=== PATIENT | female | born 1940 | race Caucasian/White ===

== ENCOUNTER 2016-10-14 16:55 | Inpatient (IN) | payer OTHER, BC ==
[2016-10-14] MEDS ORDERED: SODIUM CHLORIDE 250 ML IV STA (17:02)
[2016-10-14] MEDS ORDERED: ONDANSETRON 4 MG/2 ML VIAL IVPB ONE (17:02)
--- NOTE | 2016-10-14 17:02 | PDOC ---
History of Present Illness - History of Present Illness Initial Comments: 10/14/16 18:06 The patient is a 76 year old female with a PMHx of COPD, HTN, HLD, ventral hernia who presents to the ED with periodic vomiting for a week. The patient reports that she recently was prescribed pain medications for cysts on her left hip a little over a week ago. She reports that since then, she has had occasional episodes of vomiting. She states her vomit is only liquid, and denies blood in vomit. She reports associated constipation, chills, and diaphoresis. She reports decreased appetite and increased thirst. Her last bowel movement was yesterday. She denies sick contacts, recent travel. She denies adominal pain. She denies chest pain. She denies fever. <Aparna Gaston - Last Filed: 10/14/16 18:06> <Jordon Martins - Last Filed: 10/15/16 07:31> - General Chief Complaint: Nausea/Vomiting Stated Complaint: NAUSEA, VOMITING Time Seen by Provider: 10/14/16 17:01 Past History <Aparna Gaston - Last Filed: 10/14/16 18:06> - Past Medical History COPD: Yes (COPD) GI Disorders: Yes (VENTRAL HERNIA) HTN: Yes Hypercholesterolemia: Yes - Surgical History Abdominal Surgery: Yes (STOMACH STAPLING 1984) Appendectomy: Yes Orthopedic Surgery: Yes (bilateral knee replacement) - Psycho/Social/Smoking Cessation Hx Anxiety: Yes Suicidal Ideation: No Smoking Status: Yes Smoking History: Former smoker Have you smoked in the past 12 months: No Number of Cigarettes Smoked Daily: 0 If you are a former smoker, when did you quit?: 25-30 years Hx Alcohol Use: No Drug/Substance Use Hx: No Substance Use Type: None Hx Substance Use Treatment: No <Jordon Martins - Last Filed: 10/15/16 07:31> - Past Medical History Allergies/Adverse Reactions: Allergies Allergy/AdvReac Type Severity Reaction Status Date / Time No Known Allergies Allergy Verified 10/14/16 17:30 Home Medications: Ambulatory Orders Diltiazem HCl [Cardizem] 120 mg PO DAILY 07/25/12 Lisinopril [Prinivil] 20 mg PO DAILY 04/09/14 Spironolactone 25 mg PO DAILY 04/09/14 Albuterol 0.083% Nebulizer Isabella [Ventolin 0.083% Nebulizer Soln -] 1 neb NEB Q4H PRN 09/16/15 Budesonide/Formeterol Fumarate [SYMBICORT 160/4.5mcg -] 2 puff IH BID #0 inhaler 09/25/15 Roflumilast [Daliresp -] 500 mcg PO DAILY #0 tablet 09/25/15 Aclidinium [place] [Tudorza Pressair] 400 mcg IH ASDIR 10/14/16 Alprazolam 0.25 mg PO PRN PRN 10/14/16 Azelastine HCl 10/14/16 Hydromorphone [Dilaudid -] 1 - 2 mg PO ASDIR PRN 10/14/16 Meloxicam [Mobic] 15 mg PO DAILY 10/14/16 Montelukast Na [Singulair -] 20 mg PO DAILY 10/14/16 Tramadol HCl 50 mg PO PRN PRN 10/14/16 Review of Systems - Review of Systems Comments:: 10/14/16 18:06 CONSTITUTIONAL: Present: chills, diaphoresis, loss of appetite Absent: fever, generalized weakness, malaise HEENT: Absent: rhinorrhea, nasal congestion, throat pain, throat swelling, difficulty swallowing, mouth swelling, ear pain, eye pain, visual changes CARDIOVASCULAR: Absent: chest pain, syncope, palpitations, irregular heart rate, lightheadedness , peripheral edema RESPIRATORY: Absent: cough, shortness of breath, dyspnea with exertion, orthopnea, wheezing, stridor, hemoptysis GASTROINTESTINAL: Present: vomiting, constipation Absent: abdominal pain, diarrhea, melena, hematochezia GENITOURINARY: Absent: dysuria, frequency, urgency, hesitancy, hematuria, flank pain, genital pain MUSCULOSKELETAL: Present: hip pain Absent: myalgia, arthralgia, joint swelling SKIN: Absent: rash, itching, pallor HEMATOLOGIC/IMMUNOLOGIC: Absent: easy bleeding, easy bruising, lymphadenopathy, frequent infections ENDOCRINE: Absent: unexplained weight gain, unexplained weight loss, heat intolerance, cold intolerance NEUROLOGIC: Absent: headache, focal weakness or paresthesias, dizziness, unsteady gait, seizure, mental status changes, bladder or bowel incontinence PSYCHIATRIC: Absent: anxiety, depression, suicidal or homicidal ideation, hallucinations. <Aparna Gaston - Last Filed: 10/14/16 18:06> *Physical Exam - Vital Signs Last Vital Signs Temp Pulse Resp BP Pulse Ox 98.7 F 114 H 20 103/49 96 10/14/16 16:55 10/14/16 16:55 10/14/16 16:55 10/14/16 16:55 10/14/16 16:55 - Physical Exam Comments: 10/14/16 18:07 GENERAL: Well developed, well nourished. Awake and alert. No acute distress. HEENT: Normocephalic, atraumatic. PERRLA, EOMI. No conjunctival pallor. Sclera are non- icteric. Moist mucous membranes. Oropharynx is clear. NECK: Supple. Full ROM. No JVD. Carotid pulses 2+ and symmetric, without bruits. No thyromegaly. No lymphadenopathy. CARDIOVASCULAR: Tachycardic rate and regular rhythm. No murmurs, rubs, or gallops. Distal pulses are 2+ and symmetric. PULMONARY: Expiratory wheezing in the right. Left lung lee are clear. ABDOMINAL: Obese belly. Well healed midline surgical scar from gastric stapling. Large ventral hernia, non-tender, active bs within the hernia sac. Soft. Non-tender. No rebound or guarding. No organomegaly. Positive bowel sounds. MUSCULOSKELETAL Normal range of motion at all joints. No bony deformities or tenderness. No CVA tenderness. EXTREMITIES: Decreased ROM in right hip. No cyanosis. No clubbing. No edema. No calf tenderness. SKIN: Warm and dry. Normal capillary refill. No rashes. No jaundice. NEUROLOGICAL: Alert, awake, appropriate. Cranial nerves 2-12 intact. No deficits to light touch and temperature in face, upper extremities and lower extremities. No motor deficits in the in face, upper extremities and lower extremities. Normoreflexic in the upper and lower extremities. Normal speech. PSYCHIATRIC: Cooperative. Good eye contact. Appropriate mood and affect. <Aparna Gaston - Last Filed: 10/14/16 18:06> ED Treatment Course - LABORATORY CBC & Chemistry Diagram: 10/14/16 17:16 10/14/16 17:00 - ADDITIONAL ORDERS Additional order review: Laboratory Results 10/14/16 10/14/16 17:00 17:00 Sodium Cancelled Potassium Cancelled Chloride Cancelled Carbon Dioxide Cancelled Anion Gap Cancelled BUN Cancelled Creatinine Cancelled Creat Clearance w eGFR Cancelled Random Glucose Cancelled Calcium Cancelled Total Bilirubin Cancelled AST Cancelled ALT Cancelled Alkaline Phosphatase Cancelled Creatine Kinase 77 Troponin I < 0.03 L Total Protein Cancelled Albumin Cancelled Lipase Cancelled 10/14/16 17:16 RBC 3.60 MCV 83.4 MCHC 32.5 RDW 14.6 MPV 8.7 Neutrophils % Y Lymphocytes % Y - Medications Given in the ED: ED Medications Discontinued Medications Generic Name Dose Route Start Last Admin Trade Name Kevinq PRN Reason Stop Dose Admin Sodium Chloride 250 mls @ 500 mls/hr 10/14/16 17:02 10/14/16 17:23 Normal Saline - IV 10/14/16 17:31 500 mls/hr ASDIR STA Administration Ondansetron HCl 4 mg 10/14/16 17:02 10/14/16 17:23 Zofran Injection IVPB 10/14/16 17:03 4 mg ONCE ONE Administration <Aparna Gaston - Last Filed: 10/14/16 18:06> - LABORATORY CBC & Chemistry Diagram: 10/14/16 17:16 10/14/16 17:05 <Jordon Martins - Last Filed: 10/15/16 07:31> Medical Decision Making - Medical Decision Making 10/15/16 07:28 Although the patient appears well and there is no obvious source of infection, white blood count of 20.9 is worrisome. Also, BUNs 78 and creatinine of 2.4 is significantly worse than her last available blood screen from November 2015, at which time the urine was 39 and creatinine 1.4. The etiology of the daily nausea and retching could be her recent use of hydromorphone and meloxicam for her arthritis pain, or alternately her azotemia if this is new. Blood cultures, urine culture, chest x-ray, and serum lactate were ordered. IV fluid was judiciously started. She was signed out to Dr. Tavarez at 7 PM pending further results, reevaluation, and treatment. She has been completely stable hemodynamically and clinically. <Jordon Martins - Last Filed: 10/15/16 07:31> *DC/Admit/Observation/Transfer - Attestations Scribe Attestion: 10/14/16 18:07 Documentation prepared by Aparna Gaston, acting as medical record clerk for Jordon Cabrera MD. <Aparna Gaston - Last Filed: 10/14/16 18:06> <Jordon Martins - Last Filed: 10/15/16 07:31> Diagnosis at time of Disposition: Pneumonia, Azotemia - Discharge Dispostion Condition at time of disposition: Stable
[2016-10-14] MEDS ORDERED: ONDANSETRON 4 MG/2 ML VIAL ONE (17:20)
[2016-10-14 17:41] LABS: MCH 27.1 pg (25.7-33.7); MCHC 32.5 g/dl (32.0-36.0); MEAN CELL VOLUME 83.4 fl (80-96); MEAN PLT VOLUME 8.7 fl (7.5-11.1); PLATELET COUNT 320 K/MM3 (134-434); RDW 14.6 % (11.6-15.6); WHITE BLOOD COUNT 20.9 K/mm3 (4.0-10.8)
[2016-10-14 17:45] LABS: CPK(DFH) 77 IU/L (26-140)
[2016-10-14 17:58] LABS: TROPONIN I (DFP) < 0.03 ng/ml (0.03-0.50)
[2016-10-14 18:18] LABS: ALBUMIN 3.4 g/dl (3.5-5.0); ALK PHOS 74 U/L (32-92); ANION GAP 13 (8-16); BILIRUBIN,TOTAL 0.5 mg/dl (0.2-1.0); CALCIUM 8.9 mg/dl (8.4-10.2); CO2 20 mmol/L (22-28); CREATININE 2.8 mg/dl (0.6-1.3); GLUCOSE,RANDOM 124 mg/dl (74-106); SGOT/AST 17 U/L (10-42); SGPT/ALT 13 U/L (10-40); TOT PROT 6.6 g/dl (6.4-8.3)
[2016-10-14] MEDS ORDERED: SODIUM CHLORIDE 500 ML IV ONE (19:16)
--- NOTE | 2016-10-14 19:22 | PDOC ---
*Physical Exam - Vital Signs Last Vital Signs Temp Pulse Resp BP Pulse Ox 98.7 F 114 H 20 103/49 96 10/14/16 16:55 10/14/16 16:55 10/14/16 16:55 10/14/16 18:45 10/14/16 16:55 ED Treatment Course - LABORATORY CBC & Chemistry Diagram: 10/14/16 17:16 10/14/16 17:05 - ADDITIONAL ORDERS Additional order review: Laboratory Results 10/14/16 10/14/16 10/14/16 17:05 17:00 17:00 Sodium 133 L Cancelled Potassium 5.6 H Cancelled Chloride 100 Cancelled Carbon Dioxide 20 L D Cancelled Anion Gap 13 Cancelled BUN 78 H D Cancelled Creatinine 2.8 H D Cancelled Creat Clearance w eGFR 16.47 Cancelled Random Glucose 124 H Cancelled Calcium 8.9 Cancelled Total Bilirubin 0.5 Cancelled AST 17 D Cancelled ALT 13 D Cancelled Alkaline Phosphatase 74 D Cancelled Creatine Kinase 77 Troponin I < 0.03 L Total Protein 6.6 Cancelled Albumin 3.4 L Cancelled Lipase 34 Cancelled 10/14/16 17:16 RBC 3.60 MCV 83.4 MCHC 32.5 RDW 14.6 MPV 8.7 Neutrophils % 90.0 H Lymphocytes % 5.0 L D Monocytes % 3.0 L Eosinophils % 1.0 D Basophils % 1.0 D - Medications Given in the ED: ED Medications Discontinued Medications Generic Name Dose Route Start Last Admin Trade Name Freq PRN Reason Stop Dose Admin Sodium Chloride 250 mls @ 500 mls/hr 10/14/16 17:02 10/14/16 17:23 Normal Saline - IV 10/14/16 17:31 500 mls/hr ASDIR STA Administration Ondansetron HCl 4 mg 10/14/16 17:02 10/14/16 17:23 Zofran Injection IVPB 10/14/16 17:03 4 mg ONCE ONE Administration Progress Note - Progress Note Progress Note: Care of this patient received from Dr. Hernandez.. Portable chest x-ray interpreted by : Atelectasis versus infiltrate at the right base. Because of patient's history of COPD and previous history of pneumonia, we will treat with azithromycin 500 mg IV and Rocephin 1 g IV. Blood cultures have been obtained. Heart rate continues to be in 120s. Patient is current.y experiencing lower back pain and has been given Tylenol 650 mg by mouth. She may also be hypovolemic in light of her elevated BUN/creatinine. Patient has received approximately 750 mL of IV fluid during her stay in the ER thus far.. An additional 350 milliliters of fluid will be given IV in her antibiotic doses. Case discussed with the patient's PMD, . He will admit the patient for treatment of her pneumonia/azotemia. *DC/Admit/Observation/Transfer Diagnosis at time of Disposition: Azotemia Pneumonia Qualifiers: Pneumonia type: due to unspecified organism Laterality: right Lung location: lower lobe of lung Qualified Code(s): J18.1 - Lobar pneumonia, unspecified organism - Discharge Dispostion Condition at time of disposition: Stable Admit: Yes - Referrals Referrals: Roberto Roberts MD [Primary Care Provider] - - Patient Instructions - Post Discharge Activity
[2016-10-14] MEDS ORDERED: AZITHROMYCIN IVPB 500 MG in DEXTROSE 5%-WATER - 250 ML IVPB ONE (20:02)
[2016-10-14] MEDS ORDERED: CEFTRIAXONE 1 GM in DEXTROSE 5%-WATER - 50 ML IVPB ONE (20:03)
[2016-10-14] MEDS ORDERED: AZITHROMYCIN 500 MG VIAL IVPB ONE (20:04)
[2016-10-14] MEDS ORDERED: cefTRIAXone SODIUM 1 GM VIAL ONE (20:04)
[2016-10-14] MEDS ORDERED: ACETAMINOPHEN 325 MG TABLET (FP) PO ONE (20:15)
[2016-10-14] MEDS ORDERED: ACETAMINOPHEN 325 MG TABLET (FP) ONE (20:16)
--- NOTE | 2016-10-14 23:30 | HP ---
Admitting History and Physical - Primary Care Physician PCP: Roberto Roberts - Admission Chief Complaint: Nausea and vomiting History of Present Illness: 76 y/o female with hx of COPD, HTN, CHF and ARABELLA, presented to the [facility] ER with several day hx of nausea and vomiting, with mild worsening of cough. Denies fever/chills or worsening dyspnea. However, having worsening LBP over the last week without any new trauma. Recently placed on Dilaudid and Mobic Rx by her Orthopedist which coincides with the onset of the nausea and vomiting. Noted to have a marked leukocytosis on CBC, and RLL infiltrate on CXR. Also, a worsening azotemia noted as well on routine laboratory testing. No chest pain, worsening wheezing or increased sputum production. Patient her COPD status is almost baseline. History Source: Patient Limitations to Obtaining History: No Limitations - Past Medical History Cardiovascular: Yes: CHF, HTN Pulmonary: Yes: COPD, Pneumonia Gastrointestinal: Yes: GERD - Past Surgical History Past Surgical History: Yes: Appendectomy, Cataract Removal Additional Past Surgical History: Gastric stapling - Smoking History Smoking history: Former smoker Have you smoked in the past 12 months: No Aproximately how many cigarettes per day: 0 If you are a former smoker, when did you quit?: 25-30 years - Alcohol/Substance Use Hx Alcohol Use: No - Social History Usual Living Arrangement: Yes: Alone (Two family home-son lives in other part of the house.) ADL: Independent History of Recent Travel: No Home Medications - Allergies Allergies/Adverse Reactions: Allergies Allergy/AdvReac Type Severity Reaction Status Date / Time No Known Allergies Allergy Verified 10/14/16 17:30 - Home Medications Home Medications: Ambulatory Orders Diltiazem HCl [Cardizem] 120 mg PO DAILY 07/25/12 Lisinopril [Prinivil] 20 mg PO DAILY 04/09/14 Spironolactone 25 mg PO DAILY 04/09/14 Albuterol 0.083% Nebulizer Isabella [Ventolin 0.083% Nebulizer Soln -] 1 neb NEB Q4H PRN 09/16/15 Budesonide/Formeterol Fumarate [SYMBICORT 160/4.5mcg -] 2 puff IH BID #0 inhaler 09/25/15 Roflumilast [Daliresp -] 500 mcg PO DAILY #0 tablet 09/25/15 Aclidinium [place] [Tudorza Pressair] 400 mcg IH ASDIR 10/14/16 Alprazolam 0.25 mg PO PRN PRN 10/14/16 Azelastine HCl 10/14/16 Hydromorphone [Dilaudid -] 1 - 2 mg PO ASDIR PRN 10/14/16 Meloxicam [Mobic] 15 mg PO DAILY 10/14/16 Montelukast Na [Singulair -] 20 mg PO DAILY 10/14/16 Tramadol HCl 50 mg PO PRN PRN 10/14/16 Physical Examination Vital Signs: Vital Signs Temperature 98.8 F 10/14/16 21:13 Pulse Rate 114 H 10/14/16 21:13 Respiratory Rate 28 H 10/14/16 21:13 Blood Pressure 99/52 10/14/16 21:13 O2 Sat by Pulse Oximetry (%) 95 10/14/16 21:13 Constitutional: Yes: Well Nourished, No Distress Eyes: Yes: WNL HENT: Yes: WNL Neck: Yes: WNL, Supple, Trachea Midline Respiratory: Yes: Diminished, Rhonchi, Wheezes Gastrointestinal: Yes: Normal Bowel Sounds, Soft, Other (ventral hernia) ...Rectal Exam: Yes: Deferred Renal/: Yes: WNL Breast(s): Yes: WNL Musculoskeletal: Yes: Joint Stiffness, Other (Decreased ROM R hip) Edema: No Peripheral Pulses: Left Radial: 2+, Right Radial: 2+, Left Doralis Pedis: 1+, Right Dorsalis Pedis: 1+, Left Femoral: 1+, Right Femoral: 1+ Integumentary: Yes: WNL Neurological: Yes: Alert, Oriented, Cran Nerves II-XII Intact Labs: CBC, BMP 10/14/16 17:16 Lactic acid-2 .38 Lipase-34 10/14/16 17:05 Troponin-<0.03 Imaging - Results X-ray: Image Reviewed (RLL infitrate vs atelectasis) Problem List - Problems (1) Azotemia Code(s): R79.89 - OTHER SPECIFIED ABNORMAL FINDINGS OF BLOOD CHEMISTRY (2) Pneumonia Code(s): J18.9 - PNEUMONIA, UNSPECIFIED ORGANISM Qualifiers: Pneumonia type: due to unspecified organism Laterality: right Lung location: lower lobe of lung Qualified Code(s): J18.1 - Lobar pneumonia, unspecified organism (3) COPD exacerbation Code(s): J44.1 - CHRONIC OBSTRUCTIVE PULMONARY DISEASE W (ACUTE) EXACERBATION (4) HTN (hypertension) Code(s): I10 - ESSENTIAL (PRIMARY) HYPERTENSION Qualifiers: Hypertension type: essential hypertension Qualified Code(s): I10 - Essential (primary) hypertension Assessment/Plan 1)-IV antibiotics-Rocephin and Zithromax 2)-IV fluid at slow rate for "gentle rehydration" secondary to CHF history 3)-Serial laboratory testing for leukocytosis and azotemia 4)-ID evaluation 5)-VTE prophylaxis 6)-COPD exacerbation treatment as needed
[2016-10-14 23:49] VITALS: BMI 32.9
[2016-10-15] MEDS ORDERED: LISINOPRIL 20 MG TABLET (FP) PO ONE (00:04)
[2016-10-15] MEDS ORDERED: ONDANSETRON 8 MG TABLET (FP) PO PRN (00:12)
[2016-10-15] MEDS: SODIUM CHLORIDE 1,000 ML IV SCH (00:50)
[2016-10-15] MEDS: ALPRAZolam 0.25 MG TABLET PO PRN ×2 (00:50→22:14)
[2016-10-15 04:28] LABS: URINE APPEARANCE SLCLOUDY; URINE BILIRUBIN NEGATIVE (NEGATIVE); URINE BLOOD NEGATIVE (NEGATIVE); URINE COLOR YELLOW; URINE GLUCOSE (UA) NEGATIVE (NEGATIVE); URINE KETONE NEGATIVE (NEGATIVE); URINE NITRITE NEGATIVE (NEGATIVE); URINE PROTEIN NEGATIVE (NEGATIVE); URINE UROBILINOGEN NEGATIVE E.U./dl (0.2-1.0)
[2016-10-15 04:30] LABS: URINE LEUK ESTERASE 1+ (NEGATIVE)
[2016-10-15 04:32] LABS: GRANULAR CASTS 16 /lpf; URINE BACTERIA RARE /hpf (NONE SEEN); URINE HYALINE CAST 38 /lpf; URINE MUCUS RARE; URINE RBC 1 /hpf (0-3); URINE WBC 4 /hpf (3-5)
[2016-10-15 08:42] LABS: BASOPHIL 0.4 % (0-2.0); EOSINOPHIL 0.3 % (0-4.5); MCHC 32.5 g/dl (32.0-36.0); MEAN CELL VOLUME 86.2 fl (80-96); MEAN PLT VOLUME 8.6 fl (7.5-11.1); NEUTROPHILS 87.5 % (42.8-82.8); PLATELET COUNT 271 K/MM3 (134-434); RDW 14.5 % (11.6-15.6); WHITE BLOOD COUNT 20.7 K/mm3 (4.0-10.8)
[2016-10-15 08:49] LABS: ALBUMIN 2.9 g/dl (3.5-5.0); ALK PHOS 65 U/L (32-92); ANION GAP 11 (8-16); CALCIUM 8.8 mg/dl (8.4-10.2); CO2 22 mmol/L (22-28); CREATININE 2.3 mg/dl (0.6-1.3); GLUCOSE,RANDOM 97 mg/dl (74-106); SGOT/AST 15 U/L (10-42); SGPT/ALT 10 U/L (10-40); TOT PROT 5.7 g/dl (6.4-8.3)
[2016-10-15] MEDS: cefTRIAXone 1 GM/50 ML BAG (PRE-DOCKED) IVPB SCH (09:00)
[2016-10-15 09:09] LABS: BILIRUBIN,TOTAL < 0.3 mg/dl (0.2-1.0)
[2016-10-15] MEDS ORDERED: PT OWN MED DRAWER 7, Y5N ONE (09:59)
[2016-10-15] MEDS: BUDESONIDE/FORMETEROL FUMARATE 160/4.5 mcg INHALER IH SCH ×2 (10:00→21:51)
[2016-10-15] MEDS: AZITHROMYCIN IVPB 250 ML IVPB SCH (10:00)
[2016-10-15] MEDS: ROFLUMILAST 500 MCG TABLET PO SCH (10:00)
[2016-10-15] MEDS: ACLIDINIUM BROMIDE 400 MCG/INH AERO.POWD IH SCH ×2 (10:00→21:51)
[2016-10-15] MEDS: SPIRONOLACTONE 25 MG TABLET (FP) PO SCH (10:00)
--- NOTE | 2016-10-15 11:09 | PN ---
Progress Note (short form) - Note Progress Note: ID Consult dictated Acute exacerbation COPD Possible community acquired v. atypical pneumonia Leukocytosis Azotemia Await c/s Continue zithromax/ ceftriaxone empirically Bronchodilators
--- NOTE | 2016-10-15 11:51 | CONS ---
DATE OF CONSULTATION: DATE OF DICTATION: 10/15/2016 HISTORY OF PRESENT ILLNESS: This is a 76-year-old female with history of chronic obstructive pulmonary disease evaluated for acute exacerbation and possible pneumonia. She was admitted to the hospital on October 14, 2016, with increasing shortness of breath, nausea, and vomiting. Her primary symptoms were nausea and vomiting of gastric contents. She presented to the emergency room where she was evaluated. Chest x-ray showed possible infiltrate at the right base. She was admitted with a diagnosis of acute exacerbation, COPD, and empirically treated with Zithromax and ceftriaxone for possible community-acquired versus atypical pneumonia. Patient reports cough productive of yellowish sputum. She denies any hemoptysis. No complaints of chest pain or dyspnea. She does appear to be short of breath at rest on nasal cannula O2. She denies any ill contacts. She has not been recently hospitalized. No recent travel. She is a former smoker. She reports being up to date with respect to her influenza and pneumococcal vaccines. PAST MEDICAL HISTORY: Positive for COPD, morbid obesity, hypertension, congestive heart failure. PAST SURGICAL HISTORY: Status post incisional hernia, which she is able to manually reduce. Status post gastric bypass, gastric bypass, appendectomy, and incisional hernia. ALLERGIES: No known allergies. MEDICATIONS: Include tramadol, Xanax, Mobic, Dilaudid, spironolactone, lisinopril, Cardizem. SOCIAL HISTORY: She is a former smoker. She lives at home. SYSTEMS REVIEW: Neurologic: No loss of consciousness, seizure activity, or focal weakness. Cardiac: Negative for chest pain or palpitations. Respiratory: As per HPI. Gastrointestinal: Positive for incisional hernia which is reducible. Genitourinary: Negative for urinary tract infection. LABORATORY DATA: White count 20.7 with 87 neutrophils, 6 lymphocytes, 5 monocytes, hematocrit 26.7, platelet count 271. BUN 71, creatinine 2.3. Chest x-ray shows some increased markings at the right lung base. PHYSICAL EXAMINATION: General: She is out of bed in chair. She is slightly dyspneic at rest on nasal cannula, in no acute respiratory distress. Vital signs: Temperature 98.9, blood pressure 92/38, pulse 102 and regular, respirations 20 per minute. HEENT: Sclerae anicteric. Heart: Heart sounds S1, S2. Lungs: Crepitations at the bases bilaterally. Abdomen: Obese, nontender. There is an incisional hernia present, healed surgical scar. Extremities: 1+ edema. IMPRESSION: 1. Acute exacerbation chronic obstructive pulmonary disease. 2. Possible community-acquired versus atypical right lower lobe pneumonia. 3. Leukocytosis. 4. Azotemia. Await culture results, obtain sputum culture and urine legionella antigen, empiric antibiotic coverage with Zithromax and ceftriaxone, bronchodilators. Will follow. Pulmonary evaluation. Thank you for the kind referral. VINOD DAWN M.D. [id number] MTDD
--- NOTE | 2016-10-15 16:54 | EKG ---
Test Reason : Blood Pressure : / mmHG Vent. Rate : 119 BPM Atrial Rate : 119 BPM P-R Int : 136 ms QRS Dur : 076 ms QT Int : 282 ms P-R-T Axes : 099 047 027 degrees QTc Int : 396 ms POOR DATA QUALITY, INTERPRETATION MAY BE ADVERSELY AFFECTED SINUS TACHYCARDIA NO PREVIOUS ECGS AVAILABLE Confirmed by MD MURRAY MARJORY ([id number]) on 10/15/2016 4:54:08 PM Referred By: MD FRIEND Confirmed By:VALENTINO MURRAY MD
--- NOTE | 2016-10-15 18:16 | CON.PULM ---
Consult Consult Specialty:: PULMONARY Referred by:: ROBE Reason for Consultation:: SOB/COUGH - History of Present Illness Chief Complaint: SOB/COUGH History of Present Illness: The patient is a 76 year old female with a PMHx of COPD, HTN, HLD, ventral hernia who presents to the ED with periodic vomiting for a week. The patient reports that she recently was prescribed pain medications for cysts on her left hip a little over a week ago. She reports that since then, she has had occasional episodes of vomiting. She states her vomit is only liquid, and denies blood in vomit. She reports associated constipation, chills, and diaphoresis. She reports decreased appetite and increased thirst. Her last bowel movement was yesterday. She denies sick contacts, recent travel. She denies adominal pain. She denies chest pain. She denies fever. She also complains of cough with sputum amd chest congestion. - History Source History Provided By: Patient, Medical Record Limitations to Obtaining History: No Limitations - Past Medical History [employer]IST: No: Alzheimer's Cardio/Vascular: Yes: CHF, HTN Pulmonary: Yes: COPD, Pneumonia Gastrointestinal: Yes: GERD ...LMP Comment: PATIENT IS 76 Y/O ...: No - Past Surgical History Past Surgical History: Yes: Appendectomy, Cataract Removal, Joint Replacement ( bilateral knee replacements) - Alcohol/Substance Use Hx Alcohol Use: No - Smoking History Smoking history: Former smoker Have you smoked in the past 12 months: No Aproximately how many cigarettes per day: 0 If you are a former smoker, when did you quit?: 25-30 years - Social History ADL: Independent Place of : [facility] History of Recent Travel: No Home Medications - Allergies Allergies/Adverse Reactions: Allergies Allergy/AdvReac Type Severity Reaction Status Date / Time No Known Allergies Allergy Verified 10/14/16 17:30 - Home Medications Home Medications: Ambulatory Orders Diltiazem HCl [Cardizem] 120 mg PO DAILY 07/25/12 Lisinopril [Prinivil] 20 mg PO DAILY 04/09/14 Spironolactone 25 mg PO DAILY 04/09/14 Albuterol 0.083% Nebulizer Isabella [Ventolin 0.083% Nebulizer Soln -] 1 neb NEB Q4H PRN 09/16/15 Budesonide/Formeterol Fumarate [SYMBICORT 160/4.5mcg -] 2 puff IH BID #0 inhaler 09/25/15 Roflumilast [Daliresp -] 500 mcg PO DAILY #0 tablet 09/25/15 Aclidinium [place] [Tudorza Pressair] 400 mcg IH ASDIR 10/14/16 Alprazolam 0.25 mg PO PRN PRN 10/14/16 Azelastine HCl 10/14/16 Hydromorphone [Dilaudid -] 1 - 2 mg PO ASDIR PRN 10/14/16 Meloxicam [Mobic] 15 mg PO DAILY 10/14/16 Montelukast Na [Singulair -] 20 mg PO DAILY 10/14/16 Tramadol HCl 50 mg PO PRN PRN 10/14/16 Family Disease History - Family Disease History Family History: Unremarkable Review of Systems - Review of Systems Cardiovascular: denies: Chest Pain Respiratory: reports: Cough, Exercise Intolerance, SOB, SOB on Exertion. denies : Hemoptysis, Wheezing Gastrointestinal: reports: Vomiting Physical Exam Vital Sings: Vital Signs Temperature 98.2 F 10/15/16 14:23 Pulse Rate 120 H 10/15/16 14:23 Respiratory Rate 20 10/15/16 14:23 Blood Pressure 81/41 10/15/16 14:23 O2 Sat by Pulse Oximetry (%) 94 L 10/15/16 14:23 Constitutional: Yes: Calm Eyes: Yes: EOM Intact HENT: Yes: Normocephalic Neck: Yes: Trachea Midline Cardiovascular: Yes: Regular Rate and Rhythm Respiratory: Yes: Diminished Gastrointestinal: Yes: Normal Bowel Sounds Extremities: No: Calf Tenderness Edema: No Neurological: Yes: Alert Psychiatric: Yes: WNL, Alert Labs: CBC, BMP 10/15/16 07:30 10/15/16 07:30 rest reviewed Imaging - Results Chest X-ray: Image Reviewed EKG: Image Reviewed Problem List - Problems (1) Pneumonia Code(s): J18.9 - PNEUMONIA, UNSPECIFIED ORGANISM Qualifiers: Pneumonia type: due to unspecified organism Laterality: right Lung location: lower lobe of lung Qualified Code(s): J18.1 - Lobar pneumonia, unspecified organism (2) Acute and chronic respiratory failure Code(s): J96.20 - ACUTE AND CHR RESP FAILURE, UNSP W HYPOXIA OR HYPERCAPNIA (3) COPD exacerbation Code(s): J44.1 - CHRONIC OBSTRUCTIVE PULMONARY DISEASE W (ACUTE) EXACERBATION (4) HTN (hypertension) Code(s): I10 - ESSENTIAL (PRIMARY) HYPERTENSION Qualifiers: Hypertension type: essential hypertension Qualified Code(s): I10 - Essential (primary) hypertension Assessment/Plan LEUKOCYTOSIS AND ELEVATED LACTIC ACID LIKELY DUE TO RLL INFILTRATE SEEN ON RADIOGRAPH RESOLVED N/V AGREE WITH ABS/PANCULTURE/URINARY ANTIGENS ARE NEGATIVE CONTINUE O2 SUPPLEMENTATION/BRONCHODILATORS/CHEST PT DVT/GI PROPHYLAXSIS NO ROLE FOR STEROIDS PRESENTLY SUGGEST CT CHEST NO CONTRAST MONITOR BUN/CR CONSIDER RENAL US Erika VARGAS MD
[2016-10-15] MEDS ORDERED: SODIUM POLYSTYRENE SULFONATE 15 GM/60 ML BOTTLE PO ONE (21:42)
[2016-10-15] MEDS: MONTELUKAST NA 5 MG TAB.CHEW PO SCH (21:50)
[2016-10-15] MEDS ORDERED: AZITHROMYCIN IVPB 250 ML IVPB ONE (22:00)
--- NOTE | 2016-10-15 22:06 | PN ---
Progress Note, Physician Chief Complaint: Nausea, vomiting, wet cough History of Present Illness: Patient feels about the same, but now cough is more productive. No CP or increased dyspnea. R hip pain is better. No further nausea or vomiting. No diarrhea/constipation. Denies melena. - Current Medication List Current Medications: Active Medications Aclidinium [place] (Tudorza -) 1 puff IH BID [facility] Last Admin: 10/15/16 21:51 Dose: 1 puff Alprazolam (Xanax -) 0.25 mg PO Q6H PRN PRN Reason: ANXIETY Last Admin: 10/15/16 00:50 Dose: 0.25 mg Budesonide/Formoterol Fumarate (Symbicort 160/4.5mcg -) 2 puff IH BID [facility] Last Admin: 10/15/16 21:51 Dose: 2 inhaler Ceftriaxone Sodium (Rocephin 1gm Ivpb (Pre-Docked)) 1 gm IVPB DAILY [facility] PRN Reason: Protocol Last Admin: 10/15/16 09:00 Dose: 1 gm Diltiazem HCl (Cardizem Cd -) 120 mg PO DAILY [facility] Last Admin: 10/15/16 10:00 Dose: 120 mg Azithromycin (Zithromax 500mg Ivpb (Pre-Docked)) 250 mls @ 250 mls/hr IVPB DAILY [facility] Last Admin: 10/15/16 10:00 Dose: 250 mls/hr Sodium Chloride (Normal Saline -) 1,000 mls @ 75 mls/hr IV ASDIR [facility] Last Admin: 10/15/16 00:50 Dose: 75 mls/hr Pantoprazole Sodium (Protonix 40mg Ivpb (Pre-Docked)) 100 mls @ 200 mls/hr IVPB DAILY [facility] Montelukast Sodium (Singulair -) 10 mg PO HS [facility] Last Admin: 10/15/16 21:50 Dose: 10 mg Ondansetron HCl (Zofran -) 8 mg PO Q8H PRN PRN Reason: NAUSEA Roflumilast (Daliresp -) 500 mcg PO DAILY [facility] Last Admin: 10/15/16 10:00 Dose: 500 mcg Spironolactone (Aldactone -) 25 mg PO DAILY [facility] Last Admin: 10/15/16 10:00 Dose: 25 mg - Objective Vital Signs: Vital Signs Temperature 98.2 F 10/15/16 14:23 Pulse Rate 120 H 10/15/16 14:23 Respiratory Rate 20 10/15/16 14:23 Blood Pressure 81/41 10/15/16 14:23 O2 Sat by Pulse Oximetry (%) 94 L 10/15/16 14:23 Constitutional: Yes: Well Nourished, No Distress Eyes: Yes: Conjunctiva Clear, EOM Intact HENT: Yes: Normocephalic Neck: Yes: Supple, Trachea Midline Cardiovascular: Yes: Regular Rate and Rhythm Respiratory: Yes: Cough, Diminished (breath sounds bilaterally), Rales (not present), Rhonchi (bilaterally) Gastrointestinal: Yes: Normal Bowel Sounds, Soft Edema: No Integumentary: Yes: WNL Labs: CBC, BMP 10/15/16 07:30 10/15/16 07:30 Problem List - Problems (1) Azotemia Code(s): R79.89 - OTHER SPECIFIED ABNORMAL FINDINGS OF BLOOD CHEMISTRY (2) Pneumonia Code(s): J18.9 - PNEUMONIA, UNSPECIFIED ORGANISM Qualifiers: Pneumonia type: due to unspecified organism Laterality: right Lung location: lower lobe of lung Qualified Code(s): J18.1 - Lobar pneumonia, unspecified organism (3) COPD exacerbation Code(s): J44.1 - CHRONIC OBSTRUCTIVE PULMONARY DISEASE W (ACUTE) EXACERBATION (4) HTN (hypertension) Code(s): I10 - ESSENTIAL (PRIMARY) HYPERTENSION Qualifiers: Hypertension type: essential hypertension Qualified Code(s): I10 - Essential (primary) hypertension (5) Hyperkalemia Code(s): E87.5 - HYPERKALEMIA Assessment/Plan 1)-Continue IV Ab and fluids. 2)-Serial labs 3)-Stool guiac tests x3 4)-CT scan of chest 5)-Renal US 6)-VTE/GI prophylaxis 7)-Kayexalate Rx
[2016-10-15] MEDS: guaiFENesin/D-METHORPHAN HB 1 EACH TAB.ER.12H PO SCH (22:40)
[2016-10-15 23:20] LABS: BASOPHIL 0.2 % (0-2.0); EOSINOPHIL 0.5 % (0-4.5); MCH 27.8 pg (25.7-33.7); MCHC 33.3 g/dl (32.0-36.0); MEAN CELL VOLUME 83.4 fl (80-96); MEAN PLT VOLUME 7.9 fl (7.5-11.1); NEUTROPHILS 84.3 % (42.8-82.8); PLATELET COUNT 260 K/MM3 (134-434); RDW 14.3 % (11.6-15.6); WHITE BLOOD COUNT 17.1 K/mm3 (4.0-10.8)
[2016-10-15 23:33] LABS: ALBUMIN 2.7 g/dl (3.5-5.0); ALK PHOS 69 U/L (32-92); ANION GAP 11 (8-16); CALCIUM 8.9 mg/dl (8.4-10.2); CO2 22 mmol/L (22-28); CREATININE 1.6 mg/dl (0.6-1.3); GLUCOSE,RANDOM 128 mg/dl (74-106); SGOT/AST 18 U/L (10-42); SGPT/ALT 13 U/L (10-40)
[2016-10-15 23:37] LABS: BILIRUBIN,TOTAL < 0.3 mg/dl (0.2-1.0)
[2016-10-16] MEDS ORDERED: ONDANSETRON 4 MG TABLET PO ONE (01:50)
[2016-10-16 07:22] LABS: BASOPHIL 0.4 % (0-2.0); EOSINOPHIL 0.9 % (0-4.5); MCH 28.2 pg (25.7-33.7); MCHC 33.4 g/dl (32.0-36.0); MEAN CELL VOLUME 84.2 fl (80-96); NEUTROPHILS 85.4 % (42.8-82.8); PLATELET COUNT 232 K/MM3 (134-434); RDW 14.7 % (11.6-15.6); WHITE BLOOD COUNT 13.1 K/mm3 (4.0-10.8)
[2016-10-16 08:06] LABS: ALBUMIN 2.5 g/dl (3.5-5.0); BILIRUBIN,TOTAL 0.3 mg/dl (0.2-1.0); CALCIUM 8.6 mg/dl (8.4-10.2); COCKROFT - GAULT 51.34; CREATININE 1.3 mg/dl (0.6-1.3); TOT PROT 5.6 g/dl (6.4-8.3)
[2016-10-16] MEDS ORDERED: PT OWN MED DRAWER 7, Y5N ONE ×3 (09:09→21:37)
[2016-10-16] MEDS: AZITHROMYCIN IVPB 250 ML IVPB SCH (09:18)
[2016-10-16] MEDS: PANTOPRAZOLE SODIUM 100 ML IVPB SCH (09:19)
[2016-10-16] MEDS: cefTRIAXone 1 GM/50 ML BAG (PRE-DOCKED) IVPB SCH (09:19)
[2016-10-16] MEDS: ROFLUMILAST 500 MCG TABLET PO SCH (09:20)
[2016-10-16] MEDS: ACLIDINIUM BROMIDE 400 MCG/INH AERO.POWD IH SCH ×2 (09:20→21:43)
[2016-10-16] MEDS: BUDESONIDE/FORMETEROL FUMARATE 160/4.5 mcg INHALER IH SCH ×2 (09:20→21:42)
[2016-10-16] MEDS: SPIRONOLACTONE 25 MG TABLET (FP) PO SCH (09:21)
[2016-10-16] MEDS: SODIUM CHLORIDE 1,000 ML IV SCH ×2 (09:21→22:41)
[2016-10-16] MEDS: guaiFENesin/D-METHORPHAN HB 1 EACH TAB.ER.12H PO SCH ×2 (09:25→21:42)
[2016-10-16] MEDS: ALPRAZolam 0.25 MG TABLET PO PRN (20:13)
[2016-10-16] MEDS: MONTELUKAST NA 5 MG TAB.CHEW PO SCH (22:04)
[2016-10-16] MEDS ORDERED: guaiFENesin/CODEINE 5 ML UNIT-DOSE CUPS PO PRN (22:13)
[2016-10-16] MEDS ORDERED: SODIUM POLYSTYRENE SULFONATE 15 GM/60 ML BOTTLE PO ONE (22:14)
--- NOTE | 2016-10-16 22:39 | PN ---
Progress Note, Physician Chief Complaint: Nausea, vomiting, wet cough History of Present Illness: Worsening dry cough and feels that the Mucinex is the reason. No nausea or vomiting. No melena or dyspepsia. No worsening dyspnea or wheezing. No chest pain. - Current Medication List Current Medications: Active Medications Aclidinium [place] (Tudorza -) 1 puff IH BID [facility] Last Admin: 10/16/16 21:43 Dose: 1 puff Alprazolam (Xanax -) 0.25 mg PO Q6H PRN PRN Reason: ANXIETY Last Admin: 10/16/16 20:13 Dose: 0.25 mg Budesonide/Formoterol Fumarate (Symbicort 160/4.5mcg -) 2 puff IH BID [facility] Last Admin: 10/16/16 21:42 Dose: 2 puff Ceftriaxone Sodium (Rocephin 1gm Ivpb (Pre-Docked)) 1 gm IVPB DAILY [facility] PRN Reason: Protocol Last Admin: 10/16/16 09:19 Dose: 1 gm Diltiazem HCl (Cardizem Cd -) 120 mg PO DAILY [facility] Last Admin: 10/16/16 09:21 Dose: 120 mg Guaifenesin/Codeine Phosphate (Robitussin Ac -) 5 ml PO TID PRN PRN Reason: COUGH Azithromycin (Zithromax 500mg Ivpb (Pre-Docked)) 250 mls @ 250 mls/hr IVPB DAILY [facility] Last Admin: 10/16/16 09:18 Dose: 250 mls/hr Pantoprazole Sodium (Protonix 40mg Ivpb (Pre-Docked)) 100 mls @ 200 mls/hr IVPB DAILY [facility] Last Admin: 10/16/16 09:19 Dose: 200 mls/hr Sodium Chloride (Normal Saline -) 1,000 mls @ 40 mls/hr IV ASDIR [facility] Montelukast Sodium (Singulair -) 10 mg PO HS [facility] Last Admin: 10/16/16 22:04 Dose: 10 mg Ondansetron HCl (Zofran -) 8 mg PO Q8H PRN PRN Reason: NAUSEA Last Admin: 10/16/16 01:51 Dose: 8 mg Roflumilast (Daliresp -) 500 mcg PO DAILY [facility] Last Admin: 10/16/16 09:20 Dose: 500 mcg Sodium Polystyrene Sulfonate (Kayexalate -) 15 gm PO ONCE ONE Stop: 10/16/16 22:15 Spironolactone (Aldactone -) 25 mg PO DAILY [facility] Last Admin: 10/16/16 09:21 Dose: 25 mg - Objective Vital Signs: Vital Signs Temperature 99.1 F 10/16/16 20:00 Pulse Rate 96 H 10/16/16 20:00 Respiratory Rate 20 10/16/16 20:00 Blood Pressure 117/59 10/16/16 20:00 O2 Sat by Pulse Oximetry (%) 97 10/16/16 20:23 Constitutional: Yes: No Distress, Calm Eyes: Yes: WNL, Conjunctiva Clear, EOM Intact HENT: Yes: WNL, Normocephalic Neck: Yes: Supple, Trachea Midline Cardiovascular: Yes: Regular Rate and Rhythm Respiratory: Yes: Cough, Rhonchi, SOB on Exertion, Wheezes Gastrointestinal: Yes: Normal Bowel Sounds, Soft Edema: No Integumentary: Yes: WNL Neurological: Yes: Alert, Oriented Labs: CBC, BMP 10/16/16 07:10 Guiac-negative x1 10/16/16 07:10 - ....Imaging Cat Scan: Report Reviewed (Interval LLL, YURY, RML infiltrates, as well as patchy RLL infiltrate.) Problem List - Problems (1) Azotemia Code(s): R79.89 - OTHER SPECIFIED ABNORMAL FINDINGS OF BLOOD CHEMISTRY (2) Pneumonia Code(s): J18.9 - PNEUMONIA, UNSPECIFIED ORGANISM Qualifiers: Pneumonia type: due to unspecified organism Laterality: right Lung location: lower lobe of lung Qualified Code(s): J18.1 - Lobar pneumonia, unspecified organism (3) COPD exacerbation Code(s): J44.1 - CHRONIC OBSTRUCTIVE PULMONARY DISEASE W (ACUTE) EXACERBATION (4) HTN (hypertension) Code(s): I10 - ESSENTIAL (PRIMARY) HYPERTENSION Qualifiers: Hypertension type: essential hypertension Qualified Code(s): I10 - Essential (primary) hypertension (5) Hyperkalemia Code(s): E87.5 - HYPERKALEMIA (6) Anemia Code(s): D64.9 - ANEMIA, UNSPECIFIED Qualifiers: Anemia type: unspecified type Qualified Code(s): D64.9 - Anemia, unspecified Assessment/Plan 1)-Continue IV Ab. 2)-Decrease IV fluid rate to 40 ml/hr. 3)-Repeat Kayexalate 15 Gm PO x1. 4)-Repeat labs in AM. 5)-Anemia work-up ordered. 6)-Repeat CXR on 10/18/16. 7)-Tramodol 50 mg q6hr prn pain.
[2016-10-17] MEDS: guaiFENesin/CODEINE 10 ML UNIT-DOSE CUPS PO PRN ×2 (05:42→14:19)
[2016-10-17 08:39] LABS: BASOPHIL 0.5 % (0-2.0); MCH 27.3 pg (25.7-33.7); MCHC 32.5 g/dl (32.0-36.0); MEAN CELL VOLUME 83.9 fl (80-96); NEUTROPHILS 78.4 % (42.8-82.8); PLATELET COUNT 271 K/MM3 (134-434); RDW 14.3 % (11.6-15.6); WHITE BLOOD COUNT 11.9 K/mm3 (4.0-10.8)
[2016-10-17] MEDS ORDERED: PT OWN MED DRAWER 7, Y5N ONE ×2 (09:03→21:37)
[2016-10-17 09:07] LABS: ALBUMIN 2.5 g/dl (3.5-5.0); ALK PHOS 72 U/L (32-92); ANION GAP 8 (8-16); CALCIUM 8.5 mg/dl (8.4-10.2); CO2 25 mmol/L (22-28); GLUCOSE,RANDOM 95 mg/dl (74-106); SGOT/AST 21 U/L (10-42); SGPT/ALT 18 U/L (10-40); TOT PROT 5.7 g/dl (6.4-8.3)
[2016-10-17] MEDS: PANTOPRAZOLE SODIUM 100 ML IVPB SCH (09:11)
[2016-10-17] MEDS: BUDESONIDE/FORMETEROL FUMARATE 160/4.5 mcg INHALER IH SCH ×2 (09:11→21:46)
[2016-10-17] MEDS: ACLIDINIUM BROMIDE 400 MCG/INH AERO.POWD IH SCH ×2 (09:11→21:46)
[2016-10-17] MEDS: SPIRONOLACTONE 25 MG TABLET (FP) PO SCH (09:12)
[2016-10-17] MEDS: ROFLUMILAST 500 MCG TABLET PO SCH (09:12)
[2016-10-17 09:16] LABS: COCKROFT - GAULT NT
[2016-10-17] MEDS: cefTRIAXone 1 GM/50 ML BAG (PRE-DOCKED) IVPB SCH (09:38)
[2016-10-17] MEDS: AZITHROMYCIN IVPB 250 ML IVPB SCH (10:04)
[2016-10-17 10:45] LABS: THYROID STIMULATING HORMONE 0.63 uIU/ml (0.358-3.74)
[2016-10-17 15:18] LABS: BILIRUBIN,TOTAL < 0.2 mg/dl (0.2-1.0)
--- NOTE | 2016-10-17 19:09 | PN ---
Progress Note, Physician History of Present Illness: C/O cough productive of whitish sputum Mildly dyspneic at rest Afebrile WBC improved CT patchy LLL pneumonia - Current Medication List Current Medications: Active Medications Aclidinium [place] (Tudorza -) 1 puff IH BID [facility] Last Admin: 10/17/16 09:11 Dose: 1 puff Alprazolam (Xanax -) 0.25 mg PO Q6H PRN PRN Reason: ANXIETY Last Admin: 10/16/16 20:13 Dose: 0.25 mg Budesonide/Formoterol Fumarate (Symbicort 160/4.5mcg -) 2 puff IH BID [facility] Last Admin: 10/17/16 09:11 Dose: 2 puff Ceftriaxone Sodium (Rocephin 1gm Ivpb (Pre-Docked)) 1 gm IVPB DAILY [facility] PRN Reason: Protocol Last Admin: 10/17/16 09:38 Dose: 1 gm Diltiazem HCl (Cardizem Cd -) 120 mg PO DAILY [facility] Last Admin: 10/17/16 09:12 Dose: 120 mg Guaifenesin/Codeine Phosphate (Robitussin Ac -) 5 ml PO TID PRN PRN Reason: COUGH Last Admin: 10/17/16 14:19 Dose: 5 ml Azithromycin (Zithromax 500mg Ivpb (Pre-Docked)) 250 mls @ 250 mls/hr IVPB DAILY [facility] Last Admin: 10/17/16 10:04 Dose: 250 mls/hr Pantoprazole Sodium (Protonix 40mg Ivpb (Pre-Docked)) 100 mls @ 200 mls/hr IVPB DAILY [facility] Last Admin: 10/17/16 09:11 Dose: 200 mls/hr Sodium Chloride (Normal Saline -) 1,000 mls @ 40 mls/hr IV ASDIR [facility] Last Admin: 10/16/16 22:41 Dose: 40 mls/hr Montelukast Sodium (Singulair -) 10 mg PO HS [facility] Last Admin: 10/16/16 22:04 Dose: 10 mg Ondansetron HCl (Zofran -) 8 mg PO Q8H PRN PRN Reason: NAUSEA Last Admin: 10/16/16 01:51 Dose: 8 mg Roflumilast (Daliresp -) 500 mcg PO DAILY [facility] Last Admin: 10/17/16 09:12 Dose: 500 mcg Spironolactone (Aldactone -) 25 mg PO DAILY [facility] Last Admin: 10/17/16 09:12 Dose: 25 mg Tramadol HCl (Ultram -) 50 mg PO Q6H PRN PRN Reason: PAIN - Objective Vital Signs: Vital Signs Temperature 99.1 F 10/17/16 14:16 Pulse Rate 94 H 10/17/16 14:16 Respiratory Rate 20 10/17/16 14:16 Blood Pressure 126/51 10/17/16 14:16 O2 Sat by Pulse Oximetry (%) 95 10/17/16 14:16 Eyes: Yes: Conjunctiva Clear Cardiovascular: Yes: Regular Rate and Rhythm, S1, S2 Respiratory: Yes: Diminished Gastrointestinal: Yes: Normal Bowel Sounds, Soft Edema: No Labs: CBC, BMP 10/17/16 06:00 10/17/16 06:00 Assessment/Plan LLL pneumonia Exacerbation COPD Leukocytosis-improved Azotemia-improved Continue empiric zithromax/ ceftriaxone Bronchodilators
[2016-10-17] MEDS: MONTELUKAST NA 10 MG TABLET PO SCH (21:46)
[2016-10-17] MEDS: SODIUM CHLORIDE 1,000 ML IV SCH (21:46)
--- NOTE | 2016-10-17 22:24 | PN ---
Progress Note, Physician Chief Complaint: Nausea, vomiting, wet cough History of Present Illness: Patient continues to improve. Less dyspnea and cough. Cough now more productive. New "cough" medication more effective. No nausea/emesis. - Current Medication List Current Medications: Active Medications Aclidinium [place] (Tudorza -) 1 puff IH BID [facility] Last Admin: 10/17/16 21:46 Dose: 1 puff Alprazolam (Xanax -) 0.25 mg PO Q6H PRN PRN Reason: ANXIETY Last Admin: 10/16/16 20:13 Dose: 0.25 mg Budesonide/Formoterol Fumarate (Symbicort 160/4.5mcg -) 2 puff IH BID [facility] Last Admin: 10/17/16 21:46 Dose: 2 puff Ceftriaxone Sodium (Rocephin 1gm Ivpb (Pre-Docked)) 1 gm IVPB DAILY [facility] PRN Reason: Protocol Last Admin: 10/17/16 09:38 Dose: 1 gm Diltiazem HCl (Cardizem Cd -) 120 mg PO DAILY [facility] Last Admin: 10/17/16 09:12 Dose: 120 mg Guaifenesin/Codeine Phosphate (Robitussin Ac -) 5 ml PO TID PRN PRN Reason: COUGH Last Admin: 10/17/16 14:19 Dose: 5 ml Azithromycin (Zithromax 500mg Ivpb (Pre-Docked)) 250 mls @ 250 mls/hr IVPB DAILY [facility] Last Admin: 10/17/16 10:04 Dose: 250 mls/hr Pantoprazole Sodium (Protonix 40mg Ivpb (Pre-Docked)) 100 mls @ 200 mls/hr IVPB DAILY [facility] Last Admin: 10/17/16 09:11 Dose: 200 mls/hr Montelukast Sodium (Singulair -) 10 mg PO HS [facility] Last Admin: 10/17/16 21:46 Dose: 10 mg Ondansetron HCl (Zofran -) 8 mg PO Q8H PRN PRN Reason: NAUSEA Last Admin: 10/16/16 01:51 Dose: 8 mg Roflumilast (Daliresp -) 500 mcg PO DAILY [facility] Last Admin: 10/17/16 09:12 Dose: 500 mcg Spironolactone (Aldactone -) 25 mg PO DAILY [facility] Last Admin: 10/17/16 09:12 Dose: 25 mg Tramadol HCl (Ultram -) 50 mg PO Q6H PRN PRN Reason: PAIN - Objective Vital Signs: Vital Signs Temperature 99.1 F 10/17/16 14:16 Pulse Rate 94 H 10/17/16 14:16 Respiratory Rate 20 10/17/16 14:16 Blood Pressure 126/51 10/17/16 14:16 O2 Sat by Pulse Oximetry (%) 95 10/17/16 14:16 Constitutional: Yes: Well Nourished, No Distress, Calm Eyes: Yes: Conjunctiva Clear, EOM Intact HENT: Yes: Atraumatic, Normocephalic Neck: Yes: Supple, Trachea Midline Cardiovascular: Yes: Regular Rate and Rhythm Respiratory: Yes: Cough, Rhonchi, Wheezes Gastrointestinal: Yes: Normal Bowel Sounds, Soft Genitourinary: Yes: WNL Edema: No Integumentary: Yes: WNL Psychiatric: Yes: Alert, Oriented Labs: CBC, BMP 10/17/16 06:00 10/17/16 06:00 Guiac-(-)x3 Blood cultures-(-) Sputum culture-pending Iron studies-pending Problem List - Problems (1) Azotemia Code(s): R79.89 - OTHER SPECIFIED ABNORMAL FINDINGS OF BLOOD CHEMISTRY (2) Pneumonia Code(s): J18.9 - PNEUMONIA, UNSPECIFIED ORGANISM Qualifiers: Pneumonia type: due to unspecified organism Laterality: right Lung location: lower lobe of lung Qualified Code(s): J18.1 - Lobar pneumonia, unspecified organism (3) COPD exacerbation Code(s): J44.1 - CHRONIC OBSTRUCTIVE PULMONARY DISEASE W (ACUTE) EXACERBATION (4) HTN (hypertension) Code(s): I10 - ESSENTIAL (PRIMARY) HYPERTENSION Qualifiers: Hypertension type: essential hypertension Qualified Code(s): I10 - Essential (primary) hypertension (5) Hyperkalemia Code(s): E87.5 - HYPERKALEMIA (6) Anemia Code(s): D64.9 - ANEMIA, UNSPECIFIED Qualifiers: Anemia type: unspecified type Qualified Code(s): D64.9 - Anemia, unspecified Assessment/Plan 1)-Continue IV Ab 2)-D/C IV fluids 3)-Repeat CXR in AM 4)-Labs in AM 5)-Restart PT in AM
[2016-10-18] MEDS: traMADol HCL 50 MG TABLET PO PRN (05:51)
[2016-10-18] MEDS: guaiFENesin/CODEINE 10 ML UNIT-DOSE CUPS PO PRN (05:51)
[2016-10-18] MEDS ORDERED: ONDANSETRON 4 MG TABLET PO PRN (07:57)
[2016-10-18] MEDS ORDERED: PT OWN MED DRAWER 7, Y5N ONE (08:55)
--- NOTE | 2016-10-18 08:57 | PN ---
Progress Note, Physician History of Present Illness: OOB in chair Reports occasional cough, whitish sputum No c/o dyspnea/ chest pain No fever/ chills WBC improving - Current Medication List Current Medications: Active Medications Aclidinium [place] (Tudorza -) 1 puff IH BID [facility] Last Admin: 10/17/16 21:46 Dose: 1 puff Budesonide/Formoterol Fumarate (Symbicort 160/4.5mcg -) 2 puff IH BID [facility] Last Admin: 10/17/16 21:46 Dose: 2 puff Ceftriaxone Sodium (Rocephin 1gm Ivpb (Pre-Docked)) 1 gm IVPB DAILY [facility] PRN Reason: Protocol Last Admin: 10/17/16 09:38 Dose: 1 gm Diltiazem HCl (Cardizem Cd -) 120 mg PO DAILY [facility] Last Admin: 10/17/16 09:12 Dose: 120 mg Guaifenesin/Codeine Phosphate (Robitussin Ac -) 5 ml PO TID PRN PRN Reason: COUGH Last Admin: 10/18/16 05:51 Dose: 5 ml Azithromycin (Zithromax 500mg Ivpb (Pre-Docked)) 250 mls @ 250 mls/hr IVPB DAILY [facility] Last Admin: 10/17/16 10:04 Dose: 250 mls/hr Pantoprazole Sodium (Protonix 40mg Ivpb (Pre-Docked)) 100 mls @ 200 mls/hr IVPB DAILY [facility] Last Admin: 10/17/16 09:11 Dose: 200 mls/hr Montelukast Sodium (Singulair -) 10 mg PO HS [facility] Last Admin: 10/17/16 21:46 Dose: 10 mg Ondansetron HCl (Zofran -) 8 mg PO Q8H PRN PRN Reason: NAUSEA Roflumilast (Daliresp -) 500 mcg PO DAILY [facility] Last Admin: 10/17/16 09:12 Dose: 500 mcg Spironolactone (Aldactone -) 25 mg PO DAILY [facility] Last Admin: 10/17/16 09:12 Dose: 25 mg Tramadol HCl (Ultram -) 50 mg PO Q6H PRN PRN Reason: PAIN Last Admin: 10/18/16 05:51 Dose: 50 mg - Objective Vital Signs: Vital Signs Temperature 98.2 F 05/01/17 06:00 Pulse Rate 88 10/18/16 06:00 Respiratory Rate 19 10/18/16 06:00 Blood Pressure 122/54 10/18/16 06:00 O2 Sat by Pulse Oximetry (%) 96 10/18/16 06:00 Constitutional: Yes: No Distress Eyes: Yes: Conjunctiva Clear Cardiovascular: Yes: Regular Rate and Rhythm, S1, S2 Respiratory: Yes: Diminished Gastrointestinal: Yes: Normal Bowel Sounds, Soft. No: Tenderness Edema: Yes Assessment/Plan LLL pneumonia Exacerbation COPD Leukocytosis-improved Azotemia-improved Continue empiric zithromax/ ceftriaxone Bronchodilators
[2016-10-18 08:59] LABS: BASOPHIL 0.5 % (0-2.0); EOSINOPHIL 2.2 % (0-4.5); MCH 27.7 pg (25.7-33.7); MCHC 32.2 g/dl (32.0-36.0); MEAN CELL VOLUME 85.8 fl (80-96); NEUTROPHILS 74.7 % (42.8-82.8); PLATELET COUNT 287 K/MM3 (134-434); RDW 14.2 % (11.6-15.6); WHITE BLOOD COUNT 11.2 K/mm3 (4.0-10.8)
[2016-10-18 09:00] LABS: ANION GAP 6 (8-16); CALCIUM 8.7 mg/dl (8.4-10.2); CO2 28 mmol/L (22-28); GLUCOSE,RANDOM 103 mg/dl (74-106)
[2016-10-18] MEDS: PANTOPRAZOLE SODIUM 100 ML IVPB SCH (09:00)
[2016-10-18] MEDS: ROFLUMILAST 500 MCG TABLET PO SCH (09:29)
[2016-10-18] MEDS: cefTRIAXone 1 GM/50 ML BAG (PRE-DOCKED) IVPB SCH (09:50)
[2016-10-18] MEDS: BUDESONIDE/FORMETEROL FUMARATE 160/4.5 mcg INHALER IH SCH ×2 (10:00→21:38)
[2016-10-18] MEDS: SPIRONOLACTONE 25 MG TABLET (FP) PO SCH (10:00)
[2016-10-18] MEDS: ACLIDINIUM BROMIDE 400 MCG/INH AERO.POWD IH SCH ×2 (10:00→21:38)
--- NOTE | 2016-10-18 10:01 | PN ---
Progress Note, Physician History of Present Illness: PULMONARY ALERT,FEELING BETTER,NO DISTRESS,-SOB,LESS COUGH - Current Medication List Current Medications: Active Medications Aclidinium [place] (Tudorza -) 1 puff IH BID [facility] Last Admin: 10/17/16 21:46 Dose: 1 puff Budesonide/Formoterol Fumarate (Symbicort 160/4.5mcg -) 2 puff IH BID [facility] Last Admin: 10/17/16 21:46 Dose: 2 puff Ceftriaxone Sodium (Rocephin 1gm Ivpb (Pre-Docked)) 1 gm IVPB DAILY [facility] PRN Reason: Protocol Last Admin: 10/17/16 09:38 Dose: 1 gm Diltiazem HCl (Cardizem Cd -) 120 mg PO DAILY [facility] Last Admin: 10/17/16 09:12 Dose: 120 mg Guaifenesin/Codeine Phosphate (Robitussin Ac -) 5 ml PO TID PRN PRN Reason: COUGH Last Admin: 10/18/16 05:51 Dose: 5 ml Azithromycin (Zithromax 500mg Ivpb (Pre-Docked)) 250 mls @ 250 mls/hr IVPB DAILY [facility] Last Admin: 10/17/16 10:04 Dose: 250 mls/hr Pantoprazole Sodium (Protonix 40mg Ivpb (Pre-Docked)) 100 mls @ 200 mls/hr IVPB DAILY [facility] Last Admin: 10/17/16 09:11 Dose: 200 mls/hr Montelukast Sodium (Singulair -) 10 mg PO HS [facility] Last Admin: 10/17/16 21:46 Dose: 10 mg Ondansetron HCl (Zofran -) 8 mg PO Q8H PRN PRN Reason: NAUSEA Roflumilast (Daliresp -) 500 mcg PO DAILY [facility] Last Admin: 10/17/16 09:12 Dose: 500 mcg Spironolactone (Aldactone -) 25 mg PO DAILY [facility] Last Admin: 10/17/16 09:12 Dose: 25 mg Tramadol HCl (Ultram -) 50 mg PO Q6H PRN PRN Reason: PAIN Last Admin: 10/18/16 05:51 Dose: 50 mg - Objective Vital Signs: Vital Signs Temperature 98.2 F 10/18/16 06:00 Pulse Rate 88 10/18/16 06:00 Respiratory Rate 19 10/18/16 06:00 Blood Pressure 122/54 10/18/16 06:00 O2 Sat by Pulse Oximetry (%) 96 10/18/16 06:00 Constitutional: Yes: Well Nourished, Calm Eyes: Yes: WNL HENT: Yes: WNL Neck: Yes: WNL Cardiovascular: Yes: Regular Rate and Rhythm, S1, S2 Respiratory: Yes: Diminished Gastrointestinal: Yes: Normal Bowel Sounds, Soft Extremities: Yes: WNL Edema: No Labs: CBC, BMP 10/18/16 07:13 10/18/16 07:13 - ....Imaging Chest X-ray: Report Reviewed, Image Reviewed Assessment/Plan Problem List - Problems (1) Pneumonia Code(s): J18.9 - PNEUMONIA, UNSPECIFIED ORGANISM Qualifiers: Pneumonia type: due to unspecified organism Laterality: right Lung location: lower lobe of lung Qualified Code(s): J18.1 - Lobar pneumonia, unspecified organism (2) Acute and chronic respiratory failure Code(s): J96.20 - ACUTE AND CHR RESP FAILURE, UNSP W HYPOXIA OR HYPERCAPNIA (3) COPD exacerbation Code(s): J44.1 - CHRONIC OBSTRUCTIVE PULMONARY DISEASE W (ACUTE) EXACERBATION (4) HTN (hypertension) Code(s): I10 - ESSENTIAL (PRIMARY) HYPERTENSION Qualifiers: Hypertension type: essential hypertension Qualified Code(s): I10 - Essential (primary) hypertension Assessment/Plan LLL PNEUMONIA COPD HTN PLAN CONTINUE ANTIBIOTICS PER ID INHALED BRONCHODILATORS NASAL O2 F/U CHEST CT 6 WKS TO DOCUMENT RESOLUTION OF INFILTRATES DR MALLOY
[2016-10-18] MEDS: AZITHROMYCIN IVPB 250 ML IVPB SCH (10:50)
[2016-10-18] MEDS: MONTELUKAST NA 10 MG TABLET PO SCH (21:38)
--- NOTE | 2016-10-18 23:31 | PN ---
Progress Note, Physician History of Present Illness: Patient continues to improve daily. Less cough, dyspnea, and wheezing. No GI sx. Tolerating all treatments. - Current Medication List Current Medications: Active Medications Aclidinium [place] (Tudorza -) 1 puff IH BID [facility] Last Admin: 10/18/16 21:38 Dose: 1 puff Budesonide/Formoterol Fumarate (Symbicort 160/4.5mcg -) 2 puff IH BID [facility] [place] Last Admin: 10/18/16 21:38 Dose: 2 puff Ceftriaxone Sodium (Rocephin 1gm Ivpb (Pre-Docked)) 1 gm IVPB DAILY [facility] PRN Reason: Protocol Last Admin: 10/18/16 09:50 Dose: 1 gm Diltiazem HCl (Cardizem Cd -) 120 mg PO DAILY [facility] [place] Last Admin: 10/18/16 09:29 Dose: 120 mg Guaifenesin/Codeine Phosphate (Robitussin Ac -) 5 ml PO TID PRN PRN Reason: COUGH Last Admin: 10/18/16 05:51 Dose: 5 ml Azithromycin (Zithromax 500mg Ivpb (Pre-Docked)) 250 mls @ 250 mls/hr IVPB DAILY [facility] Last Admin: 10/18/16 10:50 Dose: 250 mls/hr Pantoprazole Sodium (Protonix 40mg Ivpb (Pre-Docked)) 100 mls @ 200 mls/hr IVPB DAILY [facility] Last Admin: 10/18/16 09:00 Dose: 200 mls/hr Montelukast Sodium (Singulair -) 10 mg PO HS [facility] Last Admin: 10/18/16 21:38 Dose: 10 mg Ondansetron HCl (Zofran -) 8 mg PO Q8H PRN PRN Reason: NAUSEA Roflumilast (Daliresp -) 500 mcg PO DAILY [facility] [place] Last Admin: 10/18/16 09:29 Dose: 500 mcg Spironolactone (Aldactone -) 25 mg PO DAILY [facility] Last Admin: 10/18/16 10:00 Dose: 25 mg Tramadol HCl (Ultram -) 50 mg PO Q6H PRN PRN Reason: PAIN Last Admin: 10/18/16 05:51 Dose: 50 mg - Objective Vital Signs: Vital Signs Temperature 99.1 F 10/18/16 22:21 Pulse Rate 89 10/18/16 22:21 Respiratory Rate 20 10/18/16 22:21 Blood Pressure 110/86 10/18/16 22:21 O2 Sat by Pulse Oximetry (%) 96 10/18/16 22:21 Constitutional: Yes: Well Nourished, No Distress, Calm Eyes: Yes: WNL, Conjunctiva Clear, EOM Intact HENT: Yes: Normocephalic Neck: Yes: Supple, Trachea Midline Cardiovascular: Yes: Regular Rate and Rhythm Respiratory: Yes: Cough, Diminished, SOB on Exertion, Wheezes Gastrointestinal: Yes: Normal Bowel Sounds, Soft Edema: No Integumentary: Yes: WNL Neurological: Yes: Alert, Oriented Labs: CBC, BMP 10/18/16 07:13 10/18/16 07:13 - ....Imaging Chest X-ray: Report Reviewed, Image Reviewed (Increased LLL infiltrate) Problem List - Problems (1) Azotemia Code(s): R79.89 - OTHER SPECIFIED ABNORMAL FINDINGS OF BLOOD CHEMISTRY (2) Pneumonia Code(s): J18.9 - PNEUMONIA, UNSPECIFIED ORGANISM Qualifiers: Pneumonia type: due to unspecified organism Laterality: right Lung location: lower lobe of lung Qualified Code(s): J18.1 - Lobar pneumonia, unspecified organism (3) COPD exacerbation Code(s): J44.1 - CHRONIC OBSTRUCTIVE PULMONARY DISEASE W (ACUTE) EXACERBATION (4) HTN (hypertension) Code(s): I10 - ESSENTIAL (PRIMARY) HYPERTENSION Qualifiers: Hypertension type: essential hypertension Qualified Code(s): I10 - Essential (primary) hypertension (5) Hyperkalemia Code(s): E87.5 - HYPERKALEMIA (6) Anemia Code(s): D64.9 - ANEMIA, UNSPECIFIED Qualifiers: Anemia type: unspecified type Qualified Code(s): D64.9 - Anemia, unspecified Assessment/Plan 1)-Continue IV Ab 2)-Inhaled bronchodilators/steroids/O2 3)-Restart PT 4)-Serial labs
[2016-10-19] MEDS: guaiFENesin/CODEINE 10 ML UNIT-DOSE CUPS PO PRN ×2 (00:18→10:44)
[2016-10-19] MEDS: traMADol HCL 50 MG TABLET PO PRN (00:19)
--- NOTE | 2016-10-19 07:15 | PN ---
Progress Note, Physician History of Present Illness: pulmonary alert,feeling better,less cough,-sob - Current Medication List Current Medications: Active Medications Aclidinium [place] (Tudorza -) 1 puff IH BID [facility] Last Admin: 10/18/16 21:38 Dose: 1 puff Budesonide/Formoterol Fumarate (Symbicort 160/4.5mcg -) 2 puff IH BID [facility] Last Admin: 10/18/16 21:38 Dose: 2 puff Ceftriaxone Sodium (Rocephin 1gm Ivpb (Pre-Docked)) 1 gm IVPB DAILY [facility] PRN Reason: Protocol Last Admin: 10/18/16 09:50 Dose: 1 gm Diltiazem HCl (Cardizem Cd -) 120 mg PO DAILY [facility] Last Admin: 10/18/16 09:29 Dose: 120 mg Guaifenesin/Codeine Phosphate (Robitussin Ac -) 5 ml PO TID PRN PRN Reason: COUGH Last Admin: 10/19/16 00:18 Dose: 5 ml Azithromycin (Zithromax 500mg Ivpb (Pre-Docked)) 250 mls @ 250 mls/hr IVPB DAILY [facility] Last Admin: 10/18/16 10:50 Dose: 250 mls/hr Pantoprazole Sodium (Protonix 40mg Ivpb (Pre-Docked)) 100 mls @ 200 mls/hr IVPB DAILY [facility] Last Admin: 10/18/16 09:00 Dose: 200 mls/hr Montelukast Sodium (Singulair -) 10 mg PO HS [facility] Last Admin: 10/18/16 21:38 Dose: 10 mg Ondansetron HCl (Zofran -) 8 mg PO Q8H PRN PRN Reason: NAUSEA Roflumilast (Daliresp -) 500 mcg PO DAILY [facility] Last Admin: 10/18/16 09:29 Dose: 500 mcg Spironolactone (Aldactone -) 25 mg PO DAILY [facility] Last Admin: 10/18/16 10:00 Dose: 25 mg Tramadol HCl (Ultram -) 50 mg PO Q6H PRN PRN Reason: PAIN Last Admin: 10/19/16 00:19 Dose: 50 mg - Objective Vital Signs: Vital Signs Temperature 98.7 F 10/19/16 05:51 Pulse Rate 89 10/19/16 05:51 Respiratory Rate 19 10/19/16 05:51 Blood Pressure 130/52 10/19/16 05:51 O2 Sat by Pulse Oximetry (%) 95 10/19/16 05:51 Constitutional: Yes: Well Nourished, Calm Eyes: Yes: WNL HENT: Yes: WNL Neck: Yes: WNL Cardiovascular: Yes: Regular Rate and Rhythm, S1, S2 Respiratory: Yes: Diminished Gastrointestinal: Yes: Normal Bowel Sounds, Soft Extremities: Yes: WNL Edema: No Assessment/Plan Problem List - Problems (1) Pneumonia Code(s): J18.9 - PNEUMONIA, UNSPECIFIED ORGANISM Qualifiers: Pneumonia type: due to unspecified organism Laterality: right Lung location: lower lobe of lung Qualified Code(s): J18.1 - Lobar pneumonia, unspecified organism (2) Acute and chronic respiratory failure Code(s): J96.20 - ACUTE AND CHR RESP FAILURE, UNSP W HYPOXIA OR HYPERCAPNIA (3) COPD exacerbation Code(s): J44.1 - CHRONIC OBSTRUCTIVE PULMONARY DISEASE W (ACUTE) EXACERBATION (4) HTN (hypertension) Code(s): I10 - ESSENTIAL (PRIMARY) HYPERTENSION Qualifiers: Hypertension type: essential hypertension Qualified Code(s): I10 - Essential (primary) hypertension Assessment/Plan LLL PNEUMONIA COPD HTN PLAN CONTINUE ANTIBIOTICS PER ID INHALED BRONCHODILATORS NASAL O2 F/U CHEST CT 6 WKS TO DOCUMENT RESOLUTION OF INFILTRATES POSSIBLE D/C HOME IN AM DR MALLOY
[2016-10-19 08:49] LABS: BASOPHIL 0.2 % (0-2.0); EOSINOPHIL 2.8 % (0-4.5); MCH 27.7 pg (25.7-33.7); MCHC 32.7 g/dl (32.0-36.0); MEAN CELL VOLUME 84.7 fl (80-96); MEAN PLT VOLUME 7.9 fl (7.5-11.1); NEUTROPHILS 75.1 % (42.8-82.8); PLATELET COUNT 295 K/MM3 (134-434); WHITE BLOOD COUNT 11.9 K/mm3 (4.0-10.8)
[2016-10-19] MEDS: cefTRIAXone 1 GM/50 ML BAG (PRE-DOCKED) IVPB SCH (09:00)
[2016-10-19 09:04] LABS: ANION GAP 10 (8-16); CALCIUM 8.7 mg/dl (8.4-10.2); CO2 28 mmol/L (22-28); CREATININE 0.9 mg/dl (0.6-1.3); GLUCOSE,RANDOM 92 mg/dl (74-106)
[2016-10-19] MEDS ORDERED: PT OWN MED DRAWER 7, Y5N ONE ×3 (09:14→21:49)
[2016-10-19] MEDS: PANTOPRAZOLE SODIUM 100 ML IVPB SCH (09:30)
[2016-10-19] MEDS: ROFLUMILAST 500 MCG TABLET PO SCH (09:44)
[2016-10-19] MEDS: SPIRONOLACTONE 25 MG TABLET (FP) PO SCH (09:44)
--- NOTE | 2016-10-19 09:51 | PN ---
Progress Note, Physician History of Present Illness: OOB in chair Appears more comfortable. less dyspneic at rest Afebrile WBC improved - Current Medication List Current Medications: Active Medications Aclidinium [place] (Tudorza -) 1 puff IH BID [facility] Last Admin: 10/18/16 21:38 Dose: 1 puff Budesonide/Formoterol Fumarate (Symbicort 160/4.5mcg -) 2 puff IH BID [facility] Last Admin: 10/18/16 21:38 Dose: 2 puff Ceftriaxone Sodium (Rocephin 1gm Ivpb (Pre-Docked)) 1 gm IVPB DAILY [facility] PRN Reason: Protocol Last Admin: 10/18/16 09:50 Dose: 1 gm Diltiazem HCl (Cardizem Cd -) 120 mg PO DAILY [facility] Last Admin: 10/18/16 09:29 Dose: 120 mg Guaifenesin/Codeine Phosphate (Robitussin Ac -) 5 ml PO TID PRN PRN Reason: COUGH Last Admin: 10/19/16 00:18 Dose: 5 ml Azithromycin (Zithromax 500mg Ivpb (Pre-Docked)) 250 mls @ 250 mls/hr IVPB DAILY [facility] Last Admin: 10/18/16 10:50 Dose: 250 mls/hr Pantoprazole Sodium (Protonix 40mg Ivpb (Pre-Docked)) 100 mls @ 200 mls/hr IVPB DAILY [facility] Last Admin: 10/18/16 09:00 Dose: 200 mls/hr Montelukast Sodium (Singulair -) 10 mg PO HS [facility] Last Admin: 10/18/16 21:38 Dose: 10 mg Ondansetron HCl (Zofran -) 8 mg PO Q8H PRN PRN Reason: NAUSEA Roflumilast (Daliresp -) 500 mcg PO DAILY [facility] Last Admin: 10/18/16 09:29 Dose: 500 mcg Spironolactone (Aldactone -) 25 mg PO DAILY [facility] Last Admin: 10/18/16 10:00 Dose: 25 mg Tramadol HCl (Ultram -) 50 mg PO Q6H PRN PRN Reason: PAIN Last Admin: 10/19/16 00:19 Dose: 50 mg - Objective Vital Signs: Vital Signs Temperature 98.7 F 10/19/16 05:51 Pulse Rate 90 10/19/16 08:49 Respiratory Rate 19 10/19/16 07:15 Blood Pressure 130/52 10/19/16 05:51 O2 Sat by Pulse Oximetry (%) 96 10/19/16 08:49 Constitutional: Yes: No Distress, Obese Eyes: Yes: Conjunctiva Clear Cardiovascular: Yes: Regular Rate and Rhythm, S1, S2 Respiratory: Yes: Diminished Gastrointestinal: Yes: Normal Bowel Sounds, Soft. No: Tenderness Edema: LLE: 1+, RLE: 1+ Labs: CBC, BMP 10/19/16 08:20 10/19/16 07:28 Assessment/Plan LLL pneumonia clinically improved Exacerbation COPD Leukocytosis-improved Azotemia-improved Continue empiric zithromax/ ceftriaxone Bronchodilators
[2016-10-19] MEDS: AZITHROMYCIN IVPB 250 ML IVPB SCH (10:00)
[2016-10-19] MEDS: BUDESONIDE/FORMETEROL FUMARATE 160/4.5 mcg INHALER IH SCH ×2 (10:45→21:50)
[2016-10-19] MEDS: ACLIDINIUM BROMIDE 400 MCG/INH AERO.POWD IH SCH ×2 (10:45→21:49)
[2016-10-19] MEDS ORDERED: ALPRAZolam 0.25 MG TABLET PO PRN (18:35)
[2016-10-19] MEDS ORDERED: NAPHAZOLINE/PHENIRAMINE OPHTHALMIC 15 ML BOTTLE OU PRN (18:36)
[2016-10-19 20:01] VITALS: PULSE 88
[2016-10-19] MEDS: MONTELUKAST NA 10 MG TABLET PO SCH (21:49)
--- NOTE | 2016-10-19 21:55 | PN ---
Progress Note, Physician History of Present Illness: Patient continues to improve. Less cough, wheezing and dyspnea. No fever/ chills. Appetite good. Able to ambulate to the BR. Tolerating all Rx's. - Current Medication List Current Medications: Active Medications Aclidinium [place] (Tudorza -) 1 puff IH BID [facility] Last Admin: 10/19/16 21:49 Dose: 1 puff Alprazolam (Xanax -) 0.25 mg PO Q6H PRN PRN Reason: AGITATION Last Admin: 10/19/16 18:49 Dose: 0.25 mg Budesonide/Formoterol Fumarate (Symbicort 160/4.5mcg -) 2 puff IH BID [facility] Last Admin: 10/19/16 21:50 Dose: 2 puff Ceftriaxone Sodium (Rocephin 1gm Ivpb (Pre-Docked)) 1 gm IVPB DAILY [facility] PRN Reason: Protocol Last Admin: 10/19/16 09:00 Dose: 1 gm Diltiazem HCl (Cardizem Cd -) 120 mg PO DAILY [facility] Last Admin: 10/19/16 09:44 Dose: 120 mg Guaifenesin/Codeine Phosphate (Robitussin Ac -) 5 ml PO TID PRN PRN Reason: COUGH Last Admin: 10/19/16 10:44 Dose: 5 ml Azithromycin (Zithromax 500mg Ivpb (Pre-Docked)) 250 mls @ 250 mls/hr IVPB DAILY [facility] Last Admin: 10/19/16 10:00 Dose: 250 mls/hr Pantoprazole Sodium (Protonix 40mg Ivpb (Pre-Docked)) 100 mls @ 200 mls/hr IVPB DAILY [facility] Last Admin: 10/19/16 09:30 Dose: 200 mls/hr Montelukast Sodium (Singulair -) 10 mg PO HS [facility] Last Admin: 10/19/16 21:49 Dose: 10 mg Naphazoline HCl/Pheniramine Maleate (Visine-A -) 2 drop OU Q4H PRN PRN Reason: ITCHY/DRY EYES Last Admin: 10/19/16 18:50 Dose: 2 drop Ondansetron HCl (Zofran -) 8 mg PO Q8H PRN PRN Reason: NAUSEA Roflumilast (Daliresp -) 500 mcg PO DAILY [facility] Last Admin: 10/19/16 09:44 Dose: 500 mcg Spironolactone (Aldactone -) 25 mg PO DAILY [facility] Last Admin: 10/19/16 09:44 Dose: 25 mg Tramadol HCl (Ultram -) 50 mg PO Q6H PRN PRN Reason: PAIN Last Admin: 10/19/16 00:19 Dose: 50 mg - Objective Vital Signs: Vital Signs Temperature 98.2 F 10/19/16 20:00 Pulse Rate 88 10/19/16 20:00 Respiratory Rate 18 10/19/16 20:01 Blood Pressure 122/70 10/19/16 20:00 O2 Sat by Pulse Oximetry (%) 97 10/19/16 20:01 Constitutional: Yes: Well Nourished, No Distress, Calm Eyes: Yes: Conjunctiva Clear, EOM Intact HENT: Yes: Atraumatic, Normocephalic Neck: Yes: Supple, Trachea Midline Cardiovascular: Yes: Regular Rate and Rhythm Respiratory: Yes: Cough, Diminished, Rhonchi, Wheezes Gastrointestinal: Yes: Normal Bowel Sounds, Soft Genitourinary: Yes: WNL Musculoskeletal: Yes: Joint Stiffness Edema: Yes Edema: LLE: 1+, RLE: 1+ Integumentary: Yes: WNL Neurological: Yes: Alert, Oriented Psychiatric: Yes: Alert, Oriented Labs: CBC, BMP 10/19/16 08:20 10/19/16 07:28 Problem List - Problems (1) Azotemia Code(s): R79.89 - OTHER SPECIFIED ABNORMAL FINDINGS OF BLOOD CHEMISTRY (2) Pneumonia Code(s): J18.9 - PNEUMONIA, UNSPECIFIED ORGANISM Qualifiers: Pneumonia type: due to unspecified organism Laterality: right Lung location: lower lobe of lung Qualified Code(s): J18.1 - Lobar pneumonia, unspecified organism (3) COPD exacerbation Code(s): J44.1 - CHRONIC OBSTRUCTIVE PULMONARY DISEASE W (ACUTE) EXACERBATION (4) HTN (hypertension) Code(s): I10 - ESSENTIAL (PRIMARY) HYPERTENSION Qualifiers: Hypertension type: essential hypertension Qualified Code(s): I10 - Essential (primary) hypertension (5) Hyperkalemia Code(s): E87.5 - HYPERKALEMIA (6) Anemia Code(s): D64.9 - ANEMIA, UNSPECIFIED Qualifiers: Anemia type: unspecified type Qualified Code(s): D64.9 - Anemia, unspecified Assessment/Plan 1)-Continue IV Ab 2)-Azotemia resolved with IV fluids, and now stable off IV fluids. 3)-Anemia stable, and probably related to infection. Guiac (-) x3. 4)-Planning on D/C to home tomorrow if cleared by ID. 5)-Will do follow-up CT scan of chest in 6 weeks to document resolution of infiltrates.
[2016-10-20] MEDS: guaiFENesin/CODEINE 10 ML UNIT-DOSE CUPS PO PRN (06:01)
[2016-10-20 06:11] VITALS: BP 113/52; TEMP 98.9
--- NOTE | 2016-10-20 07:11 | PN ---
Progress Note, Physician History of Present Illness: pulmonary alert,comfortable,-sob,-cough,-congestion - Current Medication List Current Medications: Active Medications Aclidinium [place] (Tudorza -) 1 puff IH BID [facility] Last Admin: 10/19/16 21:49 Dose: 1 puff Alprazolam (Xanax -) 0.25 mg PO Q6H PRN PRN Reason: AGITATION Last Admin: 10/19/16 18:49 Dose: 0.25 mg Budesonide/Formoterol Fumarate (Symbicort 160/4.5mcg -) 2 puff IH BID [facility] Last Admin: 10/19/16 21:50 Dose: 2 puff Ceftriaxone Sodium (Rocephin 1gm Ivpb (Pre-Docked)) 1 gm IVPB DAILY [facility] PRN Reason: Protocol Last Admin: 10/19/16 09:00 Dose: 1 gm Diltiazem HCl (Cardizem Cd -) 120 mg PO DAILY [facility] Last Admin: 10/19/16 09:44 Dose: 120 mg Guaifenesin/Codeine Phosphate (Robitussin Ac -) 5 ml PO TID PRN PRN Reason: COUGH Last Admin: 10/20/16 06:01 Dose: 5 ml Azithromycin (Zithromax 500mg Ivpb (Pre-Docked)) 250 mls @ 250 mls/hr IVPB DAILY [facility] Last Admin: 10/19/16 10:00 Dose: 250 mls/hr Pantoprazole Sodium (Protonix 40mg Ivpb (Pre-Docked)) 100 mls @ 200 mls/hr IVPB DAILY [facility] Last Admin: 10/19/16 09:30 Dose: 200 mls/hr Montelukast Sodium (Singulair -) 10 mg PO [facility] Last Admin: 10/19/16 21:49 Dose: 10 mg Naphazoline HCl/Pheniramine Maleate (Visine-A -) 2 drop OU Q4H PRN PRN Reason: ITCHY/DRY EYES Last Admin: 10/19/16 18:50 Dose: 2 drop Ondansetron HCl (Zofran -) 8 mg PO Q8H PRN PRN Reason: NAUSEA Roflumilast (Daliresp -) 500 mcg PO DAILY [facility] Last Admin: 10/19/16 09:44 Dose: 500 mcg Spironolactone (Aldactone -) 25 mg PO DAILY [facility] Last Admin: 10/19/16 09:44 Dose: 25 mg Tramadol HCl (Ultram -) 50 mg PO Q6H PRN PRN Reason: PAIN Last Admin: 10/19/16 00:19 Dose: 50 mg - Objective Vital Signs: Vital Signs Temperature 98.9 F 10/20/16 06:08 Pulse Rate 88 10/20/16 06:08 Respiratory Rate 19 10/20/16 06:08 Blood Pressure 113/52 10/20/16 06:08 O2 Sat by Pulse Oximetry (%) 95 10/20/16 06:08 Constitutional: Yes: Well Nourished, Calm Eyes: Yes: WNL HENT: Yes: WNL Neck: Yes: WNL Cardiovascular: Yes: Regular Rate and Rhythm, S1, S2 Respiratory: Yes: Diminished Gastrointestinal: Yes: Normal Bowel Sounds, Soft Extremities: Yes: WNL Edema: No Labs: CBC, BMP \\ Assessment/Plan Problem List - Problems (1) Pneumonia Code(s): J18.9 - PNEUMONIA, UNSPECIFIED ORGANISM Qualifiers: Pneumonia type: due to unspecified organism Laterality: right Lung location: lower lobe of lung Qualified Code(s): J18.1 - Lobar pneumonia, unspecified organism (2) Acute and chronic respiratory failure Code(s): J96.20 - ACUTE AND CHR RESP FAILURE, UNSP W HYPOXIA OR HYPERCAPNIA (3) COPD exacerbation Code(s): J44.1 - CHRONIC OBSTRUCTIVE PULMONARY DISEASE W (ACUTE) EXACERBATION (4) HTN (hypertension) Code(s): I10 - ESSENTIAL (PRIMARY) HYPERTENSION Qualifiers: Hypertension type: essential hypertension Qualified Code(s): I10 - Essential (primary) hypertension Assessment/Plan LLL PNEUMONIA COPD HTN PLAN ANTIBIOTICS PER ID INHALED BRONCHODILATORS HOME O2 F/U CHEST CT 6 WKS TO DOCUMENT RESOLUTION OF INFILTRATES D/C HOME DR MALLOY
[2016-10-20 08:23] LABS: BASOPHIL 0.1 % (0-2.0); EOSINOPHIL 3.2 % (0-4.5); MCH 28.1 pg (25.7-33.7); MCHC 33.1 g/dl (32.0-36.0); MEAN PLT VOLUME 7.2 fl (7.5-11.1); NEUTROPHILS 75.8 % (42.8-82.8); PLATELET COUNT 300 K/MM3 (134-434); RDW 13.8 % (11.6-15.6); WHITE BLOOD COUNT 11.8 K/mm3 (4.0-10.8)
[2016-10-20 08:41] LABS: COCKROFT - GAULT 74.205; CREATININE 0.9 mg/dl (0.6-1.3)
[2016-10-20] MEDS: ROFLUMILAST 500 MCG TABLET PO SCH (09:04)
[2016-10-20] MEDS: SPIRONOLACTONE 25 MG TABLET (FP) PO SCH (09:04)
[2016-10-20] MEDS: PANTOPRAZOLE SODIUM 100 ML IVPB SCH (09:05)
[2016-10-20] MEDS: BUDESONIDE/FORMETEROL FUMARATE 160/4.5 mcg INHALER IH SCH (09:05)
[2016-10-20] MEDS: ACLIDINIUM BROMIDE 400 MCG/INH AERO.POWD IH SCH (09:05)
--- NOTE | 2016-10-20 09:36 | PN ---
Progress Note, Physician History of Present Illness: OOB in chair Reports breathing improved Less cough- whitish sputum Afebrile Legionella/ pneumococcal ag (-) - Current Medication List Current Medications: Active Medications Aclidinium [place] (Tudorza -) 1 puff IH BID [facility] Last Admin: 10/20/16 09:05 Dose: 1 puff Alprazolam (Xanax -) 0.25 mg PO Q6H PRN PRN Reason: AGITATION Last Admin: 10/19/16 18:49 Dose: 0.25 mg Budesonide/Formoterol Fumarate (Symbicort 160/4.5mcg -) 2 puff IH BID [facility] Last Admin: 10/20/16 09:05 Dose: 2 puff Ceftriaxone Sodium (Rocephin 1gm Ivpb (Pre-Docked)) 1 gm IVPB DAILY [facility] PRN Reason: Protocol Last Admin: 10/19/16 09:00 Dose: 1 gm Diltiazem HCl (Cardizem Cd -) 120 mg PO DAILY [facility] Last Admin: 10/20/16 09:04 Dose: 120 mg Guaifenesin/Codeine Phosphate (Robitussin Ac -) 5 ml PO TID PRN PRN Reason: COUGH Last Admin: 10/20/16 06:01 Dose: 5 ml Azithromycin (Zithromax 500mg Ivpb (Pre-Docked)) 250 mls @ 250 mls/hr IVPB DAILY [facility] Last Admin: 10/19/16 10:00 Dose: 250 mls/hr Pantoprazole Sodium (Protonix 40mg Ivpb (Pre-Docked)) 100 mls @ 200 mls/hr IVPB DAILY [facility] Last Admin: 10/20/16 09:05 Dose: 200 mls/hr Montelukast Sodium (Singulair -) 10 mg PO HS [facility] Last Admin: 10/19/16 21:49 Dose: 10 mg Naphazoline HCl/Pheniramine Maleate (Visine-A -) 2 drop OU Q4H PRN PRN Reason: ITCHY/DRY EYES Last Admin: 10/19/16 18:50 Dose: 2 drop Ondansetron HCl (Zofran -) 8 mg PO Q8H PRN PRN Reason: NAUSEA Roflumilast (Daliresp -) 500 mcg PO DAILY [facility] Last Admin: 10/20/16 09:04 Dose: 500 mcg Spironolactone (Aldactone -) 25 mg PO DAILY [facility] Last Admin: 10/20/16 09:04 Dose: 25 mg Tramadol HCl (Ultram -) 50 mg PO Q6H PRN PRN Reason: PAIN Last Admin: 10/19/16 00:19 Dose: 50 mg - Objective Vital Signs: Vital Signs Temperature 98.9 F 10/20/16 06:08 Pulse Rate 88 10/20/16 06:08 Respiratory Rate 19 10/20/16 07:21 Blood Pressure 113/52 10/20/16 06:08 O2 Sat by Pulse Oximetry (%) 95 10/20/16 07:21 Constitutional: Yes: No Distress, Obese Cardiovascular: Yes: Regular Rate and Rhythm, S1, S2 Respiratory: Yes: Diminished Gastrointestinal: Yes: Normal Bowel Sounds, Soft, Abdomen, Obese. No: Tenderness Edema: Yes Labs: CBC, BMP 10/20/16 07:29 10/20/16 07:29 Assessment/Plan LLL pneumonia clinically improved Exacerbation COPD Leukocytosis-improved Azotemia-improved Substitute ceftin 500mg po bid 7d Bronchodilators Outpatient pulmonary follow up ; follow up CT per pulmonary
[2016-10-20] MEDS ORDERED: CEFUROXIME AXETIL 500 MG TABLET PO SCH (10:00)
[2016-10-20] MEDS ORDERED: PT OWN MED DRAWER 7, Y5N ONE (10:15)
[2016-10-22 13:24] LABS: SERUM IRON 16; TOTAL IRON BINDING CAPACITY 192; UIBC 176
== END 2016-10-20 11:15 | disposition home or self-care (01) | DRG 190 ==
LOC: FER 16:55 → FM/S 23:09
PROVIDERS: ADMIT Family Medicine; ATTEND Family Medicine
PROC: 3E0F7GC Introduction of Other Therapeutic Substance into Respiratory Tract, Via Natural or Artificial Opening (ICD-10-PCS; principal; 2016-10-15)
DX: J44.0 Chronic obstructive pulmonary disease with (acute) lower respiratory infection (principal); J18.9 Pneumonia, unspecified organism; N17.9 Acute kidney failure, unspecified; J44.1 Chronic obstructive pulmonary disease with (acute) exacerbation; Z87.891 Personal history of nicotine dependence; D72.829 Elevated white blood cell count, unspecified; Z87.01 Personal history of pneumonia (recurrent); K21.9 Gastro-esophageal reflux disease without esophagitis; I11.0 Hypertensive heart disease with heart failure; I50.9 Heart failure, unspecified; E78.5 Hyperlipidemia, unspecified; Z96.653 Presence of artificial knee joint, bilateral; E87.5 Hyperkalemia; R79.89 Other specified abnormal findings of blood chemistry; E86.0 Dehydration; D64.9 Anemia, unspecified; E66.9 Obesity, unspecified; Z68.33 Body mass index [BMI] 33.0-33.9, adult
CPT/HCPCS: 36415; 71010-TC; 71020-TC; 71250-TC; 76775-TC; 80048; 80053; 81003; 81015; 82272; 82550; 82607; 82728; 82746; 83540; 83550; 83605; 83690; 84443; 84484; 85025; 87040; 87899; 93005; 97116-GP; 97162-GP; 99285-25

== ENCOUNTER 2016-11-13 18:38 | Inpatient (IN) | payer OTHER, BC ==
[2016-11-13 19:22] LABS: BASOPHIL 2.1 % (0-2.0); EOSINOPHIL 2.3 % (0-4.5); MCH 28.7 pg (25.7-33.7); MCHC 33.5 g/dl (32.0-36.0); MEAN CELL VOLUME 85.8 fl (80-96); MEAN PLT VOLUME 8.4 fl (7.5-11.1); NEUTROPHILS 71.2 % (42.8-82.8); PLATELET COUNT 279 K/MM3 (134-434); RDW 14.9 % (11.6-15.6); WHITE BLOOD COUNT 12.2 K/mm3 (4.0-10.8)
[2016-11-13 19:25] LABS: ACTIVATED PTT 34.9 SECONDS (24.0-38.9)
[2016-11-13 19:27] LABS: CPK(DFH) 23 IU/L (26-140)
[2016-11-13 19:28] LABS: ALBUMIN 3.4 g/dl (3.5-5.0); BILIRUBIN,TOTAL 0.5 mg/dl (0.2-1.0); CALCIUM 9.2 mg/dl (8.4-10.2); COCKROFT - GAULT 58.531; CREATININE 1.1 mg/dl (0.6-1.3); TOT PROT 6.9 g/dl (6.4-8.3)
[2016-11-13 19:30] LABS: INR 1.12 (0.82-1.09); PROTHROMBIN TIME (PATIENT) 12.5 SEC (10.2-13.0)
--- NOTE | 2016-11-13 19:35 | PDOC ---
History of Present Illness - General History Source: Patient Exam Limitations: No Limitations - History of Present Illness Initial Comments: 11/13/16 19:47 The patient is a 76 year old female with a significant past medical history of HTN, CHF, COPD, who presents to the ED with right arm weakness that began earlier today. Patient states she is unable to hold objects in her right hand. Patient denies chest pain, SOB. Patient denies cough, fever, chills, nausea, vomiting, diarrhea. Patient denies dysuria, frequency, hematuria. Patient was admitted for pneumonia with COPD exacerbation on 10/14/16 and discharged on 10/20/16. She is currently attending pain management for her right hip. She is experiencing right leg pain due to the hip. PAST MEDICAL HISTORY: HTN, CHF, COPD PAST SURGICAL HISTORY: no significant history FAMILY HISTORY: no pertinent history SOCIAL HISTORY: Pt lives with family and is unemployed. MEDICATIONS: reviewed ALLERGIES: As per nursing notes ROS General: No fevers or chills, no weakness, no weight loss HEENT: No change in vision. No sore throat,. No ear pain CardioVascular: No chest pain or shortness of breath Respiratory:No cough, or wheezing. Gastrointestinal: no nausea, vomiting, diarrhea or constipation, No rectal bleeding Genitourinary: No dysuria, hematuria, or frequency Musculoskeletal: No joint or muscle pain or swelling Neurologic: + right arm weakness. No headache, vertigo, dizziness or loss of consciousness Psychiatric: nor depression Skin: No rashes or easy bruising Endocrine: no increased thirst or abnormal weight change Allergic: no skin or latex allergy All other systems reviewed and normal Exam: General: Well-nourished well-developed individual, no acute distress HEENT: Throat: Normal, tonsils normal, no erythema or exudate Neck: Supple, no meningeal signs, no lymphadenopathy Eyes::Pupils equal reactive and round, extraocular motion intact Chest: Nontender to palpation. Cardiac: Tachycardia, no murmurs rubs or gallops Respiratory: Decreased breath sounds bilaterally. Abdomen: Large abdominal wall hernia, not reducible due to its size, non- tender. Bowel sounds present. Soft, nontender to palpation diffusely Extremities: Warm, dry, no cyanosis, clubbing, or edema Skin: Multiple abdominal scars from prior surgical procedures. Large scar over right knee. Neuro: Alert and oriented x3, nonfocal exam, grossly intact, normal gait Psych: Normal mood and affect <Mendez Rodriguez - Last Filed: 11/13/16 19:47> - General History Source: Patient, Family Exam Limitations: No Limitations - History of Present Illness Initial Comments: 11/13/16 21:17 Warp Placer: ([email or web address]) Begin of Report Content Referring Physician: Hannah Fishman Patient Name: Kathy Robertson THIS IS A PRELIMINARY REPORT FROM [facility] AGENT EXAM: CT head without contrast IMAGES: 77 DATE OF SERVICE: 2016-11-13 19:37:36.0 HISTORY:Right arm weakness. COMPARISON: None. FINDINGS: 1. Areas of low-attenuation in the subcortical and deep white matter of the cerebral hemispheres bilaterally are most suggestive of areas of demyelination. Possible chronic post ischemic demyelination/small vessel disease. There is low attenuation in the left basal ganglia which may represent post ischemic change of indeterminate age, possibly acute, in this patient with right arm weakness. If there is a clinical suspicion of acute cerebral ischemia and if there is no clinical contraindication, MRI brain would be helpful. 2. The ventricles are normal size. 3. The visualized portions of the orbits, paranasal and mastoid sinuses are unremarkable. THIS DOCUMENT HAS BEEN ELECTRONICALLY SIGNED Mackenzie Srinivasan MD 11/13/2016 21:00 MARY MDimitri. Please call [facility] [phone] ([phone]) with questions. Chest xray: RLL infiltrate, ? left pleural effusion ECG NSR at rate of 96, nl intervals, no acute ST-T changes. Assessment and plan: This is a 76-year-old female who comes in complaining of right arm weakness and periods of confusion. Patient was recently discharged for pneumonia from [facility]. Patient was noted to have a low-grade temperature, some hypoxia and a chest x- ray that suggested she still has pneumonia. Patient also has an elevated white count and was given ceftriaxone IV. Patient's head CT showed an area of low-attenuation in the left basal ganglia which may resemble postischemic change of indeterminate age but possibly could be acute or Patient will be admitted to an inpatient bed for further evaluation and workup. Discussed with Dr. Rosenberg however he is not a time on a family emergency and is requesting that the hospitalist admit his patient . 11/13/16 21:46 A portion of this note was documented by scribe services under my direction. I have reviewed the details of the note, within reason, and agree with the documentation. The case summary and management plan written by me. <Hannah Fishman I - Last Filed: 11/13/16 21:47> - General Chief Complaint: Altered Mental Status Stated Complaint: PERIODS OF DISORIENTATION Time Seen by Provider: 11/13/16 18:43 Past History <Mendez Rodriguez - Last Filed: 11/13/16 19:47> - Past Medical History COPD: Yes (COPD, O2 DEPENDENT) GI Disorders: Yes (VENTRAL HERNIA) HTN: Yes Hypercholesterolemia: Yes - Surgical History Abdominal Surgery: Yes (STOMACH STAPLING 1984) Appendectomy: Yes Orthopedic Surgery: Yes (bilateral knee replacement) - Psycho/Social/Smoking Cessation Hx Anxiety: No Suicidal Ideation: No Smoking Status: Yes Smoking History: Former smoker Have you smoked in the past 12 months: No Number of Cigarettes Smoked Daily: 0 If you are a former smoker, when did you quit?: 25-30 years Information on smoking cessation initiated: No Hx Alcohol Use: No Drug/Substance Use Hx: No Substance Use Type: None Hx Substance Use Treatment: No <Hannah Fishman I - Last Filed: 11/13/16 21:47> - Past Medical History Allergies/Adverse Reactions: Allergies Allergy/AdvReac Type Severity Reaction Status Date / Time No Known Allergies Allergy Verified 11/13/16 18:41 Home Medications: Ambulatory Orders Diltiazem HCl [Cardizem] 120 mg PO DAILY 07/25/12 Lisinopril [Prinivil] 20 mg PO DAILY 04/09/14 Spironolactone 25 mg PO DAILY 04/09/14 Albuterol 0.083% Nebulizer Isabella [Ventolin 0.083% Nebulizer Soln -] 1 neb NEB Q4H PRN 09/16/15 Budesonide/Formeterol Fumarate [SYMBICORT 160/4.5mcg -] 2 puff IH BID #0 inhaler 09/25/15 Roflumilast [Daliresp -] 500 mcg PO DAILY #0 tablet 09/25/15 Aclidinium [place] [Tudorza Pressair] 400 mcg IH ASDIR 10/14/16 Alprazolam 0.25 mg PO PRN PRN 10/14/16 Azelastine HCl 10/14/16 Hydromorphone [Dilaudid -] 1 - 2 mg PO ASDIR PRN 10/14/16 Meloxicam [Mobic] 15 mg PO DAILY 10/14/16 Montelukast Na [Singulair -] 20 mg PO DAILY 10/14/16 Tramadol HCl 50 mg PO PRN PRN 10/14/16 Cefuroxime Axetil [Ceftin -] 500 mg PO Q12H #14 tablet 10/20/16 *Physical Exam - Vital Signs Last Vital Signs Temp Pulse Resp BP Pulse Ox 99.9 F H 104 H 24 139/87 94 L 11/13/16 18:52 11/13/16 18:41 11/13/16 18:41 11/13/16 18:41 11/13/16 18:41 <Mendez Rodriguez - Last Filed: 11/13/16 19:47> - Vital Signs Last Vital Signs Temp Pulse Resp BP Pulse Ox 99.9 F H 104 H 24 139/87 94 L 11/13/16 18:52 11/13/16 18:41 11/13/16 18:41 11/13/16 18:41 11/13/16 18:41 <Hannah Fishman I - Last Filed: 11/13/16 21:47> ED Treatment Course - LABORATORY CBC & Chemistry Diagram: 11/13/16 18:52 11/13/16 18:52 - ADDITIONAL ORDERS Additional order review: Laboratory Results 11/13/16 11/13/16 11/13/16 18:52 18:52 18:52 INR 1.12 PTT (Actin FS) 34.9 Sodium 136 Potassium 5.2 H Chloride 101 Carbon Dioxide 28 Anion Gap 7 L BUN 40 H D Creatinine 1.1 D Creat Clearance w eGFR 48.42 Random Glucose 141 H D Calcium 9.2 Total Bilirubin 0.5 D AST 13 D ALT 9 L D Alkaline Phosphatase 78 Creatine Kinase 23 L Troponin I < 0.03 L Total Protein 6.9 D Albumin 3.4 L D 11/13/16 18:52 RBC 3.21 L MCV 85.8 MCHC 33.5 RDW 14.9 MPV 8.4 D Neutrophils % 71.2 Lymphocytes % 19.7 D Monocytes % 4.7 Eosinophils % 2.3 Basophils % 2.1 H D <Mendez Rodriguez - Last Filed: 11/13/16 19:47> - LABORATORY CBC & Chemistry Diagram: 11/13/16 18:52 11/13/16 18:52 <Hannah Fishman I - Last Filed: 11/13/16 21:47> *DC/Admit/Observation/Transfer - Attestations Scribe Attestion: 11/13/16 19:56 Documentation prepared by Mendez Rodriguez, acting as medical biller coder for Hannah Fishman MD. <Mendez Rodriguez - Last Filed: 11/13/16 19:47> - Discharge Dispostion Admit: Yes <Hannah Fishman I - Last Filed: 11/13/16 21:47> Diagnosis at time of Disposition: Pneumonia Qualifiers: Pneumonia type: due to unspecified organism Laterality: right Lung location: lower lobe of lung Qualified Code(s): J18.1 - Lobar pneumonia, unspecified organism Cerebrovascular accident (CVA) Qualifiers: CVA mechanism: unspecified Qualified Code(s): I63.9 - Cerebral infarction, unspecified - Discharge Dispostion Condition at time of disposition: Stable - Referrals Referrals: Roberto Roberts MD [Primary Care Provider] -
[2016-11-13 19:37] LABS: TROPONIN I (DFP) < 0.03 ng/ml (0.03-0.50)
--- NOTE | 2016-11-13 19:45 | PDOC ---
NIH Stroke Scale - Last Known Well Date/Time & Onset Date Last Known Well: 11/12/16 (Pt says she woke up with the arm weakness) - Initial Evaluation Level of consciousness: Alert Ask patient the month and their age: Answers both correctly Ask patient to open & close eyes; make fist and let go: Obeys both correctly Best gaze (horizontal eye movement): Normal Visual field testing: No visual field loss Facial paresis (Show teeth/raise eyebrows/close eyes tight): Normal symmetrical movement Motor Function: Left Arm: Normal Motor Function: Right Arm: Drift Motor Function: Left Leg: Normal (extends leg 30 degrees for 5 seconds without drift) Motor Function: Right Leg: Untestable )Joint fused orlimb amputated), explain: Limb Ataxia: No ataxia Sensory(Use pinprick test arms,legs,trunk,face/side to side): Normal Best language (Describe picture, name items, read sentences): No Aphasia Dysarthria (read several words): Normal articulation Extinction and Inattention: No abnormality - Total Score NIH Stroke Scale Score: 1
[2016-11-13] MEDS ORDERED: CEFTRIAXONE 1 GM in DEXTROSE 5%-WATER - 50 ML IVPB ONE (20:11)
[2016-11-13] MEDS ORDERED: cefTRIAXone SODIUM 1 GM VIAL ONE (20:14)
[2016-11-13 20:23] LABS: VENOUS PH 7.25 (7.32-7.42)
[2016-11-13 20:25] LABS: VENOUS BLOOD GAS HCO3 27.7 meq/L (19-25)
[2016-11-13 21:36] LABS: URINE APPEARANCE Clear; URINE BILIRUBIN Negative (NEGATIVE); URINE BLOOD Negative (NEGATIVE); URINE GLUCOSE (UA) Negative (NEGATIVE); URINE KETONE Negative (NEGATIVE); URINE LEUK ESTERASE Trace (NEGATIVE); URINE NITRITE Negative (NEGATIVE); URINE PROTEIN Negative (NEGATIVE); URINE UROBILINOGEN 0.2 E.U/dl (0.2-1.0)
[2016-11-13 21:39] LABS: URINE COLOR YELLOW
[2016-11-13] MEDS ORDERED: ASPIRIN 81 MG CHEWABLE TABLETS PO ONE (21:59)
[2016-11-13] MEDS ORDERED: ASPIRIN 325 MG TABLET ONE (22:00)
--- NOTE | 2016-11-13 22:44 | HP ---
CHIEF COMPLAINT: "I couldn't hold onto things with my right hand when I woke up. " PCP: Armando HISTORY OF PRESENT ILLNESS: The patient is a 76 year old female with a significant past medical history of HTN, CHF, COPD, who presents to the ED with right arm weakness that began upon awaking this morning around 10AM. Patient states she was unable to hold objects in her right hand. Resolved now. ER course was notable for: (1) right hand weakness (2) respiratory acidosis (3) Left lung base infiltrates on CXR Recent Travel: Denies PAST MEDICAL HISTORY: COPD on home o2, HTN PAST SURGICAL HISTORY: bilateral TKR, weight loss surgery Social History: Smokin pack years quit in 2005 Alcohol: occasional Drugs: denies Family History: Father in 50's from lung disease Mother in her 80's from [facility] Allergies No Known Allergies Allergy (Verified 11/13/16 18:41) HOME MEDICATIONS: Home Medications 3 Medication Instructions Recorded Diltiazem HCl [Cardizem] 120 mg PO DAILY 07/25/12 Lisinopril [Prinivil] 20 mg PO DAILY 04/09/14 Spironolactone 25 mg PO DAILY 04/09/14 Albuterol 0.083% Nebulizer Isabella 1 neb NEB Q4H PRN 09/16/15 [Ventolin 0.083% Nebulizer Soln -] Budesonide/Formeterol Fumarate 2 puff IH BID #0 inhaler 09/25/15 [SYMBICORT 160/4.5mcg -] Roflumilast [Daliresp -] 500 mcg PO DAILY #0 tablet 09/25/15 Aclidinium [place] [Tudorza 400 mcg IH ASDIR 10/14/16 Pressair] Alprazolam 0.25 mg PO PRN PRN 10/14/16 Azelastine HCl 10/14/16 Hydromorphone [Dilaudid -] 1 - 2 mg PO ASDIR PRN 10/14/16 Meloxicam [Mobic] 15 mg PO DAILY 10/14/16 Montelukast Na [Singulair -] 20 mg PO DAILY 10/14/16 Tramadol HCl 50 mg PO PRN PRN 10/14/16 Cefuroxime Axetil [Ceftin -] 500 mg PO Q12H #14 tablet 10/20/16 REVIEW OF SYSTEMS CONSTITUTIONAL: Absent: fever, chills, diaphoresis, generalized weakness, malaise, loss of appetite, weight change HEENT: Absent: rhinorrhea, nasal congestion, throat pain, throat swelling, difficulty swallowing, mouth swelling, ear pain, eye pain, visual changes CARDIOVASCULAR: Absent: chest pain, syncope, palpitations, irregular heart rate, lightheadedness , peripheral edema RESPIRATORY: Absent: cough, shortness of breath, dyspnea with exertion, orthopnea, wheezing, stridor, hemoptysis GASTROINTESTINAL: large non-reproducible hernia Absent: abdominal pain, abdominal distension, nausea, vomiting, diarrhea, constipation, melena, hematochezia GENITOURINARY: Absent: dysuria, frequency, urgency, hesitancy, hematuria, flank pain, genital pain MUSCULOSKELETAL: right hip pain Absent: myalgia, joint swelling, back pain, neck pain SKIN: Absent: rash, itching, pallor HEMATOLOGIC/IMMUNOLOGIC: Absent: easy bleeding, easy bruising, lymphadenopathy, frequent infections ENDOCRINE: Absent: unexplained weight gain, unexplained weight loss, heat intolerance, cold intolerance NEUROLOGIC: Absent: headache, focal weakness or paresthesias, dizziness, unsteady gait, seizure, mental status changes, bladder or bowel incontinence PSYCHIATRIC: Absent: anxiety, depression, suicidal or homicidal ideation, hallucinations. PHYSICAL EXAMINATION Vital Signs - 24 hr 3 11/13/16 22:17 Pulse Rate [ 97 H Apical] Respiratory 22 Rate Blood Pressure 136/64 [Right Arm] O2 Sat by Pulse 98 Oximetry (%) GENERAL: Awake, alert, and fully oriented, in no acute distress. HEAD: Normal with no signs of trauma. EYES: Pupils equal, round and reactive to light, extraocular movements intact, sclera anicteric, conjunctiva clear. No lid lag. EARS, NOSE, THROAT: Ears normal, nares patent, oropharynx clear without exudates. Moist mucous membranes. NECK: Normal range of motion, supple without lymphadenopathy, JVD, or masses. LUNGS: Breath sounds equal, diminished bilaterally. wheezes present bibasally. No crackles. Accessory muscle use. HEART: Regular rate and rhythm, normal S1 and S2 without murmur, rub or gallop. ABDOMEN: Soft, nontender, not distended, normoactive bowel sounds, no guarding, no rebound, no masses. No hepatomegaly or splenomegaly. Large non- reproducible abdominal hernia present. MUSCULOSKELETAL: Normal range of motion at joints except right hip with limited ROM 2/2 pain. No bony deformities or tenderness. No CVA tenderness. UPPER EXTREMITIES: 2+ pulses, warm, well-perfused. No cyanosis. No clubbing. No peripheral edema. LOWER EXTREMITIES: 2+ pulses, warm, well-perfused. No calf tenderness. No peripheral edema. NEUROLOGICAL: Cranial nerves II-XII intact. Normal speech. Steady gait with walker. Aadnxp-cy-edpt test WNL. Rapid alternating movement appropriately. Strength 5/5 and equal bilaterally. PSYCHIATRIC: Cooperative. Good eye contact. Appropriate mood and affect. SKIN: Warm, dry, normal turgor, no rashes or lesions noted, normal capillary refill. surgical scars noted to b/l anterior knees and RLQ. Laboratory Results - last 24 hr 3 11/13/16 11/13/16 11/13/16 18:52 18:52 18:52 WBC 12.2 H RBC 3.21 L Hgb 9.2 L Hct 27.6 L MCV 85.8 MCHC 33.5 RDW 14.9 Plt Count 279 MPV 8.4 D Neutrophils % 71.2 Lymphocytes % 19.7 D Monocytes % 4.7 Eosinophils % 2.3 Basophils % 2.1 H D INR 1.12 PTT (Actin FS) 34.9 VBG pH 7.25 L POC VBG pCO2 65.6 H* POC VBG pO2 51.3 H Mixed VBG HCO3 27.7 H Sodium Potassium Chloride Carbon Dioxide Anion Gap BUN Creatinine Creat Clearance w eGFR Random Glucose Lactic Acid Calcium Total Bilirubin AST ALT Alkaline Phosphatase Creatine Kinase Troponin I Total Protein Albumin Urine Color Urine Appearance Urine pH Ur Specific [place] Urine Protein Urine Glucose (UA) Urine Ketones Urine Blood Urine Nitrite Urine Bilirubin Urine Urobilinogen Ur Leukocyte Esterase 3 11/13/16 11/13/16 11/13/16 18:52 18:52 18:52 WBC RBC Hgb Hct MCV MCHC RDW Plt Count MPV Neutrophils % Lymphocytes % Monocytes % Eosinophils % Basophils % INR PTT (Actin FS) VBG pH POC VBG pCO2 POC VBG pO2 Mixed VBG HCO3 Sodium 136 Potassium 5.2 H Chloride 101 Carbon Dioxide 28 Anion Gap 7 L BUN 40 H D Creatinine 1.1 D Creat Clearance w eGFR 48.42 Random Glucose 141 H D Lactic Acid 0.8 Calcium 9.2 Total Bilirubin 0.5 D AST 13 D ALT 9 L D Alkaline Phosphatase 78 Creatine Kinase 23 L Troponin I < 0.03 L Total Protein 6.9 D Albumin 3.4 L D Urine Color Urine Appearance Urine pH Ur Specific [place] Urine Protein Urine Glucose (UA) Urine Ketones Urine Blood Urine Nitrite Urine Bilirubin Urine Urobilinogen Ur Leukocyte Esterase 3 11/13/16 21:25 WBC RBC Hgb Hct MCV MCHC RDW Plt Count MPV Neutrophils % Lymphocytes % Monocytes % Eosinophils % Basophils % INR PTT (Actin FS) VBG pH POC VBG pCO2 POC VBG pO2 Mixed VBG HCO3 Sodium Potassium Chloride Carbon Dioxide Anion Gap BUN Creatinine Creat Clearance w eGFR Random Glucose Lactic Acid Calcium Total Bilirubin AST ALT Alkaline Phosphatase Creatine Kinase Troponin I Total Protein Albumin Urine Color Yellow Urine Appearance Clear Urine pH 5.0 Ur Specific [place] 1.015 Urine Protein Negative Urine Glucose (UA) Negative Urine Ketones Negative Urine Blood Negative Urine Nitrite Negative Urine Bilirubin Negative Urine Urobilinogen 0.2 e.u/dl Ur Leukocyte Esterase Trace Imaging CXR wet read by me- Hyperinflation with LLL consolidation unchanged from study done 10/18. ASSESSMENT/PLAN: A: The patient is a 76 year old female with a significant past medical history of HTN, CHF, COPD, who presents to the ED with right arm weakness that began upon awaking this morning around 10AM. Patient states she was unable to hold objects in her right hand. Resolved now. P: Neuro -TIA -likely given resolution of right hand weakness within 24 hours -neuro consult -statin -ASA -S&S eval -NPO until S&S Respiratory -COPD -o2 to maintain sats above 93% -steroids -albuterol nebs -bipap for resp acidosis- refusing -Left lung infiltrates less likely CAP and likely radiographic lag given WBC is baseline and absence or fever or cough Cardiac -HTN -well controlled -home meds -Heart failure -well controlled -home meds M/S -atraumatic right hip pain -PT consult -home meds F/E/N -NPO until S&S -hold IVF given CHF -trend lytes PPX -PT consult Dispo: Patient currently needs inpatient care for her acute medical needs. Code Status: DNR wants intubation if needed. Visit type - Emergency Visit Emergency Visit: Yes ED Registration Date: 11/13/16 Care time: The patient presented to the Emergency Department on the above date and was hospitalized for further evaluation of their emergent condition. - New Patient This patient is new to me today: Yes Date on this admission: 11/15/16 - Critical Care Critical Care patient: No
[2016-11-14] MEDS ORDERED: methylPREDNISolone NA SUCC 125 MG/2 ML VIAL IVPB ONE (00:06)
[2016-11-14] MEDS ORDERED: ALBUTEROL SO4 0.083% IH SOL 2.5 MG/3 ML VIAL.NEB. NEB PRN (00:07)
[2016-11-14] MEDS ORDERED: GABAPENTIN 300 MG CAPSULE (FP) PO PRN (00:12)
[2016-11-14] MEDS ORDERED: ACLIDINIUM BROMIDE 400 MCG/INH AERO.POWD IH SCH ×2 (00:15→01:17)
[2016-11-14] MEDS ORDERED: AZELASTINE HCL IN SCH (00:15)
[2016-11-14 00:16] VITALS: BMI 31.1
[2016-11-14] MEDS ORDERED: ONDANSETRON 4 MG/2 ML VIAL IVPUSH PRN (01:54)
[2016-11-14 07:45] LABS: MCHC 32.8 g/dl (32.0-36.0); MEAN CELL VOLUME 85.4 fl (80-96); MEAN PLT VOLUME 8.1 fl (7.5-11.1); PLATELET COUNT 252 K/MM3 (134-434); RDW 14.6 % (11.6-15.6); WHITE BLOOD COUNT 9.5 K/mm3 (4.0-10.8)
--- NOTE | 2016-11-14 07:56 | PN ---
Physical Exam: SUBJECTIVE: Patient seen and examined this morning. She is awake, alert and oriented. Initially was brought in to ER for possible stroke/TIA with right arm weakness, which is now resolved. The noted time of normal status was undetermined as she had awoken with these neuro changes. She is able to follow all commands. However she is noted this morning to have some difficulty in word finding and aphasia. She understands completely and is frustrated in trying to seek the right words. She has no difficulty in breathing or swallowing Pt is noted to be on home oxygen at home at 2 l and continues to be on it here with stable pulse ox. VSS and labs reviewed. Will contact neurology Dr. Diaz for evaluation of symptoms and findings of CVA OBJECTIVE: Vital Signs Period Temp Pulse Resp BP Sys/Vaughn Pulse Ox Last 24 Hr 98.3 F-98.5 F 91-97 18-22 113-142/50-64 92-98 GENERAL: The patient is awake, alert, and fully oriented, in no acute distress. HEAD: Normal with no signs of trauma. EYES: PERRL, extraocular movements intact, sclera anicteric, conjunctiva clear. No ptosis. ENT: Ears normal, nares patent, oropharynx clear without exudates, moist mucous membranes. NECK: Trachea midline, full range of motion, supple. LUNGS: Breath sounds equal, clear to auscultation bilaterally, no wheezes, no crackles, no accessory muscle use. HEART: Regular rate and rhythm, S1, S2 without murmur, rub or gallop. ABDOMEN: Soft, nontender, nondistended, normoactive bowel sounds, no guarding, no rebound, no hepatosplenomegaly, no masses. EXTREMITIES: 2+ pulses, warm, well-perfused, no edema. NEUROLOGICAL: Cranial nerves II through XII grossly intact. Normal speech, gait not observed. PSYCH: Normal mood, normal affect. SKIN: Warm, dry, normal turgor, no rashes or lesions noted Laboratory Results - last 24 hr 11/14/16 06:00 WBC 9.5 RBC 3.13 L Hgb 8.8 L Hct 26.8 L MCV 85.4 MCHC 32.8 RDW 14.6 Plt Count 252 MPV 8.1 Neutrophils % Y Lymphocytes % Y Active Medications Generic Name Dose Route Start Last Admin Trade Name Freq PRN Reason Stop Dose Admin Acetaminophen 650 mg 11/14/16 00:12 Tylenol - PO Q6H PRN PAIN Aclidinium [place] 1 puff 11/14/16 10:00 Tudorza - IH BID [facility] Albuterol Sulfate 1 amp 11/14/16 00:07 Ventolin 0.083% Nebulizer Soln - NEB Q4H PRN SHORT OF BREATH/WHEEZING Aspirin 81 mg 11/14/16 10:00 Ecotrin - PO DAILY [facility] Atorvastatin Calcium 80 mg 11/14/16 22:00 Lipitor - PO HS [facility] Budesonide/Formoterol Fumarate 2 puff 11/14/16 10:00 Symbicort 160/4.5mcg - IH BID [facility] Celecoxib 200 mg 11/14/16 10:00 Celebrex - PO DAILY [facility] Diltiazem HCl 120 mg 11/14/16 10:00 Cardizem Cd - PO DAILY [facility] Gabapentin 300 mg 11/14/16 00:12 Neurontin - PO Q8H PRN PAIN Lisinopril 20 mg 11/14/16 10:00 Prinivil PO DAILY [facility] Montelukast Sodium 10 mg 11/14/16 10:00 Singulair - PO DAILY [facility] Non-Formulary Medication 2 sprays 11/14/16 00:15 Azelastine Hcl IN ONCE [facility] Non-Formulary Medication 15 mg 11/14/16 10:00 Meloxicam [Mobic] PO DAILY [facility] Ondansetron HCl 4 mg 11/14/16 01:54 Zofran Injection IVPUSH Q6H PRN NAUSEA AND/OR VOMITING Roflumilast 500 mcg 11/14/16 10:00 Daliresp - PO DAILY [facility] Spironolactone 25 mg 11/14/16 10:00 Aldactone - PO DAILY [facility] ASSESSMENT/PLAN: A: The patient is a 76 year old female with a significant past medical history of HTN, CHF, COPD, who presents to the ED yesterday 11/13 with right arm weakness that began upon awaking around 10AM. Patient states she was unable to hold objects in her right hand but is now resolved. She is also noted to have aphasia and difficult in word finding this morning. Contacted Radiology at [facility] to officially read head CT: as follows. Left thalamic and left basal ganglia infarcts with microvascular ischemic gliosis may represent acute or chronic infarcts. P: Neuro -left basal and thalamic ischemia chronic vs acute -right arm weakness resolved -aphasia noted this morning -neuro consult called to Dr. Diaz -statin continues -ASA 81 mg. -swallow eval ordered but did well with sips of water with no apparent risk of aspiration. Due to holiday weekend, will have pt on a soft diet and sitting in chair when eating to prevent aspiration Respiratory -COPD -o2 to maintain sats above 93%, with humidifications now ordered -steroids given yesterday -albuterol nebs -pt refused bipap over night for acidosis Cardiac -HTN -well controlled -home meds continue -Heart failure -well controlled -home meds continue M/S -atraumatic right hip/knee pain -PT consult -holding celebrex and moloxicam due to possible infarct and can use tylenol for pain -home meds on hold F/E/N -hold IVF given CHF -trend lytes; labs ordered for tomorrow PPX -PT consult Visit type - Emergency Visit Emergency Visit: No - New Patient This patient is new to me today: Yes Date on this admission: 11/14/16 - Critical Care Critical Care patient: No - Discharge Referral Referred to [facility] No
[2016-11-14 08:05] LABS: ALBUMIN 3.2 g/dl (3.5-5.0); ALK PHOS 75 U/L (32-92); ANION GAP 6 (8-16); BILIRUBIN,TOTAL 0.6 mg/dl (0.2-1.0); CALCIUM 9.2 mg/dl (8.4-10.2); CO2 28 mmol/L (22-28); GLUCOSE,RANDOM 151 mg/dl (74-106); SGOT/AST 13 U/L (10-42); TOT PROT 6.6 g/dl (6.4-8.3)
[2016-11-14 08:18] LABS: COCKROFT - GAULT NT
[2016-11-14 08:27] LABS: SGPT/ALT 10 U/L (10-40)
[2016-11-14] MEDS ORDERED: SPIRONOLACTONE 25 MG TABLET (FP) PO SCH (10:00)
[2016-11-14] MEDS ORDERED: CELECOXIB 200 MG CAPSULE PO SCH (10:00)
[2016-11-14] MEDS ORDERED: PATIENT'S OWN MEDICATION (NON-FORMULARY) (Meloxicam [Mobic] 15 MG) PO SCH (10:00)
[2016-11-14] MEDS ORDERED: LISINOPRIL 20 MG TABLET (FP) PO SCH (10:00)
[2016-11-14] MEDS: ASPIRIN COATED 81 MG TABLET.EC PO SCH (10:18)
[2016-11-14] MEDS: ROFLUMILAST 500 MCG TABLET PO SCH (10:18)
[2016-11-14] MEDS: MONTELUKAST NA 10 MG TABLET PO SCH (10:18)
[2016-11-14] MEDS: ACLIDINIUM BROMIDE 400 MCG/INH AERO.POWD IH SCH ×3 (10:19→22:43)
[2016-11-14] MEDS: BUDESONIDE/FORMETEROL FUMARATE 160/4.5 mcg INHALER IH SCH ×3 (10:19→22:43)
--- NOTE | 2016-11-14 10:31 | PN ---
Progress Note (short form) - Note Progress Note: 1026 am Pt continues with aphasia without any continue weakness. Spoke with Dr. Diaz, neurology re: finding for last night right arm weakness now resolved and now new finding of aphasia Concern for possible microemboli showering occurring. Dr. Diaz requesting transfer to [facility] for telemetry, MRI/MRA and CTA of neck for evaluation, cards consult, continue ASA 81 and Statin. Notified Nursing supervisor calibration, Dr. Kramer for transfer. Pt is now becoming slightly agitated about transfer. Daughter notified of transfer. ALS EMS transfer being arranged. 1125 am Pt continues with aphasia, she is now becoming somewhat agtitated/angry and then laughing out loud. She is refusing a MRI and transfer. Daughter, La, was called in for communicating with pt. she is very upset and returned home around the corner as this "is not my mother" Her phone number is [phone] Continue to await transfer to [facility]. 1200 pm Pt received telemetry bed assignment in [facility]. Report given. Daughter made aware of transfer. EMS notified for transfer. Visit type - Emergency Visit Emergency Visit: No - New Patient This patient is new to me today: Yes Date on this admission: 11/14/16 - Critical Care Critical Care patient: Yes Total Critical Care Time (in minutes): 60 Critical Care Statement: The care of this patient involved high complexity decision making to prevent further life threatening deterioration of the patient 's condition and/or to evalute & treat vital organ system(s) failure or risk of failure. - Discharge Referral Referred to [facility] No
--- NOTE | 2016-11-14 16:02 | CON.NEURO ---
Consult Consult Specialty:: Neurology Referred by:: Kasandra Reason for Consultation:: stroke - History of Present Illness Chief Complaint: Right arm weakness, which resolved, followed by aphasia, followed by bizarre behavior History of Present Illness: 76 year old woman transferred from [place] for acute stroke. As per transfer record and communication with MERCHANDISE COLLECTOR at [facility] ER this morning the patient awoke around 10 AM with right arm weakness that totally resolved, but then later she became aphasic. Because of the lack of availability of MRI at [facility] and description of the CT I felt and she agreed that we should have the patient transferred to [facility]. She is now acting bizarrely and apparently this is out of character for her. The Patient has no prior stroke history and at this moment is not providing a reliable history, instead refusing to communicate appropriately which is apparently unusual for her. She had a recent admission for pneumonia/COPD exacerbation and is on home O2. She also has a history of CHF. - Past Medical History Cardio/Vascular: Yes: CHF, HTN Pulmonary: Yes: COPD, Pneumonia Gastrointestinal: Yes: GERD ...: No - Past Surgical History Past Surgical History: Yes: Appendectomy, Cataract Removal - Alcohol/Substance Use Hx Alcohol Use: No - Smoking History Smoking history: Former smoker Have you smoked in the past 12 months: No Aproximately how many cigarettes per day: 0 If you are a former smoker, when did you quit?: 25-30 years - Social History ADL: Independent History of Recent Travel: No Home Medications - Allergies Allergies/Adverse Reactions: Allergies Allergy/AdvReac Type Severity Reaction Status Date / Time No Known Allergies Allergy Verified 11/13/16 18:41 - Home Medications Home Medications: Ambulatory Orders Diltiazem HCl [Cardizem] 120 mg PO DAILY 07/25/12 Lisinopril [Prinivil] 20 mg PO DAILY 04/09/14 Spironolactone 25 mg PO DAILY 04/09/14 Albuterol 0.083% Nebulizer Isabella [Ventolin 0.083% Nebulizer Soln -] 1 neb NEB Q4H PRN 09/16/15 Budesonide/Formeterol Fumarate [SYMBICORT 160/4.5mcg -] 2 puff IH BID #0 inhaler 09/25/15 Roflumilast [Daliresp -] 500 mcg PO DAILY #0 tablet 09/25/15 Aclidinium [place] [Tudorza Pressair] 400 mcg IH ASDIR 10/14/16 Alprazolam 0.25 mg PO PRN PRN MDD 1 mg 10/14/16 Azelastine HCl 2 sprays IN ONCE 10/14/16 Hydromorphone [Dilaudid -] 4 - 8 mg PO ASDIR PRN MDD 24mg 10/14/16 Meloxicam [Mobic] 15 mg PO DAILY 10/14/16 Montelukast Na [Singulair -] 10 mg PO DAILY 10/14/16 Tramadol HCl 50 mg PO PRN PRN MDD 200 mg 10/14/16 Acetaminophen [Tylenol] 650 mg PO QID PRN 11/13/16 Celecoxib 200 mg PO DAILY 11/13/16 Gabapentin 300 mg PO Q8H PRN 11/13/16 Zolpidem Tartrate [Ambien] 5 mg PO HS 11/13/16 Physical Exam-Neuro Vital Signs: Vital Signs Temperature 97.8 F 11/14/16 15:00 Pulse Rate 89 11/14/16 15:00 Respiratory Rate 22 11/14/16 15:00 Blood Pressure 133/54 11/14/16 15:00 O2 Sat by Pulse Oximetry (%) 98 11/14/16 08:48 Labs: CBC, BMP 11/14/16 06:00 11/14/16 06:00 INR, PTT INR 1.12 (0.82-1.09) 11/13/16 18:52 NIH Stroke Scale - Last Known Well Date/Time & Onset Symptom Onset Date: 11/14/16 Symptom Onset Time: 10:00 Date Last Known Well: 11/13/16 - Initial Evaluation Level of consciousness: Alert Ask patient the month & their age: Both Incorrect Ask Patient to open & close eyes; make fist and let go.: Obeys One Correctly Best gaze (horizontal eye movement): Partial Gaze Palsy (non cooperative) Facial Palsy(Show teeth or raise eyebrows & close eyes: Normal Symmetrical Movements. Motor Function - Left Arm: Drift; holds 90(or 45) degress, but drifts down before full 10 seconds (non cooperative so may not be due to motor deficits) Motor Function - Right Arm: No Drift;extends limb 90 (or siting 45) degress & hold full 10 seconds Motor Function - Left Leg: Untestable - amputation/joint fusion at the hip Motor Function - Right Leg: Untestable - amputation/joint fusion at the hip ( uncooperative) Limb Ataxia: Untestable - Amputation or Joint Fusion (uncooperative) Sensory (arms, legs, trunk, face): Normal; no sensory loss (uncooperative) Best Language: Mild/moderate aphasia;some obvious loss fluency/facility comprehension Dysarthria/Articulation: Normal Extinction and Inattention: No abnormality (THe patient is behaving bizarrely and I don't know how much of the score would change if she cooperated) - Total Score NIH Stroke Scale Score: 4 Imaging - Results Cat Scan: Report Reviewed, Image Reviewed (reportedly age indeterminate white matter disease and basal ganglia infarcts on the left.) Assessment/Plan The patient presented with a right monoparesis that resolved followed by aphasia that then resolved, and now has altered mentation with bizarre uncooperative behavior. She is irritable, inappropriately jovial, and almost manic appearing. Whether this is secondary to infarction or resperatory status must be determined, and I have asked her MERCHANDISE COLLECTOR to get an ABG immediately which is being done right now. She needs MRI and MRA, which hopefully she'll cooperate for. If not, we may need to carefully calm her for, with close monitoring of her respiratory status. I'll give her haloperidol, 0.5 mg once to allow for us to get a MRI with minimal sedation or impact on blood pressure.
--- NOTE | 2016-11-14 16:11 | CON.CARD ---
Cardiology Consult (text) - Consultation Consultation Note: CC: CVA 76 yo with h/o chf (by report), htn, copd on home oxygen, recent pna, gerd who p /w rt sided weakess, aphasia concerning for acute stroke. She had a recent admission for pneumonia/COPD exacerbation Symptoms now improved but now displaying abnormal behavior. States her right sided weakness is improving. Denies cp, sob, palps, dizziness, le edema, orthopnea, pnd. Denies f/c/s, n/v/d, cough, congestion, rashes, h/a. Patient agitated and intermittently refusing to talk to me. History may be unreliable. pmhx/pshx: per hpi, Appendectomy, Cataract Removal social hx: Former smoker fam hx: denies cardiac history. ros: per hpi Ambulatory Orders Diltiazem HCl [Cardizem] 120 mg PO DAILY 07/25/12 Lisinopril [Prinivil] 20 mg PO DAILY 04/09/14 Spironolactone 25 mg PO DAILY 04/09/14 Albuterol 0.083% Nebulizer Isabella [Ventolin 0.083% Nebulizer Soln -] 1 neb NEB Q4H PRN 09/16/15 Budesonide/Formeterol Fumarate [SYMBICORT 160/4.5mcg -] 2 puff IH BID #0 inhaler 09/25/15 Roflumilast [Daliresp -] 500 mcg PO DAILY #0 tablet 09/25/15 Aclidinium [place] [Tudorza Pressair] 400 mcg IH ASDIR 10/14/16 Alprazolam 0.25 mg PO PRN PRN MDD 1 mg 10/14/16 Azelastine HCl 2 sprays IN ONCE 10/14/16 Hydromorphone [Dilaudid -] 4 - 8 mg PO ASDIR PRN MDD 24mg 10/14/16 Meloxicam [Mobic] 15 mg PO DAILY 10/14/16 Montelukast Na [Singulair -] 10 mg PO DAILY 10/14/16 Tramadol HCl 50 mg PO PRN PRN MDD 200 mg 10/14/16 Acetaminophen [Tylenol] 650 mg PO QID PRN 11/13/16 Celecoxib 200 mg PO DAILY 11/13/16 Gabapentin 300 mg PO Q8H PRN 11/13/16 Zolpidem Tartrate [Ambien] 5 mg PO HS 11/13/16 Current Medications Acetaminophen (Tylenol -) 650 mg PO Q6H PRN PRN Reason: PAIN Aclidinium [place] (Tudorza -) 1 puff IH BID [facility] Last Admin: 11/14/16 10:19 Dose: 1 puff Albuterol Sulfate (Ventolin 0.083% Nebulizer Soln -) 1 amp NEB Q4H PRN PRN Reason: SHORT OF BREATH/WHEEZING Aspirin (Ecotrin -) 81 mg PO DAILY [facility] Last Admin: 11/14/16 10:18 Dose: 81 mg Atorvastatin Calcium (Lipitor -) 80 mg PO [facility] Budesonide/Formoterol Fumarate (Symbicort 160/4.5mcg -) 2 puff IH BID [facility] Last Admin: 11/14/16 10:19 Dose: 2 puff Diltiazem HCl (Cardizem Cd -) 120 mg PO DAILY [facility] Last Admin: 11/14/16 10:18 Dose: 120 mg Gabapentin (Neurontin -) 300 mg PO Q8H PRN PRN Reason: PAIN Lisinopril (Prinivil) 20 mg PO DAILY [facility] Last Admin: 11/14/16 10:18 Dose: 20 mg Montelukast Sodium (Singulair -) 10 mg PO DAILY [facility] Last Admin: 11/14/16 10:18 Dose: 10 mg Non-Formulary Medication (Azelastine Hcl) 2 sprays IN ONCE [place] Ondansetron HCl (Zofran Injection) 4 mg IVPUSH Q6H PRN PRN Reason: NAUSEA AND/OR VOMITING Roflumilast (Daliresp -) 500 mcg PO DAILY [facility] Last Admin: 11/14/16 10:18 Dose: 500 mcg Spironolactone (Aldactone -) 25 mg PO DAILY [facility] Last Admin: 11/14/16 10:17 Dose: 25 mg Vital Signs - 24 hr 11/13/16 11/13/16 11/13/16 18:41 18:52 20:04 Temperature 99.9 F H 99.9 F H 99.5 F Pulse Rate 104 H Pulse Rate [ 99 H Apical] Respiratory 24 24 Rate Blood Pressure 139/87 Blood Pressure 140/63 [Right Arm] O2 Sat by Pulse 94 L 98 Oximetry (%) 11/13/16 11/13/1617 22:17 23:15 06:00 Temperature 98.3 F 98.5 F Pulse Rate 96 H 91 H Pulse Rate [ 97 H Apical] Respiratory 22 18 19 Rate Blood Pressure 113/50 142/58 Blood Pressure 136/64 [Right Arm] O2 Sat by Pulse 98 92 L 98 Oximetry (%) 11/14/16 11/14/16 08:48 15:00 Temperature 97.8 F Pulse Rate 89 Pulse Rate [ Apical] Respiratory 22 Rate Blood Pressure 133/54 Blood Pressure [Right Arm] O2 Sat by Pulse 98 Oximetry (%) Intake & Output 11/12/16 11/13/16 11/14/16 11/15/16 07:59 07:59 07:59 07:59 Intake Total 100 Balance 100 Weight 181 lb 6.4 oz nad, calm jvd flat, neck supple ctab, poor effort (limited exam due to poor cooperation) rrr nl s1, s2 no mrg + bs soft nt nd ext without e/c/c + dp/pt no jaundice, diaphoresis. CBC, BMP 11/14/16 06:00 11/14/16 06:00 Laboratory Tests 11/13/16 11/13/16 11/14/16 18:52 18:52 06:00 VBG pH 7.25 L POC VBG pCO2 65.6 H* POC VBG pO2 51.3 H Calcium 9.2 Total Bilirubin 0.6 AST 13 ALT 10 Creatine Kinase 23 L Troponin I < 0.03 L Albumin 3.2 L EKG: wnl tele: sr cxr: residual atelectasis at left base. 76 yo with h/o chf (by report), htn, copd on home oxygen, recent pna, gerd who p /w rt sided weakness, aphasia concerning for acute stroke. Possible CVA/transient rt sided weakness/behavioral change. - ongoing work up per neurology. mri/mra pending. - telemetry monitoring, no arrhythmia thus far. recent tsh wnl. - echo on tuesday - bp controlled. - con't asa, will start statin. HTN - bp controlled on current regimen, but K elevated. Will stop spironolactone, lisinopril. Con't diltiazem recent copd/pna - per pmd.
[2016-11-14 16:21] LABS: ARTERIAL BLD GAS O2 SATURATION 98.1 % (90-98.9); ARTERIAL BLOOD GAS BASE EXCESS 2.6 meq/l (-2-2); ARTERIAL BLOOD GAS HCO3 27.7 meq/L (22-26); ARTERIAL BLOOD GAS PO2 95.5 mmHg (70-100); ARTERIAL BLOOD GAS pH 7.37 (7.35-7.45)
[2016-11-14 16:24] LABS: ALLENS TEST POSITIVE; ART PUNCT SITE RIGHT RADIAL; LPM/O2% 3L; PT. ON O2? YES; TYPE OF O2 NASAL
--- NOTE | 2016-11-14 17:28 | CON.PULM ---
Consult Consult Specialty:: PULM/CCM Referred by:: ROBE Reason for Consultation:: COPD - History of Present Illness Chief Complaint: AMS History of Present Illness: 76 F, known to our service from a recent admission this past September for AE of COPD and multilobar PNA. CT chest revealed multilobar PNA (LLL having the highest density). She presented to [facility] for a suspected acute stroke. She was transferred here for further workup. Apparently she became aphasic and then started acting "bizarrely" and seemed "manic" She is awake and alert. She is eating dinner without assistance. She is mildly confused and intermittently laughing. CXR: residual basilar atelectasis / improved compared to images from September. - History Source History Provided By: Medical Record Limitations to Obtaining History: Clinical Condition - Past Medical History Cardio/Vascular: Yes: CHF, HTN Pulmonary: Yes: COPD, Pneumonia Gastrointestinal: Yes: GERD ...: No - Past Surgical History Past Surgical History: Yes: Appendectomy, Cataract Removal - Alcohol/Substance Use Hx Alcohol Use: No - Smoking History Smoking history: Former smoker Have you smoked in the past 12 months: No Aproximately how many cigarettes per day: 0 If you are a former smoker, when did you quit?: 25-30 years - Social History ADL: Independent History of Recent Travel: No Home Medications - Allergies Allergies/Adverse Reactions: Allergies Allergy/AdvReac Type Severity Reaction Status Date / Time No Known Allergies Allergy Verified 11/13/16 18:41 - Home Medications Home Medications: Ambulatory Orders Diltiazem HCl [Cardizem] 120 mg PO DAILY 07/25/12 Lisinopril [Prinivil] 20 mg PO DAILY 04/09/14 Spironolactone 25 mg PO DAILY 04/09/14 Albuterol 0.083% Nebulizer Isabella [Ventolin 0.083% Nebulizer Soln -] 1 neb NEB Q4H PRN 09/16/15 Budesonide/Formeterol Fumarate [SYMBICORT 160/4.5mcg -] 2 puff IH BID #0 inhaler 09/25/15 Roflumilast [Daliresp -] 500 mcg PO DAILY #0 tablet 09/25/15 Aclidinium [place] [Tudorza Pressair] 400 mcg IH ASDIR 10/14/16 Alprazolam 0.25 mg PO PRN PRN MDD 1 mg 10/14/16 Azelastine HCl 2 sprays IN ONCE 10/14/16 Hydromorphone [Dilaudid -] 4 - 8 mg PO ASDIR PRN MDD 24mg 10/14/16 Meloxicam [Mobic] 15 mg PO DAILY 10/14/16 Montelukast Na [Singulair -] 10 mg PO DAILY 10/14/16 Tramadol HCl 50 mg PO PRN PRN MDD 200 mg 10/14/16 Acetaminophen [Tylenol] 650 mg PO QID PRN 11/13/16 Celecoxib 200 mg PO DAILY 11/13/16 Gabapentin 300 mg PO Q8H PRN 11/13/16 Zolpidem Tartrate [Ambien] 5 mg PO HS 11/13/16 Review of Systems Unable to obtain ROS, reason: confusion / denies - Review of Systems Constitutional: reports: No Symptoms Eyes: reports: No Symptoms HENT: reports: No Symptoms Neck: reports: No Symptoms Cardiovascular: reports: No Symptoms Respiratory: reports: No Symptoms Gastrointestinal: reports: No Symptoms Genitourinary: reports: No Symptoms Breasts: reports: No Symptoms Reported Musculoskeletal: reports: No Symptoms Integumentary: reports: No Symptoms Neurological: reports: No Symptoms Endocrine: reports: No Symptoms Hematology/Lymphatic: reports: No Symptoms Physical Exam Vital Sings: Vital Signs Temperature 97.8 F 11/14/16 15:00 Pulse Rate 89 11/14/16 15:00 Respiratory Rate 22 11/14/16 15:00 Blood Pressure 133/54 11/14/16 15:00 O2 Sat by Pulse Oximetry (%) 98 11/14/16 08:48 Constitutional: Yes: No Distress Eyes: Yes: Conjunctiva Clear, EOM Intact HENT: Yes: Atraumatic, Normocephalic Neck: Yes: Supple, Trachea Midline Cardiovascular: Yes: Regular Rate and Rhythm Respiratory: Yes: On Nasal O2. No: Accessory Muscle Use, Rales, Rhonchi, SOB, Stridor, Tachypnea, Wheezes ...Inspection: Yes: WNL ...Clubbing: No Gastrointestinal: Yes: Normal Bowel Sounds, Soft Renal/: Yes: WNL Musculoskeletal: Yes: WNL Extremities: Yes: WNL Edema: No Peripheral Pulses WNL: Yes Integumentary: Yes: WNL Neurological: Yes: Alert, Confusion ...Motor Strength: WNL Psychiatric: Yes: Alert Labs: CBC, BMP 11/14/16 06:00 11/14/16 06:00 ABG Results ABG pH 7.37 (7.35-7.45) 11/14/16 15:57 ABG pCO2 at Pt Temp 49.4 mmHg (35-45) H 11/14/16 15:57 ABG pO2 at Pt Temp 95.5 mmHg (70-100) D 11/14/16 15:57 ABG HCO3 27.7 meq/L (22-26) H 11/14/16 15:57 ABG O2 Sat (Measured) 98.1 % (90-98.9) 11/14/16 15:57 ABG O2 Content 11.5 % vol (15-22) L 11/14/16 15:57 ABG Base Excess 2.6 meq/l (-2-2) H 11/14/16 15:57 Imaging - Results Chest X-ray: Report Reviewed, Image Reviewed Assessment/Plan IMP: COPD not in AE Resolved Multilobar CAP ABG does not explain mental status change CVA Confusional state likely related to 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 Dr Romero
[2016-11-14] MEDS: ATORVASTATIN CA 80 MG TABLET (FP) PO SCH (22:05)
--- NOTE | 2016-11-14 23:59 | PN ---
Progress Note, Physician Chief Complaint: R sided weakness History of Present Illness: 76 y/o C female with hx of COPD, recent CAP, HTN and CHF, presented to [facility] with sudden onset of R hemiparesis followed by aphasia, all of which has now resolved. Now patient is completely confused, inappropriate, laughing/crying, psychotic ideation, and nonsensical sentences. Noted to have L BG and thalamic infarctions on CT scan. Transferred to [facility]/ for MRI/MRA, but so far have not been able to get done. Presently on 4W in private room. No swallowing issues. Has been evaluated by Neurology, Cardiology, and Pulmonary. - Current Medication List Current Medications: Active Medications Acetaminophen (Tylenol -) 650 mg PO Q6H PRN PRN Reason: PAIN Aclidinium [place] (Tudorza -) 1 puff IH BID [facility] Last Admin: 11/14/16 22:43 Dose: 1 puff Albuterol Sulfate (Ventolin 0.083% Nebulizer Soln -) 1 amp NEB Q4H PRN PRN Reason: SHORT OF BREATH/WHEEZING Aspirin (Ecotrin -) 81 mg PO DAILY [facility] Last Admin: 11/14/16 10:18 Dose: 81 mg Atorvastatin Calcium (Lipitor -) 80 mg PO HS [facility] Last Admin: 11/14/16 22:05 Dose: 80 mg Budesonide/Formoterol Fumarate (Symbicort 160/4.5mcg -) 2 puff IH BID [facility] Last Admin: 11/14/16 22:43 Dose: 2 puff Diltiazem HCl (Cardizem Cd -) 120 mg PO DAILY [facility] Last Admin: 11/14/16 10:18 Dose: 120 mg Gabapentin (Neurontin -) 300 mg PO Q8H PRN PRN Reason: PAIN Haloperidol (Haldol Injection (Fast Acting) -) 0.5 mg IM ONCE ONE Stop: 11/14/16 16:36 Montelukast Sodium (Singulair -) 10 mg PO DAILY [facility] Last Admin: 11/14/16 10:18 Dose: 10 mg Non-Formulary Medication (Azelastine Hcl) 2 sprays IN ONCE [facility] Roflumilast (Daliresp -) 500 mcg PO DAILY [facility] Last Admin: 11/14/16 10:18 Dose: 500 mcg - Objective Vital Signs: Vital Signs Temperature 98 F 11/14/16 20:00 Pulse Rate 92 H 11/14/16 20:00 Respiratory Rate 20 11/14/16 20:00 Blood Pressure 133/67 11/14/16 20:00 O2 Sat by Pulse Oximetry (%) 98 11/14/16 21:00 Constitutional: Yes: Well Nourished, No Distress Eyes: Yes: WNL, Conjunctiva Clear, EOM Intact HENT: Yes: Atraumatic, Normocephalic Neck: Yes: WNL, Supple, Trachea Midline Cardiovascular: Yes: Regular Rate and Rhythm Respiratory: Yes: Regular, CTA Bilaterally Gastrointestinal: Yes: Normal Bowel Sounds, Soft ...Rectal Exam: Yes: Deferred Musculoskeletal: Yes: Joint Stiffness Extremities: Yes: WNL Edema: No Integumentary: Yes: WNL Neurological: Yes: Alert, Other (confused and inappropriate, refusing to follow all commands) Labs: CBC, BMP 11/14/16 06:00 11/14/16 06:00 INR, PTT INR 1.12 (0.82-1.09) 11/13/16 18:52 - ....Imaging Chest X-ray: Report Reviewed (Improved over most recent study, Decreased atelectesis) X-ray: Report Reviewed (Improved from 10/18/16 study. Less L atelectesis.) Cat Scan: Report Reviewed (CT scan-age indeterminate L BG/thalamic infarctions) Assessment/Plan 1)-L CVA Neurology evaluation noted and appreciated. MRI/MRA ordered. Further recommendations will come from neurology post-study. 2)-COPD Continue present Rx. No evidence of recurrent pneumonia. 3)-HTN Continue present Rx. 4)-Hx of CHF No evidence of acute CHF at this time.
[2016-11-15 08:37] LABS: MAGNESIUM 2.9 mg/dL (1.8-2.4)
[2016-11-15 08:43] LABS: PHOSPHOROUS 3.3 mg/dL (2.5-4.9)
[2016-11-15] MEDS ORDERED: HALOPERIDOL LACTATE 5 MG/ML IM ONE ×2 (08:45→10:00)
[2016-11-15 09:10] LABS: INR 1.15 (0.82-1.09); PROTHROMBIN TIME (PATIENT) 12.7 SEC (9.98-11.88)
--- NOTE | 2016-11-15 09:15 | PN ---
Progress Note, Physician History of Present Illness: pulmonary awake,nad,+cough,-cp - Current Medication List Current Medications: Active Medications Acetaminophen (Tylenol -) 650 mg PO Q6H PRN PRN Reason: PAIN Aclidinium [place] (Tudorza -) 1 puff IH BID [facility] Last Admin: 11/14/16 22:43 Dose: 1 puff Albuterol Sulfate (Ventolin 0.083% Nebulizer Soln -) 1 amp NEB Q4H PRN PRN Reason: SHORT OF BREATH/WHEEZING Aspirin (Ecotrin -) 81 mg PO DAILY [facility] Last Admin: 11/14/16 10:18 Dose: 81 mg Atorvastatin Calcium (Lipitor -) 80 mg PO HS [facility] Last Admin: 11/14/16 22:05 Dose: 80 mg Budesonide/Formoterol Fumarate (Symbicort 160/4.5mcg -) 2 puff IH BID [facility] Last Admin: 11/14/16 22:43 Dose: 2 puff Diltiazem HCl (Cardizem Cd -) 120 mg PO DAILY [facility] Last Admin: 11/14/16 10:18 Dose: 120 mg Gabapentin (Neurontin -) 300 mg PO Q8H PRN PRN Reason: PAIN Montelukast Sodium (Singulair -) 10 mg PO DAILY [facility] Last Admin: 11/14/16 10:18 Dose: 10 mg Non-Formulary Medication (Azelastine Hcl) 2 sprays IN ONCE [facility] Roflumilast (Daliresp -) 500 mcg PO DAILY [facility] Last Admin: 11/14/16 10:18 Dose: 500 mcg - Objective Vital Signs: Vital Signs Temperature 98.6 F 11/15/16 06:00 Pulse Rate 85 11/15/16 06:00 Respiratory Rate 20 11/15/16 06:00 Blood Pressure 101/71 11/15/16 06:00 O2 Sat by Pulse Oximetry (%) 98 11/14/16 21:00 Constitutional: Yes: Well Nourished, Calm Eyes: Yes: WNL HENT: Yes: WNL Neck: Yes: WNL Cardiovascular: Yes: Regular Rate and Rhythm, S1, S2 Respiratory: Yes: Diminished Gastrointestinal: Yes: Normal Bowel Sounds, Soft Extremities: Yes: WNL Edema: No Labs: INR, PTT INR 1.12 (0.82-1.09) 11/13/16 18:52 Laboratory Tests 11/14/16 15:57 ABG pH 7.37 ABG pCO2 at Pt Temp 49.4 H ABG pO2 at Pt Temp 95.5 D ABG HCO3 27.7 H ABG O2 Sat (Measured) 98.1 Oxygen Flow Rate 3l Assessment/Plan Assessment/Plan IMP: COPD not in AE Resolved Multilobar CAP ABG does not explain mental status change CVA Confusional state likely related to 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
[2016-11-15 09:24] LABS: WHITE BLOOD COUNT 13.2 K/mm3 (4.0-10.0)
[2016-11-15 09:25] LABS: EOSINOPHIL 0.1 % (0-4.5); MCH 27.6 pg (25.7-33.7); MCHC 32.5 g/dl (32.0-36.0); MEAN CELL VOLUME 84.9 fl (80-96); MEAN PLT VOLUME 8.1 fl (7.5-11.1); NEUTROPHILS 79.1 % (42.8-82.8); PLATELET COUNT 257 K/MM3 (134-434); RDW 15.2 % (11.6-15.6)
[2016-11-15 09:26] LABS: BASOPHIL 0.3 % (0-2.0)
[2016-11-15 09:47] LABS: LDL CHOLESTEROL (ONLY SJRH) 134 mg/dL (5-100)
[2016-11-15 09:48] LABS: CHOLESTEROL 194 mg/dl
[2016-11-15] MEDS: ASPIRIN COATED 81 MG TABLET.EC PO SCH (09:49)
[2016-11-15] MEDS: MONTELUKAST NA 10 MG TABLET PO SCH (09:49)
[2016-11-15 09:51] LABS: COCKROFT - GAULT 70.1505; CREATININE 0.9 mg/dl (0.6-1.3); GLUCOSE,RANDOM 98 mg/dl (74-106)
[2016-11-15] MEDS: ROFLUMILAST 500 MCG TABLET PO SCH (09:51)
[2016-11-15 09:52] LABS: ALBUMIN 2.9 g/dl (3.5-5.0); ANION GAP 8 (8-16); BILIRUBIN,TOTAL 0.2 mg/dl (0.2-1.0); CALCIUM 9.4 mg/dl (8.4-10.2); CO2 28 mmol/L (22-28); SGOT/AST 10 U/L (10-42); SGPT/ALT 13 U/L (10-40); TOT PROT 6.5 g/dl (6.4-8.3)
[2016-11-15] MEDS: ACLIDINIUM BROMIDE 400 MCG/INH AERO.POWD IH SCH ×2 (09:52→21:27)
[2016-11-15] MEDS: BUDESONIDE/FORMETEROL FUMARATE 160/4.5 mcg INHALER IH SCH ×2 (09:52→21:27)
[2016-11-15 09:53] LABS: ALK PHOS 81 U/L (32-92)
--- NOTE | 2016-11-15 10:41 | EKG ---
Test Reason : Blood Pressure : / mmHG Vent. Rate : 096 BPM Atrial Rate : 096 BPM P-R Int : 152 ms QRS Dur : 072 ms QT Int : 312 ms P-R-T Axes : 034 057 053 degrees QTc Int : 394 ms NORMAL SINUS RHYTHM NORMAL ECG WHEN COMPARED WITH ECG OF 14-OCT-2016 17:43, NO SIGNIFICANT CHANGE WAS FOUND Confirmed by INES MÉNDEZ MD ([id number]) on 11/15/2016 10:40:50 AM Referred By: PASHA BURGER Confirmed By:INES MÉNDEZ MD
[2016-11-15] MEDS: GABAPENTIN 300 MG CAPSULE (FP) PO SCH ×3 (11:17→21:27)
[2016-11-15] MEDS: ACETAMINOPHEN 325 MG TABLET (FP) PO PRN (11:18)
[2016-11-15] MEDS ORDERED: HALOPERIDOL 2 MG TABLET PO ONE (12:15)
[2016-11-15] MEDS ORDERED: HALOPERIDOL 1 MG TABLET (FP) PO ONE (12:15)
--- NOTE | 2016-11-15 18:50 | PN ---
Progress Note (short form) - Note Progress Note: CC: possible cva S: Still reluctant to talk. denies complaints cp, palps, sob, dizziness. states that rt sided weakness improved. Current Medications Acetaminophen (Tylenol -) 650 mg PO Q6H PRN PRN Reason: PAIN Last Admin: 11/15/16 11:18 Dose: 650 mg Aclidinium [place] (Tudorza -) 1 puff IH BID [facility] Last Admin: 11/15/16 09:52 Dose: 1 puff Albuterol Sulfate (Ventolin 0.083% Nebulizer Soln -) 1 amp NEB Q4H PRN PRN Reason: SHORT OF BREATH/WHEEZING Aspirin (Ecotrin -) 81 mg PO DAILY [facility] Last Admin: 11/15/16 09:49 Dose: 81 mg Atorvastatin Calcium (Lipitor -) 80 mg PO HS [facility] Last Admin: 11/14/16 22:05 Dose: 80 mg Budesonide/Formoterol Fumarate (Symbicort 160/4.5mcg -) 2 puff IH BID [facility] Last Admin: 11/15/16 09:52 Dose: 2 puff Diltiazem HCl (Cardizem Cd -) 120 mg PO DAILY [facility] Last Admin: 11/15/16 09:49 Dose: 120 mg Gabapentin (Neurontin -) 300 mg PO TID [facility] Last Admin: 11/15/16 15:19 Dose: 300 mg Montelukast Sodium (Singulair -) 10 mg PO DAILY [facility] Last Admin: 11/15/16 09:49 Dose: 10 mg Roflumilast (Daliresp -) 500 mcg PO DAILY [facility] Last Admin: 11/15/16 09:51 Dose: 500 mcg Vital Signs - 24 hr 11/14/16 11/14/16 11/15/16 20:00 21:00 02:43 Temperature 98 F 97.5 F L Pulse Rate 92 H 89 Respiratory 20 20 Rate Blood Pressure 133/67 139/68 O2 Sat by Pulse 98 Oximetry (%) 11/15/16 11/15/16 11/15/16 06:00 09:00 12:00 Temperature 98.6 F 98 F Pulse Rate 85 84 Respiratory 20 18 Rate Blood Pressure 101/71 132/58 O2 Sat by Pulse 97 Oximetry (%) 11/15/16 16:22 Temperature 99.8 F H Pulse Rate 81 Respiratory 18 Rate Blood Pressure 120/80 O2 Sat by Pulse Oximetry (%) Intake & Output 11/13/16 11/14/16 11/15/16 11/16/16 07:59 07:59 07:59 07:59 Intake Total 100 210 300 Balance 100 210 300 Weight 181 lb 6.4 oz nad, calm jvd flat, neck supple ctab, poor effort (limited exam due to poor cooperation) rrr nl s1, s2 no mrg + bs soft nt nd ext without e/c/c + dp/pt no jaundice, diaphoresis. CBC, BMP 11/15/16 05:40 11/15/16 05:40 Laboratory Tests 11/15/16 11/15/16 05:40 05:40 ESR 123 H C-Reactive Protein 1.2 H EKG: wnl tele: sr cxr: residual atelectasis at left base. 76 yo with h/o chf (by report), htn, copd on home oxygen, recent pna, gerd who p /w rt sided weakness, aphasia concerning for acute stroke. Possible CVA/transient rt sided weakness/behavioral change. - ongoing work up per neurology. mri/mra pending. - telemetry monitoring, no arrhythmia thus far. recent tsh wnl. - echo on tuesday - bp controlled. - con't asa, statin. HTN - bp controlled on current regimen. Stopped spironolactone, lisinopril b/c of hyperkalemia. Con't diltiazem recent copd/pna - per pmd.
[2016-11-15] MEDS: ATORVASTATIN CA 80 MG TABLET (FP) PO SCH (21:26)
--- NOTE | 2016-11-15 22:28 | PN ---
Progress Note, Physician Chief Complaint: R sided weakness History of Present Illness: Patient without R hemiparesis since yesterday and speaking clearly, with much less inappropriateness and confusion. However, more sedated and angry with sarcastic comments. Nursing staff report no problems with eating/swallowing or taking of medications. With speaking to the daughter, she stated that the patient had only recently been prescribed gabapentin by the Orthopedist, but had not been taking it correctly, and taping up slowly on the dose. So patient was on gabapentin 300 mg tid for only several days before the neurologic sx began. - Current Medication List Current Medications: Active Medications Acetaminophen (Tylenol -) 650 mg PO Q6H PRN PRN Reason: PAIN Last Admin: 11/15/16 11:18 Dose: 650 mg Aclidinium [place] (Tudorza -) 1 puff IH BID [facility] Last Admin: 11/15/16 21:27 Dose: 1 puff Albuterol Sulfate (Ventolin 0.083% Nebulizer Soln -) 1 amp NEB Q4H PRN PRN Reason: SHORT OF BREATH/WHEEZING Aspirin (Ecotrin -) 81 mg PO DAILY [facility] Last Admin: 11/15/16 09:49 Dose: 81 mg Atorvastatin Calcium (Lipitor -) 80 mg PO HS [facility] Last Admin: 11/15/16 21:26 Dose: 80 mg Budesonide/Formoterol Fumarate (Symbicort 160/4.5mcg -) 2 puff IH BID [facility] Last Admin: 11/15/16 21:27 Dose: 2 puff Diltiazem HCl (Cardizem Cd -) 120 mg PO DAILY [facility] Last Admin: 11/15/16 09:49 Dose: 120 mg Gabapentin (Neurontin -) 300 mg PO TID [facility] Last Admin: 11/15/16 21:27 Dose: 300 mg Montelukast Sodium (Singulair -) 10 mg PO DAILY [facility] Last Admin: 11/15/16 09:49 Dose: 10 mg Roflumilast (Daliresp -) 500 mcg PO DAILY [facility] Last Admin: 11/15/16 09:51 Dose: 500 mcg - Objective Vital Signs: Vital Signs Temperature 97.4 F L 11/15/16 18:00 Pulse Rate 89 11/15/16 18:00 Respiratory Rate 18 11/15/16 18:00 Blood Pressure 128/78 11/15/16 18:00 O2 Sat by Pulse Oximetry (%) 97 11/15/16 09:00 Constitutional: Yes: Well Nourished, No Distress, Calm Eyes: Yes: Conjunctiva Clear, EOM Intact HENT: Yes: Atraumatic, Normocephalic (symmetrical) Neck: Yes: Supple, Trachea Midline Cardiovascular: Yes: Regular Rate and Rhythm Respiratory: Yes: Regular, CTA Bilaterally (decreased breath sounds bilaterally) Gastrointestinal: Yes: Normal Bowel Sounds, Soft Musculoskeletal: Yes: Joint Stiffness Extremities: Yes: WNL Edema: No Integumentary: Yes: WNL Neurological: Yes: Confusion (Angry), Lethargy ...Motor Strength: WNL Labs: CBC, BMP 11/15/16 05:40 11/15/16 05:40 INR, PTT INR 1.15 (0.82-1.09) H 11/15/16 05:40 ABG-7.37/49/96/27/2.6-3 liters/min ESR-123 CRP-1.2 Mg-2.9 Ca-9.4 Phos-3.3 Chol-194 HDL-46 A1C-5.2 - ....Imaging MRI: Report Reviewed (No acute CVA, severe microvascular ischemic changes brainstem, and subcortical/periventricular white matter) Assessment/Plan 1)-R TIA Enteric coated ASA Rx. 2)-Change in mental status secondary to new onset high dose gabapentin Rx. Will D/C gabapentin Rx and observe for changes in neurologic/mental status. 3)-COPD-stable Continue present Rx. 4)-Hx of CHF-stable Continue present Rx. 5)-Elevated magnesium and ESR-unclear as to etiology-will repeat.
[2016-11-15] MEDS ORDERED: ALPRAZolam 0.25 MG TABLET PO PRN (22:38)
[2016-11-16] MEDS: ACETAMINOPHEN 325 MG TABLET (FP) PO PRN ×2 (05:35→17:27)
[2016-11-16 07:34] LABS: BASOPHIL 0.5 % (0-2.0); EOSINOPHIL 1.7 % (0-4.5); MCH 28.1 pg (25.7-33.7); MCHC 32.8 g/dl (32.0-36.0); MEAN CELL VOLUME 85.7 fl (80-96); MEAN PLT VOLUME 8.1 fl (7.5-11.1); NEUTROPHILS 61.6 % (42.8-82.8); PLATELET COUNT 255 K/MM3 (134-434); RDW 15.5 % (11.6-15.6); WHITE BLOOD COUNT 8.8 K/mm3 (4.0-10.0)
[2016-11-16 08:00] LABS: ALBUMIN 2.8 g/dl (3.4-5.0); MAGNESIUM 2.3 mg/dL (1.8-2.4); PHOSPHOROUS 3.9 mg/dL (2.5-4.9)
[2016-11-16 08:02] LABS: BILIRUBIN,TOTAL 0.2 mg/dL (0.2-1.0); COCKROFT - GAULT 63.138; TOT PROT 6.3 g/dl (6.4-8.2)
--- NOTE | 2016-11-16 08:11 | PN ---
Progress Note (short form) - Note Progress Note: HPI: 76 year old woman transferred from [place] for acute stroke. As per transfer record and communication with CHIEF STEWARD/STEWARDESS at [facility] this morning the patient awoke around 10 AM with right arm weakness that totally resolved, but then later she became aphasic. Because of the lack of availability of MRI at [facility] and description of the CT I felt and she agreed that we should have the patient transferred to [facility]. She is now acting bizarrely and apparently this is out of character for her. The Patient has no prior stroke history and at this moment is not providing a reliable history, instead refusing to communicate appropriately which is apparently unusual for her. She had a recent admission for pneumonia/COPD exacerbation and is on home O2. She also has a history of CHF. FU : this AM more comfortable,. denies weakness or speech difficulty, she is still irritated by her MRI experience and "feels it was not done" she is oriented and following 3 steps, no aphasia, no focal weakness, or ataxia. MRI reveiwed. - Past Medical History Cardio/Vascular: Yes: CHF, HTN Pulmonary: Yes: COPD, Pneumonia Gastrointestinal: Yes: GERD ...: No - Past Surgical History Past Surgical History: Yes: Appendectomy, Cataract Removal - Alcohol/Substance Use Hx Alcohol Use: No - Smoking History Smoking history: Former smoker Have you smoked in the past 12 months: No Aproximately how many cigarettes per day: 0 If you are a former smoker, when did you quit?: 25-30 years - Social History ADL: Independent History of Recent Travel: No Home Medications - Allergies Allergies/Adverse Reactions: Allergies Allergy/AdvReac Type Severity Reaction Status Date / Time No Known Allergies Allergy Verified 11/13/16 18:41 - Home Medications Home Medications: Ambulatory Orders Diltiazem HCl [Cardizem] 120 mg PO DAILY 07/25/12 Lisinopril [Prinivil] 20 mg PO DAILY 04/09/14 Spironolactone 25 mg PO DAILY 04/09/14 Albuterol 0.083% Nebulizer [place] [Ventolin 0.083% Nebulizer Soln -] 1 neb NEB Q4H PRN 09/16/15 Budesonide/Formeterol Fumarate [SYMBICORT 160/4.5mcg -] 2 puff IH BID #0 inhaler 09/25/15 Roflumilast [Daliresp -] 500 mcg PO DAILY #0 tablet 09/25/15 Aclidinium [place] [Tudorza Pressair] 400 mcg IH ASDIR 10/14/16 Alprazolam 0.25 mg PO PRN PRN MDD 1 mg 10/14/16 Azelastine HCl 2 sprays IN ONCE 10/14/16 Hydromorphone [Dilaudid -] 4 - 8 mg PO ASDIR PRN MDD 24mg 10/14/16 Meloxicam [Mobic] 15 mg PO DAILY 10/14/16 Montelukast Na [Singulair -] 10 mg PO DAILY 10/14/16 Tramadol HCl 50 mg PO PRN PRN MDD 200 mg 10/14/16 Acetaminophen [Tylenol] 650 mg PO QID PRN 11/13/16 Celecoxib 200 mg PO DAILY 11/13/16 Gabapentin 300 mg PO Q8H PRN 11/13/16 Zolpidem Tartrate [Ambien] 5 mg PO HS 11/13/16 Physical Exam-Neuro Vital Signs: Vital Signs Temperature 98 F 11/16/16 05:00 Pulse Rate 81 11/16/16 05:00 Respiratory Rate 20 11/16/16 05:00 Blood Pressure 124/53 11/16/16 05:00 O2 Sat by Pulse Oximetry (%) 97 11/15/16 21:00 Labs: CBCD WBC 8.8 K/mm3 (4.0-10.0) D 11/16/16 05:35 RBC 3.02 M/mm3 (3.60-5.2) L 11/16/16 05:35 Hgb 8.5 GM/dL (10.7-15.3) L 11/16/16 05:35 Hct 25.9 % (32.4-45.2) L 11/16/16 05:35 MCV 85.7 fl (80-96) 11/16/16 05:35 MCHC 32.8 g/dl (32.0-36.0) 11/16/16 05:35 RDW 15.5 % (11.6-15.6) 11/16/16 05:35 Plt Count 255 K/MM3 (134-434) 11/16/16 05:35 MPV 8.1 fl (7.5-11.1) 11/16/16 05:35 CMP Sodium 138 mmol/L (136-145) 11/15/16 05:40 Potassium 4.8 mmol/L (3.5-5.1) 11/15/16 05:40 Chloride 102 mmol/L (98-107) 11/15/16 05:40 Carbon Dioxide 28 mmol/L (22-28) 11/15/16 05:40 Anion Gap 8 (8-16) 11/15/16 05:40 BUN 35 mg/dl (7-18) H 11/15/16 05:40 Creatinine 0.9 mg/dl (0.6-1.3) 11/15/16 05:40 Creat Clearance w eGFR > 60 (>60) 11/15/16 05:40 Calcium 9.4 mg/dl (8.4-10.2) 11/15/16 05:40 Total Bilirubin 0.2 mg/dl (0.2-1.0) D 11/15/16 05:40 AST 10 U/L (10-42) D 11/15/16 05:40 ALT 13 U/L (10-40) D 11/15/16 05:40 Alkaline Phosphatase 81 U/L (32-92) 11/15/16 05:40 Total Protein 6.5 g/dl (6.4-8.3) 11/15/16 05:40 Albumin 2.9 g/dl (3.5-5.0) L 11/15/16 05:40 NIH Stroke Scale - Last Known Well Date/Time & Onset Symptom Onset Date: 11/14/16 Symptom Onset Time: 10:00 Date Last Known Well: 11/13/16 - Initial Evaluation 11/13/16 Level of consciousness: Alert Ask patient the month & their age: Both Incorrect Ask Patient to open & close eyes; make fist and let go.: Obeys One Correctly Best gaze (horizontal eye movement): Partial Gaze Palsy (non cooperative) Facial Palsy(Show teeth or raise eyebrows & close eyes: Normal Symmetrical Movements. Motor Function - Left Arm: Drift; holds 90(or 45) degress, but drifts down before full 10 seconds (non cooperative so may not be due to motor deficits) Motor Function - Right Arm: No Drift;extends limb 90 (or siting 45) degress & hold full 10 seconds Motor Function - Left Leg: Untestable - amputation/joint fusion at the hip Motor Function - Right Leg: Untestable - amputation/joint fusion at the hip ( uncooperative) Limb Ataxia: Untestable - Amputation or Joint Fusion (uncooperative) Sensory (arms, legs, trunk, face): Normal; no sensory loss (uncooperative) Best Language: Mild/moderate aphasia;some obvious loss fluency/facility comprehension Dysarthria/Articulation: Normal Extinction and Inattention: No abnormality (THe patient is behaving bizarrely and I don't know how much of the score would change if she cooperated) - Total Score NIH Stroke Scale Score: 4, (as of today 11/16/16 NIH 0 ) Imaging - Results Cat Scan: Report Reviewed, Image Reviewed (reportedly age indeterminate white matter disease and basal ganglia infarcts on the left.) Assessment/Plan The patient presented with a transient right monoparesis/ aphasia followed by altered mentation with bizarre uncooperative behavior. This has also resolved . latter ? RX effect. Suspect TIA -- left MCA territory, was not on ASA prior to admission. ASA/statin and bP control. Severe white matter changes on MRI --no acute stroke, 1-2 mm R ICa aneursym ( unrelated) . --no HX of smoking /ETOH. doubt vascultis--though high esr ( ?etiology) PRES also a possibility though no clear precipitants. agree with gabapentin taper. FU ECHO, HOlter, doppler. Repeat ESR. PT eval Dr Weston [phone]
[2016-11-16] MEDS: ASPIRIN COATED 81 MG TABLET.EC PO SCH (09:44)
[2016-11-16] MEDS: MONTELUKAST NA 10 MG TABLET PO SCH (09:44)
[2016-11-16] MEDS: ACLIDINIUM BROMIDE 400 MCG/INH AERO.POWD IH SCH ×2 (09:45→21:21)
[2016-11-16] MEDS: BUDESONIDE/FORMETEROL FUMARATE 160/4.5 mcg INHALER IH SCH ×2 (09:45→21:20)
[2016-11-16] MEDS: ROFLUMILAST 500 MCG TABLET PO SCH (09:47)
--- NOTE | 2016-11-16 10:57 | PN ---
Progress Note, Physician History of Present Illness: pulmonary alert,no complaints,-cp,-sob - Current Medication List Current Medications: Active Medications Acetaminophen (Tylenol -) 650 mg PO Q6H PRN PRN Reason: PAIN Last Admin: 11/16/16 05:35 Dose: 650 mg Aclidinium [place] (Tudorza -) 1 puff IH BID [facility] Last Admin: 11/16/16 09:45 Dose: 1 puff Albuterol Sulfate (Ventolin 0.083% Nebulizer Soln -) 1 amp NEB Q4H PRN PRN Reason: SHORT OF BREATH/WHEEZING Alprazolam (Xanax -) 0.25 mg PO Q8H PRN PRN Reason: ANXIETY Aspirin (Ecotrin -) 81 mg PO DAILY [facility] Last Admin: 11/16/16 09:44 Dose: 81 mg Atorvastatin Calcium (Lipitor -) 80 mg PO HS [facility] Last Admin: 11/15/16 21:26 Dose: 80 mg Budesonide/Formoterol Fumarate (Symbicort 160/4.5mcg -) 2 puff IH BID [facility] Last Admin: 11/16/16 09:45 Dose: 2 puff Diltiazem HCl (Cardizem Cd -) 120 mg PO DAILY [facility] Last Admin: 11/16/16 09:44 Dose: 120 mg Montelukast Sodium (Singulair -) 10 mg PO DAILY [facility] Last Admin: 11/16/16 09:44 Dose: 10 mg Roflumilast (Daliresp -) 500 mcg PO DAILY [facility] Last Admin: 11/16/16 09:47 Dose: 500 mcg - Objective Vital Signs: Vital Signs Temperature 98 F 11/16/16 05:00 Pulse Rate 81 11/16/16 05:00 Respiratory Rate 20 11/16/16 05:00 Blood Pressure 124/53 11/16/16 05:00 O2 Sat by Pulse Oximetry (%) 97 11/15/16 21:00 Constitutional: Yes: Well Nourished, Calm Eyes: Yes: WNL HENT: Yes: WNL, Tonsillar Exudate Cardiovascular: Yes: Regular Rate and Rhythm, S1, S2 Respiratory: Yes: CTA Bilaterally Gastrointestinal: Yes: Normal Bowel Sounds, Soft Extremities: Yes: WNL Edema: No Labs: CBC, BMP 11/16/16 05:35 11/16/16 05:35 INR, PTT INR 1.15 (0.82-1.09) H 11/15/16 05:40 Assessment/Plan Assessment/Plan IMP: COPD not in AE Resolved Multilobar CAP ABG does not explain mental status change CVA Confusional state likely related to recent [employer] event PLAN: Symbicort BD [place] Tudorza Daliresp O2 as needed Neuro workup in progress DR MALLOY
--- NOTE | 2016-11-16 11:01 | PN ---
Progress Note (short form) - Note Progress Note: CC: possible cva S: cooperative today denies complaints cp, palps, sob, dizziness. states no longer hallucinating (was seeing bees). states that rt sided weakness improved in arm. states she only had pain in right leg, no weakness. . Current Medications Acetaminophen (Tylenol -) 650 mg PO Q6H PRN PRN Reason: PAIN Last Admin: 11/16/16 05:35 Dose: 650 mg Aclidinium [place] (Tudorza -) [address] [facility] Last Admin: 11/16/16 09:45 Dose: 1 puff Albuterol Sulfate (Ventolin 0.083% Nebulizer Soln -) 1 amp NEB Q4H PRN PRN Reason: SHORT OF BREATH/WHEEZING Alprazolam (Xanax -) 0.25 mg PO Q8H PRN PRN Reason: ANXIETY Aspirin (Ecotrin -) [address] [facility] Last Admin: 11/16/16 09:44 Dose: 81 mg Atorvastatin Calcium (Lipitor -) [address] [facility] Last Admin: 11/15/16 21:26 Dose: 80 mg Budesonide/Formoterol Fumarate (Symbicort 160/4.5mcg -) [address] [facility] Last Admin: 11/16/16 09:45 Dose: 2 puff Diltiazem HCl (Cardizem Cd -) [address] [facility] Last Admin: 11/16/16 09:44 Dose: 120 mg Montelukast Sodium (Singulair -) [address] [facility] Last Admin: 11/16/16 09:44 Dose: 10 mg Roflumilast (Daliresp -) [address] [facility] Last Admin: 11/16/16 09:47 Dose: 500 mcg Vital Signs - 24 hr 11/15/16 11/15/16 11/15/16 12:00 16:22 18:00 Temperature 98 F 99.8 F H 97.4 F L Pulse Rate 84 81 89 Respiratory 18 18 18 Rate Blood Pressure 132/58 120/80 128/78 O2 Sat by Pulse Oximetry (%) 11/15/16 11/16/16 11/16/16 21:00 02:17 05:00 Temperature 98.7 F 98 F Pulse Rate 82 81 Respiratory 18 20 20 Rate Blood Pressure 126/63 124/53 O2 Sat by Pulse 97 Oximetry (%) Intake & Output 11/14/16 11/15/16 11/16/16 11/17/16 07:59 07:59 07:59 07:59 Intake Total 100 210 600 Balance 100 210 600 Weight 181 lb 6.4 oz nad, calm jvd flat, neck supple trace crackles, poor effort rrr nl s1, s2 2/6 soft murmur at sternal border. + bs soft nt nd ext without e/c/c + dp/pt no jaundice, diaphoresis. CBC, BMP 11/16/16 05:35 11/16/16 05:35 Laboratory Tests 11/16/16 05:35 Magnesium 2.3 D C-Reactive Protein 1.0 H D Albumin 2.8 L EKG: wnl tele: sr cxr: residual atelectasis at left base. 76 yo with h/o chf (by report), htn, copd on home oxygen, recent pna, gerd who p /w rt sided weakness, aphasia concerning for acute stroke. Possible CVA/tia/transient rt sided weakness/behavioral change. - ongoing work up per neurology. s/p head ct and neck/brain mri/mra. reports reviewed. - telemetry monitoring, no arrhythmia thus far. recent tsh wnl. - echo today - bp controlled. - con't asa, statin. HTN - bp controlled on current regimen. Stopped spironolactone, lisinopril b/c of hyperkalemia. Con't diltiazem recent copd/pna - per pmd.
[2016-11-16 11:02] LABS: ERYTHROCYTE SEDIMENTATION RATE 106 mm/hr (0-30)
--- NOTE | 2016-11-16 11:55 | CONSULT ---
Admitting History and Physical - Primary Care Physician PCP: Roberto Roberts - Admission History of Present Illness: 76 F, with recent admission September for AE of COPD and multilobar PNA. CT chest revealed multilobar PNA She presented to [facility] for a suspected acute stroke,transferred to [facility]. Apparently she became aphasic and then started acting "bizarrely" and seemed "manic" Per neurology-"The patient presented with a transient right monoparesis/ aphasia followed by altered mentation with bizarre uncooperative behavior. This has also resolved . latter ? RX effect. Suspect TIA -- left MCA territory, was not on ASA prior to admission. ASA/statin and bP control. Severe white matter changes on MRI --no acute stroke, 1-2 mm R ICa aneursym ( unrelated) . --no HX of smoking /ETOH. doubt vascultis--though high esr ( ?etiology) PRES also a possibility though no clear precipitants. " Pt reports it was "due to painkiller." Pt's daughter told nursing she was started on Gabapentin last . Pt fully oriented, good historian. Tremor in UUE bilaterally and tongue, which pt states is sec to her inhalers. History Source: Patient, Medical Record Limitations to Obtaining History: No Limitations - Past Medical History Cardiovascular: Yes: CHF, HTN Pulmonary: Yes: COPD, Pneumonia Gastrointestinal: Yes: GERD ...: No - Past Surgical History Past Surgical History: Yes: Appendectomy, Cataract Removal - Smoking History Smoking history: Former smoker Have you smoked in the past 12 months: No Aproximately how many cigarettes per day: 0 If you are a former smoker, when did you quit?: 25-30 years - Alcohol/Substance Use Hx Alcohol Use: No - Social History ADL: Independent History of Recent Travel: No History - Admission Reason For Visit: CVA & PNEUMONIA - Diagnostics X-ray: Report Reviewed - General Mental Status: Alert and Oriented, Awake and Alert, Able to Follow Commands Attention: Intact Ability to Follow Directions: Excellent Head/Neck Control: WFL - Hearing Hearing: Normal Speech Evaluation - Communication Primary Language: TELUGU Communication: Yes: Within Normal Limits Oral Expression Ability: Yes: No Impairment - Speech Production Able to Make Needs Known: Yes: WNL Intelligibility: Yes: WNL - Speech Characteristics Voice Loudness: Normal Voice Pitch: Yes: Normal Voice Phonatory-based Quality: Yes: Normal Speech Pattern: Normal Speech Clarity: < 100% Nasal Resonance: Normal Articulation: Yes: Precise Rate of Speech: Intact - Language/Auditory Comprehension Observation: Able to respond to yes/no queries: Yes, Yes/No Confusion: No, Comprehends Conversational Speech: Yes - Language/Verbal Expression Able to Respond to Simple Queries: Yes: WNL Able to Communicate Wants and Needs: Yes: WNL Functional Communication Status: Yes: WNL - Memory/Perception residential Memory: Yes: WNL Short Term Memory: Yes: WNL - Swallow Evaluation/Bedside Assessment Current Nutritional Intake: Regular, Soft, Thin Liquids Oral Secretions: Yes: WFL Facial Symmetry at Rest: Symmetrical Facial Symmetry on Retraction: Symmetrical Facial Movement: Controlled Against Resistance Opening: Normal Against Resistance Closing: Normal Pucker Lips: Normal Smile: Normal Lingual Movement: Symmetric (slight tremor) Lingual Speed of Movement: Normal Lingual Movement Strgth Against Opposition: Normal Velopharyngeal Movement: Normal Laryngeal Elevation: WFL Laryngeal Movement: Able to Palpate Rate of Intake: WFL Labial Seal: WFL Chewing: WFL Oral Prep Time: WFL A-P Transit: WFL Pocketing: None Timing of Swallow: WFL Coughing/Throat Clear: No Change in Voice: No Recommendations - Speech Evaluation, Impression/Plan Impression: Besides report of reduced cooperation with staff at times, speech/ language/cognitive skills reported to be back to normal. This is my first interaction with this pt. To follow,reassess. - Dysphagia Impressions/Plan Swallowing Skills: WF Dysphagia Impressions: No Impairment *Silent aspiration: cannot be R/O at bedside - Recommendations Diet Consistency: Regular Medication Administration: Whole with water Liquids: Thin Liquids
[2016-11-16] MEDS: ATORVASTATIN CA 80 MG TABLET (FP) PO SCH (21:20)
--- NOTE | 2016-11-16 22:51 | PN ---
Progress Note, Physician History of Present Illness: Patient now alert, appropriate and fully orientated, which is her baseline. States that she remembers most her bizarre behaviors, but not all. Now recalls having visual hallucinations. No headaches, jaw claudication, chest pain, dyspnea, or GI/ sx. Patient denies any recent significant weight loss, and any weight loss that has occurred has through dieting. Patient reconfirms that the gabapentin was only recently started last week. - Current Medication List Current Medications: Active Medications Acetaminophen (Tylenol -) 650 mg PO Q6H PRN PRN Reason: PAIN Last Admin: 11/16/16 17:27 Dose: 650 mg Aclidinium [place] (Tudorza -) 1 puff IH BID [facility] Last Admin: 11/16/16 21:21 Dose: 1 puff Albuterol Sulfate (Ventolin 0.083% Nebulizer Soln -) 1 amp NEB Q4H PRN PRN Reason: SHORT OF BREATH/WHEEZING Alprazolam (Xanax -) 0.25 mg PO Q8H PRN PRN Reason: ANXIETY Aspirin (Ecotrin -) 81 mg PO DAILY [facility] Last Admin: 11/16/16 09:44 Dose: 81 mg Atorvastatin Calcium (Lipitor -) 80 mg PO HS [facility] Last Admin: 11/16/16 21:20 Dose: 80 mg Budesonide/Formoterol Fumarate (Symbicort 160/4.5mcg -) 2 puff IH BID [facility] Last Admin: 11/16/16 21:20 Dose: 2 puff Diltiazem HCl (Cardizem Cd -) 120 mg PO DAILY [facility] Last Admin: 11/16/16 09:44 Dose: 120 mg Montelukast Sodium (Singulair -) 10 mg PO DAILY [facility] Last Admin: 11/16/16 09:44 Dose: 10 mg Roflumilast (Daliresp -) 500 mcg PO DAILY [facility] Last Admin: 11/16/16 09:47 Dose: 500 mcg - Objective Vital Signs: Vital Signs Temperature 98.9 F 11/16/16 17:00 Pulse Rate 93 H 11/16/16 17:00 Respiratory Rate 20 11/16/16 20:24 Blood Pressure 133/63 11/16/16 17:00 O2 Sat by Pulse Oximetry (%) 98 11/16/16 22:00 Constitutional: Yes: No Distress, Calm Eyes: Yes: Conjunctiva Clear, EOM Intact HENT: Yes: Atraumatic, Normocephalic Neck: Yes: Supple, Trachea Midline Cardiovascular: Yes: Regular Rate and Rhythm, Murmur (1-2/6 JOSEPH R base along the LSB) Respiratory: Yes: Regular, CTA Bilaterally Gastrointestinal: Yes: Normal Bowel Sounds, Soft Genitourinary: Yes: WNL Musculoskeletal: Yes: Joint Stiffness Extremities: Yes: WNL Edema: No Integumentary: Yes: WNL Neurological: Yes: Alert, Oriented, Babinski negative, Cran Nerves II-XII Intact ...Motor Strength: WNL Psychiatric: Yes: Alert, Oriented Labs: CBC, BMP 11/16/16 05:35 11/16/16 05:35 INR, PTT INR 1.15 (0.82-1.09) H 11/15/16 05:40 CRP-1.0 ESR-106 Mg-2.3 Phos-3.9 Ca-9.0 Blood C/S-(-) Urine C/S -(-) Assessment/Plan 1)-R TIA Enteric coated ASA Rx. 2)-Change in mental status secondary to new onset high dose gabapentin Rx. Mental status/neurologic exam is now baseline. 3)-COPD-stable Continue present Rx. 4)-Hx of CHF-stable Continue present Rx. 5)-Elevated magnesium Now has resolved. 6)-Persistent ESR elevation-etiology not clear at this time. No jaw claudicatio or temporal tenderness. Blood/urine cultures are all negative at this time. Urine without protein/casts Has heart murmur, but not loud or changed from baseline. Doubt SBE. No dramatic weight weight loss, or bone pain, with normal calcium and alk phos. Will order repeat ESR, urinary eosinophils, SPEP, and repeat blood cultures x3. Agree with echo, holter and doppler.
[2016-11-17] MEDS ORDERED: PT OWN MED DRAWER 7, Y5N ONE (09:02)
[2016-11-17] MEDS: ROFLUMILAST 500 MCG TABLET PO SCH (10:11)
[2016-11-17] MEDS: ASPIRIN COATED 81 MG TABLET.EC PO SCH (10:11)
[2016-11-17] MEDS: MONTELUKAST NA 10 MG TABLET PO SCH (10:11)
[2016-11-17] MEDS: BUDESONIDE/FORMETEROL FUMARATE 160/4.5 mcg INHALER IH SCH ×2 (10:12→22:54)
[2016-11-17] MEDS: ACLIDINIUM BROMIDE 400 MCG/INH AERO.POWD IH SCH ×2 (10:12→22:53)
--- NOTE | 2016-11-17 12:16 | PN ---
Progress Note (short form) - Note Progress Note: S: feeling well, no cp sob palps dizzy Current Medications Generic Name Dose Route Start Last Admin Trade Name Freq PRN Reason Stop Dose Admin Acetaminophen 1,000 mg 11/16/16 23:19 Tylenol - PO Q6H PRN FEVER OR PAIN Aclidinium [place] 1 puff 11/14/16 10:00 11/17/16 10:12 Tudorza - IH 1 puff BID [facility] Administration Albuterol Sulfate 1 amp 11/14/16 00:07 Ventolin 0.083% Nebulizer Soln - NEB Q4H PRN SHORT OF BREATH/WHEEZING Alprazolam 0.25 mg 11/15/16 22:38 Xanax - PO Q8H PRN ANXIETY Aspirin 81 mg 11/14/16 10:00 11/17/16 10:11 Ecotrin - PO 81 mg DAILY [facility]A Administration Atorvastatin Calcium 80 mg 11/14/16 22:00 11/16/16 21:20 Lipitor - PO 80 mg HS [facility]ORA Administration Budesonide/Formoterol Fumarate 2 puff 11/14/16 10:00 11/17/16 10:12 Symbicort 160/4.5mcg - IH 2 puff BID [facility] Administration Diltiazem HCl 120 mg 11/14/16 10:00 11/17/16 10:11 Cardizem Cd - PO 120 mg DAILY [facility] Administration Montelukast Sodium 10 mg 11/14/16 10:00 11/17/16 10:11 Singulair - PO 10 mg DAILY [facility] Administration Roflumilast 500 mcg 11/14/16 10:00 11/17/16 10:11 Daliresp - PO 500 mcg DAILY [facility] Administration Vital Signs Period Temp Pulse Resp BP Sys/Vaughn Pulse Ox Last 24 Hr 97.8 F-98.9 F 84-120 20-22 103-133/57-72 98-98 nad, calm jvd flat, neck supple cta bl nl eff rrr nl s1, s2 2/6 soft murmur at sternal border. + bs soft nt nd ext without e/c/c no jaundice, diaphoresis. aaox3 CBC, BMP 11/16/16 05:35 11/16/16 05:35 EKG: wnl tele: sr, sinus tachy, artifact echo 10/2016: nl lvef, mild conc lvh, nl rv, mild-mod cxr: residual atelectasis at left base. a/p: 76 yo with h/o chf (by report), htn, copd on home oxygen, recent pna, gerd who p/w rt sided weakness, aphasia concerning for acute stroke. Possible CVA/tia/transient rt sided weakness/behavioral change. - ongoing work up per neurology. s/p head ct and neck/brain mri/mra. reports reviewed. - telemetry monitoring, no arrhythmia thus far. recent tsh wnl. - echo w/o etiology - bp controlled. - con't asa, statin. HTN - bp controlled on current regimen. Stopped spironolactone, lisinopril b/c of hyperkalemia. Con't diltiazem recent copd/pna - per pmd. mild-mod : -stable, outpt monitoring
--- NOTE | 2016-11-17 12:31 | PN ---
Progress Note (short form) - Note Progress Note: HPI: 76 year old woman transferred from [place] for acute stroke. As per transfer record and communication with GRINDER SETUP OPERATOR at [facility] ER this morning the patient awoke around 10 AM with right arm weakness that totally resolved, but then later she became aphasic. Because of the lack of availability of MRI at [facility] and description of the CT I felt and she agreed that we should have the patient transferred to [facility]. She is now acting bizarrely and apparently this is out of character for her. The Patient has no prior stroke history and at this moment is not providing a reliable history, instead refusing to communicate appropriately which is apparently unusual for her. She had a recent admission for pneumonia/COPD exacerbation and is on home O2. She also has a history of CHF. FU : no c/o this AM denies weakness or speech difficulty, she is oriented and following 3 steps, no aphasia, no focal weakness, or ataxia. MRI reveiwed. ESR trending down but still high (no CHA, jaw claudication ,muscle pain) - Past Medical History Cardio/Vascular: Yes: CHF, HTN Pulmonary: Yes: COPD, Pneumonia Gastrointestinal: Yes: GERD ...: No - Past Surgical History Past Surgical History: Yes: Appendectomy, Cataract Removal - Alcohol/Substance Use Hx Alcohol Use: No - Smoking History Smoking history: Former smoker Have you smoked in the past 12 months: No Aproximately how many cigarettes per day: 0 If you are a former smoker, when did you quit?: 25-30 years - Social History ADL: Independent History of Recent Travel: No Home Medications - Allergies Allergies/Adverse Reactions: Allergies Allergy/AdvReac Type Severity Reaction Status Date / Time No Known Allergies Allergy Verified 11/13/16 18:41 - Home Medications Home Medications: Ambulatory Orders Diltiazem HCl [Cardizem] 120 mg PO DAILY 07/25/12 Lisinopril [Prinivil] 20 mg PO DAILY 04/09/14 Spironolactone 25 mg PO DAILY 04/09/14 Albuterol 0.083% Nebulizer Isabella [Ventolin 0.083% Nebulizer Soln -] 1 neb NEB Q4H PRN 09/16/15 Budesonide/Formeterol Fumarate [SYMBICORT 160/4.5mcg -] 2 puff IH BID #0 inhaler 09/25/15 Roflumilast [Daliresp -] 500 mcg PO DAILY #0 tablet 09/25/15 Aclidinium [place] [Tudorza Pressair] 400 mcg IH ASDIR 10/14/16 Alprazolam 0.25 mg PO PRN PRN MDD 1 mg 10/14/16 Azelastine HCl 2 sprays IN ONCE 10/14/16 Hydromorphone [Dilaudid -] 4 - 8 mg PO ASDIR PRN MDD 24mg 10/14/16 Meloxicam [Mobic] 15 mg PO DAILY 10/14/16 Montelukast Na [Singulair -] 10 mg PO DAILY 10/14/16 Tramadol HCl 50 mg PO PRN PRN MDD 200 mg 10/14/16 Acetaminophen [Tylenol] 650 mg PO QID PRN 11/13/16 Celecoxib 200 mg PO DAILY 11/13/16 Gabapentin 300 mg PO Q8H PRN 11/13/16 Zolpidem Tartrate [Ambien] 5 mg PO HS 11/13/16 Physical Exam-Neuro Vital Signs: Vital Signs Temperature 98.5 F 11/17/16 10:00 Pulse Rate 104 H 11/17/16 10:00 Respiratory Rate 22 11/17/16 10:00 Blood Pressure 131/63 11/17/16 10:00 O2 Sat by Pulse Oximetry (%) 98 11/16/16 22:00 Labs: CBCD WBC 8.8 K/mm3 (4.0-10.0) D 11/16/16 05:35 RBC 3.02 M/mm3 (3.60-5.2) L 11/16/16 05:35 Hgb 8.5 GM/dL (10.7-15.3) L 11/16/16 05:35 Hct 25.9 % (32.4-45.2) L 11/16/16 05:35 MCV 85.7 fl (80-96) 11/16/16 05:35 MCHC 32.8 g/dl (32.0-36.0) 11/16/16 05:35 RDW 15.5 % (11.6-15.6) 11/16/16 05:35 Plt Count 255 K/MM3 (134-434) 11/16/16 05:35 MPV 8.1 fl (7.5-11.1) 11/16/16 05:35 CMP Sodium 139 mmol/L (136-145) 11/16/16 05:35 Potassium 4.9 mmol/L (3.5-5.1) D 11/16/16 05:35 Chloride 100 mmol/L (98-107) 11/16/16 05:35 Carbon Dioxide 32 mmol/L (21-32) 11/16/16 05:35 Anion Gap 7 (8-16) L 11/16/16 05:35 BUN 34 mg/dL (7-18) H 11/16/16 05:35 Creatinine 1.0 mg/dL (0.55-1.02) D 11/16/16 05:35 Creat Clearance w eGFR 54.05 (>60) 11/16/16 05:35 Calcium 9.0 mg/dL (8.5-10.1) 11/16/16 05:35 Total Bilirubin 0.2 mg/dL (0.2-1.0) 11/16/16 05:35 AST 13 U/L (15-37) L D 11/16/16 05:35 ALT 12 U/L (12-78) D 11/16/16 05:35 Alkaline Phosphatase 76 U/L (45-117) D 11/16/16 05:35 Total Protein 6.3 g/dl (6.4-8.2) L 11/16/16 05:35 Albumin 2.8 g/dl (3.4-5.0) L 11/16/16 05:35 NIH Stroke Scale - Last Known Well Date/Time & Onset Symptom Onset Date: 11/14/16 Symptom Onset Time: 10:00 Date Last Known Well: 11/13/16 - Initial Evaluation 11/13/16 Level of consciousness: Alert Ask patient the month & their age: Both Incorrect Ask Patient to open & close eyes; make fist and let go.: Obeys One Correctly Best gaze (horizontal eye movement): Partial Gaze Palsy (non cooperative) Facial Palsy(Show teeth or raise eyebrows & close eyes: Normal Symmetrical Movements. Motor Function - Left Arm: Drift; holds 90(or 45) degress, but drifts down before full 10 seconds (non cooperative so may not be due to motor deficits) Motor Function - Right Arm: No Drift;extends limb 90 (or siting 45) degress & hold full 10 seconds Motor Function - Left Leg: Untestable - amputation/joint fusion at the hip Motor Function - Right Leg: Untestable - amputation/joint fusion at the hip ( uncooperative) Limb Ataxia: Untestable - Amputation or Joint Fusion (uncooperative) Sensory (arms, legs, trunk, face): Normal; no sensory loss (uncooperative) Best Language: Mild/moderate aphasia;some obvious loss fluency/facility comprehension Dysarthria/Articulation: Normal Extinction and Inattention: No abnormality (THe patient is behaving bizarrely and I don't know how much of the score would change if she cooperated) - Total Score NIH Stroke Scale Score: 4, (as of today 11/17/16 NIH 0 ) Imaging - Results Cat Scan: Report Reviewed, Image Reviewed (reportedly age indeterminate white matter disease and basal ganglia infarcts on the left.) Assessment/Plan The patient presented with a transient right monoparesis/ aphasia followed by altered mentation with bizarre uncooperative behavior. This has also resolved . latter ? RX effect. gabapentin off Suspect TIA -- left MCA territory, was not on ASA prior to admission. ASA/statin and bP control. Severe white matter changes on MRI --no acute stroke, 1-2 mm R ICa aneursym ( unrelated) . MRA neck--no carotid disease doubt vascultis--though high esr ( ?etiology) ; no signs of temporal artertitis , trending down but will need to be followed FU ECHO, HOlter, doppler. PT eval if cardiac GREGORY (-), may consider outpt FU Dr Weston [phone]
--- NOTE | 2016-11-17 13:26 | PN ---
Progress Note, Physician History of Present Illness: pulmonary alert,feeling better,nad - Current Medication List Current Medications: Active Medications Acetaminophen (Tylenol -) 1,000 mg PO Q6H PRN PRN Reason: FEVER OR PAIN Aclidinium [place] (Tudorza -) 1 puff IH BID [facility] Last Admin: 11/17/16 10:12 Dose: 1 puff Albuterol Sulfate (Ventolin 0.083% Nebulizer Soln -) 1 amp NEB Q4H PRN PRN Reason: SHORT OF BREATH/WHEEZING Alprazolam (Xanax -) 0.25 mg PO Q8H PRN PRN Reason: ANXIETY Aspirin (Ecotrin -) 81 mg PO DAILY [facility] Last Admin: 11/17/16 10:11 Dose: 81 mg Atorvastatin Calcium (Lipitor -) 80 mg PO HS [facility] Last Admin: 11/16/16 21:20 Dose: 80 mg Budesonide/Formoterol Fumarate (Symbicort 160/4.5mcg -) 2 puff IH BID [facility] Last Admin: 11/17/16 10:12 Dose: 2 puff Diltiazem HCl (Cardizem Cd -) 120 mg PO DAILY [facility] Last Admin: 11/17/16 10:11 Dose: 120 mg Montelukast Sodium (Singulair -) 10 mg PO DAILY [facility] Last Admin: 11/17/16 10:11 Dose: 10 mg Roflumilast (Daliresp -) 500 mcg PO DAILY [facility] Last Admin: 11/17/16 10:11 Dose: 500 mcg - Objective Vital Signs: Vital Signs Temperature 98.5 F 11/17/16 10:00 Pulse Rate 104 H 11/17/16 10:00 Respiratory Rate 22 11/17/16 10:00 Blood Pressure 131/63 11/17/16 10:00 O2 Sat by Pulse Oximetry (%) 98 11/16/16 22:00 Constitutional: Yes: Well Nourished, Calm Eyes: Yes: WNL HENT: Yes: WNL Neck: Yes: WNL Cardiovascular: Yes: Regular Rate and Rhythm, S1, S2 Respiratory: Yes: Diminished Gastrointestinal: Yes: WNL Extremities: Yes: WNL Edema: No Assessment/Plan Assessment/Plan IMP: Chronic hypoxemic resp failure COPD not in AE Resolved Multilobar CAP ABG does not explain mental status change CVA Confusional state likely related to recent YACHT MASTER event improved PLAN: Symbicort BD TX Dewayne Raymundoiresp O2 as needed as per neuro DR MALLOY
[2016-11-17] MEDS: ACETAMINOPHEN 500 MG TABLET (FP) PO PRN ×2 (16:05→22:56)
[2016-11-17] MEDS: ATORVASTATIN CA 80 MG TABLET (FP) PO SCH (22:53)
--- NOTE | 2016-11-17 23:37 | PN ---
Progress Note, Physician Chief Complaint: R sided weakness History of Present Illness: Patient continues to improve daily. No aphasia, hemiparesis, headache, chest pain, palpations, dyspnea or cough. Further denies jaw claudication, myalgias, or new joint pains or swellings. Had echocardiogram today and the holter monitor is in place. Carotid US is scheduled for tomorrow. Remains alert, oriented and pleasant. - Current Medication List Current Medications: Active Medications Acetaminophen (Tylenol -) 1,000 mg PO Q6H PRN PRN Reason: FEVER OR PAIN Last Admin: 11/17/16 22:56 Dose: 1,000 mg Aclidinium [place] (Tudorza -) 1 puff IH BID [facility] Last Admin: 11/17/16 22:53 Dose: 1 puff Albuterol Sulfate (Ventolin 0.083% Nebulizer Soln -) 1 amp NEB Q4H PRN PRN Reason: SHORT OF BREATH/WHEEZING Alprazolam (Xanax -) 0.25 mg PO Q8H PRN PRN Reason: ANXIETY Last Admin: 11/17/16 22:53 Dose: 0.25 mg Aspirin (Ecotrin -) 81 mg PO DAILY [facility] Last Admin: 11/17/16 10:11 Dose: 81 mg Atorvastatin Calcium (Lipitor -) 80 mg PO HS [facility] Last Admin: 11/17/16 22:53 Dose: 80 mg Budesonide/Formoterol Fumarate (Symbicort 160/4.5mcg -) 2 puff IH BID [facility] Last Admin: 11/17/16 22:54 Dose: 2 puff Diltiazem HCl (Cardizem Cd -) 120 mg PO DAILY [facility] Last Admin: 11/17/16 10:11 Dose: 120 mg Montelukast Sodium (Singulair -) 10 mg PO DAILY [facility] Last Admin: 11/17/16 10:11 Dose: 10 mg Roflumilast (Daliresp -) 500 mcg PO DAILY [facility] Last Admin: 11/17/16 10:11 Dose: 500 mcg - Objective Vital Signs: Vital Signs Temperature 98.3 F 11/17/16 17:00 Pulse Rate 88 11/17/16 17:00 Respiratory Rate 20 11/17/16 17:00 Blood Pressure 126/60 11/17/16 17:00 O2 Sat by Pulse Oximetry (%) 96 11/17/16 09:00 Constitutional: Yes: Well Nourished, No Distress, Calm Eyes: Yes: Conjunctiva Clear, EOM Intact HENT: Yes: Atraumatic, Normocephalic Neck: Yes: Supple, Trachea Midline Cardiovascular: Yes: Regular Rate and Rhythm, Murmur (no change) Respiratory: Yes: Regular, CTA Bilaterally (decreased breath sounds bilaterally) Gastrointestinal: Yes: Normal Bowel Sounds, Soft Genitourinary: Yes: WNL Musculoskeletal: Yes: Joint Stiffness Edema: No Integumentary: Yes: WNL Neurological: Yes: Alert, Oriented ...Motor Strength: WNL Psychiatric: Yes: Alert, Oriented Labs: CBC, BMP 11/16/16 05:35 11/16/16 05:35 INR, PTT INR 1.15 (0.82-1.09) H 11/15/16 05:40 Blood C/S-all negative to date. ESR-98 SPEP-pending Urine eosinophiles- pending Holter monitor-in progress Carotid US-pending - ....Imaging Other: Report Reviewed (Echocardiogram-Nl LVF, mod-severe ) Assessment/Plan 1)-R TIA Enteric coated ASA Rx. 2)-Change in mental status secondary to new onset high dose gabapentin Rx. Mental status/neurologic exam is now baseline. 3)-COPD-stable Continue present Rx. 4)-Hx of CHF-stable Continue present Rx. 5)-Elevated magnesium Now has resolved. 6)-Persistent ESR elevation-etiology not clear at this time. No jaw claudication, temporal tenderness, or muscle pain. Blood/urine cultures are all negative at this time. Urine without protein/casts. CK normal on admission. No dramatic weight weight loss, or bone pain, with normal calcium and alk phos. 7)-Echo revealed normal LVF, no vegetations, (+)moderate-severe Work-up in progress with holter monitor in place and carotid US in AM. ESR is trending downward with no clear etiology evident. Will follow-up of as an out- patient. Agree with neurology, if cleared by cardiology tomorrow, OK for discharge home.
--- NOTE | 2016-11-18 09:23 | PN ---
Progress Note (short form) - Note Progress Note: HPI: 76 year old woman transferred from [place] for acute stroke. As per transfer record and communication with BEAM DYER at [facility] ER this morning the patient awoke around 10 AM with right arm weakness that totally resolved, but then later she became aphasic. Because of the lack of availability of MRI at [facility] and description of the CT I felt and she agreed that we should have the patient transferred to [facility]. She is now acting bizarrely and apparently this is out of character for her. The Patient has no prior stroke history and at this moment is not providing a reliable history, instead refusing to communicate appropriately which is apparently unusual for her. She had a recent admission for pneumonia/COPD exacerbation and is on home O2. She also has a history of CHF. FU : no c/o this AM --awaiting doppler denies weakness or speech difficulty, she is oriented and following 3 steps, no aphasia, no focal weakness, or ataxia. - Past Medical History Cardio/Vascular: Yes: CHF, HTN Pulmonary: Yes: COPD, Pneumonia Gastrointestinal: Yes: GERD ...: No - Past Surgical History Past Surgical History: Yes: Appendectomy, Cataract Removal - Alcohol/Substance Use Hx Alcohol Use: No - Smoking History Smoking history: Former smoker Have you smoked in the past 12 months: No Aproximately how many cigarettes per day: 0 If you are a former smoker, when did you quit?: 25-30 years - Social History ADL: Independent History of Recent Travel: No Home Medications - Allergies Allergies/Adverse Reactions: Allergies Allergy/AdvReac Type Severity Reaction Status Date / Time No Known Allergies Allergy Verified 11/13/16 18:41 - Home Medications Home Medications: Ambulatory Orders Diltiazem HCl [Cardizem] 120 mg PO DAILY 07/25/12 Lisinopril [Prinivil] 20 mg PO DAILY 04/09/14 Spironolactone 25 mg PO DAILY 04/09/14 Albuterol 0.083% Nebulizer [place]abella [Ventolin 0.083% Nebulizer Soln -] 1 neb NEB Q4H PRN 09/16/15 Budesonide/Formeterol Fumarate [SYMBICORT 160/4.5mcg -] 2 puff IH BID #0 inhaler 09/25/15 Roflumilast [Daliresp -] 500 mcg PO DAILY #0 tablet 04/07/16 Aclidinium [place] [Tudorza Pressair] 400 mcg IH ASDIR 10/14/16 Alprazolam 0.25 mg PO PRN PRN MDD 1 mg 10/14/16 Azelastine HCl 2 sprays IN ONCE 10/14/16 Hydromorphone [Dilaudid -] 4 - 8 mg PO ASDIR PRN MDD 24mg 10/14/16 Meloxicam [Mobic] 15 mg PO DAILY 10/14/16 Montelukast Na [Singulair -] 10 mg PO DAILY 10/14/16 Tramadol HCl 50 mg PO PRN PRN MDD 200 mg 10/14/16 Acetaminophen [Tylenol] 650 mg PO QID PRN 11/13/16 Celecoxib 200 mg PO DAILY 11/13/16 Gabapentin 300 mg PO Q8H PRN 11/13/16 Zolpidem Tartrate [Ambien] 5 mg PO HS 11/13/16 Physical Exam-Neuro Vital Signs: Vital Signs Temperature 97 F L 11/18/16 06:00 Pulse Rate 126 H 11/18/16 06:00 Respiratory Rate 20 11/18/16 06:00 Blood Pressure 106/68 11/18/16 06:00 O2 Sat by Pulse Oximetry (%) 96 11/17/16 21:00 Labs: CBCD WBC 8.8 K/mm3 (4.0-10.0) D 11/16/16 05:35 RBC 3.02 M/mm3 (3.60-5.2) L 11/16/16 05:35 Hgb 8.5 GM/dL (10.7-15.3) L 11/16/16 05:35 Hct 25.9 % (32.4-45.2) L 11/16/16 05:35 MCV 85.7 fl (80-96) 11/16/16 05:35 MCHC 32.8 g/dl (32.0-36.0) 11/16/16 05:35 RDW 15.5 % (11.6-15.6) 11/16/16 05:35 Plt Count 255 K/MM3 (134-434) 11/16/16 05:35 MPV 8.1 fl (7.5-11.1) 11/16/16 05:35 CMP Sodium 139 mmol/L (136-145) 11/16/16 05:35 Potassium 4.9 mmol/L (3.5-5.1) D 11/16/16 05:35 Chloride 100 mmol/L (98-107) 11/16/16 05:35 Carbon Dioxide 32 mmol/L (21-32) 11/16/16 05:35 Anion Gap 7 (8-16) L 11/16/16 05:35 BUN 34 mg/dL (7-18) H 11/16/16 05:35 Creatinine 1.0 mg/dL (0.55-1.02) D 11/16/16 05:35 Creat Clearance w eGFR 54.05 (>60) 11/16/16 05:35 Calcium 9.0 mg/dL (8.5-10.1) 11/16/16 05:35 Total Bilirubin 0.2 mg/dL (0.2-1.0) 11/16/16 05:35 AST 13 U/L (15-37) L D 11/16/16 05:35 ALT 12 U/L (12-78) D 11/16/16 05:35 Alkaline Phosphatase 76 U/L (45-117) D 11/16/16 05:35 Total Protein 6.3 g/dl (6.4-8.2) L 11/16/16 05:35 Albumin 2.8 g/dl (3.4-5.0) L 11/16/16 05:35 NIH Stroke Scale - Last Known Well Date/Time & Onset Symptom Onset Date: 11/14/16 Symptom Onset Time: 10:00 Date Last Known Well: 11/13/16 - Initial Evaluation 11/13/16 Level of consciousness: Alert Ask patient the month & their age: Both Incorrect Ask Patient to open & close eyes; make fist and let go.: Obeys One Correctly Best gaze (horizontal eye movement): Partial Gaze Palsy (non cooperative) Facial Palsy(Show teeth or raise eyebrows & close eyes: Normal Symmetrical Movements. Motor Function - Left Arm: Drift; holds 90(or 45) degress, but drifts down before full 10 seconds (non cooperative so may not be due to motor deficits) Motor Function - Right Arm: No Drift;extends limb 90 (or siting 45) degress & hold full 10 seconds Motor Function - Left Leg: Untestable - amputation/joint fusion at the hip Motor Function - Right Leg: Untestable - amputation/joint fusion at the hip ( uncooperative) Limb Ataxia: Untestable - Amputation or Joint Fusion (uncooperative) Sensory (arms, legs, trunk, face): Normal; no sensory loss (uncooperative) Best Language: Mild/moderate aphasia;some obvious loss fluency/facility comprehension Dysarthria/Articulation: Normal Extinction and Inattention: No abnormality (THe patient is behaving bizarrely and I don't know how much of the score would change if she cooperated) - Total Score NIH Stroke Scale Score: 4, (as of today 11/17/16 NIH 0 ) Imaging - Results Cat Scan: Report Reviewed, Image Reviewed (reportedly age indeterminate white matter disease and basal ganglia infarcts on the left.) Assessment/Plan The patient presented with a transient right monoparesis/ aphasia followed by altered mentation with bizarre uncooperative behavior. This has also resolved . latter ? RX effect. gabapentin off Suspect TIA -- left MCA territory, was not on ASA prior to admission. ASA/statin and bP control. Severe white matter changes on MRI --no acute stroke, 1-2 mm R ICa aneursym ( unrelated) . MRA neck--no carotid disease. doubt vascultis--though high esr ( ?etiology) ; no signs of temporal artertitis , trending down but will need to be followed FU ECHO, HOlter, doppler. PT eval if cardiac GREGORY (-), may consider outpt FU Dr Weston [phone]
[2016-11-18] MEDS: ROFLUMILAST 500 MCG TABLET PO SCH (09:56)
[2016-11-18] MEDS: MONTELUKAST NA 10 MG TABLET PO SCH (09:56)
[2016-11-18] MEDS: ASPIRIN COATED 81 MG TABLET.EC PO SCH (09:56)
[2016-11-18] MEDS: BUDESONIDE/FORMETEROL FUMARATE 160/4.5 mcg INHALER IH SCH (11:45)
[2016-11-18] MEDS: ACLIDINIUM BROMIDE 400 MCG/INH AERO.POWD IH SCH (11:45)
--- NOTE | 2016-11-18 12:42 | HOL ---
Hook-up date: 2016-11-17 09:39:00 Duration: 23:08:00 Test Indications: L TIA Medications: [id number] QRS complexes * Ventricular ectopics which represent % of total QRS comp. 29 Supraventricular ectopics which represent <1 % of total QRS comp. * Paced QRS complexs which represent % of total QRS comp. 1 % of Time Classified as Noise VENTRICULAR ECTOPY * Isolated * Bigeminal Cycles * Couplets * Runs * Beats in Runs * Beats LONGEST at * BPM at :: -- * Beats FASTEST at * BPM at :: -- SUPRAVENTRICULAR ECTOPY 22 Isolated 1 Couplets 1 Runs 5 Beats in Runs 5 Beats LONGEST at 160 BPM at 17:45:09 2016-11-17 5 Beats FASTEST at 160 BPM at 17:45:09 2016-11-17 HEART RATES 71 MIN at 20:21:32 2016-11-17 92 AVG 126 MAX at 05:10:12 2016-11-18 LONGEST RR 0.952 secs at 03:00:14 2016-11-18 SCANNED BY REHANA IVLLA 11/18/2016 1. Baseline sinus rhythm with avg hr 92 and range 71-126. 2. No significant bradycardia/pauses. 3. No PVCs. 4. Rare PACs. One brief atrial run (5 beats). 5. No VT, VF, Afib, Aflutter. 6. No diary submitted. Confirmed by PAMELA ORTIZ, ARYA ([id number]) on 11/18/2016 12:41:28 PM Referred By: Overread By: ARYA SANTIAGO MD
[2016-11-18] MEDS: ACETAMINOPHEN 500 MG TABLET (FP) PO PRN (14:47)
[2016-11-18 15:16] VITALS: BP 132/76; PULSE 88; TEMP 98.2
--- NOTE | 2016-11-18 16:28 | PN ---
Progress Note (short form) - Note Progress Note: S: feeling well, no cp sob palps dizzy Current Medications Acetaminophen (Tylenol -) 1,000 mg PO Q6H PRN PRN Reason: FEVER OR PAIN Last Admin: 11/18/16 14:47 Dose: 1,000 mg Aclidinium [place] (Tudorza -) 1 puff IH BID [facility] Last Admin: 11/18/16 11:45 Dose: 1 puff Albuterol Sulfate (Ventolin 0.083% Nebulizer Soln -) 1 amp NEB Q4H PRN PRN Reason: SHORT OF BREATH/WHEEZING Alprazolam (Xanax -) 0.25 mg PO Q8H PRN PRN Reason: ANXIETY Last Admin: 11/17/16 22:53 Dose: 0.25 mg Aspirin (Ecotrin -) 81 mg PO DAILY [facility] Last Admin: 11/18/16 09:56 Dose: 81 mg Atorvastatin Calcium (Lipitor -) 80 mg PO HS [facility] Last Admin: 11/17/16 22:53 Dose: 80 mg Budesonide/Formoterol Fumarate (Symbicort 160/4.5mcg -) 2 puff IH BID [facility] Last Admin: 11/18/16 11:45 Dose: 2 puff Diltiazem HCl (Cardizem Cd -) 120 mg PO DAILY [facility] Last Admin: 11/18/16 09:56 Dose: 120 mg Montelukast Sodium (Singulair -) 10 mg PO DAILY [facility] Last Admin: 11/18/16 09:56 Dose: 10 mg Roflumilast (Daliresp -) 500 mcg PO DAILY [facility] Last Admin: 11/18/16 09:56 Dose: 500 mcg Vital Signs - 24 hr 11/17/16 11/17/16 11/17/16 17:00 21:00 22:00 Temperature 98.3 F 98.8 F Pulse Rate 88 86 Respiratory 20 20 Rate Blood Pressure 126/60 115/58 O2 Sat by Pulse 96 Oximetry (%) 11/18/16 11/18/16 11/18/16 02:00 06:00 10:00 Temperature 97.9 F 97 F L 97.9 F Pulse Rate 78 126 H 82 Respiratory 20 20 20 Rate Blood Pressure 121/57 106/68 135/81 O2 Sat by Pulse 94 L Oximetry (%) 11/18/16 14:05 Temperature 98.2 F Pulse Rate 88 Respiratory 20 Rate Blood Pressure 132/76 O2 Sat by Pulse Oximetry (%) Intake & Output 11/16/16 11/17/16 11/18/16 11/19/16 07:59 07:59 07:59 07:59 Intake Total 600 570 750 140 Balance 600 570 750 140 nad, calm jvd flat, neck supple cta bl nl eff rrr nl s1, s2 2/6 soft murmur at sternal border. + bs soft nt nd ext without e/c/c no jaundice, diaphoresis. aaox3 no cbc, bmp Laboratory Tests 11/16/16 11/18/16 05:35 06:00 ESR 108 H C-Reactive Protein 1.0 H D EKG: wnl tele: sr, sinus tachy, artifact echo 10/2016: nl lvef, mild conc lvh, nl rv, mild-mod holter: SR 71-126 bpm. No pauses. rare pac's. 1 5b atrial run. No afib/ flutter or other arrhythmia. carotid u/s: plaque, no stenosis. cxr: residual atelectasis at left base. a/p: 76 yo with h/o chf (by report), htn, copd on home oxygen, recent pna, gerd who p/w rt sided weakness, aphasia concerning for acute stroke. Possible CVA/tia/transient rt sided weakness/behavioral change. - ongoing work up per neurology. s/p head ct and neck/brain mri/mra. reports reviewed. - telemetry monitoring, . recent tsh wnl. - echo w/o etiology - bp controlled. - con't asa, statin. HTN - bp controlled on current regimen. Stopped spironolactone, lisinopril b/c of hyperkalemia. Con't diltiazem - recheck K recent copd/pna - per pmd. mild-mod : -stable, outpt monitoring
[2016-11-19 00:07] LABS: A/G RATIO 0.8 (0.7-1.7); ALBUMIN 2.9 g/dL (2.9-4.4); GLOBULIN, TOTAL 3.5 g/dL (2.2-3.9); TOTAL PROTEIN 6.4 g/dL (6.0-8.5)
--- NOTE | 2016-11-19 01:18 | PN ---
Progress Note, Physician History of Present Illness: Patient completely asymptomatic today. No headache, no weakness, no chest pain, no palpations, no speech difficulties. Work up completed, and cleared by neurology/cardiology for discharge. Ambulatory and eating well. Tolerating all medications. - Objective Vital Signs: Vital Signs Temperature 98.2 F 11/18/16 14:05 Pulse Rate 88 11/18/16 14:05 Respiratory Rate 20 11/18/16 14:05 Blood Pressure 132/76 11/18/16 14:05 O2 Sat by Pulse Oximetry (%) 94 L 11/18/16 10:00 Constitutional: Yes: No Distress, Calm Eyes: Yes: Conjunctiva Clear, EOM Intact HENT: Yes: Atraumatic, Normocephalic Neck: Yes: Supple, Trachea Midline Cardiovascular: Yes: Regular Rate and Rhythm Respiratory: Yes: Regular, CTA Bilaterally Gastrointestinal: Yes: Normal Bowel Sounds, Soft Genitourinary: Yes: WNL Musculoskeletal: Yes: Joint Stiffness Extremities: Yes: WNL Edema: No Integumentary: Yes: WNL Neurological: Yes: Alert, Oriented, Cran Nerves II-XII Intact, Other (no deficits) Labs: CBC, BMP 11/16/16 05:35 11/16/16 05:35 INR, PTT INR 1.15 (0.82-1.09) H 11/15/16 05:40 SPEP- normal ESR-108 No M spike - ....Imaging Ultrasound: Report Reviewed (Carotid US-no hemodynamically significant dz) Other: Report Reviewed (Holter Monitor-no significant arrhythmia) Assessment/Plan 1)-R TIA Enteric coated ASA and statin Rx. Carotid US and Holter monitor-negative. 2)-Change in mental status secondary to new onset high dose gabapentin Rx. Mental status/neurologic exam is now baseline. 3)-COPD-stable Continue present Rx. 4)-Hx of CHF-stable Continue present Rx. 5)-Elevated magnesium Now has resolved. 6)-Persistent ESR elevation-etiology not clear at this time. No jaw claudication, temporal tenderness, or muscle pain. Blood/urine cultures are all negative at this time. Urine without protein/casts. CK normal on admission. No dramatic weight weight loss, or bone pain, with normal calcium and alk phos. 7)-Echo revealed normal LVF, no vegetations, (+)moderate-severe Work-up completed and patient remains stable. Patient cleared by neurology/ cardiology, and will be discharged home on enteric coated ASA and statin Rx. Will follow up in office in 1 week. Elevated ESR confusing, as no clear etiology is evident. Will work up as an out patient.
== END 2016-11-18 17:16 | disposition home or self-care (01) | DRG 69 ==
LOC: FER 18:38 → FM/S 21:52 → J4W 11-14 14:14
PROVIDERS: ADMIT Family Medicine; ATTEND Family Medicine
DX: G45.8 Other transient cerebral ischemic attacks and related syndromes (principal); E87.2 Acidosis; R47.01 Aphasia; J98.11 Atelectasis; J96.11 Chronic respiratory failure with hypoxia; R29.704 NIHSS score 4; J44.9 Chronic obstructive pulmonary disease, unspecified; I11.0 Hypertensive heart disease with heart failure; M25.559 Pain in unspecified hip; K21.9 Gastro-esophageal reflux disease without esophagitis; E83.41 Hypermagnesemia; M25.569 Pain in unspecified knee; G83.31 Monoplegia, unspecified affecting right dominant side; I35.0 Nonrheumatic aortic (valve) stenosis; R41.82 Altered mental status, unspecified; T42.6X5A Adverse effect of other antiepileptic and sedative-hypnotic drugs, initial encounter; Z87.891 Personal history of nicotine dependence; Z99.81 Dependence on supplemental oxygen; Z96.653 Presence of artificial knee joint, bilateral
CPT/HCPCS: 36415; 36600; 70450-TC; 70544-TC; 70547-TC; 70551-TC; 71010-TC; 80053; 80061; 80173; 81003; 82550; 82803; 83036; 83605; 83721; 83735; 84100; 84155; 84165; 84484; 85025; 85610; 85651; 85730; 86140; 87040; 87086; 93005; 93225; 93226; 93306-TC; 93880-TC; 97116-GP; 97162; 99283-25

== ENCOUNTER 2016-12-15 05:58 | Inpatient (IN) | payer OTHER, BC ==
--- NOTE | 2016-12-13 10:22 | HP ---
Satellite [facility] - Chief Complaint Chief Complaint: right hip pain - Past Medical History Allergies/Adverse Reactions: Allergies Allergy/AdvReac Type Severity Reaction Status Date / Time No Known Allergies Allergy Verified 11/13/16 18:41 Cardiovascular: Yes: CHF, HTN Pulmonary: Yes: COPD, Pneumonia Gastrointestinal: Yes: GERD - Current Medications Current Medications: Home Medications Medication Instructions Recorded Diltiazem HCl [Cardizem] 120 mg PO DAILY 07/25/12 Lisinopril [Prinivil] 20 mg PO DAILY 04/09/14 Spironolactone 25 mg PO DAILY 04/09/14 Albuterol 0.083% Nebulizer [place] 1 neb NEB Q4H PRN 09/16/15 [Ventolin 0.083% Nebulizer Soln -] Budesonide/Formeterol Fumarate 2 puff IH BID #0 inhaler 09/25/15 [SYMBICORT 160/4.5mcg -] Roflumilast [Daliresp -] 500 mcg PO DAILY #0 tablet 09/25/15 Aclidinium [place] [Tudorza 400 mcg IH ASDIR 10/14/16 Pressair] Alprazolam 0.25 mg PO PRN PRN MDD 1 mg 10/14/16 Azelastine HCl 2 sprays IN ONCE 10/14/16 Hydromorphone [Dilaudid -] 4 - 8 mg PO ASDIR PRN MDD 24mg 10/14/16 Meloxicam [Mobic] 15 mg PO DAILY 10/14/16 Montelukast Na [Singulair -] 10 mg PO DAILY 10/14/16 Tramadol HCl 50 mg PO PRN PRN MDD 200 mg 10/14/16 Acetaminophen [Tylenol] 650 mg PO QID PRN 11/13/16 Celecoxib 200 mg PO DAILY 11/13/16 Gabapentin 300 mg PO Q8H PRN 11/13/16 Zolpidem Tartrate [Ambien] 5 mg PO HS 11/13/16 Satellite Physical Exam - Physical Examination General Appearance: Well Nourished, Well Developed, Alert & Oriented x3 ENT: Clear Heart: Regular rate & rhythm Extremities: Other (right hip- + ttp, dec rom, nvi xrays show severe hip djd) Neurological: Intact, Alert, Oriented Satellite Impression/Plan - Impression/Plan Impression: right hip djd Operative Procedure: right belle thr Date to be Performed: 12/15/16
[2016-12-14 13:31] VITALS: BMI 38.9
[2016-12-15] MEDS ORDERED: CEFAZOLIN 2 GM in DEXTROSE 5%-WATER - 50 ML IVPB ONE (06:30)
[2016-12-15] MEDS ORDERED: TRANEXAMIC ACID 1000 MG/10 ML VIAL IVPUSH ONE (06:30)
[2016-12-15] MEDS ORDERED: CELECOXIB 200 MG CAPSULE PO ONE (06:30)
[2016-12-15] MEDS ORDERED: GABAPENTIN 300 MG CAPSULE (FP) PO ONE (06:30)
[2016-12-15] MEDS ORDERED: ceFAZolin SODIUM 1 GM VIAL ONE (06:40)
[2016-12-15] MEDS ORDERED: VANCOMYCIN 1,000 MG VIAL (RESTRICTED TO ID ONLY) ONE (06:40)
[2016-12-15] MEDS ORDERED: CELECOXIB 200 MG CAPSULE ONE (06:45)
[2016-12-15] MEDS ORDERED: BUPIVACAINE HCL/PF (5 MG/ML) 30 ML VIAL IJ ONE (06:47)
[2016-12-15] MEDS ORDERED: DEXAMETHASONE SOD PHOSPHATE/PF 10 MG/ML SDV ONE (06:47)
[2016-12-15] MEDS ORDERED: EPINEPHrine/PF 1 MG/1 ML (1:1,000) AMPULE ONE (06:47)
[2016-12-15] MEDS ORDERED: MIDAZOLAM HCL 2 MG/2 ML SINGLE DOSE VIAL ONE ×2 (06:47→08:41)
[2016-12-15] MEDS ORDERED: BUPIVACAINE HCL/PF 0.5% (5MG/ML) 10 ML VIAL ONE (07:28)
[2016-12-15] MEDS ORDERED: ePHEDrine SULFATE 50 MG/1 ML AMPULE ONE (07:29)
[2016-12-15] MEDS ORDERED: ETOMIDATE 20 MG/10 ML AMPUL IVPUSH ONE (07:29)
[2016-12-15] MEDS ORDERED: SUCCINYLCHOLINE CHLORIDE 200 MG/10 ML VIAL ONE (07:30)
[2016-12-15] MEDS ORDERED: PROPOFOL 20 ML ONE (07:30)
[2016-12-15] MEDS ORDERED: PHENYLEPHRINE HCL 10 MG/1 ML SINGLE DOSE VIAL ONE (07:34)
[2016-12-15] MEDS ORDERED: TRANEXAMIC ACID 1000 MG/10 ML VIAL ONE (08:05)
[2016-12-15] MEDS ORDERED: DEXAMETHASONE SOD PHOSPHATE 4 MG/1 ML VIAL ONE (08:25)
[2016-12-15] MEDS ORDERED: ONDANSETRON 4 MG/2 ML VIAL ONE (08:25)
[2016-12-15] MEDS ORDERED: MAG HYDROX/AL HYDROX/SIMETH 30 ML UNIT-DOSE CUP PO PRN (09:48)
[2016-12-15] MEDS ORDERED: ONDANSETRON 4 MG/2 ML VIAL IVPB PRN (09:48)
[2016-12-15] MEDS ORDERED: MAGNESIUM HYDROX 2400MG/30ML ORAL SUSPENSION 30 ML CUP PO PRN (09:48)
[2016-12-15] MEDS ORDERED: ALPRAZolam 0.25 MG TABLET PO PRN (09:49)
[2016-12-15] MEDS ORDERED: ALBUTEROL SO4 0.083% IH SOL 2.5 MG/3 ML VIAL.NEB. NEB PRN (09:49)
--- NOTE | 2016-12-15 09:57 | OP ---
Operative Note - Note: Operative Date: 12/15/16 ([place]) Pre-Operative Diagnosis: right hip djd Operation: right belle thr Post-Operative Diagnosis: Same as Pre-op Surgeon: Jorge Carrion Force Dispatcher: Jules Jennings Anesthesiologist/SUPERVISOR WIRE ROPE FABRICATION: Doug Torrez Anesthesia: Spinal, Local Specimens Removed: femoral head Estimated Blood Loss (mls): 200 Operative Report Dictated: Yes
[2016-12-15] MEDS ORDERED: LACTATED RINGERS SOLUTION 1,000 ML IV SCH ×2 (10:00→11:00)
[2016-12-15] MEDS ORDERED: BUDESONIDE/FORMETEROL FUMARATE 160/4.5 mcg INHALER IH SCH (10:00)
--- NOTE | 2016-12-15 10:09 | SPEC ---
DATE OF OPERATION: 12/15/2016 PREOPERATIVE DIAGNOSIS: Degenerative joint disease, right hip POSTOPERATIVE DIAGNOSIS: Degenerative joint disease, right hip PROCEDURE: Right total hip replacement with robotic assisted navigation (MAKOplasty). SURGICAL ATTENDING: Brenda Carrion MD [employer]ES SERVICE ROUTE MANAGER: ANA Venegas ANESTHESIA: Spinal and regional. CLOSURE: A Tritanium 52 press-fit acetabulum with two screws, a 36-mm standard metallic head, and an Accolade II size 5 femoral stem, a No. 1 Vicryl for fascia capsule, 0 and 2-0 subcutaneous, 3-0 Monocryl subcuticular for skin glue for skin, 4-0 undyed Vicryl for pin sites. ESTIMATED BLOOD LOSS: Approximately 150 mL. COMPLICATIONS: None. CONDITION: To recovery room in stable condition. DESCRIPTION OF OPERATIVE PROCEDURE: The patient was taken to the operating room. Spinal anesthesia as well as sciatic block was administered by the anesthesiologist. The IV Kefzol and TXA were administered prophylactically prior to the case. The patient was placed in the lateral decubitus position with all prominences well-padded. An EKG pad was secured to the inferior pole of the patella for limb length calculations intraoperatively. The right hip area was prepped and draped in the usual sterile fashion. A 12.0-15.0 cm curved longitudinal incision over the posterolateral aspect of the greater trochanter was made. Hemostasis was achieved with Bovie cautery. Sharp dissection was carried down to the level of the fascia. The fascia was opened the entire length of the incision, spreading the gluteus cydney fibers in the direction of their origin. A Charnley retractor was placed in this layer, and care was taken to be far away from the sciatic nerve. The short external rotators were detached off the insertion of the greater trochanter and peeled off the capsule. A posterior capsulectomy was then performed. A checkpoint was malleted into the greater trochanter. Three small stab incisions were done on the iliac crest. Through these stab incisions, threaded guide pins were drilled into the iliac crest. These pins were fastened to the Navigation array. The check point on the greater trochanter, and the EKG pad on the inferior pole of the patella were used to measure preoperative limb length and offset. The hip was then dislocated. The hip was osteotomized at the appropriate level as directed by the preoperative template. Anterior and posterior retractors were placed around the acetabulum. Circumferential labrum was excised. A checkpoint was malleted into the acetabulum superiorly. The acetabulum was then registered with the Navigation device with multiple sites within the acetabulum and around the rim of the acetabulum. I t was then confirmed popping the blue bubbles, confirming ideal position and confirmation of adequate registration with the Navigation device. Using a 48 reamer, which was decided preoperatively on the preoperative template, the robotic arm was brought into the field and was used to ream the acetabulum down to the appropriate depth with the appropriate orientation and inversion applied. After reaming, a good hemispherical bleeding surface was encountered in the acetabulum. A TOMASZ shell of the appropriate size was then malleted into place achieving excellent fit. Confirmation of the appropriate orientation and inversion was confirmed using the probe, and assuring that the acetabular cup was placed in the ideal position as templated preoperatively. A real liner was then clipped into place with a 10 degree lip in the posterior-superior quadrant. Anterior and posterior osteophytes were removed using osteotome. Next, our attention was directed to the femur. The proximal femur was opened with a box chisel, rat-tail, anchovy and serial reamers. This was done until the appropriate reamer achieved good fit and fill of the proximal femur. A trial reduction with the appropriate neck and head, as again measured from our preoperative template, was performed. Limb lengths were confirmed both visually and using the Navigation device, again measuring the inferior pole of the patella and the checkpoint of the greater trochanter. This confirmed ideal position of the femoral component, lengths and offset. The trial components were removed. The real component was malleted into place. The head was cold-welded to the Charnley and the hip was reduced. Again, the hip was found to have equal limb lengths as described previously. The hip was also taken through a range of motion and found to be stable in external rotation and extension, was stable in marked flexion, stable in adduction and internal rotation, and had a positive hang test and negative telescoping. The hip was irrigated with copious amounts of irrigation. Hemostasis was achieved. Vancomycin powder was sprinkled into the joint. A second dose of TXA was administered. The fascia was closed with No. 1 Vicryl interrupted suture, 0 and 2-0 for subcutaneous, and 3-0 Monocryl subcuticular for skin with skin glue. This was followed by an Aquacel dressing. The patient was flipped into the supine position. Bilateral SCDs and an abduction pillow were applied. X-rays showed good position of the components. The patient was awakened from anesthesia and transferred to the recovery room in stable condition. BRENDA CARRION M.D. [id number]
[2016-12-15] MEDS ORDERED: ACETAMINOPHEN 325 MG TABLET (FP) ONE (10:26)
--- NOTE | 2016-12-15 10:49 | PN ---
Progress Note (short form) - Note Progress Note: PULMONARY CONSULTATION DICTATED 12/15/16 IMP ADVANCED COPD 02 DEPENDENT S/P TOMASZ R THR CHF HTN H/O PNEUMONIA PLAN INHALED BRONCHODILATORS NASAL O2 DVT PROPHYLAXIS PT EVAL INCENTIVE SPIROMETER ANALGESICS DR MALLOY
[2016-12-15] MEDS: ACETAMINOPHEN 325 MG TABLET (FP) PO SCH ×3 (11:02→21:59)
[2016-12-15] MEDS: LISINOPRIL 20 MG TABLET (FP) PO SCH (11:03)
[2016-12-15] MEDS: ROFLUMILAST 500 MCG TABLET PO SCH (11:03)
[2016-12-15] MEDS: SENNOSIDES/DOCUSATE COMBO (SENNA PLUS) TABLET (UD) PO SCH ×2 (11:56→21:58)
[2016-12-15] MEDS: PANTOPRAZOLE 40 MG TABLET (FP) PO SCH (11:56)
[2016-12-15] MEDS: MONTELUKAST NA 10 MG TABLET PO SCH (11:56)
[2016-12-15] MEDS: MULTIVITAMINS (DAILY MVI) TABLET (FP) PO SCH (11:56)
--- NOTE | 2016-12-15 12:49 | CONSULT ---
Consultation: REQUESTING PROVIDER: Sheyla CONSULT REQUEST: We have been asked to medically evaluate this patient for management of hypertension and copd exacerbation. HISTORY OF PRESENT ILLNESS: patient is a 76 y/o female, with copd (home o2), hypertension, diastolic congestive heart failure, GERD, anxiety, and osteoarthritis. Patient is s/p right THR, 12/15/16, Dr Carrion, spinal anesthesia. She reports feeling well, denies any chest pain or shortness of breath. patient reports minimal pain to the right hip, she denies any paresthesia to the extremity, patient is tolerating her meals and po fluids. REVIEW OF SYSTEMS: CONSTITUTIONAL: Absent: fever, chills, diaphoresis, generalized weakness, malaise, loss of appetite, weight change HEENT: Absent: rhinorrhea, nasal congestion, throat pain, throat swelling, difficulty swallowing, mouth swelling, ear pain, eye pain, visual changes CARDIOVASCULAR: Absent: chest pain, syncope, palpitations, irregular heart rate, lightheadedness , peripheral edema RESPIRATORY: Absent: cough, shortness of breath, dyspnea with exertion, orthopnea, wheezing, stridor, hemoptysis GASTROINTESTINAL: Absent: abdominal pain, abdominal distension, nausea, vomiting, diarrhea, constipation, melena, hematochezia GENITOURINARY: Absent: dysuria, frequency, urgency, hesitancy, hematuria, flank pain, genital pain MUSCULOSKELETAL: Absent: myalgia, arthralgia, joint swelling, back pain, neck pain SKIN: Absent: rash, itching, pallor HEMATOLOGIC/IMMUNOLOGIC: Absent: easy bleeding, easy bruising, lymphadenopathy, frequent infections ENDOCRINE: Absent: unexplained weight gain, unexplained weight loss, heat intolerance, cold intolerance NEUROLOGIC: Absent: headache, focal weakness or paresthesias, dizziness, unsteady gait, seizure, mental status changes, bladder or bowel incontinence PSYCHIATRIC: Absent: anxiety, depression, suicidal or homicidal ideation, hallucinations. PHYSICAL EXAMINATION Vital Signs - 24 hr 12/15/16 12/15/16 12/15/16 06:34 06:37 06:50 Temperature 98.0 F Pulse Rate 88 Respiratory 16 Rate Blood Pressure 121/55 O2 Sat by Pulse 2 L 99 Oximetry (%) 12/15/16 12/15/16 12/15/16 10:03 10:10 10:15 Temperature 98 F Pulse Rate 73 93 H 79 Respiratory 18 18 16 Rate Blood Pressure 111/60 116/41 110/47 O2 Sat by Pulse 100 100 100 Oximetry (%) 12/15/16 12/15/16 12/15/16 10:20 10:35 10:50 Temperature Pulse Rate 76 72 73 Respiratory 18 16 16 Rate Blood Pressure 110/68 115/48 114/45 O2 Sat by Pulse 100 100 100 Oximetry (%) 12/15/16 11:03 Temperature 98 F Pulse Rate 73 Respiratory 16 Rate Blood Pressure 117/45 O2 Sat by Pulse Oximetry (%) GENERAL: Awake, alert, and fully oriented, in no acute distress. HEAD: Normal with no signs of trauma. EYES: Pupils equal, round and reactive to light, extraocular movements intact, sclera anicteric, conjunctiva clear. No lid lag. EARS, NOSE, THROAT: Ears normal, nares patent, oropharynx clear without exudates. Moist mucous membranes. NECK: Normal range of motion, supple without lymphadenopathy, JVD, or masses. LUNGS: Breath sounds equal, clear to auscultation bilaterally. No wheezes, and no crackles. No accessory muscle use. HEART: Regular rate and rhythm, normal S1 and S2 without murmur, rub or gallop. ABDOMEN: Soft, nontender, not distended, normoactive bowel sounds, no guarding, no rebound, no masses. No hepatomegaly or splenomegaly. MUSCULOSKELETAL: Normal range of motion at all joints. No bony deformities or tenderness. No CVA tenderness. UPPER EXTREMITIES: 2+ pulses, warm, well-perfused. No cyanosis. No clubbing. Cap refill <2 seconds. No peripheral edema. LOWER EXTREMITIES: 2+ pulses, warm, well-perfused. No calf tenderness. No peripheral edema. RIGHT LOWER EXTREMITY: aguacel dressing CDI, less than 3 second capillary refill , + 3 pedal pulse, pt is able to move the digits of the foot without any difficulty. NEUROLOGICAL: Cranial nerves II-XII intact. Normal speech. Normal gait. PSYCHIATRIC: Cooperative. Good eye contact. Appropriate mood and affect. SKIN: Warm, dry, normal turgor, no rashes or lesions noted. Active Medications Generic Name Dose Route Start Last Admin Trade Name Freq PRN Reason Stop Dose Admin Acetaminophen 650 mg 12/15/16 11:00 12/15/16 11:02 Tylenol - PO 12/18/16 10:59 Not Given Q6H FLORA Aclidinium [place] 1 puff 12/15/16 22:00 Tudorza - IH BID FLORA Al Hydroxide/Mg Hydroxide 30 ml 12/15/16 09:48 Mylanta Oral Suspension - PO Q4H PRN DYSPEPSIA Albuterol Sulfate 1 amp 12/15/16 09:49 Ventolin 0.083% Nebulizer Soln - NEB Q4H PRN SHORT OF BREATH/WHEEZING Alprazolam 0.25 mg 12/15/16 09:49 Xanax - PO DAILY PRN ANXIETY Aspirin 325 mg 12/16/16 08:00 Asa - PO DAILY@0800 [facility] Budesonide/Formoterol Fumarate 2 puff 12/15/16 10:00 Symbicort 160/4.5mcg - IH BID [facility] Diltiazem HCl 120 mg 12/15/16 10:00 12/15/16 11:03 Cardizem Cd - PO Not Given DAILY [facility] Fentanyl 50 mcg 12/15/16 10:48 Sublimaze Injection - IVPUSH 12/18/16 10:49 [id number] PRN PAIN Cefazolin Sodium/Dextrose 50 mls @ 100 mls/hr 12/15/16 16:00 Ancef 2 Gm Premixed Ivpb - IVPB 12/16/16 00:29 Q8H [facility] Lactated Ringer's 1,000 mls @ 125 mls/hr 12/15/16 10:00 Lactated Ringers Solution IV 12/16/16 06:00 ASDIR FLORA Lactated Ringer's 1,000 mls @ 75 mls/hr 12/15/16 11:00 Lactated Ringers Solution IV ASDIR [facility] Lisinopril 20 mg 12/15/16 10:00 12/15/16 11:03 Prinivil PO Not Given DAILY [facility] Magnesium Hydroxide 30 ml 12/15/16 09:48 Milk Of Magnesia - PO PRN PRN CONSTIPATION Montelukast Sodium 10 mg 12/15/16 10:00 12/15/16 11:56 Singulair - PO Not Given DAILY [facility] Multivitamins/Minerals/Vitamin C 1 tab 12/15/16 10:00 12/15/16 11:56 Tab-A-Vit - PO Not Given DAILY [facility] Ondansetron HCl 4 mg 12/15/16 09:48 Zofran Injection IVPB Q6H PRN NAUSEA Oxycodone HCl 5 mg 12/15/16 10:48 Roxicodone - PO Q3H PRN PAIN LEVEL 1-5 Oxycodone HCl 10 mg 12/15/16 10:48 Roxicodone - PO Q3H PRN PAIN LEVEL 6-10 Pantoprazole Sodium 40 mg 12/15/16 10:00 12/15/16 11:56 Protonix - PO Not Given DAILY [facility] Roflumilast 500 mcg 12/15/16 10:00 12/15/16 11:03 Daliresp - PO Not Given DAILY [facility] Senna/Docusate Sodium 2 tablet 12/15/16 10:00 12/15/16 11:56 Pericolace - PO Not Given BID FLORA Spironolactone 25 mg 12/15/16 10:00 Aldactone - PO DAILY [facility] ASSESSMENT/PLAN: 1) ortho: s/p left THR POD#0 - prn pain medication - incentive spirometer - PT as per ortho 2) pulm: copd - no acute exacerbation at this time - continue supplemental o2 (2L [place],home dose) keep spo2 above 92% - continue daliresp, singulair, symbicort, tudorza, and albuterol prn - incentive spirometer 3) card diastolic congestive heart failure - echo reviewed from 11/16/16, LV WNL, moderate - continue aldactone-->monitor potassium hypertension - continue cardizem and lisinopril - b/p at goal 4) gi gerd - continue protonix 5) psych anxiety - continue prn xanax - caution with over sedation with concurrent use of opiates, strict monitoring f/e/n - low sodium - replete lytes prn ppx - as per ortho asa - PT - SCD - protonix Dispo: We will continue to follow the patient. Thank you for this consultative opportunity. Visit type - Emergency Visit Emergency Visit: Yes ED Registration Date: 12/15/16 Care time: The patient presented to the Emergency Department on the above date and was hospitalized for further evaluation of their emergent condition. - New Patient This patient is new to me today: No - Critical Care Critical Care patient: No
--- NOTE | 2016-12-15 12:53 | CONS ---
PULMONARY CONSULTATION DATE OF CONSULTATION: 12/15/2016 REFERRING PHYSICIAN: Oumou Simon MD The patient is a 76-year-old white female known to me from previous office visits and hospitalization. She has a past medical history of advanced COPD on home O2, pneumonia, CHF, hypertension. She was admitted to [facility] for a right TOMASZ total hip replacement. The patient underwent a right total hip earlier today under regional anesthesia. She tolerated the procedure well without complications. The patient is currently in the recovery room. Denies any chest pain. No shortness of breath. Denies any cough. Denies hemoptysis. PAST MEDICAL HISTORY: Again, this includes CHF, hypertension, advanced O2-dependent COPD, pneumonia and GERD. MEDICATIONS PRIOR TO ADMISSION: Diltiazem, lisinopril, Aldactone, albuterol, Symbicort 160/4.5, Daliresp, Tudorza, alprazolam, morphine and Azelastine. REVIEW OF SYSTEMS: No orthopnea. No PND. No chest pain. No palpitations. No abdominal pain. PHYSICAL EXAMINATION: General: The patient is a well-developed and well-nourished female, awake, alert, in no acute distress. Vital Signs: She is currently afebrile. Blood pressure is 115/48. O2 saturation is 100% on 2 L. Respiratory rate is 16. Heart rate is 72. HEENT: Normocephalic, atraumatic. Neck: Supple. Heart: Regular. S1, S2. Chest: Clear. Abdomen: Soft. Bowel sounds are positive. Extremities: No cyanosis or edema. LABORATORY DATA: Pending. IMPRESSION: 1. Advanced chronic obstructive pulmonary disease, O2 dependent, currently felt to be stable. 2. Status post right TOMASZ total hip replacement. 3. Hypertension. 4. History of congestive heart failure. PLAN: 1. Incentive spirometer. 2. Continue inhaled bronchodilators. 3. DVT prophylaxis. 4. Supplemental O2. 5. Analgesics. 6. Physical therapy. IMELDA MALLOY M.D. COLE[place]/[id number]
[2016-12-15] MEDS: BUDESONIDE/FORMETEROL FUMARATE 160/4.5 mcg INHALER IH SCH ×2 (13:23→21:59)
[2016-12-15] MEDS: SPIRONOLACTONE 25 MG TABLET (FP) PO SCH ×2 (13:23→13:46)
[2016-12-15] MEDS: ACLIDINIUM BROMIDE 400 MCG/INH AERO.POWD IH SCH ×2 (13:23→21:59)
[2016-12-15] MEDS: oxyCODONE HCL 5 MG TABLET PO PRN (13:24)
[2016-12-15] MEDS ORDERED: PT OWN MED DRAWER 7, Y5N ONE ×2 (14:02→21:22)
[2016-12-15] MEDS: CEFAZOLIN 2 GM/D5W 50 ML IVPB SCH ×2 (16:14→23:45)
[2016-12-15] MEDS ORDERED: ZOLPIDEM TARTRATE 5 MG TABLET PO ONE (21:50)
[2016-12-15] MEDS ORDERED: ZOLPIDEM TARTRATE 5 MG TABLET ONE (21:53)
[2016-12-15] MEDS ORDERED: ACLIDINIUM BROMIDE 400 MCG/INH AERO.POWD IH SCH (22:00)
[2016-12-16] MEDS: ACETAMINOPHEN 325 MG TABLET (FP) PO SCH ×4 (05:00→22:42)
--- NOTE | 2016-12-16 07:55 | PN ---
Progress Note, Physician History of Present Illness: PULMONARY ALERT,DOING WELL,-C/O SOB,-CP - Current Medication List Current Medications: Active Medications Acetaminophen (Tylenol -) 650 mg PO Q6H [facility] Stop: 12/18/16 10:59 Last Admin: 12/16/16 05:00 Dose: 650 mg Aclidinium [place] (Tudorza -) 1 puff IH BID [facility] Last Admin: 12/15/16 21:59 Dose: 1 puff Al Hydroxide/Mg Hydroxide (Mylanta Oral Suspension -) 30 ml PO Q4H PRN PRN Reason: DYSPEPSIA Albuterol Sulfate (Ventolin 0.083% Nebulizer Soln -) 1 amp NEB Q4H PRN PRN Reason: SHORT OF BREATH/WHEEZING Alprazolam (Xanax -) 0.25 mg PO DAILY PRN PRN Reason: ANXIETY Aspirin (Asa -) 325 mg PO DAILY@0800 [facility] Budesonide/Formoterol Fumarate (Symbicort 160/4.5mcg -) 2 puff IH BID [facility] Last Admin: 12/15/16 21:59 Dose: 2 inh Diltiazem HCl (Cardizem Cd -) 120 mg PO DAILY [facility] Last Admin: 12/15/16 11:03 Dose: Not Given Fentanyl (Sublimaze Injection -) 50 mcg IVPUSH [id number] PRN PRN Reason: PAIN Stop: 12/18/16 10:49 Lisinopril (Prinivil) 20 mg PO DAILY [facility] Last Admin: 12/15/16 11:03 Dose: Not Given Magnesium Hydroxide (Milk Of Magnesia -) 30 ml PO PRN PRN PRN Reason: CONSTIPATION Montelukast Sodium (Singulair -) 10 mg PO DAILY [facility] Last Admin: 12/15/16 11:56 Dose: Not Given Multivitamins/Minerals/Vitamin C (Tab-A-Vit -) 1 tab PO DAILY [facility] Last Admin: 12/15/16 11:56 Dose: Not Given Ondansetron HCl (Zofran Injection) 4 mg IVPB Q6H PRN PRN Reason: NAUSEA Oxycodone HCl (Roxicodone -) 5 mg PO Q3H PRN PRN Reason: PAIN LEVEL 1-5 Oxycodone HCl (Roxicodone -) 10 mg PO Q3H PRN PRN Reason: PAIN LEVEL 6-10 Last Admin: 12/15/16 13:24 Dose: 10 mg Pantoprazole Sodium (Protonix -) 40 mg PO DAILY [facility] Last Admin: 12/15/16 11:56 Dose: Not Given Roflumilast (Daliresp -) 500 mcg PO DAILY [facility] Last Admin: 12/15/16 11:03 Dose: Not Given Senna/Docusate Sodium (Pericolace -) 2 tablet PO BID [facility] Last Admin: 12/15/16 21:58 Dose: 2 tablet Spironolactone (Aldactone -) 25 mg PO DAILY [facility] Last Admin: 12/15/16 13:23 Dose: 25 mg - Objective Vital Signs: Vital Signs Temperature 98.1 F 12/16/16 06:00 Pulse Rate 78 12/16/16 06:00 Respiratory Rate 78 H 12/16/16 06:00 Blood Pressure 110/46 12/16/16 06:00 O2 Sat by Pulse Oximetry (%) 98 12/16/16 03:14 Constitutional: Yes: Well Nourished, Calm Eyes: Yes: WNL HENT: Yes: WNL Neck: Yes: WNL Cardiovascular: Yes: Regular Rate and Rhythm, S1, S2 Respiratory: Yes: CTA Bilaterally Gastrointestinal: Yes: Normal Bowel Sounds, Soft Extremities: Yes: WNL Edema: No Labs: Laboratory Tests 12/16/16 07:30 WBC 16.7 H D RBC 2.42 L Hgb 6.9 L* D Hct 20.6 L D Plt Count 271 Assessment/Plan IMP ADVANCED COPD 02 DEPENDENT S/P TOMASZ R THR CHF HTN H/O PNEUMONIA ANEMIA PLAN INHALED BRONCHODILATORS NASAL O2 DVT PROPHYLAXIS PT EVAL INCENTIVE SPIROMETER ANALGESICS IRON SUPPLEMENTS CONSIDER TRANSFUSION DR MALLOY
--- NOTE | 2016-12-16 08:14 | PN ---
Progress Note (short form) - Note Progress Note: Ortho Pt seen and examined s/p right belle thr pod #1 Selected Entries 12/16/16 12/16/16 02:00 06:00 Temperature 98.1 F Pulse Rate 78 Respiratory 17 Rate Blood Pressure 110/46 Laboratory Tests 12/16/16 07:30 WBC Pending Hgb Pending Hct Pending Plt Count Pending dressing c/d/i, calf soft, nt nvi a/p PT hip precautions dvt ppx pain control d/c home tomorrow if stable
[2016-12-16 08:22] LABS: MCH 28.3 pg (25.7-33.7); MCHC 33.3 g/dl (32.0-36.0); MEAN CELL VOLUME 85.2 fl (80-96); MEAN PLT VOLUME 8.5 fl (7.5-11.1); PLATELET COUNT 271 K/MM3 (134-434); RDW 15.2 % (11.6-15.6); WHITE BLOOD COUNT 16.7 K/mm3 (4.0-10.8)
--- NOTE | 2016-12-16 09:04 | PN ---
Physical Exam: SUBJECTIVE: Patient seen and examined, reports feeling well, denies any chest pain or shortness of breath, reports minimal pain to right lower extremity. OBJECTIVE: patient is a 76 y/o female, with copd (home o2), hypertension, diastolic congestive heart failure, GERD, anxiety, and osteoarthritis. patient is POD #1, s/p right THR (Lent) Vital Signs Period Temp Pulse Resp BP Sys/Vaughn Pulse Ox Last 24 Hr 98 F-98.2 F 72-93 16-78 93-132/39-77 95-100 GENERAL: Awake, alert, and fully oriented, in no acute distress. HEAD: Normal with no signs of trauma. EYES: Pupils equal, round and reactive to light, extraocular movements intact, sclera anicteric, conjunctiva clear. No lid lag. EARS, NOSE, THROAT: Ears normal, nares patent, oropharynx clear without exudates. Moist mucous membranes. NECK: Normal range of motion, supple without lymphadenopathy, JVD, or masses. LUNGS: Breath sounds equal, clear to auscultation bilaterally. No wheezes, and no crackles. No accessory muscle use. HEART: Regular rate and rhythm, normal S1 and S2 without murmur, rub or gallop. ABDOMEN: Soft, nontender, not distended, normoactive bowel sounds, no guarding, no rebound, no masses. No hepatomegaly or splenomegaly. MUSCULOSKELETAL: Normal range of motion at all joints. No bony deformities or tenderness. No CVA tenderness. UPPER EXTREMITIES: 2+ pulses, warm, well-perfused. No cyanosis. No clubbing. Cap refill <2 seconds. No peripheral edema. LOWER EXTREMITIES: 2+ pulses, warm, well-perfused. No calf tenderness. No peripheral edema. RIGHT LOWER EXTREMITY: aguacel dressing CDI, less than 3 second capillary refill , + 3 pedal pulse, pt is able to move the digits of the foot without any difficulty. NEUROLOGICAL: Cranial nerves II-XII intact. Normal speech. Normal gait. PSYCHIATRIC: Cooperative. Good eye contact. Appropriate mood and affect. SKIN: Warm, dry, normal turgor, no rashes or lesions noted. Laboratory Results - last 24 hr 12/16/16 07:30 WBC 16.7 H D RBC 2.42 L Hgb 6.9 L* D Hct 20.6 L D MCV 85.2 MCHC 33.3 RDW 15.2 Plt Count 271 MPV 8.5 Active Medications Generic Name Dose Route Start Last Admin Trade Name Freq PRN Reason Stop Dose Admin Acetaminophen 650 mg 12/15/16 11:00 12/16/16 05:00 Tylenol - PO 12/18/16 10:59 650 mg Q6H [facility]ORA Administration Aclidinium [place] 1 puff 12/15/16 13:15 12/15/16 21:59 Tudorza - IH 1 puff BID FLORA Administration Al Hydroxide/Mg Hydroxide 30 ml 12/15/16 09:48 Mylanta Oral Suspension - PO Q4H PRN DYSPEPSIA Albuterol Sulfate 1 amp 12/15/16 09:49 Ventolin 0.083% Nebulizer Soln - NEB Q4H PRN SHORT OF BREATH/WHEEZING Alprazolam 0.25 mg 12/15/16 09:49 Xanax - PO DAILY PRN ANXIETY Aspirin 325 mg 12/16/16 08:00 Asa - PO DAILY@0800 [facility] Budesonide/Formoterol Fumarate 2 puff 12/15/16 13:15 12/15/16 21:59 Symbicort 160/4.5mcg - IH 2 inh BID [facility] Administration Diltiazem HCl 120 mg 12/15/16 10:00 12/15/16 11:03 Cardizem Cd - PO Not Given DAILY [facility] Fentanyl 50 mcg 12/15/16 10:48 Sublimaze Injection - IVPUSH 12/18/16 10:49 [id number] PRN PAIN Lisinopril 20 mg 12/15/16 10:00 12/15/16 11:03 Prinivil PO Not Given DAILY [facility] Magnesium Hydroxide 30 ml 12/15/16 09:48 Milk Of Magnesia - PO PRN PRN CONSTIPATION Montelukast Sodium 10 mg 12/15/16 10:00 12/15/16 11:56 Singulair - PO Not Given DAILY [facility] Multivitamins/Minerals/Vitamin C 1 tab 12/15/16 10:00 12/15/16 11:56 Tab-A-Vit - PO Not Given DAILY [facility] Ondansetron HCl 4 mg 12/15/16 09:48 Zofran Injection IVPB Q6H PRN NAUSEA Oxycodone HCl 5 mg 12/15/16 10:48 Roxicodone - PO Q3H PRN PAIN LEVEL 1-5 Oxycodone HCl 10 mg 12/15/16 10:48 12/15/16 13:24 Roxicodone - PO 10 mg Q3H PRN Administration PAIN LEVEL 6-10 Pantoprazole Sodium 40 mg 12/15/16 10:00 12/15/16 11:56 Protonix - PO Not Given DAILY [facility] Roflumilast 500 mcg 12/15/16 10:00 12/15/16 11:03 Daliresp - PO Not Given DAILY [facility] Senna/Docusate Sodium 2 tablet 12/15/16 10:00 12/15/16 21:58 Pericolace - PO 2 tablet BID [facility] Administration Spironolactone 25 mg 12/15/16 13:15 12/15/16 13:23 Aldactone - PO 25 mg DAILY [facility] Administration ASSESSMENT/PLAN: 1) ortho: s/p left THR POD#0 - prn pain medication - incentive spirometer - PT as per ortho 2) pulm: chronic respiratory failure in the setting of copd - no acute exacerbation at this time--> close monitoring - continue supplemental o2 (2L [place],home dose) keep spo2 above 92% - continue daliresp, singulair, symbicort, tudorza, and albuterol prn - incentive spirometer 3) card diastolic congestive heart failure - echo reviewed from 11/16/16, LV WNL, moderate - continue aldactone-->monitor potassium hypertension - continue cardizem and lisinopril - b/p at goal 4) gi gerd - continue protonix 5) psych anxiety - continue prn xanax - caution with over sedation with concurrent use of opiates, strict monitoring 5) heme normocytic anemia -hgb 6.9 baseline 12, pt is asymptomatic, no active signs of bleeding noted - strict monitoring, repeat cbc in AM f/e/n - low sodium - replete lytes prn ppx - as per ortho asa - PT - SCD - protonix Dispo: We will continue to follow the patient. Thank you for this consultative opportunity. Visit type - Emergency Visit Emergency Visit: No - New Patient This patient is new to me today: No - Critical Care Critical Care patient: No - Discharge Referral Referred to [facility] Med P.C.: No
[2016-12-16] MEDS ORDERED: PT OWN MED DRAWER 7, Y5N ONE (09:09)
[2016-12-16] MEDS: LISINOPRIL 20 MG TABLET (FP) PO SCH (09:16)
[2016-12-16] MEDS: SPIRONOLACTONE 25 MG TABLET (FP) PO SCH (09:16)
[2016-12-16] MEDS: ACLIDINIUM BROMIDE 400 MCG/INH AERO.POWD IH SCH ×2 (09:16→22:11)
[2016-12-16] MEDS: SENNOSIDES/DOCUSATE COMBO (SENNA PLUS) TABLET (UD) PO SCH ×2 (09:16→22:10)
[2016-12-16] MEDS: PANTOPRAZOLE 40 MG TABLET (FP) PO SCH (09:16)
[2016-12-16] MEDS: ROFLUMILAST 500 MCG TABLET PO SCH (09:16)
[2016-12-16] MEDS: BUDESONIDE/FORMETEROL FUMARATE 160/4.5 mcg INHALER IH SCH ×2 (09:16→22:10)
[2016-12-16] MEDS: ASPIRIN 325 MG TABLET PO SCH (09:17)
[2016-12-16] MEDS: oxyCODONE HCL 5 MG TABLET PO PRN ×3 (09:18→17:54)
[2016-12-16] MEDS: MULTIVITAMINS (DAILY MVI) TABLET (FP) PO SCH (12:01)
[2016-12-16] MEDS: MONTELUKAST NA 10 MG TABLET PO SCH (12:02)
[2016-12-16 13:02] LABS: MCH 28.3 pg (25.7-33.7); MCHC 33.2 g/dl (32.0-36.0); MEAN CELL VOLUME 85.3 fl (80-96); MEAN PLT VOLUME 8.4 fl (7.5-11.1); PLATELET COUNT 262 K/MM3 (134-434); RDW 15.5 % (11.6-15.6); WHITE BLOOD COUNT 18.6 K/mm3 (4.0-10.8)
--- NOTE | 2016-12-16 14:20 | PN ---
Progress Note (short form) - Note Progress Note: 76 yo POD#1 s/p spinal and paravertebral blocks for [place]. Patient doing well. She has minimal pain and is actively participating in PT. Continue current care.
[2016-12-17] MEDS: oxyCODONE HCL 5 MG TABLET PO PRN ×2 (01:27→14:30)
[2016-12-17] MEDS: ACETAMINOPHEN 325 MG TABLET (FP) PO SCH ×3 (05:47→16:58)
--- NOTE | 2016-12-17 07:34 | PN ---
Progress Note, Physician History of Present Illness: PULMONARY ALERT,FEELING BETTER,NAD,-SOB,-CP,-COUGH - Current Medication List Current Medications: Active Medications Acetaminophen (Tylenol -) 650 mg PO Q6H [facility] Stop: 12/18/16 10:59 Last Admin: 12/17/16 05:47 Dose: 650 mg Aclidinium [place] (Tudorza -) 1 puff IH BID [facility] Last Admin: 12/16/16 22:11 Dose: 1 puff Al Hydroxide/Mg Hydroxide (Mylanta Oral Suspension -) 30 ml PO Q4H PRN PRN Reason: DYSPEPSIA Albuterol Sulfate (Ventolin 0.083% Nebulizer Soln -) 1 amp NEB Q4H PRN PRN Reason: SHORT OF BREATH/WHEEZING Alprazolam (Xanax -) 0.25 mg PO DAILY PRN PRN Reason: ANXIETY Last Admin: 12/16/16 09:16 Dose: 0.25 mg Aspirin (Asa -) 325 mg PO DAILY@0800 [facility] Last Admin: 12/16/16 09:17 Dose: 325 mg Budesonide/Formoterol Fumarate (Symbicort 160/4.5mcg -) 2 puff IH BID [facility] Last Admin: 12/16/16 22:10 Dose: 2 inh Diltiazem HCl (Cardizem Cd -) 120 mg PO DAILY [facility] Last Admin: 12/16/16 09:16 Dose: 120 mg Fentanyl (Sublimaze Injection -) 50 mcg IVPUSH [id number] PRN PRN Reason: PAIN Stop: 12/18/16 10:49 Lisinopril (Prinivil) 20 mg PO DAILY [facility] Last Admin: 12/16/16 09:16 Dose: 20 mg Magnesium Hydroxide (Milk Of Magnesia -) 30 ml PO PRN PRN PRN Reason: CONSTIPATION Montelukast Sodium (Singulair -) 10 mg PO DAILY [facility] Last Admin: 12/16/16 12:02 Dose: 10 mg Multivitamins/Minerals/Vitamin C (Tab-A-Vit -) 1 tab PO DAILY [facility] Last Admin: 12/16/16 12:01 Dose: 1 tab Ondansetron HCl (Zofran Injection) 4 mg IVPB Q6H PRN PRN Reason: NAUSEA Oxycodone HCl (Roxicodone -) 5 mg PO Q3H PRN PRN Reason: PAIN LEVEL 1-5 Last Admin: 12/17/16 01:27 Dose: 5 mg Oxycodone HCl (Roxicodone -) 10 mg PO Q3H PRN PRN Reason: PAIN LEVEL 6-10 Last Admin: 12/16/16 17:54 Dose: 10 mg Pantoprazole Sodium (Protonix -) 40 mg PO DAILY [facility] Last Admin: 12/16/16 09:16 Dose: 40 mg Roflumilast (Daliresp -) 500 mcg PO DAILY [facility] Last Admin: 12/16/16 09:16 Dose: 500 mcg Senna/Docusate Sodium (Pericolace -) 2 tablet PO BID [facility] Last Admin: 12/16/16 22:10 Dose: 2 tablet Spironolactone (Aldactone -) 25 mg PO DAILY [facility] Last Admin: 12/16/16 09:16 Dose: 25 mg - Objective Vital Signs: Vital Signs Temperature 98.1 F 12/17/16 06:37 Pulse Rate 88 12/17/16 06:37 Respiratory Rate 20 12/17/16 06:37 Blood Pressure 96/42 12/17/16 06:37 O2 Sat by Pulse Oximetry (%) 100 12/17/16 06:37 Constitutional: Yes: Well Nourished, Calm Eyes: Yes: WNL HENT: Yes: WNL Neck: Yes: WNL Cardiovascular: Yes: Regular Rate and Rhythm, S1, S2 Respiratory: Yes: Diminished Gastrointestinal: Yes: Normal Bowel Sounds, Soft Extremities: Yes: WNL Edema: No Problem List - Problems (1) Anemia Code(s): D64.9 - ANEMIA, UNSPECIFIED Qualifiers: (2) HTN (hypertension) Code(s): I10 - ESSENTIAL (PRIMARY) HYPERTENSION Qualifiers: (3) COPD (chronic obstructive pulmonary disease) Code(s): J44.9 - CHRONIC OBSTRUCTIVE PULMONARY DISEASE, UNSPECIFIED (4) Status post hip replacement Code(s): Z96.649 - PRESENCE OF UNSPECIFIED ARTIFICIAL HIP JOINT Assessment/Plan IMP ADVANCED COPD 02 DEPENDENT S/P TOMASZ R THR CHF HTN H/O PNEUMONIA ANEMIA PLAN INHALED BRONCHODILATORS NASAL O2 DVT PROPHYLAXIS INCENTIVE SPIROMETER ANALGESICS IRON SUPPLEMENTS TRANSFUSE DR MALLOY
--- NOTE | 2016-12-17 07:42 | PN ---
Progress Note (short form) - Note Progress Note: Ortho Pt seen and examined s/p right belle thr pod #2 Selected Entries 12/17/16 06:37 Temperature 98.1 F Pulse Rate 88 Respiratory 20 Rate Blood Pressure 96/42 Laboratory Tests 12/16/16 12:00 WBC 18.6 H Hgb 6.9 L* Hct 20.8 L Plt Count 262 dressing c/d/i, calf soft, nt nvi a/p PT H/H noted d/w Dr. Carrion will re-check cbc this am- started low hip precautions dvt ppx pain control d/c home today f/u in 1 week
--- NOTE | 2016-12-17 07:42 | DS ---
Physical Examination Vital Signs: Vital Signs Temperature 98.1 F 12/17/16 06:37 Pulse Rate 88 12/17/16 06:37 Respiratory Rate 20 12/17/16 06:37 Blood Pressure 96/42 12/17/16 06:37 O2 Sat by Pulse Oximetry (%) 100 12/17/16 06:37 Labs: CBC, BMP 12/16/16 12:00 Discharge Summary Reason For Visit: OSTEOARTHRITIS Procedures: Principal: s/p right belle thr Hospital Course: admitted for elective right belle thr, uneventful post-op, stable for d/c Condition: Good - Instructions Diet, Activity, Other Instructions: Post-op Instructions-Total Hip Replacement Call the office for a follow-up appointment in 1 week - [phone] Aspirin 325mg daily for 6 weeks. Pain medication was sent into your pharmacy. Apply Graduated Compression Stockings (TEDs) to both lower extremities- remove daily for hygiene ONLY Apply Sequential Compression Device (SCDs) to both Lower extremities remove for PT and hygiene ONLY Apply cold packs to affected area for 15 minutes every 2 hours. Physical Therapist will come to your home for the first 5 days. You will be set up with outpatient PT at your first post-operative visit. Patient may ambulate as tolerated-encourage self care (at least every 2-3 hours while awake) with walker or cane Maintain Aquacel (waterproof) dressing to operative wound (will be removed by surgeon at first office visit) Shower with Aquacel dressing in place-if Aquacel integrity compromised, remove and apply dry sterile dressing and notify Orthopedist. DO NOT SHOWER unless Orthopedists approves without Aquacel dressing CONTACT THE OFFICE FOR ANY CHANGE IN YOUR CONDITION (for example-fever greater than 102 degrees,excessive bleeding from operative site, purulent drainage, severe swelling or pain) GO TO THE EMERGENCY ROOM IF THERE IS A MEDICAL EMERGENCY Hip Precautions: * Keep a rolled towel under affected heel while in bed or chair (to keep knee in extension) * Dependent upon approach: * Posterior - do not cross legs; do not sit on low chairs or toilets. * If you have any questions, please do not hesitate to call the office - . Referrals: Jorge Carrion MD [Staff Physician] - Disposition: VNS/HOME HEALTH CARE - Home Medications Comprehensive Discharge Medication List: Ambulatory Orders Diltiazem HCl [Cardizem] 120 mg PO DAILY 07/25/12 Lisinopril [Prinivil] 20 mg PO DAILY 04/09/14 Spironolactone 25 mg PO DAILY 04/09/14 Albuterol 0.083% Nebulizer [place] [Ventolin 0.083% Nebulizer Soln -] 1 neb NEB Q4H PRN 09/16/15 Budesonide/Formeterol Fumarate [SYMBICORT 160/4.5mcg -] 2 puff IH BID #0 inhaler 09/25/15 Roflumilast [Daliresp -] 500 mcg PO DAILY #0 tablet 09/25/15 Aclidinium [place] [Tudorza Pressair] 400 mcg IH ASDIR 10/14/16 Alprazolam 0.25 mg PO PRN PRN MDD 1 mg 10/14/16 Azelastine HCl 2 sprays IN ONCE 10/14/16 Montelukast Na [Singulair -] 10 mg PO DAILY 10/14/16 Tramadol HCl 50 mg PO PRN PRN MDD 200 mg 10/14/16 Celecoxib 200 mg PO DAILY 11/13/16 Zolpidem Tartrate [Ambien] 5 mg PO HS PRN 11/13/16 Aspirin [ASA -] 325 mg PO DAILY@0800 tablet 12/15/16 Oxycodone HCl/Acetaminophen [Percocet 5-325 mg Tablet -] 1 - 2 tab PO Q6H #50 tab MDD 8 12/15/16
[2016-12-17 08:18] LABS: MCH 28.3 pg (25.7-33.7); MCHC 32.8 g/dl (32.0-36.0); MEAN CELL VOLUME 86.3 fl (80-96); MEAN PLT VOLUME 8.5 fl (7.5-11.1); PLATELET COUNT 255 K/MM3 (134-434); RDW 15.6 % (11.6-15.6); WHITE BLOOD COUNT 14.7 K/mm3 (4.0-10.8)
[2016-12-17] MEDS: ASPIRIN 325 MG TABLET PO SCH (09:14)
[2016-12-17] MEDS: MULTIVITAMINS (DAILY MVI) TABLET (FP) PO SCH (10:06)
[2016-12-17] MEDS: SPIRONOLACTONE 25 MG TABLET (FP) PO SCH ×2 (10:06→10:07)
[2016-12-17] MEDS: PANTOPRAZOLE 40 MG TABLET (FP) PO SCH (10:06)
[2016-12-17] MEDS: ROFLUMILAST 500 MCG TABLET PO SCH (10:07)
[2016-12-17] MEDS: MONTELUKAST NA 10 MG TABLET PO SCH (10:08)
[2016-12-17] MEDS: SENNOSIDES/DOCUSATE COMBO (SENNA PLUS) TABLET (UD) PO SCH (10:08)
[2016-12-17] MEDS: LISINOPRIL 20 MG TABLET (FP) PO SCH (10:08)
[2016-12-17] MEDS: ACLIDINIUM BROMIDE 400 MCG/INH AERO.POWD IH SCH (10:09)
[2016-12-17] MEDS: BUDESONIDE/FORMETEROL FUMARATE 160/4.5 mcg INHALER IH SCH (10:10)
--- NOTE | 2016-12-17 10:44 | PN ---
Physical Exam: SUBJECTIVE: Patient seen and examined, reports feeling well, reports minimal pain to the right lower extremity OBJECTIVE: patient is a 76 y/o female, with copd (home o2), hypertension, diastolic congestive heart failure, GERD, anxiety, and osteoarthritis. patient is POD #2, s/p right THR (Lent) Vital Signs Period Temp Pulse Resp BP Sys/Vaughn Pulse Ox Last 24 Hr 97.7 F-98.3 F 76-94 18-20 96-124/39-87 97-100 GENERAL: Awake, alert, and fully oriented, in no acute distress. HEAD: Normal with no signs of trauma. EYES: Pupils equal, round and reactive to light, extraocular movements intact, sclera anicteric, conjunctiva clear. No lid lag. EARS, NOSE, THROAT: Ears normal, nares patent, oropharynx clear without exudates. Moist mucous membranes. NECK: Normal range of motion, supple without lymphadenopathy, JVD, or masses. LUNGS: Breath sounds equal, clear to auscultation bilaterally. No wheezes, and no crackles. No accessory muscle use. HEART: Regular rate and rhythm, normal S1 and S2 without murmur, rub or gallop. ABDOMEN: Soft, nontender, not distended, normoactive bowel sounds, no guarding, no rebound, no masses. No hepatomegaly or splenomegaly. MUSCULOSKELETAL: Normal range of motion at all joints. No bony deformities or tenderness. No CVA tenderness. UPPER EXTREMITIES: 2+ pulses, warm, well-perfused. No cyanosis. No clubbing. Cap refill <2 seconds. No peripheral edema. LOWER EXTREMITIES: 2+ pulses, warm, well-perfused. No calf tenderness. No peripheral edema. RIGHT LOWER EXTREMITY: aguacel dressing CDI, less than 3 second capillary refill , + 3 pedal pulse, pt is able to move the digits of the foot without any difficulty. NEUROLOGICAL: Cranial nerves II-XII intact. Normal speech. Normal gait. PSYCHIATRIC: Cooperative. Good eye contact. Appropriate mood and affect. SKIN: Warm, dry, normal turgor, no rashes or lesions noted. Laboratory Results - last 24 hr 12/16/16 12/17/16 12/17/16 12:00 07:30 09:30 WBC 18.6 H 14.7 H RBC 2.43 L 2.26 L Hgb 6.9 L* 6.4 L* Hct 20.8 L 19.5 L MCV 85.3 86.3 MCHC 33.2 32.8 RDW 15.5 15.6 Plt Count 262 255 MPV 8.4 8.5 Crossmatch See Detail Active Medications Generic Name Dose Route Start Last Admin Trade Name Freq PRN Reason Stop Dose Admin Acetaminophen 650 mg 12/15/16 11:00 12/17/16 10:15 Tylenol - PO 12/18/16 10:59 650 mg Q6H FLORA Administration Aclidinium [place] 1 puff 12/15/16 13:15 12/17/16 10:09 Tudorza - IH 1 puff BID [facility]ORA Administration Al Hydroxide/Mg Hydroxide 30 ml 12/15/16 09:48 Mylanta Oral Suspension - PO Q4H PRN DYSPEPSIA Albuterol Sulfate 1 amp 12/15/16 09:49 Ventolin 0.083% Nebulizer Soln - NEB Q4H PRN SHORT OF BREATH/WHEEZING Alprazolam 0.25 mg 12/15/16 09:49 12/16/16 09:16 Xanax - PO 0.25 mg DAILY PRN Administration ANXIETY Aspirin 325 mg 12/16/16 08:00 12/17/16 09:14 Asa - PO 325 mg DAILY@0800 [facility] Administration Budesonide/Formoterol Fumarate 2 puff 12/15/16 13:15 12/17/16 10:10 Symbicort 160/4.5mcg - IH 2 inh BID [facility] Administration Diltiazem HCl 120 mg 12/15/16 10:00 12/17/16 10:06 Cardizem Cd - PO 120 mg DAILY [facility] Administration Fentanyl 50 mcg 12/15/16 10:48 Sublimaze Injection - IVPUSH 12/18/16 10:49 [id number] PRN PAIN Lisinopril 20 mg 12/15/16 10:00 12/17/16 10:08 Prinivil PO 20 mg DAILY [facility] Administration Magnesium Hydroxide 30 ml 12/15/16 09:48 Milk Of Magnesia - PO PRN PRN CONSTIPATION Montelukast Sodium 10 mg 12/15/16 10:00 12/17/16 10:08 Singulair - PO 10 mg DAILY [facility] Administration Multivitamins/Minerals/Vitamin C 1 tab 12/15/16 10:00 12/17/16 10:06 Tab-A-Vit - PO 1 tab DAILY [facility] Administration Ondansetron HCl 4 mg 12/15/16 09:48 Zofran Injection IVPB Q6H PRN NAUSEA Oxycodone HCl 5 mg 12/15/16 10:48 12/17/16 01:27 Roxicodone - PO 5 mg Q3H PRN Administration PAIN LEVEL 1-5 Oxycodone HCl 10 mg 12/15/16 10:48 12/16/16 17:54 Roxicodone - PO 10 mg Q3H PRN Administration PAIN LEVEL 6-10 Pantoprazole Sodium 40 mg 12/15/16 10:00 12/17/16 10:06 Protonix - PO 40 mg DAILY [facility] Administration Roflumilast 500 mcg 12/15/16 10:00 12/17/16 10:07 Daliresp - PO 500 mcg DAILY [facility] Administration Senna/Docusate Sodium 2 tablet 12/15/16 10:00 12/17/16 10:08 Pericolace - PO 2 tablet BID [facility] Administration Spironolactone 25 mg 12/15/16 13:15 12/17/16 10:07 Aldactone - PO 25 mg DAILY [facility] Administration ASSESSMENT/PLAN: 1) ortho: s/p left THR POD#0 - prn pain medication - incentive spirometer - PT as per ortho 2) pulm: chronic respiratory failure in the setting of copd - no acute exacerbation at this time--> close monitoring - continue supplemental o2 (2L [place],home dose) keep spo2 above 92% - continue daliresp, singulair, symbicort, tudorza, and albuterol prn - incentive spirometer 3) card diastolic congestive heart failure - echo reviewed from 11/16/16, LV WNL, moderate - continue aldactone-->monitor potassium hypertension - continue cardizem and lisinopril - b/p at goal 4) gi gerd - continue protonix 5) psych anxiety - continue prn xanax - caution with over sedation with concurrent use of opiates, strict monitoring 5) heme normocytic anemia -hgb 6.4 baseline 12, 1 unit of prbc ordered, repeat cbc in evening f/e/n - low sodium - replete lytes prn ppx - as per ortho asa - PT - SCD - protonix Dispo: We will continue to follow the patient. Thank you for this consultative opportunity.
--- NOTE | 2016-12-17 13:36 | PATH ---
Surgical Pathology Report Patient Name: DARLINE JORDAN [facility]. Rec. #: [id number] /Age/Gender: 1940 (Age: 76) / F Account: [id number] Location: [facility] Taken: 12/15/2016 Received: 12/15/2016 Reported: 12/17/2016 Physicians: Jorge Carrion M.D. Specimen(s) Received RIGHT FEMORAL HEAD Clinical History Osteoarthritis right hip Final Diagnosis FEMORAL HEAD, RIGHT, TOTAL HIP REPLACEMENT MAKOPLASTY: DEGENERATIVE JOINT DISEASE. Electronically Signed Hector Champagne M.D. Gross Description Received in formalin, labeled "right femoral head" is a 4.4 x 4.4 x 4.2 cm femoral head with a 0.9 cm in length portion of femoral neck attached. The margin of resection is smooth. There is a 4.7 cm in greatest dimension area of eburnation present. The remaining articular surface is pepper-yellow and focally granular. The underlying trabecular bone is yellow and heterogeneous. A payable representative section is submitted in one cassette, following decalcification. /12/16/2016 [facility] [place]12/16/2016
[2016-12-17 14:00] VITALS: BP 107/40; PULSE 85; TEMP 98.7
== END 2016-12-17 17:05 | disposition home health service (06) | DRG 470 ==
LOC: FM/S 05:58
PROVIDERS: ADMIT Orthopaedic Surgery; ATTEND Orthopaedic Surgery
PROC: 8E0W0CZ Robotic Assisted Procedure of Trunk Region, Open Approach (ICD-10-PCS; 2016-12-15)
PROC: 0SR90JZ Replacement of Right Hip Joint with Synthetic Substitute, Open Approach (ICD-10-PCS; principal; 2016-12-15 08:15)
PROC: 30233N1 Transfusion of Nonautologous Red Blood Cells into Peripheral Vein, Percutaneous Approach (ICD-10-PCS; 2016-12-17)
DX: M16.11 Unilateral primary osteoarthritis, right hip (principal); I50.30 Unspecified diastolic (congestive) heart failure; J96.10 Chronic respiratory failure, unspecified whether with hypoxia or hypercapnia; J44.9 Chronic obstructive pulmonary disease, unspecified; I11.0 Hypertensive heart disease with heart failure; K21.9 Gastro-esophageal reflux disease without esophagitis; F41.8 Other specified anxiety disorders; D64.9 Anemia, unspecified; Z99.81 Dependence on supplemental oxygen; E66.8 Other obesity; Z68.38 Body mass index [BMI] 38.0-38.9, adult
CPT/HCPCS: 36415; 36430; 73502-TC-RT; 73700-TC-RT; 80048; 85027; 86850; 86900; 86901; 86922; 88304-TC; 88311-TC; 94010; 94760; 97116-GP; 97163-GP; P9038; P9058

== ENCOUNTER 2017-02-16 20:00 | Inpatient (IN) | payer OTHER, BC ==
--- NOTE | 2017-02-16 20:03 | PDOC ---
History of Present Illness - General History Source: Patient Exam Limitations: No Limitations - History of Present Illness Initial Comments: 02/16/17 20:25 The patient is a 76 year old female with a significant past medical history of s /p right hip replacement sx 11/2016, COPD(on 2L O2), HTN, CHF, who presents to the ED with SOB for 3 days. Patient states that she started experiencing SOB with exertion that has progressively worsened over the course of 3 days. She states that she also noticed increased leg swelling worse on the left than right. She states that taking prednisone usually alleviates her symptoms but denies any relief this time. 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 She denies fever, chills, cough. No recent travel or sick contact. No hx of DVT. PAST MEDICAL HISTORY: COPD, CHF, HTN PAST SURGICAL HISTORY: right hip replacement 11/2016, weight loss sx 30 years ago FAMILY HISTORY: no pertinent history SOCIAL HISTORY: Pt lives with family. MEDICATIONS: reviewed ALLERGIES: As per nursing notes General: No fevers or chills, no weakness, no weight loss HEENT: No change in vision. No sore throat, No ear pain CardioVascular: No chest pain or shortness of breath Respiratory: +dyspnea. No cough. Gastrointestinal: no nausea, vomiting, diarrhea or constipation, No rectal bleeding Genitourinary: No dysuria, hematuria, or frequency Musculoskeletal: No joint or muscle pain or swelling Neurologic: No headache, vertigo, dizziness or loss of consciousness Psychiatric: nor depression Skin: No rashes or easy bruising Endocrine: no increased thirst or abnormal weight change Allergic: no skin or latex allergy All other systems reviewed and normal General: Well-nourished well-developed individual, no acute distress HEENT: Throat: Normal, tonsils normal, no erythema or exudate Neck: Supple, no meningeal signs, no lymphadenopathy Eyes::Pupils equal reactive and round, extraocular motion intact Chest: Nontender to palpation Cardiac: S1-S2 normal, regular rate and rhythm, no murmurs rubs or gallops Respiratory: (+)Dyspneic, Not able to speak in full sentences secondary to dyspnea, Decreased breath sounds bilaterally with expiratory wheezes on mid chest posteriorly. Abdomen: Soft, nondistended, normal bowel sounds, nontender to palpation diffusely Extremities: Warm, dry, no cyanosis, clubbing, or edema Skin: +pale. No rashes Neuro: Alert and oriented x3, nonfocal exam, grossly intact, normal gait Psych: Normal mood and affect <Kaya Jamison - Last Filed: 02/16/17 21:04> - General History Source: Patient, Family Exam Limitations: No Limitations - History of Present Illness Initial Comments: 02/16/17 23:32 A portion of this note was documented by scribe services under my direction. I have reviewed the details of the note, within reason, and agree with the documentation. The case summary and management plan written by me. Assessment and plan: This is a 36-year-old female who comes in complaining of dyspnea. Patient was noted to be very dyspneic in the emergency room. Patient vitals however were stable with a normal blood pressure and mild tachycardia. Patient's O2 sat on 2 L of oxygen which is what patient is on secondary to COPD was 96-98%. Patient had a workup including a cardiogram which was normal Patient had a markedly decreased hemoglobin of 5.5 On rectal exam patient's stool was brown and not grossly bloody however her stool occult blood was positive so this most likely is the source of her anemia. Patient denied any vomiting of coffee-ground emesis or black tarry stools. Patient is also status post left hip replacement with some left lower extremity swelling so was concerned for possible DVT/PE. Bilateral Dopplers were done of the legs which were negative for DVT Patient's d-dimer however came back markedly elevated at 2898. Patient had CT Angio of the chest done. Was negative for PE. Patient will be admitted to an inpatient telemetry bed. Discussed admission with hospitalist. Patient will start blood transfusion prior to going up to the floor. Patient remains hemodynamically stable. <Hannah Fishman I - Last Filed: 02/17/17 00:29> - General Chief Complaint: Shortness of Breath Stated Complaint: SHORTNESS OF BREATH Time Seen by Provider: 02/16/17 20:02 Past History <Kaya Jamison - Last Filed: 02/16/17 21:04> - Past Medical History Anemia: No CVA: Yes COPD: Yes (COPD, O2 DEPENDENT) Diabetes: No GI Disorders: Yes (VENTRAL HERNIA) HTN: Yes Hypercholesterolemia: Yes - Surgical History Abdominal Surgery: Yes (STOMACH STAPLING 1984) Appendectomy: Yes Orthopedic Surgery: Yes (bilateral knee replacement) - Psycho/Social/Smoking Cessation Hx Anxiety: No Suicidal Ideation: No Smoking Status: Yes Smoking History: Former smoker Have you smoked in the past 12 months: No Number of Cigarettes Smoked Daily: 0 If you are a former smoker, when did you quit?: 25-30 years Hx Alcohol Use: No Drug/Substance Use Hx: No Substance Use Type: None Hx Substance Use Treatment: No <Hannah Fishman I - Last Filed: 02/17/17 00:29> - Past Medical History Allergies/Adverse Reactions: Allergies Allergy/AdvReac Type Severity Reaction Status Date / Time gabapentin Allergy Verified 02/16/17 20:06 Home Medications: Ambulatory Orders Lisinopril [Prinivil] 10 mg PO DAILY 04/09/14 Spironolactone 25 mg PO BID 04/09/14 Albuterol 0.083% Nebulizer Isabella [Ventolin 0.083% Nebulizer Soln -] 1 neb NEB Q4H PRN 09/16/15 Budesonide/Formeterol Fumarate [SYMBICORT 160/4.5mcg -] 2 puff IH BID #0 inhaler 09/25/15 Roflumilast [Daliresp -] 500 mcg PO DAILY #0 tablet 09/25/15 Aclidinium [place] [Tudorza Pressair] 400 mcg IH ASDIR 10/14/16 Alprazolam 0.25 mg PO PRN PRN MDD 1 mg 10/14/16 Montelukast Na [Singulair -] 10 mg PO DAILY 10/14/16 Zolpidem Tartrate [Ambien] 5 mg PO HS PRN 11/13/16 Aspirin [ASA -] 81 mg PO DAILY 02/16/17 Diltiazem Cd [Cardizem Cd -] 120 mg PO DAILY 02/16/17 Pantoprazole Sodium [Protonix -] 40 mg PO DAILY 02/16/17 *Physical Exam - Vital Signs Last Vital Signs Temp Pulse Resp BP Pulse Ox 98.8 F 102 H 22 125/52 97 02/16/17 20:07 02/16/17 20:07 02/16/17 20:07 02/16/17 20:07 02/16/17 20:07 <Kaya Jamison - Last Filed: 02/16/17 21:04> Heart Score/ECG Review #1 02/16/17 21:01 Normal sinus rhythm at 92 bpm KS interval 128 ms QRS interval duration 66 ms QT/QTc 324/400 P-R-T 73-45-36 <Kaya Jamison - Last Filed: 02/16/17 21:04> ED Treatment Course - LABORATORY CBC & Chemistry Diagram: 02/16/17 20:31 02/16/17 20:31 <Kaya Jamison - Last Filed: 02/16/17 21:04> - LABORATORY CBC & Chemistry Diagram: 02/16/17 20:31 02/16/17 20:31 <Hannah Fishman I - Last Filed: 02/17/17 00:29> Medical Decision Making - Critical Care Time Total Critical Care Time (minutes): 45 Critical Care Statement: The care of this patient involved high complexity decision making to prevent further life threatening deterioration of the patient 's condition and/or to evaluate & treat vital organ system(s) failure or risk of failure. <Hannah Fishman I - Last Filed: 02/17/17 00:29> *DC/Admit/Observation/Transfer - Attestations Scribe Attestion: 02/16/17 20:27 Documentation prepared by ELY Shrestha, acting as medical review coordinator for Hannah Fishman MD. <Kaya Jamison - Last Filed: 02/16/17 21:04> - Discharge Dispostion Admit: Yes <Hannah Fishman I - Last Filed: 02/17/17 00:29> Diagnosis at time of Disposition: Anemia, Shortness of breath - Discharge Dispostion Condition at time of disposition: Fair
[2017-02-16 20:41] LABS: MEAN PLT VOLUME 7.2 fl (7.5-11.1)
[2017-02-16 20:49] LABS: MCH 25.8 pg (25.7-33.7); MCHC 32.8 g/dl (32.0-36.0); MEAN CELL VOLUME 78.4 fl (80-96); PLATELET COUNT 404 K/MM3 (134-434); RDW 15.7 % (11.6-15.6); WHITE BLOOD COUNT 12.2 K/mm3 (4.0-10.8)
[2017-02-16 20:59] LABS: ALBUMIN 3.4 g/dl (3.5-5.0); ALK PHOS 74 U/L (32-92); ANION GAP 9 (8-16); BILIRUBIN,TOTAL 0.3 mg/dl (0.2-1.0); CALCIUM 8.7 mg/dl (8.4-10.2); CO2 24 mmol/L (22-28); CREATININE 1.4 mg/dl (0.6-1.3); GLUCOSE,RANDOM 122 mg/dl (74-106); SGOT/AST 15 U/L (10-42); SGPT/ALT 9 U/L (10-40); TOT PROT 6.3 g/dl (6.4-8.3)
[2017-02-16 21:27] LABS: PLATELET ESTIMATE INCREASED (NORMAL)
[2017-02-16 22:54] LABS: PH,URINE 5.5 (4.5-8); URINE APPEARANCE Clear; URINE BILIRUBIN Negative (NEGATIVE); URINE GLUCOSE (UA) Negative (NEGATIVE); URINE KETONE Negative (NEGATIVE); URINE NITRITE Negative (NEGATIVE); URINE PROTEIN Negative (NEGATIVE); URINE UROBILINOGEN 0.2 (0.2-1.0)
[2017-02-16 22:55] LABS: URINE BLOOD 2+ (NEGATIVE); URINE COLOR YELLOW; URINE LEUK ESTERASE TRACE (NEGATIVE)
[2017-02-16 23:10] LABS: URINE BACTERIA FEW /hpf (NEGATIVE)
[2017-02-17] MEDS ORDERED: methylPREDNISolone NA SUCC 125 MG/2 ML VIAL IVPB ONE (01:39)
[2017-02-17 01:53] VITALS: BMI 34.4
[2017-02-17] MEDS: ALBUTEROL SO4 0.083% IH SOL 2.5 MG/3 ML VIAL.NEB. NEB PRN ×2 (02:47→08:30)
--- NOTE | 2017-02-17 08:48 | EKG ---
Test Reason : Blood Pressure : / mmHG Vent. Rate : 092 BPM Atrial Rate : 092 BPM P-R Int : 128 ms QRS Dur : 066 ms QT Int : 324 ms P-R-T Axes : 073 045 036 degrees QTc Int : 400 ms SINUS RHYTHM WHEN COMPARED WITH ECG OF 10-DEC-2016 10:38, NO SIGNIFICANT CHANGE WAS FOUND Confirmed by TAMMY SOUSA MD ([id number]) on 02/17/2017 8:48:42 AM Referred By: MD MORAN Confirmed By:TAMMY SOUSA MD
--- NOTE | 2017-02-17 09:06 | HP ---
CHIEF COMPLAINT: shortness of breath PCP: Dr Roberts HISTORY OF PRESENT ILLNESS: Patient is a 76 y/o female with a past medical history of copd (oxygen dependent), hypertension, gerd, aortic stenosis, diastolic congestive heart failure, and osteoarthritis. Patient reports shortness of breath and dyspnea upon exergeneralized weakness for the past 3 days. She reports progressive dyspnea upon exertion within the past 24 hours as a result he sought evaluation in the emergency department. ER course was notable for: (1) hgb 5.5 (2) chest cta, no gross central PE, interval resolution of left lower opacity, nonspecific 7mm pleural based nodule opacity in the right lower lobe, supraumbilical ventral hernia (3) + stool guaic Recent Travel: none PAST MEDICAL HISTORY: copd (o2 dependent), htn, gerd, aortic stenosis, diastolic congestive heart failure, OA PAST SURGICAL HISTORY: right THR Social History: resides at home, retired Smoking: quit "many years ago" Alcohol: none Drugs: none Family History: non contributory to this admission Allergies gabapentin Allergy (Verified 02/16/17 20:06) HOME MEDICATIONS: Home Medications Medication Instructions Recorded Lisinopril [Prinivil] 10 mg PO DAILY 04/09/14 Spironolactone 25 mg PO BID 04/09/14 Albuterol 0.083% Nebulizer Isabella 1 neb NEB Q4H PRN 09/16/15 [Ventolin 0.083% Nebulizer Soln -] Budesonide/Formeterol Fumarate 2 puff IH BID #0 inhaler 09/25/15 [SYMBICORT 160/4.5mcg -] Roflumilast [Daliresp -] 500 mcg PO DAILY #0 tablet 09/25/15 Aclidinium [place] [Tudorza 400 mcg IH ASDIR 10/14/16 Pressair] Alprazolam 0.25 mg PO PRN PRN MDD 1 mg 10/14/16 Montelukast Na [Singulair -] 10 mg PO DAILY 10/14/16 Zolpidem Tartrate [Ambien] 5 mg PO HS PRN 11/13/16 Aspirin [ASA -] 81 mg PO DAILY 02/16/17 Diltiazem Cd [Cardizem Cd -] 120 mg PO DAILY 02/16/17 Pantoprazole Sodium [Protonix -] 40 mg PO DAILY 02/16/17 REVIEW OF SYSTEMS CONSTITUTIONAL: Absent: fever, chills, diaphoresis, generalized weakness, malaise, loss of appetite, weight change HEENT: Absent: rhinorrhea, nasal congestion, throat pain, throat swelling, difficulty swallowing, mouth swelling, ear pain, eye pain, visual changes CARDIOVASCULAR: Absent: chest pain, syncope, palpitations, irregular heart rate, lightheadedness , peripheral edema RESPIRATORY: present: shortness of breath, dyspnea with exertion Absent: cough, orthopnea, wheezing, stridor, hemoptysis GASTROINTESTINAL: Absent: abdominal pain, abdominal distension, nausea, vomiting, diarrhea, constipation, melena, hematochezia GENITOURINARY: Absent: dysuria, frequency, urgency, hesitancy, hematuria, flank pain, genital pain MUSCULOSKELETAL: Absent: myalgia, arthralgia, joint swelling, back pain, neck pain SKIN: Absent: rash, itching, pallor HEMATOLOGIC/IMMUNOLOGIC: Absent: easy bleeding, easy bruising, lymphadenopathy, frequent infections ENDOCRINE: Absent: unexplained weight gain, unexplained weight loss, heat intolerance, cold intolerance NEUROLOGIC: Absent: headache, focal weakness or paresthesias, dizziness, unsteady gait, seizure, mental status changes, bladder or bowel incontinence PSYCHIATRIC: Absent: anxiety, depression, suicidal or homicidal ideation, hallucinations. PHYSICAL EXAMINATION Vital Signs - 24 hr 02/17/17 02/17/17 02/17/17 01:32 01:33 05:33 Temperature 98.7 F 98.4 F Pulse Rate 91 H 85 Respiratory 18 20 Rate Blood Pressure 129/55 113/44 O2 Sat by Pulse 100 100 Oximetry (%) 02/17/17 06:20 Temperature 98.5 F Pulse Rate 92 H Respiratory 18 Rate Blood Pressure 118/43 O2 Sat by Pulse 96 Oximetry (%) GENERAL: Awake, alert, and fully oriented, in no acute distress. HEAD: Normal with no signs of trauma. EYES: Pupils equal, round and reactive to light, extraocular movements intact, pale sclera, conjunctiva pallor. No lid lag. EARS, NOSE, THROAT: Ears normal, nares patent, oropharynx clear without exudates. Moist mucous membranes. NECK: Normal range of motion, supple without lymphadenopathy, JVD, or masses. LUNGS: Breath sounds equal, clear to auscultation bilaterally. No wheezes, and no crackles. No accessory muscle use. HEART: Regular rate and rhythm, normal S1 and S2, 3/6 systolic murmur, rub or gallop. ABDOMEN: Soft, nontender, not distended, normoactive bowel sounds, no guarding, no rebound, no masses. No hepatomegaly or splenomegaly. MUSCULOSKELETAL: Normal range of motion at all joints. No bony deformities or tenderness. No CVA tenderness. UPPER EXTREMITIES: 2+ pulses, warm, well-perfused. No cyanosis. No clubbing. No peripheral edema. LOWER EXTREMITIES: 2+ pulses, warm, well-perfused. No calf tenderness. No peripheral edema. NEUROLOGICAL: Cranial nerves II-XII intact. Normal speech. Normal gait. PSYCHIATRIC: Cooperative. Good eye contact. Appropriate mood and affect. SKIN: Warm, dry, normal turgor, no rashes or lesions noted, normal capillary refill. ASSESSMENT/PLAN: F/E/N - low sodium diet - replete lytes PRN PPX - protonix - oob - scd/jeanie - hold ac due to anemia dispo: requires inpatient telemetry Problem List - Problem (1) HTN (hypertension) Assessment/Plan: - b/p at goal - continue home medication, cardizem and lisinopril Code(s): I10 - ESSENTIAL (PRIMARY) HYPERTENSION Qualifiers: (2) Microcytic anemia Assessment/Plan: - hgb 5.5, PRBC 2units given, pending repeat cbc this AM, baseline hgb 12.0 - guaic positive stool, GI is likely source of anemia, pt reports she has never received a colonoscopy--> appreciate GI input Code(s): D50.9 - IRON DEFICIENCY ANEMIA, UNSPECIFIED (3) GERD (gastroesophageal reflux disease) Assessment/Plan: - continue protonix home dose - ct scan of chest reviewed, consistent with esophagitis, likely chronic, pt denies any episodes of vomiting, appreciate GI input Code(s): K21.9 - GASTRO-ESOPHAGEAL REFLUX DISEASE WITHOUT ESOPHAGITIS (4) Guaiac + stool Assessment/Plan: - s/p transfusion of 2 units of prbc, strict monitoring, appreciate GI input Code(s): R19.5 - OTHER FECAL ABNORMALITIES (5) Aortic stenosis Assessment/Plan: - hx of moderte , pt appears euvolemic on exam, strict monitoring of I/O - lasix 40mg IV x 1 ordered after prbc transfusion Code(s): I35.0 - NONRHEUMATIC AORTIC (VALVE) STENOSIS Qualifiers: Cardiac valve disease etiology: nonrheumatic Qualified Code(s): I35.0 - Nonrheumatic aortic (valve) stenosis (6) Diastolic CHF Assessment/Plan: - continue aldactone, pt appears euvolemic - strict monitoring of I/O Code(s): I50.30 - UNSPECIFIED DIASTOLIC (CONGESTIVE) HEART FAILURE Qualifiers : Congestive heart failure chronicity: chronic Qualified Code(s): I50.32 - Chronic diastolic (congestive) heart failure (7) COPD (chronic obstructive pulmonary disease) Assessment/Plan: - contiune home medications, tudorza, daliresp, symbicort - keep spo2 above 92% with supplemental O2 - Dr Sauer 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 - New Patient This patient is new to me today: Yes Date on this admission: 02/17/17 - Critical Care Critical Care patient: No
[2017-02-17] MEDS ORDERED: FUROSEMIDE 40 MG/4 ML INJECTABLE VIAL IVPUSH ONE (10:00)
[2017-02-17] MEDS ORDERED: HEPARIN NA (PORCINE) 5,000 UNITS/ML 1ML VIAL SQ SCH (10:00)
[2017-02-17] MEDS ORDERED: ASPIRIN 81 MG CHEWABLE TABLETS PO SCH (10:00)
[2017-02-17] MEDS: SPIRONOLACTONE 25 MG TABLET (FP) PO SCH ×2 (10:06→22:04)
[2017-02-17] MEDS: PANTOPRAZOLE 40 MG TABLET (FP) PO SCH ×2 (10:07→22:04)
[2017-02-17] MEDS: ROFLUMILAST 500 MCG TABLET PO SCH (10:07)
[2017-02-17] MEDS: LISINOPRIL 10 MG TABLET (FP) PO SCH (10:07)
[2017-02-17] MEDS: MONTELUKAST NA 10 MG TABLET PO SCH (10:08)
--- NOTE | 2017-02-17 10:14 | PN ---
Progress Note (short form) - Note Progress Note: PULMONARY CONSULTATION DICTATED 02/17/17 IMP DYSPNEA SECONDARY TO SEVERE ANEMIA CHRONIC HYPOXEMIC RESPIRATORY FAILURE ON O2 RLL NODULE CHF S/P R THR PLAN O2 TRANSFUSE INHALED BRONCHODILATORS MONITOR H+H F/U CHEST CT [address] MALLOY Problem List - Problems (1) Anemia Code(s): D64.9 - ANEMIA, UNSPECIFIED Qualifiers: (2) Shortness of breath Code(s): R06.02 - SHORTNESS OF BREATH (3) Acute and chronic respiratory failure Code(s): J96.20 - ACUTE AND CHR RESP FAILURE, UNSP W HYPOXIA OR HYPERCAPNIA (4) COPD (chronic obstructive pulmonary disease) Code(s): J44.9 - CHRONIC OBSTRUCTIVE PULMONARY DISEASE, UNSPECIFIED (5) HTN (hypertension) Code(s): I10 - ESSENTIAL (PRIMARY) HYPERTENSION Qualifiers: (6) Status post hip replacement Code(s): Z96.649 - PRESENCE OF UNSPECIFIED ARTIFICIAL HIP JOINT
--- NOTE | 2017-02-17 10:38 | CONS ---
PULMONARY CONSULTATION DATE OF CONSULTATION: 02/17/2017 REFERRING PROVIDER: Oumou Simon NP HISTORY OF PRESENT ILLNESS: The patient is a 76-year-old white female known to me in previous hospitalization as well as office followup, with past medical history of advanced COPD on home O2 with chronic hypoxemic respiratory failure, hypertension, CHF, status post right hip replacement December 2016, admitted to [facility] with complaint of 3-day history of increasing shortness of breath. Patient states that for the past 3 days prior to admission started noticing increasing shortness of breath with exertion, increase in severity; subsequently presented to the emergency room with the above. In the ER, she underwent a CTA which revealed no evidence of acute pulmonary embolism. Of note is that her CBC was positive with marked anemia with a hemoglobin of 5.5 g. Patient was transferred up to the medical floor for further management. Patient also complained of increasing lower extremity edema for the past couple of days. The patient denies any cough or chest pain, nausea, vomiting, or diaphoresis. Denies any fevers or chills. Denies hemoptysis. She has a history of smoking, quit years ago. There is no history of occupational exposure to chemicals or fumes. PAST MEDICAL HISTORY: Again includes advanced COPD on home O2, CHF, hypertension, history of right hip replacement. SOCIAL HISTORY: History of smoking, quit years ago. No occupational exposures. REVIEW OF SYSTEMS: Positive orthopnea. No PND. No chest pain. No palpitations. Positive dyspnea on exertion. No fevers. No chills. No weight loss. No night sweats. CURRENT MEDICATIONS: Include Symbicort, Tudorza, Prinivil, albuterol, Cardizem, Singulair, Aldactone, Protonix, and Daliresp. PHYSICAL EXAMINATION: General: The patient is a well-developed, well-nourished female, awake, alert, in no acute distress. Vital Signs: She is currently afebrile. Blood pressure 118/43, respiratory rate is 20, O2 saturation is 96% on 2 L nasal cannula. HEENT: Normocephalic, atraumatic. Neck: Supple. Heart: Regular. S1, S2. Chest: Diminished breath sounds bilaterally. Abdomen: Soft. Bowel sounds are positive. Extremities: Bilateral lower extremity edema. LABORATORY DATA: WBC is 12.2, hemoglobin 5.5, hematocrit 16.6 with a platelet count of 404,000, high, and D-dimer is 2898. BUN 37, creatinine 1.4. BNP is 618. Chest CTA reveals no evidence of pulmonary embolism. A new nodular density in the left base and a nodule in the right lower lobe. IMPRESSION: 1. Dyspnea secondary to severe anemia. 2. Advanced chronic obstructive pulmonary disease on home O2. 3. History of congestive heart failure. 4. Right lower lobe nodule, likely inflammatory. PLAN: Transfuse, supplemental O2, inhaled bronchodilators. Obtain followup chest CT in 2-4 months. IMELDA MALLOY M.D. [id number]
[2017-02-17] MEDS ORDERED: PT OWN MED DRAWER 7, Y5N ONE (11:03)
[2017-02-17 14:31] LABS: MCH 26.3 pg (25.7-33.7); MCHC 32.5 g/dl (32.0-36.0); MEAN CELL VOLUME 80.9 fl (80-96); MEAN PLT VOLUME 7.5 fl (7.5-11.1); RDW 14.4 % (11.6-15.6); WHITE BLOOD COUNT 12.3 K/mm3 (4.0-10.8)
[2017-02-17 14:54] LABS: PLATELET ESTIMATE ADEQUATE (NORMAL)
[2017-02-17 14:57] LABS: ANION GAP 8 (8-16); CO2 30 mmol/L (22-28); CREATININE 1.2 mg/dl (0.6-1.3); GLUCOSE,RANDOM 106 mg/dl (74-106); MAGNESIUM 2.2 mg/dL (1.8-2.4); PHOSPHOROUS 4.1 mg/dl (2.5-4.6)
[2017-02-17 15:00] LABS: PLATELET COUNT 379 K/MM3 (134-434)
--- NOTE | 2017-02-17 17:13 | CON.GI ---
Consult Consult Specialty:: Gastroenterology Reason for Consultation:: anemia - History of Present Illness History of Present Illness: Mrs. Barbour is a 76 year old woman with a past medical history significant for OA, HTN, COPD - O2 dependent, GERD, , CHF who presents to the ER with complaints of worsening sob with exertion over the past week. She also states she noticed dark stool without any bright red blood. She has never had blood or dark stool in the past. She admits to receiving a blood transfusion in the past few months. She denies abdominal pain , nausea, vomiting, hematemesis, syncope. She takes aspirin daily and tylenol for her pain. She has never had an endoscopic evaluation in the past. - History Source History Provided By: Patient Limitations to Obtaining History: No Limitations - Past Medical History Cardio/Vascular: Yes: CHF, HTN Pulmonary: Yes: COPD, Pneumonia Gastrointestinal: Yes: GERD ...: No Heme/Onc: Yes: Anemia - Past Surgical History Past Surgical History: Yes: Appendectomy, Cataract Removal - Alcohol/Substance Use Hx Alcohol Use: No - Smoking History Smoking history: Former smoker Have you smoked in the past 12 months: No Aproximately how many cigarettes per day: 0 If you are a former smoker, when did you quit?: 25-30 years - Social History ADL: Independent History of Recent Travel: No Home Medications - Allergies Allergies/Adverse Reactions: Allergies Allergy/AdvReac Type Severity Reaction Status Date / Time gabapentin Allergy Verified 02/16/17 20:06 - Home Medications Home Medications: Ambulatory Orders Lisinopril [Prinivil] 10 mg PO DAILY 04/09/14 Spironolactone 25 mg PO BID 04/09/14 Albuterol 0.083% Nebulizer Isabella [Ventolin 0.083% Nebulizer Soln -] 1 neb NEB Q4H PRN 09/16/15 Budesonide/Formeterol Fumarate [SYMBICORT 160/4.5mcg -] 2 puff IH BID #0 inhaler 09/25/15 Roflumilast [Daliresp -] 500 mcg PO DAILY #0 tablet 09/25/15 Aclidinium [place] [Tudorza Pressair] 400 mcg IH ASDIR 10/14/16 Alprazolam 0.25 mg PO PRN PRN MDD 1 mg 10/14/16 Montelukast Na [Singulair -] 10 mg PO DAILY 10/14/16 Zolpidem Tartrate [Ambien] 5 mg PO HS PRN 11/13/16 Aspirin [ASA -] 81 mg PO DAILY 02/16/17 Diltiazem Cd [Cardizem Cd -] 120 mg PO DAILY 02/16/17 Pantoprazole Sodium [Protonix -] 40 mg PO DAILY 02/16/17 Family Disease History - Family Disease History Family History: Unable to Obtain Review of Systems Unable to obtain ROS, reason: as per HPI Physical Exam-GI Vital Signs: Vital Signs Temperature 98.0 F 02/17/17 14:00 Pulse Rate 87 02/17/17 14:00 Respiratory Rate 19 02/17/17 14:00 Blood Pressure 123/50 02/17/17 14:00 O2 Sat by Pulse Oximetry (%) 100 02/17/17 14:00 Constitutional: Yes: Well Nourished, No Distress Eyes: Yes: WNL HENT: Yes: WNL Neck: Yes: WNL Cardiovascular: Yes: Murmur Respiratory: Yes: WNL, Regular Gastrointestinal Inspection: Yes: Other (ventral hernia) ...Auscultate: Yes: Normoactive Bowel Sounds, No Bowel Sounds ...Palpate: Yes: Other (nontender abdomen) Labs: CBC, BMP 02/17/17 14:20 02/17/17 14:20 Problem List - Problems (1) Anemia Code(s): D64.9 - ANEMIA, UNSPECIFIED Qualifiers: (2) Aortic stenosis Code(s): I35.0 - NONRHEUMATIC AORTIC (VALVE) STENOSIS Qualifiers: Cardiac valve disease etiology: nonrheumatic Qualified Code(s): I35.0 - Nonrheumatic aortic (valve) stenosis (3) Diastolic CHF Code(s): I50.30 - UNSPECIFIED DIASTOLIC (CONGESTIVE) HEART FAILURE Qualifiers : Congestive heart failure chronicity: chronic Qualified Code(s): I50.32 - Chronic diastolic (congestive) heart failure (4) Guaiac + stool Code(s): R19.5 - OTHER FECAL ABNORMALITIES (5) Shortness of breath Code(s): R06.02 - SHORTNESS OF BREATH Assessment/Plan Impression: Symptomatic anemia - FOBT positive stool DDX peptic ulcer disease, NSAID gastropathy, angioectasia. There is no sign of an overt GI bleed at this time she is hemodynamically stable. REC: clear liquid diet PPI infusion trend cbc q12 - transfuse to HG of 10 cardiology risk stratification will be needed prior to EGD. Will discuss plan of care with medical team and attempt to plan for procedure tomorrow if possible. NPO midnight.
[2017-02-17] MEDS: BUDESONIDE/FORMETEROL FUMARATE 160/4.5 mcg INHALER IH SCH (22:03)
[2017-02-17] MEDS: ACLIDINIUM BROMIDE 400 MCG/INH AERO.POWD IH SCH (22:04)
[2017-02-18] MEDS ORDERED: MELATONIN 5 MG TABLETS PO PRN (00:57)
[2017-02-18] MEDS ORDERED: MELATONIN 5 MG TABLETS PO ONE (00:57)
[2017-02-18] MEDS: ERYTHROMYCIN 0.5% OPHTHALMIC OINTMENT 3.5 GM TUBE OD SCH ×5 (01:58→17:19)
[2017-02-18 02:52] LABS: BASOPHIL 0.7 % (0-2.0); EOSINOPHIL 3.4 % (0-4.5); MCH 27.4 pg (25.7-33.7); MCHC 33.4 g/dl (32.0-36.0); MEAN PLT VOLUME 7.6 fl (7.5-11.1); NEUTROPHILS 63.8 % (42.8-82.8); PLATELET COUNT 341 K/MM3 (134-434); RDW 15.5 % (11.6-15.6)
--- NOTE | 2017-02-18 08:52 | CON.CARD ---
Cardiology Consult (text) - Consultation Consultation Note: CC: sob hpi: 76 yo with h/o diastolic chf, htn, copd on home oxygen, gerd, , TIA, here with sob for 3 days. No cp, palps, dizzy, loc, pnd, orthopnea, le edema. Found to have severe anemia with hgb 5's. Got several units prbcs and now feeling better, no sob. Planned for egd today. Denies f/c/s, n/v/d, cough, congestion, rashes, h/a, wt loss, hematuria, +dark stools. pmhx/pshx: per hpi, Appendectomy, Cataract Removal, hip surgery social hx: Former smoker fam hx: denies cardiac history. ros: per hpi Ambulatory Orders Home Medications Medication Instructions Recorded Lisinopril [Prinivil] 10 mg PO DAILY 04/09/14 Spironolactone 25 mg PO BID 04/09/14 Albuterol 0.083% Nebulizer Isabella 1 neb NEB Q4H PRN 09/16/15 [Ventolin 0.083% Nebulizer Soln -] Budesonide/Formeterol Fumarate 2 puff IH BID #0 inhaler 09/25/15 [SYMBICORT 160/4.5mcg -] Roflumilast [Daliresp -] 500 mcg PO DAILY #0 tablet 09/25/15 Aclidinium [place] [Tudorza 400 mcg IH ASDIR 10/14/16 Pressair] Alprazolam 0.25 mg PO PRN PRN MDD 1 mg 10/14/16 Montelukast Na [Singulair -] 10 mg PO DAILY 10/14/16 Zolpidem Tartrate [Ambien] 5 mg PO HS PRN 11/13/16 Aspirin [ASA -] 81 mg PO DAILY 02/16/17 Diltiazem Cd [Cardizem Cd -] 120 mg PO DAILY 02/16/17 Pantoprazole Sodium [Protonix -] 40 mg PO DAILY 02/16/17 Vital Signs Period Temp Pulse Resp BP Sys/Vaughn Pulse Ox Last 24 Hr 98.0 F-98.7 F 75-87 18-20 87-123/43-50 96-100 nad, calm jvd flat, neck supple ctab, nl eff rrr nl s1, s2 no r/g, + murmur + bs soft nt nd ext without e/c/c + dp/pt no carotid bruits no jaundice, diaphoresis. Laboratory Last Values WBC 10.0 K/mm3 (4.0-10.0) 02/18/17 02:00 RBC 3.02 M/mm3 (3.60-5.2) L 02/18/17 02:00 Hgb 8.3 GM/dL (10.7-15.3) L 02/18/17 02:00 Hct 24.8 % (32.4-45.2) L 02/18/17 02:00 MCV 82.0 fl (80-96) 02/18/17 02:00 MCH 27.4 pg (25.7-33.7) 02/18/17 02:00 MCHC 33.4 g/dl (32.0-36.0) 02/18/17 02:00 RDW 15.5 % (11.6-15.6) 02/18/17 02:00 Plt Count 341 K/MM3 (134-434) D 02/18/17 02:00 MPV 7.6 fl (7.5-11.1) 02/18/17 02:00 Neutrophils % 63.8 % (42.8-82.8) 02/18/17 02:00 Neutrophils % (Manual) 77 % (42.8-82.8) 02/17/17 14:20 Lymphocytes % 25.4 % (8-40) 02/18/17 02:00 Lymphocytes % (Manual) 18 % (8-40) D 02/17/17 14:20 Monocytes % 6.7 % (3.8-10.2) 02/18/17 02:00 Monocytes % (Manual) 3 % (3.8-10.2) L D 02/17/17 14:20 Eosinophils % 3.4 % (0-4.5) D 02/18/17 02:00 Eosinophils % (Manual) 2 % (0-4.5) 02/17/17 14:20 Basophils % 0.7 % (0-2.0) 02/18/17 02:00 Platelet Estimate Adequate (NORMAL) 02/17/17 14:20 Platelet Comment Few large plts 02/16/17 20:31 D-Dimer 2898 ng/ml (<200-235) H 02/16/17 21:00 Sodium 137 mmol/L (136-145) 02/17/17 14:20 Potassium 4.6 mmol/L (3.5-5.1) 02/17/17 14:20 Chloride 99 mmol/L (98-107) 02/17/17 14:20 Carbon Dioxide 30 mmol/L (22-28) H D 02/17/17 14:20 Anion Gap 8 (8-16) 02/17/17 14:20 BUN 30 mg/dl (7-18) H 02/17/17 14:20 Creatinine 1.2 mg/dl (0.6-1.3) 02/17/17 14:20 Creat Clearance w eGFR 36.66 (>60) 02/16/17 20:31 Random Glucose 106 mg/dl (74-106) 02/17/17 14:20 Calcium 9.0 mg/dl (8.4-10.2) 02/17/17 14:20 Phosphorus 4.1 mg/dl (2.5-4.6) 02/17/17 14:20 Magnesium 2.2 mg/dL (1.8-2.4) 02/17/17 14:20 Total Bilirubin 0.3 mg/dl (0.2-1.0) 02/16/17 20:31 AST 15 U/L (10-42) 02/16/17 20:31 ALT 9 U/L (10-40) L 02/16/17 20:31 Alkaline Phosphatase 74 U/L (32-92) 02/16/17 20:31 B-Natriuretic Peptide 618.55 pg/ml (5-450) H 02/16/17 20:31 Total Protein 6.3 g/dl (6.4-8.3) L 02/16/17 20:31 Albumin 3.4 g/dl (3.5-5.0) L 02/16/17 20:31 Urine Color Yellow 02/16/17 20:31 Urine Appearance Clear 02/16/17 20:31 Urine pH 5.5 (4.5-8) 02/16/17 20:31 Ur Specific [place] 1.010 (1.005-1.025) 02/16/17 20:31 Urine Protein Negative (NEGATIVE) 02/16/17 20:31 Urine Glucose (UA) Negative (NEGATIVE) 02/16/17 20:31 Urine Ketones Negative (NEGATIVE) 02/16/17 20:31 Urine Blood 2+ (NEGATIVE) H 02/16/17 20:31 Urine Nitrite Negative (NEGATIVE) 02/16/17 20:31 Urine Bilirubin Negative (NEGATIVE) 02/16/17 20:31 Urine Urobilinogen 0.2 (0.2-1.0) 02/16/17 20:31 Ur Leukocyte Esterase Trace (NEGATIVE) H 02/16/17 20:31 Urine RBC 1-2 /hpf (0-3) 02/16/17 20:31 Urine WBC 4-8 (3-5) 02/16/17 20:31 Urine Bacteria Few /hpf (NEGATIVE) 02/16/17 20:31 Stool Occult Blood Positive (NEGATIVE) 02/16/17 22:50 Blood Type A POSITIVE 02/16/17 21:00 Antibody Screen Negative 02/16/17 21:00 Crossmatch See Detail 02/16/17 21:00 ecg 02/16/17: sr, nl intervals, no ischemic changes cta chest: no pe, no chf tele: sr, sinus tachy echo 10/2016: nl lvef, mild conc lvh, nl rv, mild-mod carotids 11/2016: no sig stenosis a/p: 76 yo with h/o diastolic chf, htn, copd on home oxygen, gerd, , TIA, here with sob. sob, severe symptomatic anemia: -no suggestion of acs, no chf. -symptoms consistent with anemia and have improved after prbcs -hold asa -cont prbcs, GI w/u as planned chronic diastolic chf: -stable, no vol overload, cont home aldactone htn: -stable cont home meds : -mild-mod on recent echo, asymptomatic -routine outpt monitoring TIA: -evaluated by neuro 10/2016 when admitted here -asa on hold for now given severe anemia preop eval: -Pt has no unstable cardiac issues at present. No preop cardiac testing needed at this time. Pt has intermediate risk of periop cardiac events for the planned egd/foc.
[2017-02-18] MEDS: PANTOPRAZOLE 40 MG TABLET (FP) PO SCH ×2 (09:26→22:27)
[2017-02-18] MEDS: SPIRONOLACTONE 25 MG TABLET (FP) PO SCH ×2 (09:26→22:27)
[2017-02-18] MEDS: MONTELUKAST NA 10 MG TABLET PO SCH (09:26)
[2017-02-18] MEDS: LISINOPRIL 10 MG TABLET (FP) PO SCH (09:27)
[2017-02-18] MEDS: ROFLUMILAST 500 MCG TABLET PO SCH (09:27)
[2017-02-18] MEDS: BUDESONIDE/FORMETEROL FUMARATE 160/4.5 mcg INHALER IH SCH ×3 (09:28→22:26)
[2017-02-18] MEDS: ACLIDINIUM BROMIDE 400 MCG/INH AERO.POWD IH SCH ×3 (09:28→22:26)
--- NOTE | 2017-02-18 09:38 | PN ---
Physical Exam: SUBJECTIVE: Patient seen and examined, patient reports feeling much better. received a total of 4 units of PRBC OBJECTIVE:Patient is a 76 y/o female with a past medical history of copd ( oxygen dependent), hypertension, gerd, aortic stenosis, diastolic congestive heart failure, and osteoarthritis. Patient was admitted from the emergency department for microcytic anemia and guiac positive stool. Vital Signs Period Temp Pulse Resp BP Sys/Vaughn Pulse Ox Last 24 Hr 98.0 F-98.7 F 75-87 18-20 87-123/43-53 100-100 GENERAL: Awake, alert, and fully oriented, in no acute distress. HEAD: Normal with no signs of trauma. EYES: Pupils equal, round and reactive to light, extraocular movements intact, pale sclera, conjunctiva pallor. No lid lag. EARS, NOSE, THROAT: Ears normal, nares patent, oropharynx clear without exudates. Moist mucous membranes. NECK: Normal range of motion, supple without lymphadenopathy, JVD, or masses. LUNGS: Breath sounds equal, clear to auscultation bilaterally. No wheezes, and no crackles. No accessory muscle use. HEART: Regular rate and rhythm, normal S1 and S2, 3/6 systolic murmur, rub or gallop. ABDOMEN: Soft, nontender, not distended, normoactive bowel sounds, no guarding, no rebound, no masses. No hepatomegaly or splenomegaly. MUSCULOSKELETAL: Normal range of motion at all joints. No bony deformities or tenderness. No CVA tenderness. UPPER EXTREMITIES: 2+ pulses, warm, well-perfused. No cyanosis. No clubbing. No peripheral edema. LOWER EXTREMITIES: 2+ pulses, warm, well-perfused. No calf tenderness. No peripheral edema. NEUROLOGICAL: Cranial nerves II-XII intact. Normal speech. Normal gait. PSYCHIATRIC: Cooperative. Good eye contact. Appropriate mood and affect. SKIN: Warm, dry, normal turgor, no rashes or lesions noted, normal capillary refill. Laboratory Results - last 24 hr CBC WBC 10.1 K/mm3 (4.0-10.8) 02/18/17 09:52 RBC 3.46 M/mm3 (3.60-5.2) L 02/18/17 09:52 Hgb 9.6 GM/dl (10.7-15.3) L D 02/18/17 09:52 Hct 29.4 % (32.4-45.2) L D 02/18/17 09:52 MCV 85.0 fl (80-96) 02/18/17 09:52 MCH 27.7 pg (25.7-33.7) 02/18/17 09:52 MCHC 32.6 g/dl (32.0-36.0) 02/18/17 09:52 RDW 15.0 % (11.6-15.6) 02/18/17 09:52 Plt Count 338 K/MM3 (134-434) 02/18/17 09:52 MPV 7.4 fl (7.5-11.1) L 02/18/17 09:52 Neutrophils % 70.1 % (42.8-82.8) 02/18/17 09:52 Neutrophils % (Manual) 77 % (42.8-82.8) 02/17/17 14:20 Lymphocytes % 22.2 % (8-40) D 02/18/17 09:52 Lymphocytes % (Manual) 18 % (8-40) D 02/17/17 14:20 Monocytes % 4.5 % (3.8-10.2) 02/18/17 09:52 Monocytes % (Manual) 3 % (3.8-10.2) L D 02/17/17 14:20 Eosinophils % 2.9 % (0-4.5) 02/18/17 09:52 Eosinophils % (Manual) 2 % (0-4.5) 02/17/17 14:20 Basophils % 0.3 % (0-2.0) 02/18/17 09:52 Platelet Estimate Adequate (NORMAL) 02/17/17 14:20 Platelet Comment Few large plts 02/16/17 20:31 Active Medications Generic Name Dose Route Start Last Admin Trade Name Freq PRN Reason Stop Dose Admin Aclidinium [place] 1 puff 02/17/17 10:00 02/18/17 09:28 Tudorza - IH 1 puff BID FLORA Administration Albuterol Sulfate 1 amp 02/17/17 01:39 02/17/17 08:30 Ventolin 0.083% Nebulizer Soln - NEB 1 amp Q4H PRN Administration SHORT OF BREATH/WHEEZING Budesonide/Formoterol Fumarate 2 puff 02/17/17 10:00 09/01/17 09:28 Symbicort 160/4.5mcg - IH 2 puff BID FLORA Administration Diltiazem HCl 120 mg 02/17/17 10:00 02/18/17 09:27 Cardizem Cd - PO Not Given DAILY FLORA Erythromycin 1 applic 02/17/17 13:45 02/18/17 06:15 Erythromycin 0.5% Eye Ointment OD 1 applic Q6HPO FLORA Administration Lisinopril 10 mg 02/17/17 10:00 02/18/17 09:27 Prinivil PO Not Given DAILY FLORA Melatonin 5 mg 02/18/17 00:57 Melatonin PO HS PRN INSOMNIA Montelukast Sodium 10 mg 02/17/17 10:00 02/18/17 09:26 Singulair - PO 10 mg DAILY FLORA Administration Pantoprazole Sodium 40 mg 02/17/17 10:00 02/18/17 09:26 Protonix - PO 40 mg BID FLORA Administration Roflumilast 500 mcg 02/17/17 10:00 02/18/17 09:27 Daliresp - PO 500 mcg DAILY FLORA Administration Spironolactone 25 mg 02/17/17 10:00 02/18/17 09:26 Aldactone - PO Not Given BID FLORA ASSESSMENT/PLAN: 1)card hypertension - hold cardizem and lisinopril, for labile b/p - strict b/p monitoring aortic stenosis - hx of moderate , pt appears euvolemic on exam, strict monitoring of I/O - lasix 40mg IV x 1 given after prbc transfusion. diastolic CHF - continue aldactone, pt appears euvolemic - strict monitoring of I/O - order builder loader, Dr Irizarry, (pt's private order builder loader) consulted and followed 2) heme microcytic anemia - repeat hgb 9.6 (baseline 12.0) after a total of 4units of prbc, likely secondary from GI source - pending egd today. 3) GI guiac + stool - pending egd today GERD - continue home dose protonix 4) pulm copd - no acute excerbation at this time, continue home medications, tudorza, daliresp, symbicort - keep spo2 above 92% with supplemental O2 - Dr Sauer, pt's private deli department manager consulted and following 5) psych anxiety - continue prn xanax (home dose) F/E/N - npo pending egd - replete lytes PRN PPX - protonix - oob - scd/jeanie - hold ac due to anemia *pt is medically optimized for procedure* dispo: requires inpatient telemetry Problem List - Problems (1) HTN (hypertension) Code(s): I10 - ESSENTIAL (PRIMARY) HYPERTENSION Qualifiers: (2) Microcytic anemia Code(s): D50.9 - IRON DEFICIENCY ANEMIA, UNSPECIFIED (3) GERD (gastroesophageal reflux disease) Code(s): K21.9 - GASTRO-ESOPHAGEAL REFLUX DISEASE WITHOUT ESOPHAGITIS (4) Guaiac + stool Code(s): R19.5 - OTHER FECAL ABNORMALITIES (5) Aortic stenosis Code(s): I35.0 - NONRHEUMATIC AORTIC (VALVE) STENOSIS Qualifiers: Cardiac valve disease etiology: nonrheumatic Qualified Code(s): I35.0 - Nonrheumatic aortic (valve) stenosis (6) Diastolic CHF Code(s): I50.30 - UNSPECIFIED DIASTOLIC (CONGESTIVE) HEART FAILURE Qualifiers : Congestive heart failure chronicity: chronic Qualified Code(s): I50.32 - Chronic diastolic (congestive) heart failure (7) COPD (chronic obstructive pulmonary disease) Code(s): J44.9 - CHRONIC OBSTRUCTIVE PULMONARY DISEASE, UNSPECIFIED (8) Anxiety Code(s): F41.9 - ANXIETY DISORDER, UNSPECIFIED Visit type - Emergency Visit Emergency Visit: Yes ED Registration Date: 02/17/17 Care time: The patient presented to the Emergency Department on the above date and was hospitalized for further evaluation of their emergent condition. - New Patient This patient is new to me today: No - Critical Care Critical Care patient: No - Discharge Referral Referred to [facility] Med P.C.: No
[2017-02-18 10:06] LABS: BASOPHIL 0.3 % (0-2.0); EOSINOPHIL 2.9 % (0-4.5); MCH 27.7 pg (25.7-33.7); MCHC 32.6 g/dl (32.0-36.0); MEAN PLT VOLUME 7.4 fl (7.5-11.1); NEUTROPHILS 70.1 % (42.8-82.8); PLATELET COUNT 338 K/MM3 (134-434); WHITE BLOOD COUNT 10.1 K/mm3 (4.0-10.8)
--- NOTE | 2017-02-18 10:16 | PN ---
Progress Note, Physician History of Present Illness: pulmonary alert,doing well -sob,guiac + for EGD today.pt transfused 4 units prbc - Current Medication List Current Medications: Active Medications Aclidinium Stella (Tudorza -) 1 puff IH BID [facility] Last Admin: 02/18/17 09:28 Dose: 1 puff Albuterol Sulfate (Ventolin 0.083% Nebulizer Soln -) 1 amp NEB Q4H PRN PRN Reason: SHORT OF BREATH/WHEEZING Last Admin: 02/17/17 08:30 Dose: 1 amp Budesonide/Formoterol Fumarate (Symbicort 160/4.5mcg -) 2 puff IH BID [facility] Last Admin: 02/18/17 09:28 Dose: 2 puff Diltiazem HCl (Cardizem Cd -) 120 mg PO DAILY [facility] Last Admin: 02/18/17 09:27 Dose: Not Given Erythromycin (Erythromycin 0.5% Eye Ointment) 1 applic OD Q6HPO [facility] Last Admin: 02/18/17 06:15 Dose: 1 applic Lisinopril (Prinivil) 10 mg PO DAILY [facility] Last Admin: 02/18/17 09:27 Dose: Not Given Melatonin (Melatonin) 5 mg PO HS PRN PRN Reason: INSOMNIA Montelukast Sodium (Singulair -) 10 mg PO DAILY [facility] Last Admin: 02/18/17 09:26 Dose: 10 mg Pantoprazole Sodium (Protonix -) 40 mg PO BID [facility] Last Admin: 02/18/17 09:26 Dose: 40 mg Roflumilast (Daliresp -) 500 mcg PO DAILY [facility] Last Admin: 02/18/17 09:27 Dose: 500 mcg Spironolactone (Aldactone -) 25 mg PO BID [facility] Last Admin: 02/18/17 09:26 Dose: Not Given - Objective Vital Signs: Vital Signs Temperature 98.7 F 02/18/17 09:24 Pulse Rate 75 02/18/17 09:24 Respiratory Rate 18 02/18/17 09:24 Blood Pressure 109/53 02/18/17 09:24 O2 Sat by Pulse Oximetry (%) 100 02/18/17 06:00 Constitutional: Yes: Well Nourished, Calm Eyes: Yes: WNL HENT: Yes: WNL Neck: Yes: WNL Cardiovascular: Yes: Regular Rate and Rhythm, S1, S2 Respiratory: Yes: Diminished Gastrointestinal: Yes: Normal Bowel Sounds, Soft Labs: CBC, BMP 02/18/17 09:52 Problem List - Problems (1) Anemia Code(s): D64.9 - ANEMIA, UNSPECIFIED Qualifiers: (2) Shortness of breath Code(s): R06.02 - SHORTNESS OF BREATH (3) Acute and chronic respiratory failure Code(s): J96.20 - ACUTE AND CHR RESP FAILURE, UNSP W HYPOXIA OR HYPERCAPNIA (4) COPD (chronic obstructive pulmonary disease) Code(s): J44.9 - CHRONIC OBSTRUCTIVE PULMONARY DISEASE, UNSPECIFIED (5) HTN (hypertension) Code(s): I10 - ESSENTIAL (PRIMARY) HYPERTENSION Qualifiers: (6) Status post hip replacement Code(s): Z96.649 - PRESENCE OF UNSPECIFIED ARTIFICIAL HIP JOINT Assessment/Plan IMP DYSPNEA SECONDARY TO SEVERE ANEMIA CHRONIC HYPOXEMIC RESPIRATORY FAILURE ON O2 RLL NODULE CHF S/P R THR ? GI BLEED PLAN O2 TRANSFUSE INHALED BRONCHODILATORS MONITOR H+H F/U CHEST CT 3 MONTHS NO PULMONARY CONTRAINDICATIONS FOR EGD DR MALLOY Problem List - Problems (1) Anemia Code(s): D64.9 - ANEMIA, UNSPECIFIED Qualifiers: (2) Shortness of breath Code(s): R06.02 - SHORTNESS OF BREATH (3) Acute and chronic respiratory failure Code(s): J96.20 - ACUTE AND CHR RESP FAILURE, UNSP W HYPOXIA OR HYPERCAPNIA (4) COPD (chronic obstructive pulmonary disease) Code(s): J44.9 - CHRONIC OBSTRUCTIVE PULMONARY DISEASE, UNSPECIFIED (5) HTN (hypertension) Code(s): I10 - ESSENTIAL (PRIMARY) HYPERTENSION Qualifiers: (6) Status post hip replacement Code(s): Z96.649 - PRESENCE OF UNSPECIFIED ARTIFICIAL HIP JOINT
[2017-02-18 10:19] LABS: ANION GAP 7 (8-16); CALCIUM 8.6 mg/dl (8.4-10.2); CO2 31 mmol/L (22-28); CREATININE 1.2 mg/dl (0.6-1.3); GLUCOSE,RANDOM 94 mg/dl (74-106); MAGNESIUM 2.1 mg/dL (1.8-2.4); PHOSPHOROUS 4.4 mg/dl (2.5-4.6)
[2017-02-18] MEDS ORDERED: FUROSEMIDE 40 MG/4 ML INJECTABLE VIAL IVPB ONE (10:50)
[2017-02-18] MEDS ORDERED: ALPRAZolam 0.25 MG TABLET PO PRN (13:32)
[2017-02-18] MEDS ORDERED: PROPOFOL 20 ML ONE ×2 (15:42)
[2017-02-19 02:20] VITALS: PULSE 81; TEMP 98.5
[2017-02-19] MEDS ORDERED: PT OWN MED DRAWER 7, Y5N ONE (02:59)
[2017-02-19 06:51] VITALS: BP 127/65
[2017-02-19] MEDS: ERYTHROMYCIN 0.5% OPHTHALMIC OINTMENT 3.5 GM TUBE OD SCH ×2 (06:54)
[2017-02-19 07:25] LABS: BASOPHIL 0.5 % (0-2.0); EOSINOPHIL 2.1 % (0-4.5); MCH 27.3 pg (25.7-33.7); MEAN CELL VOLUME 85.2 fl (80-96); MEAN PLT VOLUME 7.5 fl (7.5-11.1); NEUTROPHILS 75.3 % (42.8-82.8); PLATELET COUNT 382 K/MM3 (134-434); RDW 14.9 % (11.6-15.6)
[2017-02-19 08:14] LABS: ANION GAP 6 (8-16); CALCIUM 8.9 mg/dl (8.4-10.2); CO2 33 mmol/L (22-28); CREATININE 1.4 mg/dl (0.6-1.3); GLUCOSE,RANDOM 107 mg/dl (74-106); MAGNESIUM 2.2 mg/dL (1.8-2.4); PHOSPHOROUS 4.4 mg/dl (2.5-4.6)
--- NOTE | 2017-02-19 08:51 | DS ---
Physical Exam: SUBJECTIVE: Patient seen and examined. No complaints, feeling well. Able to ambulate without shortness of breath. Had BM this morning with no blood in stool. OBJECTIVE: Vital Signs Period Temp Pulse Resp BP Sys/Vaughn Pulse Ox Last 24 Hr 98.1 F-98.7 F 75-86 18-20 107-127/41-65 96-100 PHYSICAL EXAM GENERAL: The patient is awake, alert, and fully oriented, in no acute distress. HEAD: Normal with no signs of trauma. EYES: PERRL, extraocular movements intact, sclera anicteric, conjunctiva clear. ENT: Ears normal, nares patent, oropharynx clear without exudates, moist mucous membranes. NECK: Trachea midline, full range of motion, supple. LUNGS: Breath sounds equal, clear to auscultation bilaterally, no wheezes, no crackles, no accessory muscle use. HEART: Regular rate and rhythm, S1, S2, systolic murmur, no rub or gallop. ABDOMEN: Soft, nontender, nondistended, normoactive bowel sounds, no guarding, no rebound, no hepatosplenomegaly. Reducible ventral hernia. EXTREMITIES: 2+ pulses, warm, well-perfused, trace LE edema bilaterally. NEUROLOGICAL: Cranial nerves II through XII grossly intact. Normal speech, gait not observed. PSYCH: Normal mood, normal affect. SKIN: Warm, dry, normal turgor, no rashes or lesions noted. LABS Laboratory Results - last 24 hr 02/18/17 02/18/17 02/19/17 09:52 09:52 07:08 WBC 10.1 11.0 H RBC 3.46 L 3.89 Hgb 9.6 L D 10.6 L D Hct 29.4 L D 33.1 MCV 85.0 85.2 MCH 27.7 27.3 MCHC 32.6 32.0 RDW 15.0 14.9 Plt Count 338 382 MPV 7.4 L 7.5 Neutrophils % 70.1 75.3 Lymphocytes % 22.2 D 17.3 D Monocytes % 4.5 4.8 Eosinophils % 2.9 2.1 Basophils % 0.3 0.5 Sodium 138 Potassium 5.0 Chloride 100 Carbon Dioxide 31 H Anion Gap 7 L BUN 27 H Creatinine 1.2 Random Glucose 94 Calcium 8.6 Phosphorus 4.4 Magnesium 2.1 02/19/17 07:08 WBC RBC Hgb Hct MCV MCH MCHC RDW Plt Count MPV Neutrophils % Lymphocytes % Monocytes % Eosinophils % Basophils % Sodium 135 L Potassium 4.6 Chloride 96 L Carbon Dioxide 33 H Anion Gap 6 L BUN 32 H Creatinine 1.4 H Random Glucose 107 H Calcium 8.9 Phosphorus 4.4 Magnesium 2.2 HOSPITAL COURSE: This is a 76 year old female with a history of COPD (O2- dependent), HTN, GERD, , dCHG, and osteoarthritis who presented to the ED on complaining of worsening dyspnea on exertion. In the ED, she was noted to have H/H 5.5/16.7 with guaic positive stool. She was transfused a total of 4 units PRBCs with appropriate response. She underwent EGD on 02/18 showing only gastritis with no active bleeding per verbal report. Imaging: -CTA chest 02/16: No central PE. 7mm pleural-based nodular opacity in the RLL, new since 10/15. Recommend 3-6 month followup. Prominent paraesophageal lymph nodes, may be reactive. -Duplex LE 02/16: No DVT identified in either leg. Today, she is feeling well without any shortness of breath. Hgb has remained stable for two days. She did have a mild increase in creatinine (1.4 form 1.2) after receiving 40mg IVP Lasix following her blood transfusions. Plan: -Follow up with PCP to re-check CBC, Cr early next week (patient states she will be able to do this) -Hold Lisinopril pending repeat kidney function tests -Hold ASA given gastritis, ?GIB -Follow up with GI for further evaluation and testing -Continue PPI therapy -Followup CT for pulmonary nodule recommended Return precautions reviewed with the patient. Date of Admission:02/17/17 Date of Discharge: 02/19/17 Minutes to complete discharge: 45 Discharge Summary Reason For Visit: ANEMIA/SHORTNESS OF BREATH Current Active Problems Anemia (Acute) Anxiety (Acute) Aortic stenosis (Acute) Diastolic CHF (Acute) GERD (gastroesophageal reflux disease) (Acute) Guaiac + stool (Acute) Microcytic anemia (Acute) Shortness of breath (Acute) Condition: Improved - Instructions Diet, Activity, Other Instructions: Continue all of your prescribed medications, with the following changes: -Stop taking Aspirin for now. -Stop taking Lisinopril just briefly until your kidney function tests can be re- checked. Please follow up with Dr. Roberts to have your hemoglobin/hematocrit (blood count) and creatinine (kidney function test) re-checked early next week. A copy of your Chest CT is also enclosed. Please show this to your doctor as there is a lung nodule that needs to be evaluated with repeat CT scan in 3-6 months. Please follow up with Dr. Staley (gastroenterology) for further evaluation, possibly including colonoscopy. Return here for shortness of breath, chest pain, blood in the stool, fainting/ near fainting, or any other concerning symptoms Referrals: Roberto Roberts MD [Staff Physician] - 1 Week Devora Staley DO [Staff Physician] - 1 Week Disposition: HOME - Home Medications Comprehensive Discharge Medication List: Ambulatory Orders Lisinopril [Prinivil] 10 mg PO DAILY 04/09/14 Spironolactone 25 mg PO BID 04/09/14 Albuterol 0.083% Nebulizer Isabella [Ventolin 0.083% Nebulizer Soln -] 1 neb NEB Q4H PRN 09/16/15 Budesonide/Formeterol Fumarate [SYMBICORT 160/4.5mcg -] 2 puff IH BID #0 inhaler 09/25/15 Roflumilast [Daliresp -] 500 mcg PO DAILY #0 tablet 09/25/15 Aclidinium [place] [Tudorza Pressair] 400 mcg IH ASDIR 10/14/16 Alprazolam 0.25 mg PO PRN PRN MDD 1 mg 10/14/16 Montelukast Na [Singulair -] 10 mg PO DAILY 10/14/16 Zolpidem Tartrate [Ambien] 5 mg PO HS PRN 11/13/16 Aspirin [ASA -] 81 mg PO DAILY 02/16/17 Diltiazem Cd [Cardizem Cd -] 120 mg PO DAILY 02/16/17 Pantoprazole Sodium [Protonix -] 40 mg PO DAILY 02/16/17 This patient is new to me today: Yes Date on this admission: 02/19/17 Emergency Visit: Yes ED Registration Date: 02/17/17 Care time: The patient presented to the Emergency Department on the above date and was hospitalized for further evaluation of their emergent condition. Critical Care patient: No - Discharge Referral Referred to [facility] Med P.C.: No
[2017-02-19] MEDS: SPIRONOLACTONE 25 MG TABLET (FP) PO SCH (09:16)
[2017-02-19] MEDS: PANTOPRAZOLE 40 MG TABLET (FP) PO SCH (09:18)
[2017-02-19] MEDS: LISINOPRIL 10 MG TABLET (FP) PO SCH (09:18)
[2017-02-19] MEDS: MONTELUKAST NA 10 MG TABLET PO SCH (09:18)
[2017-02-19] MEDS: ROFLUMILAST 500 MCG TABLET PO SCH (09:18)
[2017-02-19] MEDS: ACLIDINIUM BROMIDE 400 MCG/INH AERO.POWD IH SCH (09:19)
[2017-02-19] MEDS: BUDESONIDE/FORMETEROL FUMARATE 160/4.5 mcg INHALER IH SCH (09:19)
--- NOTE | 2017-02-23 14:12 | PATH ---
Surgical Pathology Report Patient Name: DARLINE JORDAN Med. Rec. #: [id number] /Age/Gender: 1940 (Age: 76) / F Account: [id number] Location: [facility] MED-SURG Taken: 02/18/2017 Received: 02/18/2017 Reported: 02/23/2017 Physicians: Devora Staley M.D. Specimen(s) Received GASTRIC DUODENAL ANASTOMOSIS Clinical History Anemia, shortness of breath Final Diagnosis GASTRIC DUODENAL ANASTOMOSIS, BIOPSY: GASTRIC ANTRAL-TYPE MUCOSA SHOWING MODERATE CHRONIC INFLAMMATION. SUPERFICIAL DUODENAL MUCOSA WITH NO PATHOLOGIC FINDINGS. IMMUNOSTAIN IS NEGATIVE FOR H. PYLORI ORGANISMS. Electronically Signed Marissa Jason M.D. Gross Description Received in formalin, labeled "gastric duodenal anastomosis" are 2 pepper, irregular portions of soft tissue measuring 0.1 and 0.2 cm. in greatest dimension. The specimens are submitted in toto in one cassette. 02/22/201702/22/2017
== END 2017-02-19 09:45 | disposition home or self-care (01) | DRG 812 ==
LOC: FER 20:00 → FM/S 02-17 01:10
PROVIDERS: ADMIT Internal Medicine; ATTEND Registered Nurse Emergency
PROC: 30233N1 Transfusion of Nonautologous Red Blood Cells into Peripheral Vein, Percutaneous Approach (ICD-10-PCS; principal; 2017-02-17)
PROC: 0DB98ZX Excision of Duodenum, Via Natural or Artificial Opening Endoscopic, Diagnostic (ICD-10-PCS; 2017-02-18)
DX: D50.9 Iron deficiency anemia, unspecified (principal); I50.32 Chronic diastolic (congestive) heart failure; J96.11 Chronic respiratory failure with hypoxia; J44.9 Chronic obstructive pulmonary disease, unspecified; I11.0 Hypertensive heart disease with heart failure; Z99.81 Dependence on supplemental oxygen; Z87.891 Personal history of nicotine dependence; K21.9 Gastro-esophageal reflux disease without esophagitis; I35.0 Nonrheumatic aortic (valve) stenosis; F41.9 Anxiety disorder, unspecified; R91.1 Solitary pulmonary nodule; Z86.73 Personal history of transient ischemic attack (TIA), and cerebral infarction without residual deficits; R19.5 Other fecal abnormalities; K29.60 Other gastritis without bleeding
CPT/HCPCS: 36415; 36430; 36511; 71010-TC; 71275-TC; 80048; 80053; 81003; 81015; 82272; 83735; 83880; 84100; 85025; 85379; 86850; 86900; 86901; 86922; 87086; 88305-TC; 93005; 93970-TC; 94640; 97116-GP; 97161-GP; 99285-25; P9038; P9058

== ENCOUNTER 2017-03-09 08:21 | Day surgery (SDC) | payer OTHER, BC ==
[2017-03-07 13:19] VITALS: BMI 33.3
[2017-03-09] MEDS ORDERED: PROPOFOL 20 ML ONE (08:25)
[2017-03-09] MEDS ORDERED: LIDOCAINE HCL/PF 2% SDV 5ML VIAL ONE (08:25)
[2017-03-09] MEDS ORDERED: GENTAMICIN SO4 80 MG/2 ML VIAL IVPB ONE (09:00)
[2017-03-09] MEDS ORDERED: AMPICILLIN 2 GM/100 ML BAG (PRE-DOCKED) IVPB ONE (09:30)
[2017-03-09] MEDS ORDERED: AMPICILLIN - 2 GM in SODIUM CHLORIDE 100 ML IVPB ONE (10:00)
[2017-03-09] MEDS ORDERED: GENTAMICIN 80 MG PREMIXED IVPB 100 ML IVPB ONE (10:30)
[2017-03-09 11:41] VITALS: PULSE 97
[2017-03-09 11:43] VITALS: BP 142/73; TEMP 98
== END 2017-03-09 11:44 | disposition home or self-care (01) ==
LOC: FASU-ENDO 08:21
PROVIDERS: ATTEND Internal Medicine Gastroenterology
PROC: 0DJD8ZZ Inspection of Lower Intestinal Tract, Via Natural or Artificial Opening Endoscopic (ICD-10-PCS; principal; 2017-03-09 09:49)
DX: D50.9 Iron deficiency anemia, unspecified (principal); K57.30 Diverticulosis of large intestine without perforation or abscess without bleeding; K43.9 Ventral hernia without obstruction or gangrene; Z53.8 Procedure and treatment not carried out for other reasons

== ENCOUNTER 2017-04-01 18:45 | Observation (INO) | payer OTHER ==
[2017-04-01 19:16] LABS: BASOPHIL 0.1 % (0-2.0); EOSINOPHIL 5.3 % (0-4.5); MCH 26.9 pg (25.7-33.7); MCHC 31.6 g/dl (32.0-36.0); MEAN CELL VOLUME 84.9 fl (80-96); MEAN PLT VOLUME 7.8 fl (7.5-11.1); NEUTROPHILS 62.7 % (42.8-82.8); PLATELET COUNT 365 K/MM3 (134-434); RDW 16.3 % (11.6-15.6); WHITE BLOOD COUNT 9.4 K/mm3 (4.0-10.8)
--- NOTE | 2017-04-01 19:19 | PDOC ---
History of Present Illness - General History Source: Patient Exam Limitations: No Limitations - History of Present Illness Initial Comments: 04/01/17 19:47 The patient is a 76 year old female, with a significant past medical history of COPD (oxygen dependent), hypertension, GERD, aortic stenosis, diastolic congestive heart failure, and osteoarthritis who presents to the emergency department complaining of cold-like symptoms that began approx. 2 days ago and shortness of breath s/p COPD exacerbation prior to arrival. The patient reports that earlier today she began feeling out of breath while walking around at home while on 2 LPM of oxygen. She reports that her PCP Dr. Roberts advised her to visit the emergency room when she is experiencing shortness of breath with exertion for a blood transfusion. She reports a previous hospitalization in January for a similar event of shortness of breath. During that hospitalization she received 4 units of packed red blood cells and is currently undergoing workup for her lower GI bleed. The patient also reports she has been experiencing cold-like symptoms of runny nose and dry cough for approx. 2 days. The patient reports sick contacts and that her granddaughter currently has a cold. She denies recent fevers, chills, headache or dizziness. She denies recent nausea, vomit, diarrhea or constipation. She denies recent chest pain. Allergies: Gabapentin Primary Care Physician: Dr. Roberts Endless Belt Finisher: Dr. Sauer <Roberto Goldberg - Last Filed: 04/01/17 20:06> <Urvashi Tavarez - Last Filed: 04/02/17 03:27> - General Chief Complaint: Shortness of Breath Stated Complaint: sob Time Seen by Provider: 04/01/17 19:18 Past History <Roberto Goldberg - Last Filed: 04/01/17 20:06> - Past Medical History Anemia: Yes (GI BLD) Asthma: Yes Cancer: No Cardiac Disorders: No CVA: Yes COPD: Yes (COPD, O2 DEPENDENT) CHF: No Dementia: No Diabetes: No GI Disorders: Yes (VENTRAL HERNIA/GI BLD) Disorders: No HTN: Yes Hypercholesterolemia: Yes Liver Disease: No Seizures: No Thyroid Disease: No - Surgical History Abdominal Surgery: Yes (STOMACH STAPLING 1984) Appendectomy: Yes (1952) Cardiac Surgery: No Cholecystectomy: No Lung Surgery: No Neurologic Surgery: No Orthopedic Surgery: Yes (BILATERAL KNEE REPLACEMENTS) - Suicide/Smoking/Psychosocial Hx Smoking Status: Yes Smoking History: Former smoker Have you smoked in the past 12 months: No Number of Cigarettes Smoked Daily: 0 If you are a former smoker, when did you quit?: 25-30 years Information on smoking cessation initiated: No Hx Alcohol Use: No Drug/Substance Use Hx: No Substance Use Type: Alcohol Hx Substance Use Treatment: No <Urvashi Tavarez - Last Filed: 04/02/17 03:27> - Past Medical History Allergies/Adverse Reactions: Allergies Allergy/AdvReac Type Severity Reaction Status Date / Time gabapentin Allergy Severe HALLUCINATI Verified 04/01/17 18:45 ONS Home Medications: Ambulatory Orders Lisinopril [Prinivil] 10 mg PO DAILY 04/09/14 Spironolactone 25 mg PO BID 04/09/14 Albuterol 0.083% Nebulizer Isabella [Ventolin 0.083% Nebulizer Soln -] 1 neb NEB Q4H PRN 09/16/15 Roflumilast [Daliresp -] 500 mcg PO DAILY #0 tablet 09/25/15 Aclidinium [place] [Tudorza Pressair] 400 mcg IH ASDIR 10/14/16 Alprazolam 0.25 mg PO PRN PRN MDD 1 mg 10/14/16 Zolpidem Tartrate [Ambien] 5 mg PO HS PRN 11/13/16 Diltiazem Cd [Cardizem Cd -] 120 mg PO DAILY 02/16/17 Pantoprazole Sodium [Protonix -] 40 mg PO DAILY 02/16/17 SYMBICORT 160/4.5mcg - 2 puff BID 04/01/17 Review of Systems - Review of Systems Comments:: 04/01/17 19:49 CONSTITUTIONAL: Absent: fever, no chills, no fatigue EYES: Absent: visual changes ENT: Absent: ear pain, no sore throat CARDIOVASCULAR: Absent: chest pain, no palpitations RESPIRATORY: Present: +Dry cough. +SOB GI: Absent: abdominal pain, no nausea, no vomiting, no constipation, no diarrhea GENITOURINARY: Absent: dysuria, no frequency, no hematuria MUSKULOSKELETAL: Absent: back pain, no myalgia SKIN: Absent: rash NEURO: Absent: headache <Roberto Goldberg - Last Filed: 04/01/17 20:06> *Physical Exam - Vital Signs Last Vital Signs Temp Pulse Resp BP Pulse Ox 98.2 F 116 H 26 H 139/70 95 04/01/17 18:45 04/01/17 18:45 04/01/17 18:45 04/01/17 18:45 04/01/17 18:45 - Physical Exam Comments: 04/01/17 19:52 GENERAL: The patient is awake, alert, and fully oriented. +Mildly breathless. HEAD:Normal with no signs of trauma. EYES: +Pale conjunctiva. Pupils equal, round and reactive to light, extraocular movements intact, sclera anicteric. RESPIRATORY: +Mild dyspnea while talking. +Breath sounds decreased throughout without wheezing or rhonchi. Moving air well. ABDOMEN: +Midline lower abdominal wall hernia non tender no other masses. EXTREMITIES: 1+ Pedal edema (ankles) bilaterally. Normal range of motion. NEUROLOGICAL: Normal speech, normal gait. PSYCH: Normal mood, normal affect. SKIN: Warm, Dry, normal turgor, no rashes or lesions noted. <Roberto Goldberg - Last Filed: 04/01/17 20:06> - Vital Signs Last Vital Signs Temp Pulse Resp BP Pulse Ox 98.2 F 116 H 26 H 139/70 95 04/01/17 18:45 04/01/17 18:45 04/01/17 18:45 04/01/17 18:45 04/01/17 18:45 <Urvashi Tavarez - Last Filed: 04/02/17 03:27> ED Treatment Course - LABORATORY CBC & Chemistry Diagram: 04/01/17 19:04 04/01/17 19:04 - ADDITIONAL ORDERS Additional order review: Laboratory Results 04/01/17 19:04 Sodium 137 Potassium 4.8 Chloride 101 Carbon Dioxide 29 H Anion Gap 7 L BUN 34 H Creatinine 1.4 H Creat Clearance w eGFR 36.66 Random Glucose 100 Calcium 8.8 Total Bilirubin 0.6 D AST 17 ALT 12 D Alkaline Phosphatase 87 Creatine Kinase 33 Total Protein 6.8 Albumin 3.8 04/01/17 19:04 RBC 2.99 L D MCV 84.9 MCHC 31.6 L RDW 16.3 H MPV 7.8 Neutrophils % 62.7 Lymphocytes % 27.1 D Monocytes % 4.8 Eosinophils % 5.3 H D Basophils % 0.1 - Medications Given in the ED: ED Medications Discontinued Medications Generic Name Dose Route Start Last Admin Trade Name Ovi PRN Reason Stop Dose Admin Albuterol/Ipratropium 1 amp 04/01/17 19:40 04/01/17 19:46 Duoneb - NEB 04/01/17 19:41 1 amp ONCE ONE Administration <Roberto Goldberg - Last Filed: 04/01/17 20:06> - LABORATORY CBC & Chemistry Diagram: 04/01/17 19:04 04/01/17 19:04 <Urvashi Tavarez - Last Filed: 04/02/17 03:27> Medical Decision Making - Medical Decision Making Documentation has been prepared under my direction and personally reviewed by me in its entirety. I attest that this documented accurately reflects all work, treatment, procedures and medical decision making performed by me. As noted above, this 76-year-old woman with a history of anemia and lower GI bleed of unclear etiology (workup underway) presents with increased shortness of breath over the last few days. In the past, she has had this symptom when her anemia has become more severe. Of note, she has no recent history of increased abdominal pain/bloody stool. The patient has black stools daily since start of iron supplementation. Exam as noted. Patient received DuoNeb nebulizer treatment with minimal relief of her respiratory symptoms Laboratory evaluation notable for hemoglobin 8/hematocrit 25.4; creatinine is 1.4 with a BUN of 34. Troponin is 0.04 Portable chest x-ray shows no evidence of acute disease process. Patient's PMD is Dr. Roberts. Answering service contacted: Dr. Roberts signed out to aircraft stress analyst associated with [facility]. [facility] Patient will be admitted to observation status for transfusion <Urvashi Tavarez - Last Filed: 04/02/17 03:27> *DC/Admit/Observation/Transfer - Attestations Scribe Attestion: 04/01/17 19:55 Documentation prepared by Roberto Goldberg, acting as medical staff coordinator for Urvashi Tavarez MD. <Roberto Goldberg - Last Filed: 04/01/17 20:06> - Discharge Dispostion Admit: Yes <Urvashi Tavarez - Last Filed: 04/02/17 03:27> Diagnosis at time of Disposition: Anemia Qualifiers: Anemia type: iron deficiency Iron deficiency anemia type: chronic blood loss Qualified Code(s): D50.0 - Iron deficiency anemia secondary to blood loss ( chronic) - Discharge Dispostion Condition at time of disposition: Stable - Referrals
[2017-04-01 19:35] LABS: ALBUMIN 3.8 g/dl (3.5-5.0); ALK PHOS 87 U/L (32-92); ANION GAP 7 (8-16); BILIRUBIN,TOTAL 0.6 mg/dl (0.2-1.0); CALCIUM 8.8 mg/dl (8.4-10.2); CO2 29 mmol/L (22-28); CPK 33 IU/L (26-192); CREATININE 1.4 mg/dl (0.6-1.3); GLUCOSE,RANDOM 100 mg/dl (74-106); SGOT/AST 17 U/L (10-42); SGPT/ALT 12 U/L (10-40); TOT PROT 6.8 g/dl (6.4-8.3)
[2017-04-01] MEDS ORDERED: ALBUTEROL SO4 2.5/IPRATROPIUM 0.5 INH SOL 3 ML VIAL.NEB. NEB ONE ×2 (19:40→19:43)
[2017-04-01 19:56] LABS: TROPONIN I (DFP) 0.04 ng/ml (0.03-0.50)
--- NOTE | 2017-04-01 21:37 | HP ---
CHIEF COMPLAINT: SOB, Cold Symptoms PCP: Dr. Roberts HISTORY OF PRESENT ILLNESS: This is a 76 y/o woman with a past medical history of COPD (O2 Dep), Diastolic CHF, Aortic Stenosis, HTN, GERD, OA. Who presents to the ED with SOB and BAUMAN x 2 days. Patient reports having cold symptoms x several days. Patient reports having recent sick contact, granddaughter. Patient denies dizziness, CP, AP, N/V /D, constipation, melena, hematuria, dysuria ER course was notable for: (1) Hgb 8.0, HCT 25.4 (2) Bun 34, Cr 1.4 (3) Chest Xray- an acute chest process is not seen Recent Travel: None PAST MEDICAL HISTORY: COPD (O2 Dep) Diastolic CHF Aortic Stenosis HTN GERD OA PAST SURGICAL HISTORY: Appendectomy Cataract Removal Lens Implants Social History: Smoking: Former Alcohol: None Drugs: None Family History: Allergies gabapentin Allergy (Severe, Verified 04/01/17 18:45) HALLUCINATIONS HOME MEDICATIONS: Home Medications Medication Instructions Recorded Lisinopril [Prinivil] 10 mg PO DAILY 04/09/14 Spironolactone 25 mg PO BID 04/09/14 Albuterol 0.083% Nebulizer Isabella 1 neb NEB Q4H PRN 09/16/15 [Ventolin 0.083% Nebulizer Soln -] Roflumilast [Daliresp -] 500 mcg PO DAILY #0 tablet 09/25/[address] [place] [Tudorza 400 mcg IH ASDIR 10/14/16 Pressair] Alprazolam 0.25 mg PO PRN PRN MDD 1 mg 10/14/16 Zolpidem Tartrate [Ambien] 5 mg PO HS PRN 11/13/16 Diltiazem Cd [Cardizem Cd -] 120 mg PO DAILY 02/16/17 Pantoprazole Sodium [Protonix -] 40 mg PO DAILY 02/16/17 REVIEW OF SYSTEMS CONSTITUTIONAL: Absent: fever, chills, diaphoresis, generalized weakness, malaise, loss of appetite, weight change HEENT: Absent: rhinorrhea, nasal congestion, throat pain, throat swelling, difficulty swallowing, mouth swelling, ear pain, eye pain, visual changes CARDIOVASCULAR: Absent: chest pain, syncope, palpitations, irregular heart rate, lightheadedness , peripheral edema RESPIRATORY: shortness of breath, dyspnea with exertion Absent: cough, orthopnea, wheezing, stridor, hemoptysis GASTROINTESTINAL: Absent: abdominal pain, abdominal distension, nausea, vomiting, diarrhea, constipation, melena, hematochezia GENITOURINARY: Absent: dysuria, frequency, urgency, hesitancy, hematuria, flank pain, genital pain MUSCULOSKELETAL: Absent: myalgia, arthralgia, joint swelling, back pain, neck pain SKIN: Absent: rash, itching, pallor HEMATOLOGIC/IMMUNOLOGIC: Absent: easy bleeding, easy bruising, lymphadenopathy, frequent infections ENDOCRINE: Absent: unexplained weight gain, unexplained weight loss, heat intolerance, cold intolerance NEUROLOGIC: Absent: headache, focal weakness or paresthesias, dizziness, unsteady gait, seizure, mental status changes, bladder or bowel incontinence PSYCHIATRIC: Absent: anxiety, depression, suicidal or homicidal ideation, hallucinations. PHYSICAL EXAMINATION Vital Signs - 24 hr 04/01/17 18:45 Temperature 98.2 F Pulse Rate 116 H Respiratory 26 H Rate Blood Pressure 139/70 O2 Sat by Pulse 95 Oximetry (%) GENERAL: Awake, alert, and fully oriented, in no acute distress. HEAD: Normal with no signs of trauma. EYES: Pupils equal, round and reactive to light, extraocular movements intact, sclera anicteric, conjunctiva clear. No lid lag. EARS, NOSE, THROAT: Ears normal, nares patent, oropharynx clear without exudates. Moist mucous membranes. NECK: Normal range of motion, supple without lymphadenopathy, JVD, or masses. LUNGS: No wheezes, and no crackles. No accessory muscle use. Diminished throughout. HEART: regular rate and rhythm, normal S1 and S2, No rub or gallop. Grade 2/6 systolic murmur, ABDOMEN: Obese, soft, nontender, normoactive bowel sounds, no guarding, no rebound, no masses. No hepatomegaly or splenomegaly. Distended, palpable hiatal hernia MUSCULOSKELETAL: Normal range of motion at all joints. No bony deformities or tenderness. No CVA tenderness. UPPER EXTREMITIES: 2+ pulses, warm, well-perfused. No cyanosis. No clubbing. No peripheral edema. LOWER EXTREMITIES: 2+ pulses, warm, well-perfused. No calf tenderness. +1 peripheral edema L- ankle NEUROLOGICAL: Cranial nerves II-XII intact. Normal speech. Gait not observed. PSYCHIATRIC: Cooperative. Good eye contact. Appropriate mood and affect. SKIN: Warm, dry, normal turgor, no rashes or lesions noted, normal capillary refill. Laboratory Results - last 24 hr 04/01/17 04/01/17 04/01/17 19:04 19:04 20:50 WBC 9.4 RBC 2.99 L D Hgb 8.0 L D Hct 25.4 L D MCV 84.9 MCH 26.9 MCHC 31.6 L RDW 16.3 H Plt Count 365 MPV 7.8 Neutrophils % 62.7 Lymphocytes % 27.1 D Monocytes % 4.8 Eosinophils % 5.3 H D Basophils % 0.1 Sodium 137 Potassium 4.8 Chloride 101 Carbon Dioxide 29 H Anion Gap 7 L BUN 34 H Creatinine 1.4 H Creat Clearance w eGFR 36.66 Random Glucose 100 Calcium 8.8 Total Bilirubin 0.6 D AST 17 ALT 12 D Alkaline Phosphatase 87 Creatine Kinase 33 Troponin I 0.04 Total Protein 6.8 Albumin 3.8 Stool Occult Blood Negative ASSESSMENT/PLAN: This is a 76 y/o woman with a PMHx of: COPD (O2 dep), HTN, GERD, Aortic Stenosis , Diastolic HF, OA. Placed on Tele Observation for Symptomatic Anemia for further evaluation of their emergent condition. Plan: 1. Symptomatic Anemia - On patient's last admission 11/2016- Anemia, she received 4 units PRBCs, pending GI outpatient workup - Hgb 8.0-at baseline - Stool Occult- negative - Repeat CBC in am - Will transfuse if Hgb < 7.0 - Monitor vitals - O2 2. SOB - Likely secondary to Anemia vs Diastolic HF vs COPD - Chest Xray- reviewed - Home O2 dependent, will continue - Spo2 - Monitor vitals 3. COPD - Continue O2 - Continue duonebs - Continue home meds - Spo2 4. Diastolic HF - Continue home meds - Daily weight - Monitor vitals 5. HTN - Controlled - Monitor BP - Continue home med with parameters - Monitor renal function 6. GERD - Continue home med 7. FEN - Tolerates PO fluids - Replete lytes prn - Low Na Diet 8. DVT Prophylaxis - OOB - SCDs - Hold ACs 2/2 Anemia Code Status: Full Code Problem List - Problem (1) Anemia Code(s): D64.9 - ANEMIA, UNSPECIFIED Qualifiers: Anemia type: iron deficiency Iron deficiency anemia type: chronic blood loss Qualified Code(s): D50.0 - Iron deficiency anemia secondary to blood loss (chronic); D50.0 - Iron deficiency anemia secondary to blood loss (chronic) (2) SOB (shortness of breath) Code(s): R06.02 - SHORTNESS OF BREATH (3) URI with cough and congestion Code(s): J06.9 - ACUTE UPPER RESPIRATORY INFECTION, UNSPECIFIED (4) COPD (chronic obstructive pulmonary disease) Code(s): J44.9 - CHRONIC OBSTRUCTIVE PULMONARY DISEASE, UNSPECIFIED (5) Diastolic CHF Code(s): I50.30 - UNSPECIFIED DIASTOLIC (CONGESTIVE) HEART FAILURE Qualifiers : (6) HTN (hypertension) Code(s): I10 - ESSENTIAL (PRIMARY) HYPERTENSION Qualifiers: (7) GERD (gastroesophageal reflux disease) Code(s): K21.9 - GASTRO-ESOPHAGEAL REFLUX DISEASE WITHOUT ESOPHAGITIS (8) DVT prophylaxis Code(s): [id number] - Visit type - Emergency Visit Emergency Visit: Yes ED Registration Date: 04/01/17 Care time: The patient presented to the Emergency Department on the above date and was hospitalized for further evaluation of their emergent condition. - New Patient This patient is new to me today: Yes Date on this admission: 04/01/17 - Critical Care Critical Care patient: No
[2017-04-01 22:28] VITALS: BMI 33.3
[2017-04-02] MEDS ORDERED: ALBUTEROL SO4 0.083% IH SOL 2.5 MG/3 ML VIAL.NEB. NEB PRN (01:16)
[2017-04-02] MEDS ORDERED: ZOLPIDEM TARTRATE 5 MG TABLET PO PRN (01:20)
[2017-04-02 07:39] LABS: BASOPHIL 0.5 % (0-2.0); EOSINOPHIL 4.5 % (0-4.5); MCH 27.6 pg (25.7-33.7); MCHC 32.7 g/dl (32.0-36.0); MEAN CELL VOLUME 84.4 fl (80-96); MEAN PLT VOLUME 7.3 fl (7.5-11.1); NEUTROPHILS 63.7 % (42.8-82.8); PLATELET COUNT 319 K/MM3 (134-434); RDW 15.9 % (11.6-15.6); WHITE BLOOD COUNT 8.4 K/mm3 (4.0-10.8)
[2017-04-02 08:13] LABS: ANION GAP 7 (8-16); CO2 29 mmol/L (22-28); CREATININE 1.2 mg/dl (0.6-1.3); GLUCOSE,RANDOM 97 mg/dl (74-106); MAGNESIUM 1.9 mg/dL (1.8-2.4); PHOSPHOROUS 4.3 mg/dl (2.5-4.6)
[2017-04-02] MEDS: SPIRONOLACTONE 25 MG TABLET (FP) PO SCH ×2 (09:26→22:10)
[2017-04-02] MEDS: PANTOPRAZOLE 40 MG TABLET (FP) PO SCH (09:26)
[2017-04-02] MEDS: ROFLUMILAST 500 MCG TABLET PO SCH (09:27)
[2017-04-02] MEDS: BUDESONIDE/FORMETEROL FUMARATE 160/4.5 mcg INHALER IH SCH ×2 (09:29→22:10)
[2017-04-02] MEDS: TIOTROPIUM BROMIDE 18 MCG/INH (DEVICE W/ 5 CAPSULES) IH SCH (09:31)
[2017-04-02 11:09] LABS: WHITE BLOOD COUNT 8.5 K/mm3 (4.0-10.8)
[2017-04-02 11:12] LABS: MCH 27.9 pg (25.7-33.7); MCHC 33.2 g/dl (32.0-36.0); MEAN CELL VOLUME 84.2 fl (80-96); MEAN PLT VOLUME 7.4 fl (7.5-11.1); PLATELET COUNT 307 K/MM3 (134-434)
[2017-04-02] MEDS ORDERED: ACETAMINOPHEN 325 MG TABLET (FP) PO PRN (11:24)
--- NOTE | 2017-04-02 11:35 | PN ---
Physical Exam: SUBJECTIVE: Patient seen and examined. Feels worsening SOB from baseline. OBJECTIVE: Vital Signs Period Temp Pulse Resp BP Sys/Vaughn Pulse Ox Last 24 Hr 98.1 F-98.2 F 84-96 18-20 125-141/46-62 98-99 GENERAL: The patient is awake, alert, and fully oriented, in no acute distress. LUNGS: Breath sounds equal, clear to auscultation bilaterally, no wheezes, no crackles, no accessory muscle use. HEART: Regular rate and rhythm, S1, S2 without murmur, rub or gallop. ABDOMEN: Soft, nontender, nondistended, normoactive bowel sounds, no guarding, no rebound, no hepatosplenomegaly, no masses. EXTREMITIES: 2+ pulses, warm, well-perfused, no edema. NEUROLOGICAL: Cranial nerves II through XII grossly intact. Normal speech, gait not observed. PSYCH: Normal mood, normal affect. SKIN: Warm, dry, normal turgor, no rashes or lesions noted Laboratory Results - last 24 hr 04/02/17 04/02/17 04/02/17 07:30 07:30 11:00 WBC 8.4 8.5 RBC 2.66 L 2.56 L Hgb 7.4 L 7.1 L Hct 22.5 L 21.5 L MCV 84.4 84.2 MCH 27.6 27.9 MCHC 32.7 33.2 RDW 15.9 H 16.0 H Plt Count 319 307 MPV 7.3 L 7.4 L Neutrophils % 63.7 Lymphocytes % 26.6 Monocytes % 4.7 Eosinophils % 4.5 Basophils % 0.5 D Sodium 137 Potassium 5.0 Chloride 101 Carbon Dioxide 29 H Anion Gap 7 L BUN 34 H Creatinine 1.2 Random Glucose 97 Calcium 9.0 Phosphorus 4.3 Magnesium 1.9 Active Medications Generic Name Dose Route Start Last Admin Trade Name Freq PRN Reason Stop Dose Admin Acetaminophen 650 mg 04/02/17 11:24 Tylenol - PO Q6H PRN FEVER OR PAIN Albuterol Sulfate 1 amp 04/02/17 01:16 Ventolin 0.083% Nebulizer Soln - NEB Q4H PRN SHORT OF BREATH/WHEEZING Budesonide/Formoterol Fumarate 2 puff 04/02/17 10:00 04/02/17 09:29 Symbicort 160/4.5mcg - IH 2 puff BID FLORA Administration Diltiazem HCl 120 mg 04/02/17 10:00 04/02/17 09:26 Cardizem Cd - PO 120 mg DAILY FLORA Administration Pantoprazole Sodium 40 mg 04/02/17 10:00 04/02/17 09:26 Protonix - PO 40 mg DAILY FLORA Administration Roflumilast 500 mcg 04/02/17 10:00 04/02/17 09:27 Daliresp - PO 500 mcg DAILY FLORA Administration Spironolactone 25 mg 04/02/17 10:00 04/02/17 09:26 Aldactone - PO 25 mg BID FLORA Administration Tiotropium [place] 1 puff 04/02/17 10:00 04/02/17 09:31 Spiriva - IH Not Given DAILY FLORA Zolpidem Tartrate 5 mg 04/02/17 01:20 Ambien - PO HS PRN INSOMNIA ASSESSMENT/PLAN: A: 76-year-old woman with symptomatic anemia evidenced by shortness of breath at rest and decreasing hemoglobin. Has appointment for lower GI series at [facility] on April 04. P: Symptomatic anemia - Hgb- 8.0->7.4->7.1 - no evidence of active bleeding - will transfuse 1 unit PRBC given dyspnea and Hgb 7.1 - repeat CBC s/p 1 PRBC - has appointment for lower GI series on 04/04 at [facility] - Upper GI (-) on CHF - Cardizem - Aldactone HTN - Cardizem - Aldactone COPD - on home O2 - Spiriva - Daliresp - Symbicort - Albuterol prn F/E/N - Low Na diet -replete prn PPX - Protonix Dispo- requires continued inpatient treatment for her acute medical condition Visit type - Emergency Visit Emergency Visit: Yes ED Registration Date: 04/01/17 Care time: The patient presented to the Emergency Department on the above date and was hospitalized for further evaluation of their emergent condition. - New Patient This patient is new to me today: Yes Date on this admission: 04/02/17 - Critical Care Critical Care patient: No
[2017-04-02 13:44] LABS: FERRITIN 20.358 ng/ml (6.9-282.5)
[2017-04-02 17:54] LABS: EOSINOPHIL 4.2 % (0-4.5); MCH 27.5 pg (25.7-33.7); MCHC 32.8 g/dl (32.0-36.0); MEAN CELL VOLUME 83.8 fl (80-96); NEUTROPHILS 63.5 % (42.8-82.8); PLATELET COUNT 299 K/MM3 (134-434); RDW 15.2 % (11.6-15.6); WHITE BLOOD COUNT 7.8 K/mm3 (4.0-10.8)
[2017-04-02] MEDS ORDERED: PT OWN MED DRAWER 7, Y5N ONE (22:04)
[2017-04-03 09:01] LABS: BASOPHIL 0.1 % (0-2.0); EOSINOPHIL 4.5 % (0-4.5); MCH 26.8 pg (25.7-33.7); MCHC 32.1 g/dl (32.0-36.0); MEAN CELL VOLUME 83.5 fl (80-96); MEAN PLT VOLUME 8.4 fl (7.5-11.1); NEUTROPHILS 62.2 % (42.8-82.8); PLATELET COUNT 303 K/MM3 (134-434); RDW 15.3 % (11.6-15.6); WHITE BLOOD COUNT 7.8 K/mm3 (4.0-10.8)
--- NOTE | 2017-04-03 09:12 | DS ---
Physical Exam: SUBJECTIVE: Patient seen and examined OBJECTIVE: Vital Signs Period Temp Pulse Resp BP Sys/Vaughn Pulse Ox Last 24 Hr 97.6 F-98.5 F 81-87 17-20 125-129/51-62 99-100 PHYSICAL EXAM GENERAL: The patient is awake, alert, and fully oriented, in no acute distress. HEAD: Normal with no signs of trauma. EYES: PERRL, extraocular movements intact, sclera anicteric, conjunctiva clear. ENT: Ears normal, nares patent, oropharynx clear without exudates, moist mucous membranes. NECK: Trachea midline, full range of motion, supple. LUNGS: Breath sounds equal, clear to auscultation bilaterally, no wheezes, no crackles, no accessory muscle use. HEART: Regular rate and rhythm, S1, S2 without murmur, rub or gallop. ABDOMEN: Soft, nontender, nondistended, normoactive bowel sounds, no guarding, no rebound, no hepatosplenomegaly, no masses. EXTREMITIES: 2+ pulses, warm, well-perfused, no edema. NEUROLOGICAL: Cranial nerves II through XII grossly intact. Normal speech, gait not observed. PSYCH: Normal mood, normal affect. SKIN: Warm, dry, normal turgor, no rashes or lesions noted. LABS Laboratory Results - last 24 hr 04/02/17 04/02/17 04/02/17 07:30 07:30 11:00 WBC 8.5 RBC 2.56 L Hgb 7.1 L Hct 21.5 L MCV 84.2 MCH 27.9 MCHC 33.2 RDW 16.0 H Plt Count 307 MPV 7.4 L Neutrophils % Lymphocytes % Monocytes % Eosinophils % Basophils % Ferritin 20.358 Vitamin B12 287 Serum Folate 18 H D 04/02/17 04/03/17 17:30 05:35 WBC 7.8 7.8 RBC 3.15 L D 3.11 L Hgb 8.6 L D 8.3 L Hct 26.4 L D 26.0 L MCV 83.8 83.5 MCH 27.5 26.8 MCHC 32.8 32.1 RDW 15.2 15.3 Plt Count 299 303 MPV 8.0 8.4 Neutrophils % 63.5 62.2 Lymphocytes % 26.5 28.5 Monocytes % 4.8 4.7 Eosinophils % 4.2 4.5 Basophils % 1.0 0.1 Ferritin Vitamin B12 Serum Folate HOSPITAL COURSE: Date of Admission:04/01/17 Date of Discharge: 04/03/17 Minutes to complete discharge: 30 Discharge Summary Reason For Visit: ANEMIA Current Active Problems Anemia (Acute) DVT prophylaxis (Acute) SOB (shortness of breath) (Acute) URI with cough and congestion (Acute) Hospital Course: This is a 76 y/o woman with a past medical history of COPD (O2 Dep), Diastolic CHF, Aortic Stenosis, HTN, GERD, OA who presented to the ED with SOB and BAUMAN x 2 days. Patient reported having cold symptoms x several days. Patient reported having recent sick contact, granddaughter. Patient denieed dizziness, CP, AP, N/ V/D, constipation, melena, hematuria, dysuria ER course was notable for: (1) Hgb 8.0, HCT 25.4 (2) Bun 34, Cr 1.4 (3) Chest Xray- an acute chest process is not seen Symptomatic anemia - Hgb- 8.0->7.4->7.1->8.6->8.3 - no evidence of active bleeding - transfused 1 unit PRBC with appropriate improvement in Hgb - has appointment for lower GI series on 04/04 at [facility] - Upper GI series (-) - Patient to continue outpatient lower GI workup CHF - Cardizem - Aldactone - Appears euvolemic - continue home regimine HTN - Cardizem - Aldactone - continue at home COPD - on home O2 - Spiriva - Daliresp - Symbicort - Albuterol prn - continue above at home Condition: Stable - Instructions Diet, Activity, Other Instructions: Hemoglobin level is now returned to baseline. Transfusion 1 unit of red blood cells while in the hospital to return to hemoglobin to his baseline. Keep appointment tomorrow for lower GI testing to help identify source of bleeding. Make appointment with Dr. Roberts to have test results reviewed. Eat a high iron diet. Return to the emergency department for any chest pain, shortness of breath, dizziness, bleeding or any other concerns. Thank you for choosing us to provide for your acute medical conditions. Referrals: Roberto Roberts MD [Primary Care Provider] - Disposition: HOME - Home Medications Comprehensive Discharge Medication List: Ambulatory Orders Lisinopril [Prinivil] 10 mg PO DAILY 04/09/14 Spironolactone 25 mg PO BID 04/09/14 Albuterol 0.083% Nebulizer Isabella [Ventolin 0.083% Nebulizer Soln -] 1 neb NEB Q4H PRN 09/16/15 Roflumilast [Daliresp -] 500 mcg PO DAILY #0 tablet 09/25/15 Aclidinium [place] [Tudorza Pressair] 400 mcg IH ASDIR 10/14/16 Alprazolam 0.25 mg PO PRN PRN MDD 1 mg 10/14/16 Zolpidem Tartrate [Ambien] 5 mg PO HS PRN 11/13/16 Diltiazem Cd [Cardizem Cd -] 120 mg PO DAILY 02/16/17 Pantoprazole Sodium [Protonix -] 40 mg PO DAILY 02/16/17 SYMBICORT 160/4.5mcg - 2 puff BID 04/01/17 Problem List - Problems (1) Anemia Code(s): D64.9 - ANEMIA, UNSPECIFIED Qualifiers: Anemia type: iron deficiency Iron deficiency anemia type: chronic blood loss Qualified Code(s): D50.0 - Iron deficiency anemia secondary to blood loss (chronic); D50.0 - Iron deficiency anemia secondary to blood loss (chronic) (2) SOB (shortness of breath) Code(s): R06.02 - SHORTNESS OF BREATH (3) COPD (chronic obstructive pulmonary disease) Code(s): J44.9 - CHRONIC OBSTRUCTIVE PULMONARY DISEASE, UNSPECIFIED (4) Diastolic CHF Code(s): I50.30 - UNSPECIFIED DIASTOLIC (CONGESTIVE) HEART FAILURE Qualifiers : (5) GERD (gastroesophageal reflux disease) Code(s): K21.9 - GASTRO-ESOPHAGEAL REFLUX DISEASE WITHOUT ESOPHAGITIS (6) HTN (hypertension) Code(s): I10 - ESSENTIAL (PRIMARY) HYPERTENSION Qualifiers: This patient is new to me today: No Emergency Visit: Yes ED Registration Date: 04/01/17 Care time: The patient presented to the Emergency Department on the above date and was hospitalized for further evaluation of their emergent condition. Critical Care patient: No - Discharge Referral Referred to [facility] No
[2017-04-03] MEDS ORDERED: PT OWN MED DRAWER 7, Y5N ONE (09:27)
[2017-04-03 09:35] VITALS: BP 117/53; PULSE 83; TEMP 98.7
[2017-04-03] MEDS: BUDESONIDE/FORMETEROL FUMARATE 160/4.5 mcg INHALER IH SCH (09:36)
[2017-04-03] MEDS: PANTOPRAZOLE 40 MG TABLET (FP) PO SCH (09:36)
[2017-04-03] MEDS: ROFLUMILAST 500 MCG TABLET PO SCH (09:36)
[2017-04-03] MEDS: SPIRONOLACTONE 25 MG TABLET (FP) PO SCH (09:36)
[2017-04-03] MEDS: TIOTROPIUM BROMIDE 18 MCG/INH (DEVICE W/ 5 CAPSULES) IH SCH (09:37)
[2017-04-03 10:41] LABS: ANION GAP 7 (8-16); CALCIUM 8.8 mg/dl (8.4-10.2); CO2 29 mmol/L (22-28); CREATININE 1.2 mg/dl (0.6-1.3); GLUCOSE,RANDOM 79 mg/dl (74-106)
--- NOTE | 2017-04-03 16:46 | EKG ---
Test Reason : Blood Pressure : / mmHG Vent. Rate : 111 BPM Atrial Rate : 111 BPM P-R Int : 154 ms QRS Dur : 074 ms QT Int : 302 ms P-R-T Axes : 050 046 034 degrees QTc Int : 410 ms SINUS TACHYCARDIA LOW VOLTAGE QRS BORDERLINE ECG WHEN COMPARED WITH ECG OF 16-FEB-2017 21:01, NO SIGNIFICANT CHANGE WAS FOUND Confirmed by TAMMY SOUSA MD ([id number]) on 04/03/2017 4:46:01 PM Referred By: HEATHER Confirmed By:TAMMY SOUSA MD
[2017-04-05 10:12] LABS: SERUM IRON 55 ug/dL (27-139); TOTAL IRON BINDING CAPACITY 298 ug/dL (250-450); UIBC 243 ug/dL (118-369)
== END 2017-04-03 10:10 | disposition home or self-care (01) ==
LOC: FER 18:45 → FM/S 21:53
PROVIDERS: ADMIT Internal Medicine; ATTEND Nurse Practitioner Family
PROC: 30233N1 Transfusion of Nonautologous Red Blood Cells into Peripheral Vein, Percutaneous Approach (ICD-10-PCS; principal; 2017-04-01)
PROC: 3E0F7GC Introduction of Other Therapeutic Substance into Respiratory Tract, Via Natural or Artificial Opening (ICD-10-PCS; 2017-04-01)
PROC: 3E0F7GC Introduction of Other Therapeutic Substance into Respiratory Tract, Via Natural or Artificial Opening (ICD-10-PCS; 2017-04-01)
PROC: 3E0F7GC Introduction of Other Therapeutic Substance into Respiratory Tract, Via Natural or Artificial Opening (ICD-10-PCS; 2017-04-01)
DX: D50.0 Iron deficiency anemia secondary to blood loss (chronic) (principal); J44.9 Chronic obstructive pulmonary disease, unspecified; I10 Essential (primary) hypertension; R06.02 Shortness of breath; K21.9 Gastro-esophageal reflux disease without esophagitis; I35.0 Nonrheumatic aortic (valve) stenosis; I50.30 Unspecified diastolic (congestive) heart failure; M19.90 Unspecified osteoarthritis, unspecified site; E78.5 Hyperlipidemia, unspecified; Z99.81 Dependence on supplemental oxygen; Z86.73 Personal history of transient ischemic attack (TIA), and cerebral infarction without residual deficits; Z88.8 Allergy status to other drugs, medicaments and biological substances
CPT/HCPCS: 36415; 36430; 36511; 71010-TC; 80048; 80053; 82272; 82550; 82607; 82728; 82746; 83540; 83550; 83735; 84100; 84484; 85025; 85027; 86850; 86900; 86901; 86922; 87804; 93005; 94640; 99284-25; G0378; P9038; P9058

== ENCOUNTER 2017-08-01 08:26 | Observation (INO) | payer OTHER, BC ==
[2017-08-01 08:31] VITALS: BMI 33.6
--- NOTE | 2017-08-01 08:37 | PDOC ---
History of Present Illness - General Chief Complaint: Revisit, Lab Variance Stated Complaint: BAUMAN,COUGH,LAB VARIANCE Time Seen by Provider: 08/01/17 08:36 - History of Present Illness Initial Comments: 08/01/17 08:39 Chief complaint respiratory distress History of present illness: 77 years old past medical history significant for COPD oxygen dependent, diastolic CHF, aortic stenosis, hypertension, GERD, osteoarthritis, presents to the emergency department complaining of weakness shortness of breath cough 1 week. Had outpatient blood work done patient and was demonstrated to be anemic. Patient has history of chronic low-grade GI bleed which she states she has been unable to obtain a colonoscopy or endoscopy for secondary to a large abdominal hernia. She has GI follow-up they've recommended a CT which she has not had done yet Denies any hematemesis or hematochezia. Denies melena. Symptoms are mild to moderate persistent constant no exacerbating or alleviating factors. No pain. 08/01/17 10:36 Past History - Past Medical History Allergies/Adverse Reactions: Allergies Allergy/AdvReac Type Severity Reaction Status Date / Time gabapentin Allergy Severe HALLUCINATI Verified 08/01/17 08:27 ONS Home Medications: Ambulatory Orders Lisinopril [Prinivil] 10 mg PO DAILY 04/09/14 Spironolactone 25 mg PO BID 04/09/14 Albuterol 0.083% Nebulizer Isabella [Ventolin 0.083% Nebulizer Soln -] 1 neb NEB Q4H PRN 09/16/15 Roflumilast [Daliresp -] 500 mcg PO DAILY #0 tablet 09/25/15 Aclidinium [place] [Tudorza Pressair] 400 mcg IH BID 10/14/16 Alprazolam 0.25 mg PO PRN PRN MDD 1 mg 10/14/16 Zolpidem Tartrate [Ambien] 5 mg PO HS PRN 11/13/16 Diltiazem Cd [Cardizem Cd -] 120 mg PO DAILY 02/16/17 Pantoprazole Sodium [Protonix -] 40 mg PO DAILY 02/16/17 SYMBICORT 160/4.5mcg - 2 puff BID 04/01/17 Benzonatate [Tessalon Pearls -] 200 mg PO TID 08/01/17 Montelukast Sodium [Singulair] 10 mg PO DAILY 08/01/17 Anemia: Yes (GI BLD) Asthma: Yes Cancer: No Cardiac Disorders: No CVA: Yes COPD: Yes (COPD, O2 DEPENDENT) CHF: No DVT: No Dementia: No Diabetes: No GI Disorders: Yes (VENTRAL HERNIA/GI BLD) Disorders: No HTN: Yes Hypercholesterolemia: Yes Liver Disease: No Seizures: No Thyroid Disease: No - Surgical History Abdominal Surgery: Yes (STOMACH STAPLING 1984) Appendectomy: Yes (1952) Cardiac Surgery: No Cholecystectomy: No Lung Surgery: No Neurologic Surgery: No Orthopedic Surgery: Yes (BILATERAL KNEE REPLACEMENTS) - Suicide/Smoking/Psychosocial Hx Smoking Status: Yes Smoking History: Former smoker Have you smoked in the past 12 months: No Number of Cigarettes Smoked Daily: 0 If you are a former smoker, when did you quit?: years ago Information on smoking cessation initiated: No Hx Alcohol Use: No Drug/Substance Use Hx: No Substance Use Type: Alcohol Hx Substance Use Treatment: No Review of Systems - Review of Systems Comments:: 08/01/17 10:36 ROS: A complete review of 10 out of 10 review of systems is taken and is negative apart from what is previously mentioned below and in the HPI. *Physical Exam - Vital Signs Last Vital Signs Temp Pulse Resp BP Pulse Ox 98.2 F 114 H 20 124/59 92 L 08/01/17 08:27 08/01/17 08:27 08/01/17 08:27 08/01/17 08:27 08/01/17 08:27 - Physical Exam Comments: 08/01/17 10:36 Vitals: Triage Vital signs reviewed General Appearance: no acute distress, well nourished well developed, Head: Atraumatic, Eyes: Pupils equal reactive round, extraocular movement intact Throat: Posterior oropharynx without erythema, mucous membranes moist, Neck: Supple;No Nucal rigidity Chest Wall: Nontender Cardiac: Regular rate and rhythym, no murmurs, no rubs, no gallops, Lungs: Clear to auscultation bilateral, good air movement bilaterally, Abdomen: Soft, non distended, normal bowel sounds, non tender to palpation Rectal: Brown stool guaiac negative Extremities: Full range of motion to all extremities, no cyanosis, clubbing, or edema Skin: Warm and dry, no rashes or lesions, no rash, no petechiae Psych: normal mood, normal affect ED Treatment Course - LABORATORY CBC & Chemistry Diagram: 08/01/17 09:04 08/01/17 09:04 Medical Decision Making - Medical Decision Making 08/01/17 10:37 77 years old past medical history significant for COPD oxygen dependent, diastolic CHF, aortic stenosis, hypertension, GERD, osteoarthritisresents to the ED f Presents to the emergency department for low hemoglobin and hematocrit on outpatient labs. Patient complaining of weakness mild shortness of breath. Differential diagnosis includes symptomatic anemia, COPD exacerbation, pneumonia , influenza We'll check labs chest x-ray and reassess Reevaluation: Hemoglobin 7 patient's baseline is mid eighths given symptomatic weakness and shortness of breath we'll transfuse one unit observe overnight arrange for GI follow-up *DC/Admit/Observation/Transfer Diagnosis at time of Disposition: Anemia Qualifiers: Anemia type: unspecified type Qualified Code(s): D64.9 - Anemia, unspecified - Discharge Dispostion Condition at time of disposition: Fair Admit: Yes - Referrals Referrals: Roberto Roberts MD [Primary Care Provider] - - Patient Instructions - Post Discharge Activity
[2017-08-01 09:42] LABS: ACTIVATED PTT 31.7 SECONDS (24.0-38.9)
[2017-08-01 09:43] LABS: ALBUMIN 2.7 g/dl (3.5-5.0); ALK PHOS 76 U/L (32-92); ANION GAP 9 (8-16); BILIRUBIN,TOTAL 0.4 mg/dl (0.2-1.0); BLOOD UREA NITROGEN 23 mg/dl (7-18); CALCIUM 8.6 mg/dl (8.4-10.2); CHLORIDE 98 mmol/L (98-107); CO2 30 mmol/L (22-28); CREATININE 1.2 mg/dl (0.6-1.3); GLUCOSE,RANDOM 127 mg/dl (74-106); POTASSIUM 4.7 mmol/L (3.5-5.1); SGOT/AST 15 U/L (10-42); SGPT/ALT 10 U/L (10-40); SODIUM 137 mmol/L (136-145); TOT PROT 6.3 g/dl (6.4-8.3)
[2017-08-01 09:45] LABS: BASO % 0.3 % (0-2.0); EOS % 3.4 % (0-4.5); HEMATOCRIT 22.7 % (32.4-45.2); LYMPH % 11.7 % (8-40); MCH 24.4 pg (25.7-33.7); MCHC 30.9 g/dl (32.0-36.0); MEAN CELL VOLUME 78.9 fl (80-96); MEAN PLT VOLUME 6.9 fl (7.5-11.1); MONO % 3.5 % (3.8-10.2); NEUT % 81.1 % (42.8-82.8); PLATELET COUNT 466 K/MM3 (134-434); RBC 2.87 M/mm3 (3.60-5.2); RDW 14.7 % (11.6-15.6); WHITE BLOOD COUNT 10.7 K/mm3 (4.0-10.8)
[2017-08-01 09:46] LABS: INR 1.24 (0.82-1.09); PROTHROMBIN TIME (PATIENT) 13.8 SEC (10.2-13.0)
[2017-08-01 10:08] LABS: PH,URINE 5.5 (4.5-8); URINE APPEARANCE Clear; URINE BILIRUBIN Negative (NEGATIVE); URINE BLOOD Negative (NEGATIVE); URINE GLUCOSE (UA) Negative (NEGATIVE); URINE KETONE Negative (NEGATIVE); URINE LEUK ESTERASE Negative (NEGATIVE); URINE NITRITE Negative (NEGATIVE)
[2017-08-01 10:10] LABS: URINE COLOR YELLOW; URINE PROTEIN 1+ (NEGATIVE)
[2017-08-01 11:25] LABS: URINE RBC NONE SEEN /hpf (0-3)
--- NOTE | 2017-08-01 12:03 | HP ---
CHIEF COMPLAINT: dyspnea upon exertion PCP: Dr Roberts Pulmonary: Dr Sauer GI: Dr Kessler HISTORY OF PRESENT ILLNESS: Patient is a 77 y/o male with a past medical history significant for COPD (O2 dependent), diastolic CHF, aortic stenosis, hypertension, GERD, and osteoarthritis. patient reports one week of dyspnea upon exertion. She was evaluated by her PCP, Dr Roberts and cbc was completed which resulted as low and she was referred to the emergency department for further evaluation. Patient does report a history of a chronic lower GI bleed and has been evaluated by Dr kessler, GI in the past and is unable to undergo a complete colonscopy secondary to a large abdominal hernia. ER course was notable for: (1)hgb 7.0 (2)chest xray no acute pathology (3) Recent Travel: none PAST MEDICAL HISTORY: see hpi PAST SURGICAL HISTORY: bilateral knee replacements, stomach stapling Social History: resides at home Smoking: Alcohol: Drugs: Family History: Allergies gabapentin Allergy (Severe, Verified 08/01/17 08:27) HALLUCINATIONS HOME MEDICATIONS: Home Medications Medication Instructions Recorded Lisinopril [Prinivil] 10 mg PO DAILY 04/09/14 Spironolactone 25 mg PO BID 04/09/14 Albuterol 0.083% Nebulizer Isabella 1 neb NEB Q4H PRN 09/16/15 [Ventolin 0.083% Nebulizer Soln -] Roflumilast [Daliresp -] 500 mcg PO DAILY #0 tablet 09/25/15 Aclidinium [place] [Tudorza 400 mcg IH BID 10/14/16 Pressair] Alprazolam 0.25 mg PO PRN PRN MDD 1 mg 10/14/16 Zolpidem Tartrate [Ambien] 5 mg PO HS PRN 11/13/16 Diltiazem Cd [Cardizem Cd -] 120 mg PO DAILY 02/16/17 Pantoprazole Sodium [Protonix -] 40 mg PO DAILY 02/16/17 SYMBICORT 160/4.5mcg - 2 puff BID 04/01/17 Benzonatate [Tessalon Pearls -] 200 mg PO TID 08/01/17 Montelukast Sodium [Singulair] 10 mg PO DAILY 08/01/17 REVIEW OF SYSTEMS CONSTITUTIONAL: present: generalized weakness, malaise Absent: fever, chills, diaphoresis,, loss of appetite, weight change HEENT: Absent: rhinorrhea, nasal congestion, throat pain, throat swelling, difficulty swallowing, mouth swelling, ear pain, eye pain, visual changes CARDIOVASCULAR: Absent: chest pain, syncope, palpitations, irregular heart rate, lightheadedness , peripheral edema RESPIRATORY: Absent: cough, shortness of breath, dyspnea with exertion, orthopnea, wheezing, stridor, hemoptysis GASTROINTESTINAL: Absent: abdominal pain, abdominal distension, nausea, vomiting, diarrhea, constipation, melena, hematochezia GENITOURINARY: Absent: dysuria, frequency, urgency, hesitancy, hematuria, flank pain, genital pain MUSCULOSKELETAL: Absent: myalgia, arthralgia, joint swelling, back pain, neck pain SKIN: Absent: rash, itching, pallor HEMATOLOGIC/IMMUNOLOGIC: Absent: easy bleeding, easy bruising, lymphadenopathy, frequent infections ENDOCRINE: Absent: unexplained weight gain, unexplained weight loss, heat intolerance, cold intolerance NEUROLOGIC: Absent: headache, focal weakness or paresthesias, dizziness, unsteady gait, seizure, mental status changes, bladder or bowel incontinence PSYCHIATRIC: Absent: anxiety, depression, suicidal or homicidal ideation, hallucinations. PHYSICAL EXAMINATION Vital Signs - 24 hr 08/01/17 08/01/17 08:27 11:52 Temperature 98.2 F 98 F Pulse Rate 114 H 96 H Respiratory 20 20 Rate Blood Pressure 124/59 126/55 O2 Sat by Pulse 92 L Oximetry (%) GENERAL: Awake, alert, and fully oriented, in no acute distress. HEAD: Normal with no signs of trauma. EYES: Pupils equal, round and reactive to light, extraocular movements intact, sclera anicteric, conjunctiva clear. No lid lag. EARS, NOSE, THROAT: Ears normal, nares patent, oropharynx clear without exudates. Moist mucous membranes. NECK: Normal range of motion, supple without lymphadenopathy, JVD, or masses. LUNGS: Breath sounds equal, course rhonchi to apexes, diminished to bases, No wheezes, and no crackles. No accessory muscle use. HEART: Regular rate and rhythm, normal S1 and S2, 2/ 6 systolic murmur, no rub or gallop. ABDOMEN: Soft, nontender, not distended, normoactive bowel sounds, no guarding, no rebound, no masses. No hepatomegaly or splenomegaly. MUSCULOSKELETAL: Normal range of motion at all joints. No bony deformities or tenderness. No CVA tenderness. UPPER EXTREMITIES: 2+ pulses, warm, well-perfused. No cyanosis. No clubbing. No peripheral edema. LOWER EXTREMITIES: 2+ pulses, warm, well-perfused. No calf tenderness. No peripheral edema. NEUROLOGICAL: Cranial nerves II-XII intact. Normal speech. Normal gait. PSYCHIATRIC: Cooperative. Good eye contact. Appropriate mood and affect. SKIN: Warm, dry, normal turgor, no rashes or lesions noted, normal capillary refill. Laboratory Results - last 24 hr 08/01/17 08/01/17 08/01/17 09:04 09:04 09:04 WBC 10.7 D RBC 2.87 L Hgb 7.0 L D Hct 22.7 L MCV 78.9 L MCH 24.4 L MCHC 30.9 L RDW 14.7 Plt Count 466 H MPV 6.9 L Neutrophils % 81.1 Lymphocytes % 11.7 Monocytes % 3.5 L Eosinophils % 3.4 Basophils % 0.3 PT with INR 13.8 H INR 1.24 H PTT (Actin FS) 31.7 Sodium 137 Potassium 4.7 Chloride 98 Carbon Dioxide 30 H Anion Gap 9 BUN 23 H Creatinine 1.2 Creat Clearance w eGFR 43.68 Random Glucose 127 H D Lactic Acid Calcium 8.6 Total Bilirubin 0.4 D AST 15 ALT 10 Alkaline Phosphatase 76 Troponin I Total Protein 6.3 L Albumin 2.7 L D Urine Color Urine Appearance Urine pH Ur Specific [place] Urine Protein Urine Glucose (UA) Urine Ketones Urine Blood Urine Nitrite Urine Bilirubin Urine Urobilinogen Ur Leukocyte Esterase Urine RBC Urine WBC Ur Epithelial Cells Stool Occult Blood Blood Type Antibody Screen Crossmatch 08/01/17 08/01/17 08/01/17 09:04 09:04 09:04 WBC RBC Hgb Hct MCV MCH MCHC RDW Plt Count MPV Neutrophils % Lymphocytes % Monocytes % Eosinophils % Basophils % PT with INR INR PTT (Actin FS) Sodium Potassium Chloride Carbon Dioxide Anion Gap BUN Creatinine Creat Clearance w eGFR Random Glucose Lactic Acid 1.7 Calcium Total Bilirubin AST ALT Alkaline Phosphatase Troponin I < 0.03 Total Protein Albumin Urine Color Urine Appearance Urine pH Ur Specific [place] Urine Protein Urine Glucose (UA) Urine Ketones Urine Blood Urine Nitrite Urine Bilirubin Urine Urobilinogen Ur Leukocyte Esterase Urine RBC Urine WBC Ur Epithelial Cells Stool Occult Blood Trace Blood Type Antibody Screen Crossmatch 08/01/17 08/01/17 09:15 09:23 WBC RBC Hgb Hct MCV MCH MCHC RDW Plt Count MPV Neutrophils % Lymphocytes % Monocytes % Eosinophils % Basophils % PT with INR INR PTT (Actin FS) Sodium Potassium Chloride Carbon Dioxide Anion Gap BUN Creatinine Creat Clearance w eGFR Random Glucose Lactic Acid Calcium Total Bilirubin AST ALT Alkaline Phosphatase Troponin I Total Protein Albumin Urine Color Yellow Urine Appearance Clear Urine pH 5.5 Ur Specific [place] 1.015 Urine Protein 1+ H Urine Glucose (UA) Negative Urine Ketones Negative Urine Blood Negative Urine Nitrite Negative Urine Bilirubin Negative Urine Urobilinogen 1.0 Ur Leukocyte Esterase Negative Urine RBC None seen Urine WBC 3-5 Ur Epithelial Cells 5-10 Stool Occult Blood Blood Type A POSITIVE Antibody Screen Negative Crossmatch See Detail ASSESSMENT/PLAN: F/E/N - low sodium/cholesterol diet - replete lytes prn ppx - oob - hold chemical ac due to anemia, mechanical ac only - protonix dispo: requires inpatient observation. Problem List - Problem (1) Anemia Assessment/Plan: - microcytic anemia, hgb 7 baseline 12, + stool guiac, anemia secondary to lower GI bleed, one unit of prbc ordered, repeat hgb at 1800 - appreciate GI input, Dr Kessler, patient's private GI Code(s): D64.9 - ANEMIA, UNSPECIFIED Qualifiers: Anemia type: other cause Other causes of anemia: other cause, not classified Qualified Code(s): D64.89 - Other specified anemias (2) Aortic stenosis Assessment/Plan: - echo, 11/03 reviewed, moderate aortic stenosis, lv normal in size - strict I/O and daily weights Code(s): I35.0 - NONRHEUMATIC AORTIC (VALVE) STENOSIS Qualifiers: Cardiac valve disease etiology: nonrheumatic Qualified Code(s): I35.0 - Nonrheumatic aortic (valve) stenosis (3) COPD (chronic obstructive pulmonary disease) Assessment/Plan: - continue daliresp, tudorza and prn albuterol - keep spo2 above 92% with supplemental O2 Code(s): J44.9 - CHRONIC OBSTRUCTIVE PULMONARY DISEASE, UNSPECIFIED (4) Diastolic CHF Assessment/Plan: - continue spironalactone, pt appears euvolemic on exam - monitor i/o and daily weights Code(s): I50.30 - UNSPECIFIED DIASTOLIC (CONGESTIVE) HEART FAILURE Qualifiers: (5) GERD (gastroesophageal reflux disease) Assessment/Plan: -continue protonix Code(s): K21.9 - GASTRO-ESOPHAGEAL REFLUX DISEASE WITHOUT ESOPHAGITIS (6) HTN (hypertension) Assessment/Plan: - b/p at goal, continue cardizem - strict b/p monitoring q4h Code(s): I10 - ESSENTIAL (PRIMARY) HYPERTENSION Qualifiers: Visit type - Emergency Visit Emergency Visit: Yes ED Registration Date: 08/01/17 Care time: The patient presented to the Emergency Department on the above date and was hospitalized for further evaluation of their emergent condition. - New Patient This patient is new to me today: Yes Date on this admission: 08/01/17 - Critical Care Critical Care patient: No
[2017-08-01] MEDS ORDERED: ALPRAZolam 0.25 MG TABLET PO PRN ×2 (12:08→14:47)
[2017-08-01] MEDS ORDERED: ZOLPIDEM TARTRATE 5 MG TABLET PO PRN (12:08)
[2017-08-01] MEDS ORDERED: ALBUTEROL SO4 0.083% IH SOL 2.5 MG/3 ML VIAL.NEB. NEB PRN (12:08)
[2017-08-01] MEDS ORDERED: FUROSEMIDE 40 MG/4 ML INJECTABLE VIAL IVPUSH ONE ×2 (13:45→17:00)
[2017-08-01] MEDS ORDERED: BENZONATATE 200 MG PO SCH (14:00)
[2017-08-01 18:19] LABS: BASO % 0.2 % (0-2.0); EOS % 3.3 % (0-4.5); HEMATOCRIT 25.7 % (32.4-45.2); HEMOGLOBIN 8.1 GM/dl (10.7-15.3); LYMPH % 15.6 % (8-40); MCH 24.7 pg (25.7-33.7); MCHC 31.5 g/dl (32.0-36.0); MEAN CELL VOLUME 78.4 fl (80-96); MEAN PLT VOLUME 6.7 fl (7.5-11.1); MONO % 3.7 % (3.8-10.2); NEUT % 77.2 % (42.8-82.8); PLATELET COUNT 486 K/MM3 (134-434); RBC 3.28 M/mm3 (3.60-5.2); RDW 14.4 % (11.6-15.6); WHITE BLOOD COUNT 11.1 K/mm3 (4.0-10.8)
[2017-08-01] MEDS ORDERED: PT OWN MED DRAWER 7, Y5N ONE (21:01)
[2017-08-01] MEDS ORDERED: SYMBICORT IN SCH (22:00)
[2017-08-01] MEDS ORDERED: PATIENT'S OWN MEDICATION (NON-FORMULARY) (Aclidinium Bromide [Tudorza Pressair] 400 MCG) IH SCH (22:00)
[2017-08-01] MEDS: SPIRONOLACTONE 25 MG TABLET (FP) PO SCH (22:26)
[2017-08-01] MEDS: BUDESONIDE/FORMETEROL FUMARATE 160/4.5 mcg INHALER IH SCH (22:26)
[2017-08-02 08:07] LABS: BASO % 0.4 % (0-2.0); EOS % 4.5 % (0-4.5); HEMATOCRIT 24.1 % (32.4-45.2); HEMOGLOBIN 7.5 GM/dl (10.7-15.3); LYMPH % 18.5 % (8-40); MCH 24.5 pg (25.7-33.7); MCHC 31.2 g/dl (32.0-36.0); MEAN CELL VOLUME 78.6 fl (80-96); MEAN PLT VOLUME 6.7 fl (7.5-11.1); MONO % 5.3 % (3.8-10.2); NEUT % 71.3 % (42.8-82.8); PLATELET COUNT 491 K/MM3 (134-434); RBC 3.07 M/mm3 (3.60-5.2); RDW 14.1 % (11.6-15.6); WHITE BLOOD COUNT 9.9 K/mm3 (4.0-10.8)
[2017-08-02 08:09] LABS: SERUM IRON SATURATION 8 % (15-55); TOTAL IRON BINDING CAPACITY 265 ug/dL (250-450); UIBC 244 ug/dL (118-369)
[2017-08-02 08:54] LABS: ALBUMIN 2.5 g/dl (3.5-5.0); ANION GAP 4 (8-16); BILIRUBIN,TOTAL 0.6 mg/dl (0.2-1.0); BLOOD UREA NITROGEN 33 mg/dl (7-18); CALCIUM 8.3 mg/dl (8.4-10.2); CHLORIDE 100 mmol/L (98-107); CO2 33 mmol/L (22-28); CREATININE 1.4 mg/dl (0.6-1.3); MAGNESIUM 2.1 mg/dL (1.8-2.4); POTASSIUM 5.1 mmol/L (3.5-5.1); SGOT/AST 14 U/L (10-42); SODIUM 137 mmol/L (136-145); TOT PROT 5.8 g/dl (6.4-8.3)
[2017-08-02 08:55] LABS: ALK PHOS 68 U/L (32-92); GLUCOSE,RANDOM 107 mg/dl (74-106); PHOSPHOROUS 4.9 mg/dl (2.5-4.6); SGPT/ALT 9 U/L (10-40)
[2017-08-02] MEDS ORDERED: ACETAMINOPHEN 325 MG TABLET (FP) PO PRN (09:35)
[2017-08-02] MEDS: SPIRONOLACTONE 25 MG TABLET (FP) PO SCH ×2 (09:59→21:44)
[2017-08-02] MEDS: PANTOPRAZOLE 40 MG TABLET (FP) PO SCH (09:59)
[2017-08-02] MEDS: BUDESONIDE/FORMETEROL FUMARATE 160/4.5 mcg INHALER IH SCH ×2 (10:00→21:43)
[2017-08-02] MEDS: TIOTROPIUM BROMIDE 18 MCG/INH (DEVICE W/ 5 CAPSULES) IH SCH (10:00)
[2017-08-02] MEDS: LISINOPRIL 10 MG TABLET (FP) PO SCH (10:00)
[2017-08-02] MEDS: ROFLUMILAST 500 MCG TABLET PO SCH (10:00)
--- NOTE | 2017-08-02 10:52 | PN ---
Progress Note (short form) - Note Progress Note: PULMONARY CONSULTATION DICTATED 08/02/17 IMP DYSPNEA ADVANCED COPD O2 DEPENDENT ANEMIA GI BLEED DIASTOLIC HF PLAN CONTINUE INHALED BRONCHODILATORS O2 MONITOR H+H TRANSFUSE GI WORKUP DR MALLOY Problem List - Problems (1) Anemia Code(s): D64.9 - ANEMIA, UNSPECIFIED (2) Heme positive stool Code(s): R19.5 - OTHER FECAL ABNORMALITIES (3) SOB (shortness of breath) Code(s): R06.02 - SHORTNESS OF BREATH (4) Aortic stenosis Code(s): I35.0 - NONRHEUMATIC AORTIC (VALVE) STENOSIS Qualifiers: Cardiac valve disease etiology: nonrheumatic Qualified Code(s): I35.0 - Nonrheumatic aortic (valve) stenosis (5) COPD (chronic obstructive pulmonary disease) Code(s): J44.9 - CHRONIC OBSTRUCTIVE PULMONARY DISEASE, UNSPECIFIED (6) Diastolic CHF Code(s): I50.30 - UNSPECIFIED DIASTOLIC (CONGESTIVE) HEART FAILURE Qualifiers: (7) GERD (gastroesophageal reflux disease) Code(s): K21.9 - GASTRO-ESOPHAGEAL REFLUX DISEASE WITHOUT ESOPHAGITIS (8) HTN (hypertension) Code(s): I10 - ESSENTIAL (PRIMARY) HYPERTENSION Qualifiers:
--- NOTE | 2017-08-02 11:35 | CONS ---
PULMONARY CONSULTATION DATE OF CONSULTATION: 08/02/2017 REFERRING PHYSICIAN: Oumou Simon NP HISTORY OF PRESENT ILLNESS: The patient is a 77-year-old white female known to me in previous hospitalization as well as office followup with past medical history of advanced COPD, O2 dependent; diastolic heart failure; aortic stenosis; hypertension; GERD; osteoarthritis status post bilateral knee replacements; history of tobacco, quit 25 years ago; admitted to [facility] with complaint of 1-week history of increasing shortness of breath and dyspnea on exertion. Patient denied any complaint of chest pain, nausea, or vomiting. Of note is she states approximately 2-3 weeks ago she had URI symptoms with cough and sputum production. She was placed on steroids with some clinical improvement. Over the past few days, she started noticing increasing shortness of breath and dyspnea on exertion. She presented to the emergency room with the above. In the ER, she was noted to be anemic with a hemoglobin of 7 g. Guaiac was positive in the emergency room. The patient was transferred out to the medical unit for further management. She was started on inhaled bronchodilators as well as transfused 2 units of packed red blood cells. Denies any chest pain. She denies hemoptysis, denies any fevers, weight loss, or night sweats. There is no history of occupational exposure to chemicals or fumes. There is no history of recent travel. PAST MEDICAL HISTORY: Again includes advanced COPD, chronic O2 dependent; diastolic heart failure; aortic stenosis; hypertension; GERD; osteoarthritis status post bilateral knee replacements. REVIEW OF SYSTEMS: Positive orthopnea. Positive dyspnea. Positive cough, white sputum. No chest pain. No palpitations. No fever. No chills. No abdominal pain. No lower extremity edema. CURRENT MEDICATIONS: Include Symbicort 160/4.5, benzonatate, Tylenol, Prinivil, Spiriva, Ambien, Xanax, albuterol solution, diltiazem, Singulair, Aldactone, Protonix, and Daliresp. PHYSICAL EXAMINATION: General: The patient is a well-developed, well-nourished female, awake, alert, in no acute distress. Vital Signs: She is currently afebrile. Blood pressure is 147/89, respiratory rate is 18, O2 saturation is 97% on 2 L. HEENT: Exam is normocephalic, atraumatic. Neck: Supple. Heart: Regular with S1, S2. Chest: Diminished breath sounds bilaterally. Abdomen: Soft. Bowel sounds are positive. Extremities: No signs of edema. LABORATORY DATA: WBC is 9.9, hemoglobin 7.5, hematocrit 24.1, with a platelet count of 491,000. There are 71 polys, 18 lymphs, and 5 monocytes. Initial on admission: WBC 10.7, hemoglobin 7, hematocrit 22.7. INR is 1.24. BUN 33, creatinine 1.4. Chest x-ray reveals no infiltrates, no effusions. IMPRESSION: 1. Dyspnea, multiple factors. A. Advanced chronic obstructive pulmonary disease, O2 dependent, and recent exacerbation. 2. Gastrointestinal bleed. 3. Diastolic heart failure. 4. Aortic stenosis. 5. History of osteoarthritis. PLAN: Inhaled bronchodilators, supplemental O2, GI workup, transfuse, monitor hemoglobin and hematocrit. IMELDA MALLOY M.D. [id number]
[2017-08-02] MEDS: methylPREDNISolone NA SUCC 40 MG/1 ML VIAL IVPUSH SCH ×2 (12:17→18:24)
--- NOTE | 2017-08-02 13:55 | PN ---
Physical Exam: SUBJECTIVE: Patient seen and examined, ambulatory at bedside with a rolling walker, reports still feeling short of breath upon exertion, denies any chest pain. OBJECTIVE:Patient is a 77 y/o male with a past medical history significant for COPD (O2 dependent), diastolic CHF, aortic stenosis, hypertension, GERD, and osteoarthritis, patient was admitted from the emergency department to observation for symptomatic anemia secondary to lower GI bleed Vital Signs Period Temp Pulse Resp BP Sys/Vaughn Pulse Ox Last 24 Hr 98.6 F-98.9 F 80-92 18-20 99-147/45-89 92-97 GENERAL: The patient is awake, alert, and fully oriented, in no acute distress. HEAD: Normal with no signs of trauma. EYES: PERRL, extraocular movements intact, sclera anicteric, pale conjunctiva. No ptosis. ENT: Ears normal, nares patent, oropharynx clear without exudates, moist mucous membranes. NECK: Trachea midline, full range of motion, supple. LUNGS: Breath sounds equal, clear to auscultation bilaterally, no wheezes, no crackles, no accessory muscle use. HEART: Regular rate and rhythm, S1, S2 without murmur, rub or gallop. ABDOMEN: Soft, nontender, nondistended, normoactive bowel sounds, no guarding, no rebound, no hepatosplenomegaly, no masses. EXTREMITIES: 2+ pulses, warm, well-perfused, no edema. NEUROLOGICAL: Cranial nerves II through XII grossly intact. Normal speech, gait not observed. PSYCH: Normal mood, normal affect. SKIN: Warm, dry, normal turgor, no rashes or lesions noted Laboratory Results - last 24 hr 08/01/17 08/01/17 08/01/17 09:23 18:00 Unknown WBC 11.1 H RBC 3.28 L Hgb 8.1 L D Hct 25.7 L MCV 78.4 L MCH 24.7 L MCHC 31.5 L RDW 14.4 Plt Count 486 H MPV 6.7 L Neutrophils % 77.2 Lymphocytes % 15.6 Monocytes % 3.7 L Eosinophils % 3.3 Basophils % 0.2 Retic Count 1.70 H Sodium Potassium Chloride Carbon Dioxide Anion Gap BUN Creatinine Creat Clearance w eGFR Random Glucose Calcium Phosphorus Magnesium Iron TIBC Iron Saturation Ferritin Total Bilirubin AST ALT Alkaline Phosphatase Total Protein Albumin Blood Type A POSITIVE Antibody Screen Negative Crossmatch See Detail 08/01/17 08/01/17 08/02/17 Unknown Unknown 07:45 WBC 9.9 RBC 3.07 L Hgb 7.5 L Hct 24.1 L MCV 78.6 L MCH 24.5 L MCHC 31.2 L RDW 14.1 Plt Count 491 H MPV 6.7 L Neutrophils % 71.3 Lymphocytes % 18.5 Monocytes % 5.3 Eosinophils % 4.5 Basophils % 0.4 Retic Count Sodium Potassium Chloride Carbon Dioxide Anion Gap BUN Creatinine Creat Clearance w eGFR Random Glucose Calcium Phosphorus Magnesium Iron 21 L TIBC 265 Iron Saturation 8 L Ferritin 59.731 Total Bilirubin AST ALT Alkaline Phosphatase Total Protein Albumin Blood Type Antibody Screen Crossmatch 08/02/17 07:45 WBC RBC Hgb Hct MCV MCH MCHC RDW Plt Count MPV Neutrophils % Lymphocytes % Monocytes % Eosinophils % Basophils % Retic Count Sodium 137 Potassium 5.1 Chloride 100 Carbon Dioxide 33 H Anion Gap 4 L BUN 33 H D Creatinine 1.4 H Creat Clearance w eGFR 36.56 Random Glucose 107 H Calcium 8.3 L Phosphorus 4.9 H Magnesium 2.1 Iron TIBC Iron Saturation Ferritin Total Bilirubin 0.6 D AST 14 ALT 9 L Alkaline Phosphatase 68 Total Protein 5.8 L Albumin 2.5 L Blood Type Antibody Screen Crossmatch Active Medications Generic Name Dose Route Start Last Admin Trade Name Freq PRN Reason Stop Dose Admin Acetaminophen 650 mg 08/02/17 09:35 08/02/17 09:58 Tylenol - PO 650 mg Q4H PRN Administration PAIN LEVEL 1-5 Albuterol Sulfate 1 amp 08/01/17 12:08 08/01/17 16:24 Ventolin 0.083% Nebulizer Soln - NEB 1 amp Q4H PRN Administration SHORT OF BREATH/WHEEZING Alprazolam 0.25 mg 08/01/17 14:47 08/02/17 09:59 Xanax - PO 0.25 mg BID PRN Administration ANXIETY Budesonide/Formoterol Fumarate 2 puff 08/01/17 22:00 08/02/17 10:00 Symbicort 160/4.5mcg - IH 2 inh BID FLORA Administration Diltiazem HCl 120 mg 08/02/17 10:00 08/02/17 09:59 Cardizem Cd - PO 120 mg DAILY FLORA Administration Lisinopril 10 mg 08/02/17 10:00 08/02/17 10:00 Prinivil PO 10 mg DAILY FLORA Administration Methylprednisolone Sodium Succinate 40 mg 08/02/17 12:00 08/02/17 12:17 Solu-Medrol - IVPUSH 40 mg Q8H-IV FLORA Administration Montelukast Sodium 10 mg 08/02/17 22:00 Singulair - PO HS FLORA Non-Formulary Medication 200 mg 08/01/17 14:00 Benzonatate PO TID FLORA Pantoprazole Sodium 40 mg 08/02/17 10:00 08/02/17 09:59 Protonix - PO 40 mg DAILY FLORA Administration Roflumilast 500 mcg 08/02/17 10:00 08/02/17 10:00 Daliresp - PO 500 mcg DAILY FLORA Administration Spironolactone 25 mg 08/01/17 22:00 08/02/17 09:59 Aldactone - PO 25 mg BID FLORA Administration Tiotropium [place] 1 puff 08/02/17 10:00 08/02/17 10:00 Spiriva - IH 1 inh DAILY FLORA Administration Zolpidem Tartrate 5 mg 08/01/17 12:08 Ambien - PO HS PRN INSOMNIA ASSESSMENT/PLAN: 1) heme microcytic anemia - repeat hgb 7.5 after 1st unit of prbc, 2nd unit of prbc ordered, lasix to be given after 2nd unit - +stool guiac, pending eval by Dr Kessler, GI today - repeat cbc at 1800 2) GI lower gi bleed - appreciate gi input-->Dr Kessler, discussed with Dr Kessler today, start clears and golyetlely in prepration for colonscopy tommorow gerd - continue protonix 3) cardiovascular aortic stenosis - echo, 11/03 reviewed, moderate aortic stenosis, lv normal in size - strict I/O and daily weights diastolic chf - continue spironalactone, pt appears euvolemic on exam - monitor i/o and daily weights hypertension - b/p at goal, continue cardizem - strict b/p monitoring q4h 4) pulm copd - pt does report BAUMAN, maybe secondary to acute copd excerbation, discussed with Dr Sauer, start solumedrol with taper as appropriate - keep spo2 above 92% with supplemental O2 F/E/N - clear liquids then npo after 12am - replete lytes prn ppx - oob - hold chemical ac due to anemia, mechanical ac only - protonix dispo: requires inpatient observation. Problem List - Problems (1) Anemia Code(s): D64.9 - ANEMIA, UNSPECIFIED Qualifiers: Anemia type: other cause Other causes of anemia: other cause, not classified Qualified Code(s): D64.89 - Other specified anemias (2) Aortic stenosis Code(s): I35.0 - NONRHEUMATIC AORTIC (VALVE) STENOSIS Qualifiers: Cardiac valve disease etiology: nonrheumatic Qualified Code(s): I35.0 - Nonrheumatic aortic (valve) stenosis (3) COPD (chronic obstructive pulmonary disease) Code(s): J44.9 - CHRONIC OBSTRUCTIVE PULMONARY DISEASE, UNSPECIFIED (4) Diastolic CHF Code(s): I50.30 - UNSPECIFIED DIASTOLIC (CONGESTIVE) HEART FAILURE Qualifiers: (5) GERD (gastroesophageal reflux disease) Code(s): K21.9 - GASTRO-ESOPHAGEAL REFLUX DISEASE WITHOUT ESOPHAGITIS (6) HTN (hypertension) Code(s): I10 - ESSENTIAL (PRIMARY) HYPERTENSION Qualifiers: Visit type - Emergency Visit Emergency Visit: Yes ED Registration Date: 08/01/17 Care time: The patient presented to the Emergency Department on the above date and was hospitalized for further evaluation of their emergent condition. - New Patient This patient is new to me today: No - Critical Care Critical Care patient: No - Discharge Referral Referred to [facility] Med P.C.: No
[2017-08-02] MEDS ORDERED: FUROSEMIDE 40 MG/4 ML INJECTABLE VIAL IVPUSH SCH (13:56)
--- NOTE | 2017-08-02 14:03 | EKG ---
Test Reason : Blood Pressure : / mmHG Vent. Rate : 101 BPM Atrial Rate : 101 BPM P-R Int : 138 ms QRS Dur : 070 ms QT Int : 298 ms P-R-T Axes : 077 053 054 degrees QTc Int : 386 ms SINUS TACHYCARDIA OTHERWISE NORMAL ECG WHEN COMPARED WITH ECG OF 01-APR-2017 19:08, NO SIGNIFICANT CHANGE WAS FOUND Confirmed by MD Ike, Chan ([id number]) on 08/02/2017 2:03:18 PM Referred By: MD HOLBROOK Confirmed By:Chan Ramires MD
[2017-08-02] MEDS ORDERED: PEG 3350/NA SULF BICARB CL/KCL 4000 ML SOLN.RECON PO ONE (15:00)
--- NOTE | 2017-08-02 18:03 | PN ---
Progress Note (short form) - Note Progress Note: Patient seen and case discussed with Whit Simon NP. Patient known to me with hx of likely chronic/occult GI blood loss and prior EGD 02/03 and only partial colonoscopy 03/09/17 - due to large ventral hernia entrapping bowel. Currently receiving PRBC transfusions for microcytic anemia/SOB and heme + stool (occult?). In view of significant blood loss in setting of severe COPD, agree with PRBC transfusions and will re-attempt colonoscopy as her bleeding site/etiolgy may be in the proximal colon. If this study is again incomplete, options including capsule study of small bowel and colon and possible CT colonography. Will prep for colonoscopy in am.
[2017-08-02] MEDS ORDERED: MONTELUKAST NA 10 MG TABLET PO SCH (22:00)
[2017-08-03] MEDS: methylPREDNISolone NA SUCC 40 MG/1 ML VIAL IVPUSH SCH ×2 (02:00→09:39)
[2017-08-03 06:32] VITALS: TEMP 98.4
[2017-08-03] MEDS ORDERED: PROPOFOL 20 ML ONE ×2 (07:14)
[2017-08-03] MEDS ORDERED: LIDOCAINE HCL/PF 2% SDV 5ML VIAL ONE (07:15)
--- NOTE | 2017-08-03 07:27 | PN ---
Progress Note, Physician History of Present Illness: PULMONARY ALERT,NAD,S/P COLONOSCOPY TOLERATED PROCEDURE WELL W/O COMPLICATION,FINDINGS NOTED - Current Medication List Current Medications: Active Medications Acetaminophen (Tylenol -) 650 mg PO Q4H PRN PRN Reason: PAIN LEVEL 1-5 Last Admin: 08/02/17 09:58 Dose: 650 mg Albuterol Sulfate (Ventolin 0.083% Nebulizer Soln -) 1 amp NEB Q4H PRN PRN Reason: SHORT OF BREATH/WHEEZING Last Admin: 08/01/17 16:24 Dose: 1 amp Alprazolam (Xanax -) 0.25 mg PO BID PRN PRN Reason: ANXIETY Last Admin: 08/02/17 09:59 Dose: 0.25 mg Budesonide/Formoterol Fumarate (Symbicort 160/4.5mcg -) 2 puff IH BID [facility] Last Admin: 08/02/17 21:43 Dose: 2 inh Diltiazem HCl (Cardizem Cd -) 120 mg PO DAILY [facility] Last Admin: 08/02/17 09:59 Dose: 120 mg Lisinopril (Prinivil) 10 mg PO DAILY [facility] Last Admin: 08/02/17 10:00 Dose: 10 mg Methylprednisolone Sodium Succinate (Solu-Medrol -) 40 mg IVPUSH Q8H-IV [facility] Last Admin: 08/03/17 02:00 Dose: 40 mg Montelukast Sodium (Singulair -) 10 mg PO HS [facility] Last Admin: 08/02/17 21:46 Dose: 10 mg Non-Formulary Medication (Benzonatate) 200 mg PO TID [facility] Pantoprazole Sodium (Protonix -) 40 mg PO DAILY [facility] Last Admin: 08/02/17 09:59 Dose: 40 mg Roflumilast (Daliresp -) 500 mcg PO DAILY [facility] Last Admin: 08/02/17 10:00 Dose: 500 mcg Spironolactone (Aldactone -) 25 mg PO BID [facility] Last Admin: 08/02/17 21:44 Dose: Not Given Tiotropium [place] (Spiriva -) 1 puff IH DAILY [facility] Last Admin: 08/02/17 10:00 Dose: 1 inh Zolpidem Tartrate (Ambien -) 5 mg PO HS PRN PRN Reason: INSOMNIA - Objective Vital Signs: Vital Signs Temperature 98.4 F 08/03/17 06:00 Pulse Rate 93 H 08/03/17 06:00 Respiratory Rate 20 08/03/17 06:00 Blood Pressure 118/45 08/03/17 06:00 O2 Sat by Pulse Oximetry (%) 93 L 08/03/17 06:31 Constitutional: Yes: Well Nourished, Calm Eyes: Yes: WNL HENT: Yes: WNL Neck: Yes: WNL Cardiovascular: Yes: Regular Rate and Rhythm, S1, S2 Respiratory: Yes: Diminished Gastrointestinal: Yes: Normal Bowel Sounds, Soft Extremities: Yes: WNL Edema: No Problem List - Problems (1) Anemia Code(s): D64.9 - ANEMIA, UNSPECIFIED (2) Heme positive stool Code(s): R19.5 - OTHER FECAL ABNORMALITIES (3) SOB (shortness of breath) Code(s): R06.02 - SHORTNESS OF BREATH (4) Aortic stenosis Code(s): I35.0 - NONRHEUMATIC AORTIC (VALVE) STENOSIS Qualifiers: Cardiac valve disease etiology: nonrheumatic Qualified Code(s): I35.0 - Nonrheumatic aortic (valve) stenosis (5) COPD (chronic obstructive pulmonary disease) Code(s): J44.9 - CHRONIC OBSTRUCTIVE PULMONARY DISEASE, UNSPECIFIED (6) Diastolic CHF Code(s): I50.30 - UNSPECIFIED DIASTOLIC (CONGESTIVE) HEART FAILURE Qualifiers: (7) GERD (gastroesophageal reflux disease) Code(s): K21.9 - GASTRO-ESOPHAGEAL REFLUX DISEASE WITHOUT ESOPHAGITIS (8) HTN (hypertension) Code(s): I10 - ESSENTIAL (PRIMARY) HYPERTENSION Qualifiers: Assessment/Plan IMP DYSPNEA ADVANCED COPD O2 DEPENDENT ANEMIA GI BLEED DIASTOLIC HF PLAN CONTINUE INHALED BRONCHODILATORS O2 MONITOR H+H TRANSFUSE NEEDED DR MALLOY Problem List - Problems (1) Anemia Code(s): D64.9 - ANEMIA, UNSPECIFIED (2) Heme positive stool Code(s): R19.5 - OTHER FECAL ABNORMALITIES (3) SOB (shortness of breath) Code(s): R06.02 - SHORTNESS OF BREATH (4) Aortic stenosis Code(s): I35.0 - NONRHEUMATIC AORTIC (VALVE) STENOSIS Qualifiers: Cardiac valve disease etiology: nonrheumatic Qualified Code(s): I35.0 - Nonrheumatic aortic (valve) stenosis (5) COPD (chronic obstructive pulmonary disease) Code(s): J44.9 - CHRONIC OBSTRUCTIVE PULMONARY DISEASE, UNSPECIFIED (6) Diastolic CHF Code(s): I50.30 - UNSPECIFIED DIASTOLIC (CONGESTIVE) HEART FAILURE Qualifiers: (7) GERD (gastroesophageal reflux disease) Code(s): K21.9 - GASTRO-ESOPHAGEAL REFLUX DISEASE WITHOUT ESOPHAGITIS (8) HTN (hypertension) Code(s): I10 - ESSENTIAL (PRIMARY) HYPERTENSION Qualifiers:
[2017-08-03 08:00] LABS: HEMATOCRIT 28.1 % (32.4-45.2); HEMOGLOBIN 9.2 GM/dl (10.7-15.3); MCH 25.7 pg (25.7-33.7); MCHC 32.6 g/dl (32.0-36.0); MEAN CELL VOLUME 78.7 fl (80-96); MEAN PLT VOLUME 6.7 fl (7.5-11.1); PLATELET COUNT 594 K/MM3 (134-434); RBC 3.57 M/mm3 (3.60-5.2); RDW 14.4 % (11.6-15.6); WHITE BLOOD COUNT 10.1 K/mm3 (4.0-10.8)
[2017-08-03 08:09] LABS: ALBUMIN 2.9 g/dl (3.5-5.0); ALK PHOS 80 U/L (32-92); ANION GAP 10 (8-16); BLOOD UREA NITROGEN 36 mg/dl (7-18); CALCIUM 8.1 mg/dl (8.4-10.2); CHLORIDE 95 mmol/L (98-107); CO2 33 mmol/L (22-28); CREATININE 1.4 mg/dl (0.6-1.3); GLUCOSE,RANDOM 131 mg/dl (74-106); SGOT/AST 19 U/L (10-42); SGPT/ALT 12 U/L (10-40); SODIUM 138 mmol/L (136-145); TOT PROT 6.6 g/dl (6.4-8.3)
[2017-08-03 08:20] LABS: BILIRUBIN,TOTAL < 0.5 mg/dl (0.2-1.0)
--- NOTE | 2017-08-03 09:13 | PN ---
Progress Note (short form) - Note Progress Note: Colonoscopy performed with report in chart; unable to pass scope beyond severe twist in the mid-transverse colon due to bowel being entrapped in hernia sac (? adhesions as well?). Few diverticuli noted in sigmoid colon. In view of occult GI blood loss and prior EGD and 2 attempts at colonoscopy, options include: 1. Transfuse as needed and defer further workup (has severe COPD) 2. Attempt CT colonography (or less helpful, Ba enema) to evaluate proximal colon for a mass 3. Consider small bowel capsule study with passage of capsule into colon n- however, there is a risk that if there is significant lumen narrowing/stricture , capsule could get stuck/not pass (this would require surgery) - need radiographic study first Will discuss with patient and medical team
[2017-08-03 09:38] VITALS: BP 133/52; PULSE 86
[2017-08-03] MEDS: BUDESONIDE/FORMETEROL FUMARATE 160/4.5 mcg INHALER IH SCH (09:39)
[2017-08-03] MEDS: SPIRONOLACTONE 25 MG TABLET (FP) PO SCH (09:39)
[2017-08-03] MEDS: PANTOPRAZOLE 40 MG TABLET (FP) PO SCH (09:39)
[2017-08-03] MEDS: ROFLUMILAST 500 MCG TABLET PO SCH (09:39)
[2017-08-03] MEDS: TIOTROPIUM BROMIDE 18 MCG/INH (DEVICE W/ 5 CAPSULES) IH SCH (09:39)
[2017-08-03] MEDS: LISINOPRIL 10 MG TABLET (FP) PO SCH (09:39)
--- NOTE | 2017-08-03 11:38 | DS ---
Physical Exam: SUBJECTIVE: Patient seen and examined, tolerating diet, ambulatory in hallway with rolling walker, denies any chest pain or shortness of breath. OBJECTIVE:Patient is a 77 y/o male with a past medical history significant for COPD (O2 dependent), diastolic CHF, aortic stenosis, hypertension, GERD, and osteoarthritis. patient reports one week of dyspnea upon exertion. She was evaluated by her PCP, Dr Roberts and cbc was completed which resulted as low and she was referred to the emergency department for further evaluation. Patient does report a history of a chronic lower GI bleed and has been evaluated by MARIA G Hernandez in the past and is unable to undergo a complete colonscopy secondary to a large abdominal hernia. ER course was notable for: (1)hgb 7.0 (2)chest xray no acute pathology Vital Signs Period Temp Pulse Resp BP Sys/Vaughn Pulse Ox Last 24 Hr 97.4 F-98.9 F 80-93 18-20 100-148/45-88 91-98 PHYSICAL EXAM GENERAL: The patient is awake, alert, and fully oriented, in no acute distress. HEAD: Normal with no signs of trauma. EYES: PERRL, extraocular movements intact, sclera anicteric, conjunctiva clear. ENT: Ears normal, nares patent, oropharynx clear without exudates, moist mucous membranes. NECK: Trachea midline, full range of motion, supple. LUNGS: Breath sounds equal, clear to auscultation bilaterally, no wheezes, no crackles, no accessory muscle use. HEART: Regular rate and rhythm, S1, S2 without murmur, rub or gallop. ABDOMEN: Soft, reducible non tender, hernia, nontender, nondistended, normoactive bowel sounds, no guarding, no rebound, no hepatosplenomegaly, no masses. EXTREMITIES: 2+ pulses, warm, well-perfused, no edema. NEUROLOGICAL: Cranial nerves II through XII grossly intact. Normal speech, gait not observed. PSYCH: Normal mood, normal affect. SKIN: Warm, dry, normal turgor, no rashes or lesions noted. LABS Laboratory Results - last 24 hr 08/03/17 08/03/17 07:40 07:40 WBC 10.1 RBC 3.57 L Hgb 9.2 L D Hct 28.1 L D MCV 78.7 L MCH 25.7 MCHC 32.6 RDW 14.4 Plt Count 594 H MPV 6.7 L Sodium 138 Potassium 4.0 D Chloride 95 L Carbon Dioxide 33 H Anion Gap 10 BUN 36 H Creatinine 1.4 H Creat Clearance w eGFR 36.56 Random Glucose 131 H D Calcium 8.1 L Total Bilirubin < 0.5 AST 19 D ALT 12 D Alkaline Phosphatase 80 Total Protein 6.6 Albumin 2.9 L HOSPITAL COURSE: patient was admitted from the emergency department for symptomatic microcytic anemia, patient received 2 units of prbc, repeat hgb stable. patient was evaluated by Dr Kessler, GI colonscopy which resulted as inconclusive secondary to hernia. As per Dr Kessler, patient will need outpatient follow up for ct colongraphy. patient has past medical history of moderate aortic stenosis and diastolic chf, patient remained euvolemic throughout admission. blood pressure remained at goal with cardizem. Dr drew, patient's private [employer] was consulted in preperation for colonscopy patient was placed on 24 hours of solumederol to prevent any bronchospasms. Date of Admission:08/01/17 Date of Discharge: 08/03/17 Minutes to complete discharge: 45 Discharge Summary Reason For Visit: ANEMIA Current Active Problems Anemia (Acute) Anemia (Acute) Heme positive stool (Acute) Condition: Fair - Instructions Diet, Activity, Other Instructions: continue all medications as prescribed please follow up with Dr Roberts within 1 week for repeat cbc please follow up with Dr Kessler within [address] colongraphy if any new or persistent symptoms develop please return to the emergency department Referrals: Roberto Roberts MD [Primary Care Provider] - Disposition: HOME - Home Medications Comprehensive Discharge Medication List: Ambulatory Orders Lisinopril [Prinivil] 10 mg PO DAILY 04/09/14 Spironolactone 25 mg PO BID 04/09/14 Albuterol 0.083% Nebulizer [place] [Ventolin 0.083% Nebulizer Soln -] 1 neb NEB Q4H PRN 09/16/15 Roflumilast [Daliresp -] 500 mcg PO DAILY #0 tablet 09/25/15 Aclidinium [place] [Tudorza Pressair] 400 mcg IH BID 10/14/16 Alprazolam 0.25 mg PO PRN PRN MDD 1 mg 10/14/16 Zolpidem Tartrate [Ambien] 5 mg PO HS PRN 11/13/16 Diltiazem Cd [Cardizem Cd -] 120 mg PO DAILY 02/16/17 Pantoprazole Sodium [Protonix -] 40 mg PO DAILY 02/16/17 SYMBICORT 160/4.5mcg - 2 puff BID 04/01/17 Benzonatate [Tessalon Pearls -] 200 mg PO TID 08/01/17 Montelukast Sodium [Singulair] 10 mg PO DAILY 08/01/17 Problem List - Problems (1) Anemia Code(s): D64.9 - ANEMIA, UNSPECIFIED Qualifiers: Anemia type: other cause Other causes of anemia: other cause, not classified Qualified Code(s): D64.89 - Other specified anemias (2) Aortic stenosis Code(s): I35.0 - NONRHEUMATIC AORTIC (VALVE) STENOSIS Qualifiers: Cardiac valve disease etiology: nonrheumatic Qualified Code(s): I35.0 - Nonrheumatic aortic (valve) stenosis (3) COPD (chronic obstructive pulmonary disease) Code(s): J44.9 - CHRONIC OBSTRUCTIVE PULMONARY DISEASE, UNSPECIFIED (4) Diastolic CHF Code(s): I50.30 - UNSPECIFIED DIASTOLIC (CONGESTIVE) HEART FAILURE Qualifiers: (5) GERD (gastroesophageal reflux disease) Code(s): K21.9 - GASTRO-ESOPHAGEAL REFLUX DISEASE WITHOUT ESOPHAGITIS (6) HTN (hypertension) Code(s): I10 - ESSENTIAL (PRIMARY) HYPERTENSION Qualifiers: This patient is new to me today: No Emergency Visit: Yes ED Registration Date: 08/01/17 Care time: The patient presented to the Emergency Department on the above date and was hospitalized for further evaluation of their emergent condition. Critical Care patient: No - Discharge Referral Referred to [facility] Med P.C.: No
== END 2017-08-03 13:30 | disposition home or self-care (01) ==
LOC: FER 08:26 → SUPCPDRO 08:26 → FM/S 11:10
PROVIDERS: ADMIT Internal Medicine; ATTEND Nurse Practitioner Family
PROC: 0DJD8ZZ Inspection of Lower Intestinal Tract, Via Natural or Artificial Opening Endoscopic (ICD-10-PCS; principal; 2017-08-01)
PROC: 3E0333Z Introduction of Anti-inflammatory into Peripheral Vein, Percutaneous Approach (ICD-10-PCS; 2017-08-01)
PROC: 3E033GC Introduction of Other Therapeutic Substance into Peripheral Vein, Percutaneous Approach (ICD-10-PCS; 2017-08-01)
PROC: 3E0F7GC Introduction of Other Therapeutic Substance into Respiratory Tract, Via Natural or Artificial Opening (ICD-10-PCS; 2017-08-01)
DX: D50.9 Iron deficiency anemia, unspecified (principal); I50.30 Unspecified diastolic (congestive) heart failure; I35.0 Nonrheumatic aortic (valve) stenosis; I10 Essential (primary) hypertension; K21.9 Gastro-esophageal reflux disease without esophagitis; M19.90 Unspecified osteoarthritis, unspecified site; J44.9 Chronic obstructive pulmonary disease, unspecified; Z99.81 Dependence on supplemental oxygen; R19.5 Other fecal abnormalities; R06.02 Shortness of breath; K92.2 Gastrointestinal hemorrhage, unspecified; K57.30 Diverticulosis of large intestine without perforation or abscess without bleeding; K43.9 Ventral hernia without obstruction or gangrene
CPT/HCPCS: 36415; 36430; 71045-TC-FY; 80053; 81003; 81015; 82272; 82728; 83540; 83550; 83605; 83735; 84100; 84484; 85025; 85027; 85044; 85610; 85730; 86850; 86900; 86901; 86922; 87040; 87086; 93005; 94010; 94640; 96374; 96375; 96376; 99282-25; G0378; P9038; P9058

== ENCOUNTER 2017-11-26 08:07 | Day surgery (SDC) | payer OTHER, BC ==
[2017-11-26 08:30] VITALS: BMI 31.8
[2017-11-26] MEDS ORDERED: FUROSEMIDE 10 MG/1 ML VIAL (4 ML VIAL) IVPUSH SCH (15:15)
[2017-11-26] MEDS ORDERED: FUROSEMIDE 40 MG/4 ML INJECTABLE VIAL IVPUSH ONE ×2 (18:00→22:00)
[2017-11-26 22:24] VITALS: PULSE 85
[2017-11-27 06:45] VITALS: BP 111/37; TEMP 98
== END 2017-11-27 09:00 | disposition home or self-care (01) ==
LOC: FINFUSION 08:07 → FM/S 08:11 → FINFUSION 11-27 09:00
PROVIDERS: ATTEND Family Medicine
PROC: 30233N1 Transfusion of Nonautologous Red Blood Cells into Peripheral Vein, Percutaneous Approach (ICD-10-PCS; principal; 2017-11-26)
PROC: 3E033GC Introduction of Other Therapeutic Substance into Peripheral Vein, Percutaneous Approach (ICD-10-PCS; 2017-11-26)
DX: D50.0 Iron deficiency anemia secondary to blood loss (chronic) (principal)
CPT/HCPCS: 36430; 86850; 86900; 86901; 86922; 96374; 96375; P9038; P9058

== ENCOUNTER 2017-12-26 08:16 | Day surgery (SDC) | payer OTHER, BC ==
[2017-12-26] MEDS: FUROSEMIDE 40 MG/4 ML INJECTABLE VIAL IVPUSH SCH ×2 (16:40→21:35)
[2017-12-26 19:49] VITALS: TEMP 98.2
[2017-12-26] MEDS ORDERED: FUROSEMIDE 40 MG/4 ML INJECTABLE VIAL ONE (21:34)
[2017-12-26 21:41] VITALS: BP 130/44; PULSE 90
[2017-12-26 22:31] LABS: HEMATOCRIT 26.6 % (32.4-45.2); HEMOGLOBIN 8.8 GM/dl (10.7-15.3); MCHC 33.1 g/dl (32.0-36.0); MEAN CELL VOLUME 84.6 fl (80-96); MEAN PLT VOLUME 7.5 fl (7.5-11.1); PLATELET COUNT 352 K/MM3 (134-434); RBC 3.15 M/mm3 (3.60-5.2); RDW 13.9 % (11.6-15.6); WHITE BLOOD COUNT 11.5 K/mm3 (4.0-10.8)
== END 2017-12-26 22:30 | disposition home or self-care (01) ==
LOC: FINFUSION 08:16 → FM/S 08:29 → FINFUSION 22:30
PROVIDERS: ATTEND Family Medicine
PROC: 30233N1 Transfusion of Nonautologous Red Blood Cells into Peripheral Vein, Percutaneous Approach (ICD-10-PCS; principal; 2017-12-26)
PROC: 3E033GC Introduction of Other Therapeutic Substance into Peripheral Vein, Percutaneous Approach (ICD-10-PCS; 2017-12-26)
DX: D50.0 Iron deficiency anemia secondary to blood loss (chronic) (principal)
CPT/HCPCS: 36415; 36430; 85027; 86850; 86900; 86901; 86922; 96374; 96375; P9038; P9058

== ENCOUNTER 2018-01-06 13:22 | Observation (INO) | payer OTHER, BC ==
--- NOTE | 2018-01-06 13:24 | PDOC ---
History of Present Illness - General Stated Complaint: "I THINK I NEED A BLD TRANSFUSION", SOB Time Seen by Provider: 01/06/18 13:23 History Source: Patient Exam Limitations: No Limitations - History of Present Illness Initial Comments: The pt is a 77F with a history of chronic anemia requiring transfusions, COPD ( 2L NC @ home), and HFpEF who presents with 3-4 days of worsening shortness of breath. She reports this is how she feels when she needs a transfusion, and her last one was 12/26/2017. She endorses mild cough that is unchanged (2/2 COPD). She denies fevers, chills, CHA, dizziness, chest pain, abdominal pain, N/V/D/C, for swelling in her extremities. She denies falls or recent trauma. 01/06/18 14:00 Past History - Travel Traveled outside of the country in the last 30 days: No Close contact w/someone who was outside of country & ill: No - Past Medical History Allergies/Adverse Reactions: Allergies Allergy/AdvReac Type Severity Reaction Status Date / Time gabapentin Allergy Severe HALLUCINATI Verified 01/06/18 13:23 ONS Home Medications: Ambulatory Orders Lisinopril [Prinivil] 10 mg PO DAILY 04/09/14 Spironolactone 25 mg PO BID 04/09/14 Albuterol 0.083% Nebulizer Isabella [Ventolin 0.083% Nebulizer Soln -] 1 neb NEB Q4H PRN 09/16/15 Roflumilast [Daliresp -] 500 mcg PO DAILY #0 tablet 09/25/15 Aclidinium [place] [Tudorza Pressair] 400 mcg IH BID 10/14/16 Alprazolam 0.25 mg PO PRN PRN MDD 1 mg 10/14/16 Zolpidem Tartrate [Ambien] 5 mg PO HS PRN 11/13/16 Diltiazem Cd [Cardizem Cd -] 120 mg PO DAILY 02/16/17 Pantoprazole Sodium [Protonix -] 40 mg PO DAILY 02/16/17 SYMBICORT 160/4.5mcg - 2 puff BID 04/01/17 Montelukast Sodium [Singulair] 10 mg PO DAILY 08/01/17 Acetaminophen [Tylenol .Regular Strength -] 650 mg PO Q4H PRN tablet 08/03/17 Anemia: Yes (GI BLD) Asthma: Yes Cancer: No Cardiac Disorders: No CVA: Yes COPD: Yes (COPD, O2 DEPENDENT) CHF: Yes (CHFpEF) DVT: No Dementia: No Diabetes: No GI Disorders: Yes (VENTRAL HERNIA/GI BLD) Disorders: No HTN: Yes Hypercholesterolemia: Yes Liver Disease: No Seizures: No Thyroid Disease: No - Surgical History Abdominal Surgery: Yes (STOMACH STAPLING 1984) Appendectomy: Yes (1952) Cardiac Surgery: No Cholecystectomy: No Lung Surgery: No Neurologic Surgery: No Orthopedic Surgery: Yes (BILATERAL KNEE REPLACEMENTS) - Suicide/Smoking/Psychosocial Hx Smoking Status: Yes Smoking History: Former smoker Have you smoked in the past 12 months: No Number of Cigarettes Smoked Daily: 0 If you are a former smoker, when did you quit?: 30 years ago 'Breaking Loose' booklet given: 09/05/17 Hx Alcohol Use: No Drug/Substance Use Hx: No Substance Use Type: Alcohol Hx Substance Use Treatment: No Review of Systems - Review of Systems Able to Perform ROS?: Yes Comments:: Constitutional Symptoms: no fatigue out of the ordinary, no fever Eyes: no blurred vision, no redness, no discharge, no loss of vision Ears, Nose, Mouth, Throat: no dysphagia, no odynophagia, no otalgia, no deafness , no rhinorrhea Cardiovascular: + murmur; no chest pain, no palpitations Respiratory: +chronic cough, no hemoptysis Gastrointestinal: +abdominal hernia, no NVD, no BPR, no dark stool, no constipation, no abdominal pain Genitourinary: no dysuria, no frequency, no urgency, no nocturia, no incontinence Musculoskeletal: + chronic arthralgia, no myalgia, Integumentary: no rash, no hives Neurological: no weakness, no headache, no seizure Psychiatric: no anxiety, no depression, no insomnia Endocrine: no polyuria, no polydipsia, no palpitations Hematologic/Lymphatic: no bleeding, no bruising, no edema Allergic/Immunologic: no rash, no allergies, no fever, no chills 01/06/18 14:16 Is the patient limited Amharic proficient: No Medical Decision Making - Medical Decision Making The patient is a 77F with a history of chronic anemia requiring transfusions, COPD, HFpEF who presents with dyspnea. Ddx: symptomatic anemia, acute blood loss anemia; less likely ACS/[place], PNA, ED Course: -CBC, BMP, T/S, Cardiac enzymes, serum Mg, CXR -Hgb 6.2, will transfuse 2u pRBC Dispo: Admission to obs for serial examinations and response to transfusions, especially given history of multiple previous transfusions in the setting of COPD/CHFpEF 01/06/18 14:51 *DC/Admit/Observation/Transfer Diagnosis at time of Disposition: Symptomatic anemia - Discharge Dispostion Condition at time of disposition: Guarded Decision to Admit order: Yes - Referrals Referrals: Roberto Roberts MD [Primary Care Provider] - - Patient Instructions - Post Discharge Activity
--- NOTE | 2018-01-06 13:38 | PDOC ---
Attending Attestation - Resident Resident Name: Rustam Hawkins - ED Attending Attestation I have performed the following: I have examined & evaluated the patient, The case was reviewed & discussed with the resident, I agree w/resident's findings & plan - HPI HPI: 01/06/18 14:41 Angle 77 YOF with h/o chronic GIB with unclear source, iron deficiency anemia, diverticular disease, COPD on 2L O2, diastolic heart failure, aortic stenosis, GERD, HTN, arthritis presenting with progressive shortness of breath with minimal exertion x 1 day, +chronic cough. Feels similar to prior episodes of anemia requiring transfusion. no headache, dizziness, weakness, malaise, cp , abd pain, n/v/d, no bloody stools/emesis, leg swelling. Compliant with meds, no increased use of inhalers/nebs. No sick contacts or travel... Last colonoscopy in 07/2017: sigmoid diverticulosis; severely tortuous transverse colon 2/2 large abdominal wall hernia. last admit in 07/[address] for symptomatic anemia. PCP Dr. Roberts; GI: Dr. Kessler 01/06/18 14:42 01/06/18 14:43 - Physicial Exam PE: 01/06/18 14:45 General: Well appearing, awake and alert, NAD. HEENT: NCAT, PERRL, EOMI, pale conjunctiva, anicteric, moist mucus membranes, clear oropharynx, no oral lesions.. Neck: neck supple, FROM Chest: no chest wall tenderness Lungs: CTAB, normal and even respirations, no respiratory distress Heart: RRR, +holosystolic murmur, 2+ peripheral pulses throughout, no peripheral edema Abdomen: soft, NTND, no peritoneal signs. +anterior soft abdominal ventral hernia (chronic, no skin changes or obstruction) Back: nontender, normal inspection and ROM MSK: trace b/l edema, SHORT x4, ROM intact. No clubbing or cyanosis. normal bulk and tone. Neuro: alert, no focal neurologic deficits. Skin: warm and well perfused, cap refill <2 sec, baseline pallor - Medical Decision Making 01/06/18 14:43 DDx SOB: ACS, PE, CHF exacerbation (systolic, diastolic, or mixed), pulmonary edema, pleurisy, pneumonia, COPD exacerbation. effusion. Anemia. metabolic/ electrolyte derangements. Vital signs reviewed, wnl. Notable mild tachycardia and initial tachypnea. On supp O2 baseline, on 2L O2, SpO2 >99%. Plan: CBC, CMP, ECG, trops/card panel, CXR, stool guiaic, pRBC, TxS Prior notes reviewed, including admissions, discharges and consultations. laboratory results and imaging reviewed, basic labs and lytes notable for H/H 6.2/18.8, significantly changed from last check and will transfuse 2 units pRBC ; lytes wnl. Feels improved with duoneb x1, lungs clear and no respiratory distress or hypoxia. CXR clear, no effusion or infection, no ptx or pulmonary edema. EKG sinus rhythm at 84 bpm, no ischemic changes, ST segment derangements. Isolated Q wave and TWF in lead III only; no reciprocal changes. Normal morphology and intervals. Troponin negative x1 ,reassuring and less likely ACS/ angina. PMD Dr. Roberts - called at 230pm, discussed case and management, agree with plan. Will admit to hospitalist. Dispo: Admit to observation for acute anemia requiring PRBC, serial H/H and exam. Discussed results and management plan with pt at bedside, agree with impression and plan. Diagnosis: acute anemia 01/06/18 14:51 Heart Score/ECG Review - ECG Intrepretation Rhythm: Regular Rhythm - [place]: Normal - ST and T Non Specific ST-T Wave changes: Yes - ECG Impressions Normal ECG: Yes Comment:: 01/06/18 14:47 EKG sinus rhythm at 84 bpm, no ischemic changes, ST segment derangements. Isolated Q wave and TWF in lead III only; no reciprocal changes. Normal morphology and intervals.
[2018-01-06] MEDS ORDERED: ALBUTEROL SO4 2.5/IPRATROPIUM 0.5 INH SOL 3 ML VIAL.NEB. NEB ONE ×2 (13:55→13:57)
[2018-01-06 14:12] LABS: ANION GAP 5 (8-16); BLOOD UREA NITROGEN 39 mg/dl (7-18); CALCIUM 8.3 mg/dl (8.4-10.2); CHLORIDE 106 mmol/L (98-107); CO2 26 mmol/L (22-28); CREATININE 1.2 mg/dl (0.6-1.3); GLUCOSE,RANDOM 102 mg/dl (74-106); MAGNESIUM 2.1 mg/dL (1.8-2.4); POTASSIUM 4.9 mmol/L (3.5-5.1); SODIUM 137 mmol/L (136-145)
[2018-01-06 14:14] LABS: HEMATOCRIT 18.8 % (32.4-45.2); MCH 27.8 pg (25.7-33.7); MCHC 32.7 g/dl (32.0-36.0); MEAN CELL VOLUME 84.8 fl (80-96); MEAN PLT VOLUME 7.7 fl (7.5-11.1); PLATELET COUNT 279 K/MM3 (134-434); RBC 2.21 M/mm3 (3.60-5.2); RDW 15.5 % (11.6-15.6); WHITE BLOOD COUNT 8.2 K/mm3 (4.0-10.8)
[2018-01-06 14:18] LABS: HEMOGLOBIN 6.2 GM/dl (10.7-15.3)
[2018-01-06] MEDS ORDERED: ALPRAZolam 0.25 MG TABLET ONE (15:45)
[2018-01-06] MEDS ORDERED: ALPRAZolam 0.25 MG TABLET PO ONE (15:54)
[2018-01-06 16:53] VITALS: BMI 32.1
[2018-01-06] MEDS ORDERED: ACETAMINOPHEN 325 MG TABLET (FP) ONE (22:51)
[2018-01-06] MEDS: ACETAMINOPHEN 325 MG TABLET (FP) PO PRN (22:52)
[2018-01-07] MEDS: ACETAMINOPHEN 325 MG TABLET (FP) PO PRN ×2 (06:41→21:49)
[2018-01-07 09:11] LABS: BASO % 0.8 % (0-2.0); EOS % 2.5 % (0-4.5); HEMATOCRIT 23.2 % (32.4-45.2); HEMOGLOBIN 7.6 GM/dl (10.7-15.3); LYMPH % 22.1 % (8-40); MCH 27.1 pg (25.7-33.7); MCHC 32.6 g/dl (32.0-36.0); MEAN CELL VOLUME 83.1 fl (80-96); MONO % 5.2 % (3.8-10.2); NEUT % 69.4 % (42.8-82.8); PLATELET COUNT 233 K/MM3 (134-434); RBC 2.79 M/mm3 (3.60-5.2); RDW 16.3 % (11.6-15.6); WHITE BLOOD COUNT 8.4 K/mm3 (4.0-10.8)
--- NOTE | 2018-01-07 09:21 | HP ---
CHIEF COMPLAINT: shortness of breath PCP: Dr Armando Kessler HISTORY OF PRESENT ILLNESS: Patient is a 77 year old female with a past medical history of COPD (O2 dependent), GI bleed,hx of blood transfusions, hypertension, gerd, aortic stenos, diastolic congestive heart failure, and osteoarthritis, who presents to ER complains of worsening SOB, denies cp, palpitations,CHA,dizziness,abdominal pain, N/V/D, hematochezia,+ black stool, no urinary symptoms. Colonoscopy 08/03/17-Severely tortuous mid transverse colon due to large abdominal wall hernia, few diverticulosis. EGD on 02/18/17 showing only gastritis with no active bleeding per verbal report. Imaging: ER course was notable for: (1) H/H 6.08/07 (2) Stool Occult positive (3) CXR: No evidence of pneumonia, CHF or pneumothorax Recent Travel:None PAST MEDICAL HISTORY:COPD (o2 dependent), htn, gerd,, diastolic congestive heart failure, OA PAST SURGICAL HISTORY: right THR Social History: Lives with family Smoking: ex-smoker,quit many years ago Alcohol: None Drugs: None Family History: Brother with DM Allergies Gabapentin Allergy (Verified 02/16/17 20:06) HOME MEDICATIONS: Home Medications Medication Instructions Recorded Lisinopril [Prinivil] 10 mg PO DAILY 04/09/14 Spironolactone 25 mg PO BID 04/09/14 Albuterol 0.083% Nebulizer Isabella 1 neb NEB Q4H PRN 09/16/15 [Ventolin 0.083% Nebulizer Soln -] Roflumilast [Daliresp -] 500 mcg PO DAILY #0 tablet 09/25/15 Aclidinium [place] [Tudorza 400 mcg IH BID 10/14/16 Pressair] Alprazolam 0.25 mg PO PRN PRN MDD 1 mg 10/14/16 Zolpidem Tartrate [Ambien] 5 mg PO HS PRN 11/13/16 Diltiazem Cd [Cardizem Cd -] 120 mg PO DAILY 02/16/17 Pantoprazole Sodium [Protonix -] 40 mg PO DAILY 02/16/17 Montelukast Sodium [Singulair] 10 mg PO DAILY 08/01/17 Acetaminophen [Tylenol .Regular 650 mg PO Q4H PRN tablet 08/03/17 Strength -] Budesonide/Formeterol Fumarate 2 inh PO BID 01/06/18 [SYMBICORT 160/4.5mcg -] REVIEW OF SYSTEMS CONSTITUTIONAL: Absent: fever, chills, diaphoresis, generalized weakness, malaise, loss of appetite, weight change HEENT: Absent: rhinorrhea, nasal congestion, throat pain, throat swelling, difficulty swallowing, mouth swelling, ear pain, eye pain, visual changes CARDIOVASCULAR: Absent: chest pain, syncope, palpitations, irregular heart rate, lightheadedness , peripheral edema RESPIRATORY: Reports SOB Absent: cough, orthopnea, wheezing, stridor, hemoptysis GASTROINTESTINAL: Absent: abdominal pain, abdominal distension, nausea, vomiting, diarrhea, constipation, melena, hematochezia GENITOURINARY: Absent: dysuria, frequency, urgency, hesitancy, hematuria, flank pain, genital pain MUSCULOSKELETAL: Absent: myalgia, arthralgia, joint swelling, back pain, neck pain SKIN: Absent: rash, itching, pallor HEMATOLOGIC/IMMUNOLOGIC: Absent: easy bleeding, easy bruising, lymphadenopathy, frequent infections ENDOCRINE: Absent: unexplained weight gain, unexplained weight loss, heat intolerance, cold intolerance NEUROLOGIC: Absent: headache, focal weakness or paresthesias, dizziness, unsteady gait, seizure, mental status changes, bladder or bowel incontinence PSYCHIATRIC: Absent: anxiety, depression, suicidal or homicidal ideation, hallucinations. PHYSICAL EXAMINATION Vital Signs - 24 hr 01/06/18 01/06/18 01/06/18 13:22 16:03 16:25 Temperature 98.5 F 98.4 F 98.0 F Pulse Rate 95 H 83 Pulse Rate [ 87 Left Apical] Respiratory 24 22 20 Rate Blood Pressure 125/56 118/45 Blood Pressure 115/59 [Left Arm] O2 Sat by Pulse 97 97 100 Oximetry (%) 01/06/18 01/06/18 01/06/18 16:48 19:10 19:11 Temperature 98 F 98.4 F Pulse Rate 83 84 Pulse Rate [ Left Apical] Respiratory 19 19 Rate Blood Pressure 118/45 114/36 Blood Pressure [Left Arm] O2 Sat by Pulse 97 Oximetry (%) 01/06/18 01/06/18 01/07/18 20:30 22:52 01:50 Temperature 98.1 F 98.1 F 98.1 F Pulse Rate 81 79 78 Pulse Rate [ Left Apical] Respiratory 18 19 20 Rate Blood Pressure 98/52 96/31 114/42 Blood Pressure [Left Arm] O2 Sat by Pulse 100 Oximetry (%) 01/07/18 01/07/18 01/07/18 06:47 07:20 08:50 Temperature 98.1 F Pulse Rate 73 74 Pulse Rate [ Left Apical] Respiratory 19 Rate Blood Pressure 94/30 117/52 Blood Pressure [Left Arm] O2 Sat by Pulse 100 100 Oximetry (%) GENERAL: Awake, alert, and fully oriented, in no acute distress. HEAD: Normal with no signs of trauma. EYES: Pupils equal, round and reactive to light, extraocular movements intact, sclera anicteric, conjunctiva clear. No lid lag. EARS, NOSE, THROAT: Ears normal, nares patent, oropharynx clear without exudates. Moist mucous membranes. NECK: Normal range of motion, supple without lymphadenopathy, JVD, or masses. LUNGS: Breath sounds equal, clear to auscultation bilaterally. No wheezes, and no crackles. No accessory muscle use.on O2 2LN/C. HEART: Regular rate and rhythm, normal S1 and S2,+ murmur, rub or gallop. ABDOMEN: Soft, nontender, not distended, normoactive bowel sounds, no guarding, no rebound, no masses. No hepatomegaly or splenomegaly large abdominal hernia MUSCULOSKELETAL: Normal range of motion at all joints. No bony deformities or tenderness. No CVA tenderness. UPPER EXTREMITIES: 2+ pulses, warm, well-perfused. No cyanosis. No clubbing. No peripheral edema. LOWER EXTREMITIES: 2+ pulses, warm, well-perfused. No calf tenderness. No peripheral edema. NEUROLOGICAL: Cranial nerves II-XII intact. Normal speech. Normal gait. PSYCHIATRIC: Cooperative. Good eye contact. Appropriate mood and affect. SKIN: Warm, dry, normal turgor, no rashes or lesions noted, normal capillary refill. Laboratory Results - last 24 hr 01/06/18 01/06/18 01/06/18 13:50 13:50 13:50 WBC 8.2 RBC 2.21 L Hgb 6.2 L* Hct 18.8 L D MCV 84.8 MCH 27.8 MCHC 32.7 RDW 15.5 D Plt Count 279 MPV 7.7 Sodium 137 Potassium 4.9 Chloride 106 Carbon Dioxide 26 Anion Gap 5 L BUN 39 H Creatinine 1.2 Creat Clearance w eGFR 43.68 Random Glucose 102 Calcium 8.3 L Magnesium 2.1 Troponin I < 0.03 Stool Occult Blood Blood Type Antibody Screen Crossmatch 01/06/18 01/06/18 13:50 15:00 WBC RBC Hgb Hct MCV MCH MCHC RDW Plt Count MPV Sodium Potassium Chloride Carbon Dioxide Anion Gap BUN Creatinine Creat Clearance w eGFR Random Glucose Calcium Magnesium Troponin I Stool Occult Blood Positive Blood Type A POSITIVE Antibody Screen Negative Crossmatch See Detail ASSESSMENT/PLAN: This is a 77 year old female admitted with GI bleed. *GI bleed, hx of GI bleed with multiple transfusions - H/H 6.2/18.8,transfused 2 units of blood - Rpt CBC H/ H 7.6/23.2- still c/o sob, will transfuse one more unit of blood - positive stool occult - GI Dr. Kessler consulted -started on Protonix IV - on clears until seen by GI - will f/u on CBC * HTN - will cont on Cardizem, Lisinopril and Aldactone - will monitor BP closely * COPD - O2 dependent - will cont on O2 - will cotn on home inhalers - Singulair -monitor pulse ox * Hx of Aortic stenosis - echo, 11/03 reviewed, moderate aortic stenosis, lv normal in size - will cont on Aldactone * Diastolic CHF- euvolemic -will cont on Aldactone, Lisinopril - echo, 11/03 reviewed, moderate aortic stenosis, lv normal in size - strict I/O and daily weights *GERD -on Protonix F/E/N: - will keep pt NPO until seen by GI - replete tanisha prn VTE prophylaxis: SCDs,holding AC in view of GI bleed. - oob Visit type - Emergency Visit Emergency Visit: Yes ED Registration Date: 01/06/18 Care time: The patient presented to the Emergency Department on the above date and was hospitalized for further evaluation of their emergent condition. - New Patient This patient is new to me today: Yes Date on this admission: 01/08/18 - Critical Care Critical Care patient: No Hospitalist Screening - Colonoscopy Questionnaire Colonoscopy Questionnaire: Colonoscopy Questionnaire - Patient: 50 - 75 years old and never had a screening colonoscopy: No History of colon or rectal polyps, or CA: No History of IBD, Crohn's disease or UC: No History of abdominal radiation therapy as a child: No - Relative: 1 with colon or rectal CA, or polyps at age 60 or younger: No Colon or rectal CA diagnosed at age 45 or younger: No Multiple relatives with colon or rectal CA: No - Outcome: Screening Result: Negative Screen
[2018-01-07] MEDS ORDERED: ALPRAZolam 0.25 MG TABLET PO PRN (09:38)
[2018-01-07] MEDS ORDERED: ALBUTEROL SO4 0.083% IH SOL 2.5 MG/3 ML VIAL.NEB. NEB PRN ×2 (09:38→10:32)
[2018-01-07] MEDS ORDERED: ZOLPIDEM TARTRATE 5 MG TABLET PO PRN (09:38)
[2018-01-07] MEDS ORDERED: PATIENT'S OWN MEDICATION (NON-FORMULARY) (Aclidinium Bromide [Tudorza Pressair] 400 MCG) IH SCH (10:00)
[2018-01-07] MEDS: SPIRONOLACTONE 25 MG TABLET (FP) PO SCH ×2 (11:08→21:23)
[2018-01-07] MEDS: ROFLUMILAST 500 MCG TABLET PO SCH (11:09)
[2018-01-07] MEDS: MONTELUKAST NA 10 MG TABLET PO SCH (11:10)
[2018-01-07] MEDS: LISINOPRIL 20 MG TABLET (FP) PO SCH (11:10)
[2018-01-07] MEDS: PANTOPRAZOLE SODIUM 40 MG VIAL IVPUSH SCH ×2 (11:10→21:23)
[2018-01-07] MEDS: BUDESONIDE/FORMETEROL FUMARATE 160/4.5 mcg INHALER IH SCH ×2 (11:11→21:23)
[2018-01-08 08:52] LABS: RBC 3.28 M/mm3 (3.60-5.2)
[2018-01-08 08:56] LABS: BASO % 0.6 % (0-2.0); EOS % 3.5 % (0-4.5); LYMPH % 23.9 % (8-40); MCH 27.4 pg (25.7-33.7); MCHC 32.4 g/dl (32.0-36.0); MEAN CELL VOLUME 84.4 fl (80-96); MEAN PLT VOLUME 8.4 fl (7.5-11.1); MONO % 6.6 % (3.8-10.2); NEUT % 65.4 % (42.8-82.8); PLATELET COUNT 281 K/MM3 (134-434); RDW 16.7 % (11.6-15.6); WHITE BLOOD COUNT 8.1 K/mm3 (4.0-10.8)
[2018-01-08 08:58] LABS: HEMATOCRIT 27.7 % (32.4-45.2)
[2018-01-08] MEDS ORDERED: PT OWN MED DRAWER 7, Y5N ONE (09:23)
[2018-01-08] MEDS: BUDESONIDE/FORMETEROL FUMARATE 160/4.5 mcg INHALER IH SCH (09:34)
[2018-01-08] MEDS: SPIRONOLACTONE 25 MG TABLET (FP) PO SCH (09:35)
[2018-01-08] MEDS: LISINOPRIL 20 MG TABLET (FP) PO SCH (09:35)
[2018-01-08] MEDS: ROFLUMILAST 500 MCG TABLET PO SCH (09:35)
[2018-01-08] MEDS: MONTELUKAST NA 10 MG TABLET PO SCH (09:36)
[2018-01-08 09:48] VITALS: BP 96/40; PULSE 81; TEMP 98
[2018-01-08] MEDS ORDERED: PANTOPRAZOLE 40 MG TABLET (FP) PO SCH (10:00)
[2018-01-08 10:20] LABS: ANION GAP 8 (8-16); BLOOD UREA NITROGEN 27 mg/dl (7-18); CALCIUM 8.5 mg/dl (8.4-10.2); CHLORIDE 102 mmol/L (98-107); CO2 28 mmol/L (22-28); CREATININE 1.3 mg/dl (0.6-1.3); GLUCOSE,RANDOM 91 mg/dl (74-106); POTASSIUM 4.9 mmol/L (3.5-5.1); SODIUM 138 mmol/L (136-145)
--- NOTE | 2018-01-08 11:05 | DS ---
Physical Exam: SUBJECTIVE: Patient seen and examined,reports SOB improved after the transfusions,feeling better. OBJECTIVE: Vital Signs Period Temp Pulse Resp BP Sys/Vaughn Pulse Ox Last 24 Hr 97.8 F-98.8 F 77-87 18-20 96-116/40-47 98-100 PHYSICAL EXAM GENERAL: The patient is awake, alert, and fully oriented, in no acute distress. HEAD: Normal with no signs of trauma. EYES: PERRL, extraocular movements intact, sclera anicteric, conjunctiva clear. ENT: Ears normal, nares patent, oropharynx clear without exudates, moist mucous membranes. NECK: Trachea midline, full range of motion, supple. LUNGS: Breath sounds equal, clear to auscultation bilaterally, no wheezes, no crackles, no accessory muscle use. O2 2L N/C HEART: Regular rate and rhythm, S1, S2,+ murmur, rub or gallop. ABDOMEN: Soft, nontender, nondistended, normoactive bowel sounds, no guarding, no rebound, no hepatosplenomegaly, no masses,large abdominal wall hernia. EXTREMITIES: 2+ pulses, warm, well-perfused, no edema. NEUROLOGICAL: Cranial nerves II through XII grossly intact. Normal speech, gait not observed. PSYCH: Normal mood, normal affect. SKIN: Warm, dry, normal turgor, no rashes or lesions noted. LABS Laboratory Results - last 24 hr 01/06/18 01/08/18 01/08/18 13:50 06:00 08:00 WBC 8.1 RBC 3.28 L Hgb 9.0 L Hct 27.7 L D MCV 84.4 MCH 27.4 MCHC 32.4 RDW 16.7 H Plt Count 281 MPV 8.4 Absolute Neuts (auto) 5.4 Neutrophils % 65.4 Lymphocytes % 23.9 Monocytes % 6.6 Eosinophils % 3.5 Basophils % 0.6 Sodium 138 Potassium 4.9 Chloride 102 Carbon Dioxide 28 Anion Gap 8 BUN 27 H Creatinine 1.3 Creat Clearance w eGFR 39.82 Random Glucose 91 Calcium 8.5 Blood Type A POSITIVE Antibody Screen Negative Crossmatch See Detail HOSPITAL COURSE: Date of Admission:01/06/18 Date of Discharge: 01/08/18. Patient is a 77 year old female with a past medical history of COPD (O2 dependent), GI bleed,hx of blood transfusions,hypertension, gerd, aortic stenos , diastolic congestive heart failure, and osteoarthritis,who presented to ER complaining of worsening SOB, stool occult positive. Admitted with GI bleed, H/ H was 6.2/,pt received total of 3 units of blood with improvement,now H/H 9/ 2.7, remains clinically stable,GI was consulted, rec out pt followup. Will continue on PPI. Pt had Colonoscopy 08/03/17-Severely tortuous mid transverse colon due to large abdominal wall hernia, few diverticulosis. EGD on 02/18/17 showing only gastritis with no active bleeding per verbal report. * HTN: BP stable, will continue on home dose Cardizem, Lisinopril and Aldactone. * COPD - O2 dependent, O2 sat stable,will cont on home inhalers and Singulair. * Hx of Aortic stenosis: Echo, 11/03 reviewed, moderate aortic stenosis, lv normal in size,will cont on Aldactone * Diastolic CHF- euvolemic,will cont on Aldactone, Lisinopril. Echo, 11/03 reviewed, moderate aortic stenosis, lv normal in size *GERD : Will on Protonix. Minutes to complete discharge: 40 Discharge Summary Reason For Visit: ANEMIA Current Active Problems Symptomatic anemia (Acute) Condition: Guarded - Instructions Diet, Activity, Other Instructions: Low Salt diet. Referrals: Roberto Roberts MD [Primary Care Provider] - 2 Weeks (1-2 weeks. ) Ronal Kessler MD [Staff Physician] - ( in 1-2 days.) Disposition: HOME - Home Medications Comprehensive Discharge Medication List: Ambulatory Orders Lisinopril [Prinivil] 10 mg PO DAILY 04/09/14 Spironolactone 25 mg PO BID 04/09/14 Albuterol 0.083% Nebulizer Isabella [Ventolin 0.083% Nebulizer Soln -] 1 neb NEB Q4H PRN 09/16/15 Roflumilast [Daliresp -] 500 mcg PO DAILY #0 tablet 09/25/15 Aclidinium [place] [Tudorza Pressair] 400 mcg IH BID 10/14/16 Alprazolam 0.25 mg PO PRN PRN MDD 1 mg 10/14/16 Zolpidem Tartrate [Ambien] 5 mg PO HS PRN 05/27/17 Diltiazem Cd [Cardizem Cd -] 120 mg PO DAILY 02/16/17 Pantoprazole Sodium [Protonix -] 40 mg PO DAILY 02/16/17 Montelukast Sodium [Singulair] 10 mg PO DAILY 08/01/17 Acetaminophen [Tylenol .Regular Strength -] 650 mg PO Q4H PRN tablet 08/03/17 Budesonide/Formeterol Fumarate [SYMBICORT 160/4.5mcg -] 2 inh PO BID 01/06/18 This patient is new to me today: Yes Date on this admission: 01/08/18 Emergency Visit: Yes ED Registration Date: 01/06/18 Care time: The patient presented to the Emergency Department on the above date and was hospitalized for further evaluation of their emergent condition. Critical Care patient: No - Discharge Referral Referred to [facility] No
--- NOTE | 2018-01-08 15:00 | EKG ---
Test Reason : Blood Pressure : / mmHG Vent. Rate : 084 BPM Atrial Rate : 084 BPM P-R Int : 140 ms QRS Dur : 074 ms QT Int : 338 ms P-R-T Axes : -01 028 025 degrees QTc Int : 399 ms NORMAL SINUS RHYTHM NORMAL ECG WHEN COMPARED WITH ECG OF 01-AUG-2017 09:42, NO SIGNIFICANT CHANGE WAS FOUND Confirmed by ERLIN MONTE MD ([id number]) on 01/08/2018 2:59:51 PM Referred By: Confirmed By:ERLIN MONTE MD
== END 2018-01-08 11:05 | disposition home or self-care (01) ==
LOC: FER 13:22 → FM/S 14:49
PROVIDERS: ADMIT Internal Medicine; ATTEND Nurse Practitioner Family
PROC: 30233N1 Transfusion of Nonautologous Red Blood Cells into Peripheral Vein, Percutaneous Approach (ICD-10-PCS; principal; 2018-01-06)
PROC: 3E033GC Introduction of Other Therapeutic Substance into Peripheral Vein, Percutaneous Approach (ICD-10-PCS; 2018-01-06)
PROC: 3E0F7GC Introduction of Other Therapeutic Substance into Respiratory Tract, Via Natural or Artificial Opening (ICD-10-PCS; 2018-01-06)
DX: D64.9 Anemia, unspecified (principal); I10 Essential (primary) hypertension; E78.5 Hyperlipidemia, unspecified; J44.9 Chronic obstructive pulmonary disease, unspecified; I50.30 Unspecified diastolic (congestive) heart failure; I35.0 Nonrheumatic aortic (valve) stenosis; K21.9 Gastro-esophageal reflux disease without esophagitis; Z96.653 Presence of artificial knee joint, bilateral; Z98.84 Bariatric surgery status; Z99.81 Dependence on supplemental oxygen; Z88.8 Allergy status to other drugs, medicaments and biological substances; Z87.891 Personal history of nicotine dependence
CPT/HCPCS: 36415; 36430; 71045-TC-FY; 80048; 82272; 83735; 84484; 85025; 85027; 86850; 86900; 86901; 86922; 93005; 94640; 96374; 99285-25; G0378; J7620; P9038; P9058

== ENCOUNTER 2018-02-04 07:57 | Day surgery (SDC) | payer OTHER, BC ==
[2018-02-04 09:00] LABS: BASO % 0.5 % (0-2.0); MEAN PLT VOLUME 7.7 fl (7.5-11.1)
[2018-02-04 09:04] LABS: EOS % 4.6 % (0-4.5); HEMATOCRIT 19.6 % (32.4-45.2); LYMPH % 22.3 % (8-40); MCHC 31.8 g/dl (32.0-36.0); MEAN CELL VOLUME 88.2 fl (80-96); MONO % 4.8 % (3.8-10.2); NEUT % 67.8 % (42.8-82.8); PLATELET COUNT 281 K/MM3 (134-434); RBC 2.22 M/mm3 (3.60-5.2); RDW 16.4 % (11.6-15.6); WHITE BLOOD COUNT 7.7 K/mm3 (4.0-10.8)
[2018-02-04 09:08] LABS: HEMOGLOBIN 6.2 GM/dl (10.7-15.3)
[2018-02-04] MEDS: ACETAMINOPHEN 325 MG TABLET (FP) PO PRN ×2 (12:00→18:50)
[2018-02-04] MEDS ORDERED: FUROSEMIDE 40 MG/4 ML INJECTABLE VIAL IVPUSH SCH (12:45)
[2018-02-04] MEDS: FUROSEMIDE 10 MG/1 ML VIAL (4 ML VIAL) IVPUSH SCH ×2 (15:33→21:06)
[2018-02-04 21:07] VITALS: BP 132/61; PULSE 75; TEMP 99.3
[2018-02-04 21:23] LABS: HEMATOCRIT 27.9 % (32.4-45.2); MCH 28.9 pg (25.7-33.7); MCHC 32.4 g/dl (32.0-36.0); MEAN CELL VOLUME 89.1 fl (80-96); MEAN PLT VOLUME 7.9 fl (7.5-11.1); PLATELET COUNT 295 K/MM3 (134-434); RBC 3.13 M/mm3 (3.60-5.2); RDW 15.4 % (11.6-15.6); WHITE BLOOD COUNT 12.6 K/mm3 (4.0-10.8)
== END 2018-02-04 21:05 | disposition home or self-care (01) ==
LOC: FBLOOD 07:57 → FM/S 07:59 → FBLOOD 21:05
PROVIDERS: ATTEND Family Medicine
PROC: 30233N1 Transfusion of Nonautologous Red Blood Cells into Peripheral Vein, Percutaneous Approach (ICD-10-PCS; principal; 2018-02-04)
PROC: 3E033GC Introduction of Other Therapeutic Substance into Peripheral Vein, Percutaneous Approach (ICD-10-PCS; 2018-02-04)
DX: D64.9 Anemia, unspecified (principal)
CPT/HCPCS: 36415; 36430; 85025; 85027; 86850; 86900; 86901; 86922; P9038; P9058

== ENCOUNTER 2018-02-24 08:23 | Day surgery (SDC) | payer OTHER, BC ==
[2018-02-24] MEDS ORDERED: FUROSEMIDE 40 MG/4 ML INJECTABLE VIAL IVPUSH ONE ×2 (18:00→22:00)
[2018-02-24 18:26] VITALS: TEMP 98.6
[2018-02-24 22:35] VITALS: BP 140/54; PULSE 79
== END 2018-02-24 22:20 | disposition home or self-care (01) ==
LOC: FBLOOD 08:23 → FM/S 08:26 → FBLOOD 22:20
PROVIDERS: ATTEND Family Medicine
PROC: 30233N1 Transfusion of Nonautologous Red Blood Cells into Peripheral Vein, Percutaneous Approach (ICD-10-PCS; principal; 2018-02-24)
PROC: 3E033GC Introduction of Other Therapeutic Substance into Peripheral Vein, Percutaneous Approach (ICD-10-PCS; 2018-02-24)
DX: D50.9 Iron deficiency anemia, unspecified (principal)
CPT/HCPCS: 36430; 86850; 86900; 86901; 86922; P9038; P9058

== ENCOUNTER 2018-12-16 08:08 | Day surgery (SDC) | payer OTHER, BC ==
[2018-12-16] MEDS: FUROSEMIDE 10 MG/1 ML VIAL (4 ML VIAL) IVPUSH SCH ×2 (14:19→16:04)
[2018-12-16 14:24] VITALS: TEMP 98.5
[2018-12-16] MEDS ORDERED: FUROSEMIDE 40 MG/4 ML INJECTABLE VIAL ONE (15:55)
[2018-12-16 16:06] VITALS: BP 128/56; PULSE 86
[2018-12-16] MEDS ORDERED: FUROSEMIDE 10 MG/1 ML VIAL (4 ML VIAL) IVPUSH SCH (16:30)
== END 2018-12-16 16:11 | disposition home or self-care (01) ==
LOC: FBLOOD 08:08 → FM/S 08:10 → FBLOOD 08:10
PROVIDERS: ATTEND Family Medicine
PROC: 30233N1 Transfusion of Nonautologous Red Blood Cells into Peripheral Vein, Percutaneous Approach (ICD-10-PCS; principal; 2018-12-16)
PROC: 3E013GC Introduction of Other Therapeutic Substance into Subcutaneous Tissue, Percutaneous Approach (ICD-10-PCS; 2018-12-16)
DX: D50.9 Iron deficiency anemia, unspecified (principal)
CPT/HCPCS: 36430; 36511; P9038; P9058

== ENCOUNTER 2019-01-27 12:16 | Inpatient (IN) | payer OTHER, BC ==
--- NOTE | 2019-01-27 12:22 | PDOC ---
Attending Attestation - Resident Resident Name: Augustin Bowers - ED Attending Attestation I have performed the following: I have examined & evaluated the patient, The case was reviewed & discussed with the resident, I agree w/resident's findings & plan, Exceptions are as noted - HPI HPI: 78 yo F hx CHF (diastolic dysfunction), COPD on home O2, iron deficiency anemia , anemia secondary to chronic GIB (unknown source- difficult to diagnose due to large hernia limiting the scope) presents with 3 days of progressively worsening SOB. She gets transfusions every month due to chronic anemia, she is due to get one later this week, but the shortness of breath was too severe to wait. She has not had her iron supplements for the past 3 days, she ran out. - Physicial Exam PE: GENERAL: Awake, alert, and fully oriented, in no acute distress HEAD: No signs of trauma EYES: PERRLA, EOMI, sclera anicteric, conjunctiva slightly pale ENT: Auricles normal inspection, hearing grossly normal, nares patent, oropharynx clear without exudates. Moist mucosa NECK: Normal ROM, supple, no lymphadenopathy, JVD, or masses LUNGS: Dec air entry B/L with distant lung sounds. No wheezes. Slight crackles at bases HEART: Regular rate and rhythm, normal S1 and S2. + IV/ blowing systolic murmur ABDOMEN: Soft, nontender, normoactive bowel sounds. No guarding, no rebound. No masses EXTREMITIES: Normal range of motion, 1+ pitting edema to B/L ankles. No clubbing or cyanosis. No cords, erythema, or tenderness NEUROLOGICAL: Cranial nerves II through XII grossly intact. Normal speech, normal gait. Motor and sensation intact SKIN: Warm, dry, normal turgor, no rashes or lesions noted. - Medical Decision Making Pt with SOB, worse with exertion, due to severe anemia. Will transfuse, will give lasix in between transfusions to prevent fluid overload. Will admit to hospitalist. Patient's daughter, Kathy, can be reached at [phone].
--- NOTE | 2019-01-27 12:43 | PDOC ---
History of Present Illness - General Chief Complaint: Shortness of Breath Stated Complaint: shortness of breath Time Seen by Provider: 01/27/19 12:17 - History of Present Illness Initial Comments: Ms. Robertson is a 78 y/o female with PMH significant for HFpEF, COPD (on 2L at home), iron deficiency anemia, guiac positive stool, presenting with 3 days of worsening shortness of breath. States that the SOB is worse on exertion and when laying flat. Denies chest pain, fever, abdominal pain, hemoptysis, hematemesis, hematochezia. Reports mild productive cough which is her baseline. Denies headache, dizziness. She reports that she takes iron supplementation every day and receives blood transfusions every four weeks. Has had similar episodes in the past when she is due for a blood transfusion. SocHx: remote 20 year smoking hx Past History - Past Medical History Allergies/Adverse Reactions: Allergies Allergy/AdvReac Type Severity Reaction Status Date / Time gabapentin Allergy Severe HALLUCINATI Verified 01/27/19 12:18 ONS Home Medications: Ambulatory Orders Lisinopril [Prinivil] 10 mg PO DAILY 04/09/14 Spironolactone 25 mg PO BID 04/09/14 Albuterol 0.083% Nebulizer Isabella [Ventolin 0.083% Nebulizer Soln -] 1 neb NEB Q4H PRN 09/16/15 Roflumilast [Daliresp -] 500 mcg PO DAILY #0 tablet 09/25/15 Aclidinium [place] [Tudorza Pressair] 400 mcg IH BID 10/14/16 Alprazolam 0.25 mg PO PRN PRN MDD 1 mg 10/14/16 Diltiazem Cd [Cardizem Cd -] 120 mg PO DAILY 02/16/17 Pantoprazole Sodium [Protonix -] 40 mg PO DAILY 02/16/17 Montelukast Sodium [Singulair] 10 mg PO DAILY 08/01/17 Acetaminophen [Tylenol .Regular Strength -] 650 mg PO Q4H PRN tablet 08/03/17 Budesonide/Formeterol Fumarate [SYMBICORT 160/4.5mcg -] 2 inh PO BID 01/06/18 Iron Fum,Ag/C/B12/Folic/Ca/Suc [Multigen Plus Caplet] 1 each PO BID 01/27/19 Anemia: Yes (GI BLD) Asthma: Yes Cancer: No Cardiac Disorders: No CVA: Yes COPD: Yes (COPD, O2 DEPENDENT) CHF: Yes (CHFpEF) DVT: No Dementia: No Diabetes: No GI Disorders: Yes (VENTRAL HERNIA/GI BLD) Disorders: No HTN: Yes Hypercholesterolemia: Yes Liver Disease: No Seizures: No Thyroid Disease: No - Surgical History Abdominal Surgery: Yes (STOMACH STAPLING 1984) Appendectomy: Yes (1952) Cardiac Surgery: No Cholecystectomy: No Lung Surgery: No Neurologic Surgery: No Orthopedic Surgery: Yes (BILATERAL KNEE REPLACEMENTS) - Suicide/Smoking/Psychosocial Hx Smoking Status: Yes Smoking History: Former smoker Have you smoked in the past 12 months: No Number of Cigarettes Smoked Daily: 0 If you are a former smoker, when did you quit?: 30 years ago 'Breaking Loose' booklet given: 09/05/17 Hx Alcohol Use: No Drug/Substance Use Hx: No Substance Use Type: Alcohol Hx Substance Use Treatment: No Review of Systems - Review of Systems Comments:: ROS GENERAL/CONSTITUTIONAL: No fever or chills. No weakness._ HEAD, EYES, EARS, NOSE AND THROAT: No change in vision. No ear pain or discharge. No sore throat._ CARDIOVASCULAR: No chest pain. Reports shortness of breath. RESPIRATORY: Reports chronic cough, denies hemoptysis_ GASTROINTESTINAL: No nausea, vomiting, diarrhea or constipation._ GENITOURINARY: No dysuria, frequency, or change in urination._ MUSCULOSKELETAL: No joint or muscle swelling or pain. No neck or back pain._ SKIN: No rash_ NEUROLOGIC: No headache, vertigo, loss of consciousness, or change in strength/ sensation._ ENDOCRINE: No increased thirst. No abnormal weight change_ HEMATOLOGIC/LYMPHATIC: No anemia, easy bleeding, or history of blood clots._ ALLERGIC/IMMUNOLOGIC: No hives or skin allergy._ *Physical Exam - Physical Exam Comments: GENERAL: Awake, alert, and oriented to person/place/time, in no acute distress_ HEAD: No signs of trauma, normocephalic, atraumatic _ EYES: PERRLA, EOMI, sclera anicteric, conjunctiva clear_ ENT: Hearing grossly normal, nares patent, oropharynx clear without exudates. No uvular deviation. Moist mucosa_ NECK: Normal ROM, supple, no lymphadenopathy, JVD, or masses_ LUNGS: No respiratory distress on O2 supplementation, mild bibasilar crackles, no wheezes, no rhonchi HEART: Regular rate and rhythm, normal S1 and S2, 2/6 aortic murmur appreciated , peripheral pulses normal and equal bilaterally._ ABDOMEN: Soft, nontender, normoactive bowel sounds. No guarding, no rebound. Large abdominal hernia in midline epigastric area. EXTREMITIES: Normal inspection, Normal range of motion, 1+ pitting edema. No clubbing or cyanosis_ NEUROLOGICAL: Cranial nerves II through XII grossly intact. Normal speech, normal gait, no focal sensorimotor deficits _ SKIN: Warm, Dry, normal turgor, no rashes or lesions noted_ ED Treatment Course - LABORATORY CBC & Chemistry Diagram: 01/28/19 15:08 01/28/19 15:00 Medical Decision Making - Medical Decision Making 01/27/19 13:00 78F with hx of COPD, HFpEF, iron deficiency anemia, receiving pRBC transfusions q4w, here with worsening shortness of breath for 3 days. At bedside pt O2 sat at 97% on 2L and resting comfortably. DDx includes symptomatic anemia vs COPD exacerbation vs CHF exacerbation. Obtain CBC, CMP, CXR, EKG, stool guiac. 01/27/19 13:15 EKG shows NSR 86 bpm, no axis deviation, no ST elevation/depression, no interval prolongation. 01/27/19 13:36 Hgb 5.9. Plan to transfuse 2 units pRBCs with 20 mg Lasix. Spoke with the ASSOCIATE PROFESSOR [employer]ITER[employer], who agrees to admit the patient for transfusion. *DC/Admit/Observation/Transfer Diagnosis at time of Disposition: Anemia Qualifiers: Anemia type: unspecified type Qualified Code(s): D64.9 - Anemia, unspecified - Discharge Dispostion Condition at time of disposition: Fair Decision to Admit order: Yes - Referrals - Patient Instructions - Post Discharge Activity
[2019-01-27 13:25] LABS: BASO % 0.4 % (0-2.0)
[2019-01-27 13:28] LABS: EOS % 2.5 % (0-4.5); HEMATOCRIT 18.1 % (32.4-45.2); LYMPH % 12.8 % (8-40); MCHC 32.5 g/dl (32.0-36.0); MEAN CELL VOLUME 95.4 fl (80-96); MEAN PLT VOLUME 8.1 fl (7.5-11.1); MONO % 3.1 % (3.8-10.2); NEUT % 81.2 % (42.8-82.8); PLATELET COUNT 286 K/MM3 (134-434); RBC 1.89 M/mm3 (3.60-5.2); WHITE BLOOD COUNT 9.6 K/mm3 (4.0-10.8)
[2019-01-27 13:30] LABS: HEMOGLOBIN 5.9 GM/dl (10.7-15.3)
[2019-01-27 13:37] LABS: ALBUMIN 3.3 g/dl (3.4-5.0); BILIRUBIN,TOTAL 0.4 mg/dl (0.2-1); CALCIUM 8.5 mg/dl (8.5-10); CREATININE 1.4 mg/dl (0.55-1.3); POTASSIUM 5.2 mmol/L (3.5-5.1); TOT PROT 5.6 g/dl (6.4-8.2)
--- NOTE | 2019-01-27 14:22 | HP ---
CHIEF COMPLAINT: Shortness of breath PCP: Dr. Roberts HISTORY OF PRESENT ILLNESS: 78 year-old female with a history of HTN, diastolic heart failure, aortic stenosis, COPD O2-dependent, chronic blood loss anemia secondary to chronic lower GI bleed, GERD, and osteoarthritis. Patient comes to the hospital as an outpatient for periodic transfusions. She was scheduled for her next transfusion later this week, but increasing SOB brought her to the ED today. Last month had URI, treated with PO levaquin. Denies cough, fever, sweats, chills. Denies chest pain, palpitations, diaphoresis, orthopnea, lower extremity edema. Stool is always dark, no change from baseline. Denies hematuria , any other type of bleeding. ER course was notable for: (1) BP 106/51 (2) Hgb 5.9/Hct 18.1 (3) BUN 40 Cr 1.4 (4) occult stool positive Recent Travel: No PAST MEDICAL HISTORY: Hypertension Diastolic heart failure Aortic stenosis COPD O2 dependent Chronic blood loss anemia secondary to chronic GI bleed GERD Osteoarthritis PAST SURGICAL HISTORY: Bilateral knee replacements Stomach stapling Right total hip replacement Social History: Smoking: former, quit 25 years ago, smoked 35+years Alcohol: no Drugs: no Family History: Brother with DM; father lung disease from toxic exposures; mother uncertain Allergies gabapentin Allergy (Severe, Verified 01/27/19 12:18) HALLUCINATIONS HOME MEDICATIONS: Home Medications Medication Instructions Recorded Lisinopril [Prinivil] 10 mg PO DAILY 04/09/14 Spironolactone 25 mg PO BID 04/09/14 Albuterol 0.083% Nebulizer Isabella 1 neb NEB Q4H PRN 09/16/15 [Ventolin 0.083% Nebulizer Soln -] Roflumilast [Daliresp -] 500 mcg PO DAILY #0 tablet 09/25/15 Aclidinium [place] [Tudorza 400 mcg IH BID 10/14/16 Pressair] Alprazolam 0.25 mg PO PRN PRN MDD 1 mg 10/14/16 Diltiazem Cd [Cardizem Cd -] 120 mg PO DAILY 02/16/17 Pantoprazole Sodium [Protonix -] 40 mg PO DAILY 02/16/17 Montelukast Sodium [Singulair] 10 mg PO DAILY 08/01/17 Acetaminophen [Tylenol .Regular 650 mg PO Q4H PRN tablet 08/03/17 Strength -] Budesonide/Formeterol Fumarate 2 inh PO BID 01/06/18 [SYMBICORT 160/4.5mcg -] Iron Fum,Ag/C/B12/Folic/Ca/Suc 1 each PO BID 01/27/19 [Multigen Plus Caplet] REVIEW OF SYSTEMS CONSTITUTIONAL: Absent: fever, chills, diaphoresis, generalized weakness, malaise, loss of appetite, weight change HEENT: Absent: rhinorrhea, nasal congestion, throat pain, throat swelling, difficulty swallowing, mouth swelling, ear pain, eye pain, visual changes CARDIOVASCULAR: Absent: chest pain, syncope, palpitations, irregular heart rate, lightheadedness , peripheral edema RESPIRATORY: +SOB Absent: cough, dyspnea with exertion, orthopnea, wheezing, stridor, hemoptysis GASTROINTESTINAL: Absent: abdominal pain, abdominal distension, nausea, vomiting, diarrhea, constipation, melena, hematochezia GENITOURINARY: Absent: dysuria, frequency, urgency, hesitancy, hematuria, flank pain, genital pain MUSCULOSKELETAL: Absent: myalgia, arthralgia, joint swelling, back pain, neck pain SKIN: Absent: rash, itching, pallor HEMATOLOGIC/IMMUNOLOGIC: Absent: easy bleeding, easy bruising, lymphadenopathy, frequent infections ENDOCRINE: Absent: unexplained weight gain, unexplained weight loss, heat intolerance, cold intolerance NEUROLOGIC: Absent: headache, focal weakness or paresthesias, dizziness, unsteady gait, seizure, mental status changes, bladder or bowel incontinence PSYCHIATRIC: Absent: anxiety, depression, suicidal or homicidal ideation, hallucinations. PHYSICAL EXAMINATION Vital Signs - 24 hr 01/27/19 12:17 Temperature 98.3 F Pulse Rate 99 H Respiratory 20 Rate Blood Pressure 95/43 L O2 Sat by Pulse 93 L Oximetry (%) GENERAL: Awake, alert, and fully oriented, in no acute distress. HEAD: Normal with no signs of trauma. EYES: Pupils equal, round and reactive to light, extraocular movements intact, sclera anicteric, conjunctiva clear. No lid lag. LUNGS: Breath sounds equal, clear to auscultation bilaterally. No wheezes, and no crackles. No accessory muscle use. HEART: Regular rate and rhythm, S1 and S2 ABDOMEN: Soft, nontender, not distended UPPER EXTREMITIES: 2+ pulses, warm, well-perfused. No cyanosis. No clubbing. No peripheral edema. LOWER EXTREMITIES: 2+ pulses, warm, well-perfused. No calf tenderness. No peripheral edema. NEUROLOGICAL: Cranial nerves II-XII intact. Normal speech. Laboratory Results - last 24 hr 01/27/19 01/27/19 01/27/19 13:05 13:05 13:20 WBC 9.6 RBC 1.89 L Hgb 5.9 L* Hct 18.1 L D MCV 95.4 MCH 31.0 MCHC 32.5 RDW 16.0 H Plt Count 286 MPV 8.1 Absolute Neuts (auto) 7.9 Neutrophils % 81.2 Lymphocytes % 12.8 Monocytes % 3.1 L Eosinophils % 2.5 Basophils % 0.4 Sodium 139 Potassium 5.2 H Chloride 101 Carbon Dioxide 30 Anion Gap 8 BUN 40.0 H Creatinine 1.4 H Est GFR (CKD-EPI)AfAm 41.90 Est GFR (CKD-EPI)NonAf 36.15 Random Glucose 107 H Calcium 8.5 Total Bilirubin 0.4 AST 17 ALT 12 L Alkaline Phosphatase 48 Total Protein 5.6 L Albumin 3.3 L Stool Occult Blood Positive Crossmatch 01/27/19 13:40 WBC RBC Hgb Hct MCV MCH MCHC RDW Plt Count MPV Absolute Neuts (auto) Neutrophils % Lymphocytes % Monocytes % Eosinophils % Basophils % Sodium Potassium Chloride Carbon Dioxide Anion Gap BUN Creatinine Est GFR (CKD-EPI)AfAm Est GFR (CKD-EPI)NonAf Random Glucose Calcium Total Bilirubin AST ALT Alkaline Phosphatase Total Protein Albumin Stool Occult Blood Crossmatch See Detail Home Medications Medication Instructions Recorded Lisinopril [Prinivil] 10 mg PO DAILY 04/09/14 Spironolactone 25 mg PO BID 04/09/14 Albuterol 0.083% Nebulizer Isabella 1 neb NEB Q4H PRN 09/16/15 [Ventolin 0.083% Nebulizer Soln -] Roflumilast [Daliresp -] 500 mcg PO DAILY #0 tablet 09/25/15 Aclidinium [place] [Tudorza 400 mcg IH BID 10/14/16 Pressair] Alprazolam 0.25 mg PO PRN PRN MDD 1 mg 10/14/16 Diltiazem Cd [Cardizem Cd -] 120 mg PO DAILY 02/16/17 Pantoprazole Sodium [Protonix -] 40 mg PO DAILY 02/16/17 Montelukast Sodium [Singulair] 10 mg PO DAILY 08/01/17 Acetaminophen [Tylenol .Regular 650 mg PO Q4H PRN tablet 08/03/17 Strength -] Budesonide/Formeterol Fumarate 2 inh PO BID 01/06/18 [SYMBICORT 160/4.5mcg -] Iron Fum,Ag/C/B12/Folic/Ca/Suc 1 each PO BID 01/27/19 [Multigen Plus Caplet] REVIEW OF SYSTEMS 01/20/18 Echo: LV normal EF 65-70%; trace MR; mild TR; moderate , no AI ASSESSMENT/PLAN 78 year-old female with a history of HTN, diastolic heart failure, aortic stenosis, COPD O2-dependent, chronic blood loss anemia secondary to chronic lower GI bleed, GERD, and osteoarthritis. Admitted today for SOB secondary to acute on chronic blood loss anemia requiring transfusion. Acute on chronic blood loss anemia secondary to chronic lower GI bleed --type and screen done --transfuse 1 unit, check cbc 2 hours after completion and decide on second unit Hypertension --mildly hypotensive in ED --NS x 250mL x 1 --continue lisinopril, diltiazem with hold parameters Diastolic heart failure Moderate aortic stenosis --appears euvolemic; CXR without signs of volume overload, no LE edema --continue spironolactone COPD O2 dependent --titrate O2 to <94% --continue Symbicort, roflumilast, Singulair, alb nebs PRN GERD --protonix FEN Fluids: PO intake adequate Electrolytes: replete as indicated Nutrition: low sodium DVT prophylaxis: SCDs Dispo: continues to require inpatient care. Full code. Visit type - Emergency Visit Emergency Visit: Yes ED Registration Date: 01/27/19 Care time: The patient presented to the Emergency Department on the above date and was hospitalized for further evaluation of their emergent condition. - New Patient This patient is new to me today: Yes Date on this admission: 01/27/19 - Critical Care Critical Care patient: No
[2019-01-27] MEDS ORDERED: ALBUTEROL SO4 0.083% IH SOL 2.5 MG/3 ML VIAL.NEB. NEB PRN (14:38)
--- NOTE | 2019-01-27 15:20 | EKG ---
Test Reason : Blood Pressure : / mmHG Vent. Rate : 086 BPM Atrial Rate : 086 BPM P-R Int : 142 ms QRS Dur : 078 ms QT Int : 338 ms P-R-T Axes : -17 020 017 degrees QTc Int : 404 ms NORMAL SINUS RHYTHM NORMAL ECG WHEN COMPARED WITH ECG OF 06-JAN-2018 13:36, NO SIGNIFICANT CHANGE WAS FOUND Confirmed by MD Persaud Daniel ([id number]) on 01/27/2019 3:20:31 PM Referred By: MD ROMERO Confirmed By:Hernandez Persaud MD
[2019-01-27 16:30] VITALS: BMI 32.5
[2019-01-27] MEDS ORDERED: SODIUM CHLORIDE 250 ML IV STA (17:51)
[2019-01-27] MEDS ORDERED: FUROSEMIDE 40 MG/4 ML INJECTABLE VIAL IVPUSH ONE (20:00)
[2019-01-27] MEDS: BUDESONIDE/FORMETEROL FUMARATE 160/4.5 mcg INHALER IH SCH (21:13)
[2019-01-27] MEDS: SPIRONOLACTONE 25 MG TABLET (FP) PO SCH (21:14)
[2019-01-27] MEDS: ACETAMINOPHEN 325 MG TABLET (FP) PO PRN (21:14)
[2019-01-27] MEDS: ALPRAZolam 0.25 MG TABLET PO PRN (21:14)
[2019-01-27] MEDS ORDERED: SPIRONOLACTONE 25 MG TABLET (FP) PO ONE (21:15)
[2019-01-27] MEDS: PATIENT'S OWN MEDICATION (NON-FORMULARY) (Aclidinium Bromide [Tudorza Pressair] 400 MCG) IH SCH (21:21)
[2019-01-27] MEDS ORDERED: SPIRONOLACTONE 25 MG TABLET (FP) PO SCH (22:00)
--- NOTE | 2019-01-28 08:33 | HP ---
CHIEF COMPLAINT: PCP: HISTORY OF PRESENT ILLNESS: ER course was notable for: (1) (2) (3) Recent Travel: PAST MEDICAL HISTORY: PAST SURGICAL HISTORY: Social History: Smoking: Alcohol: Drugs: Family History: Allergies gabapentin Allergy (Severe, Verified 01/27/19 12:18) HALLUCINATIONS HOME MEDICATIONS: Home Medications Medication Instructions Recorded Lisinopril [Prinivil] 10 mg PO DAILY 04/09/14 Spironolactone 25 mg PO BID 04/09/14 Albuterol 0.083% Nebulizer Isabella 1 neb NEB Q4H PRN 09/16/15 [Ventolin 0.083% Nebulizer Soln -] Roflumilast [Daliresp -] 500 mcg PO DAILY #0 tablet 09/25/15 Aclidin[address] [place] [Tudorza 400 mcg IH BID 10/14/16 Pressair] Alprazolam 0.25 mg PO PRN PRN MDD 1 mg 10/14/16 Diltiazem Cd [Cardizem Cd -] 120 mg PO DAILY 02/16/17 Pantoprazole Sodium [Protonix -] 40 mg PO DAILY 02/16/17 Montelukast Sodium [Singulair] 10 mg PO DAILY 08/01/17 Acetaminophen [Tylenol .Regular 650 mg PO Q4H PRN tablet 08/03/17 Strength -] Budesonide/Formeterol Fumarate 2 inh PO BID 01/06/18 [SYMBICORT 160/4.5mcg -] Iron Fum,Ag/C/B12/Folic/Ca/Suc 1 each PO BID 01/27/19 [Multigen Plus Caplet] REVIEW OF SYSTEMS CONSTITUTIONAL: Absent: fever, chills, diaphoresis, generalized weakness, malaise, loss of appetite, weight change HEENT: Absent: rhinorrhea, nasal congestion, throat pain, throat swelling, difficulty swallowing, mouth swelling, ear pain, eye pain, visual changes CARDIOVASCULAR: Absent: chest pain, syncope, palpitations, irregular heart rate, lightheadedness , peripheral edema RESPIRATORY: Absent: cough, shortness of breath, dyspnea with exertion, orthopnea, wheezing, stridor, hemoptysis GASTROINTESTINAL: Absent: abdominal pain, abdominal distension, nausea, vomiting, diarrhea, constipation, melena, hematochezia GENITOURINARY: Absent: dysuria, frequency, urgency, hesitancy, hematuria, flank pain, genital pain MUSCULOSKELETAL: Absent: myalgia, arthralgia, joint swelling, back pain, neck pain SKIN: Absent: rash, itching, pallor HEMATOLOGIC/IMMUNOLOGIC: Absent: easy bleeding, easy bruising, lymphadenopathy, frequent infections ENDOCRINE: Absent: unexplained weight gain, unexplained weight loss, heat intolerance, cold intolerance NEUROLOGIC: Absent: headache, focal weakness or paresthesias, dizziness, unsteady gait, seizure, mental status changes, bladder or bowel incontinence PSYCHIATRIC: Absent: anxiety, depression, suicidal or homicidal ideation, hallucinations. PHYSICAL EXAMINATION Vital Signs - 24 hr 01/27/19 01/27/19 01/27/19 12:17 15:30 16:08 Temperature 98.3 F 98.1 F Pulse Rate 99 H 87 Pulse Rate [ 90 Apical] Respiratory 20 20 20 Rate Blood Pressure 95/43 L 107/43 L Blood Pressure 106/51 L [Arm] O2 Sat by Pulse 93 L 95 95 Oximetry (%) 01/27/19 01/27/19 01/28/19 17:50 21:00 02:09 Temperature 98.2 F 98.5 F Pulse Rate 93 H 84 Pulse Rate [ Apical] Respiratory 20 20 20 Rate Blood Pressure 115/49 L 108/51 L Blood Pressure [Arm] O2 Sat by Pulse 95 98 Oximetry (%) 01/28/19 01/28/19 02:11 06:00 Temperature 98.5 F 98.3 F Pulse Rate 84 87 Pulse Rate [ Apical] Respiratory 20 20 Rate Blood Pressure 108/51 L 108/45 L Blood Pressure [Arm] O2 Sat by Pulse 98 95 Oximetry (%) GENERAL: Awake, alert, and fully oriented, in no acute distress. HEAD: Normal with no signs of trauma. EYES: Pupils equal, round and reactive to light, extraocular movements intact, sclera anicteric, conjunctiva clear. No lid lag. EARS, NOSE, THROAT: Ears normal, nares patent, oropharynx clear without exudates. Moist mucous membranes. NECK: Normal range of motion, supple without lymphadenopathy, JVD, or masses. LUNGS: Breath sounds equal, clear to auscultation bilaterally. No wheezes, and no crackles. No accessory muscle use. HEART: Regular rate and rhythm, normal S1 and S2 without murmur, rub or gallop. ABDOMEN: Soft, nontender, not distended, normoactive bowel sounds, no guarding, no rebound, no masses. No hepatomegaly or splenomegaly. MUSCULOSKELETAL: Normal range of motion at all joints. No bony deformities or tenderness. No CVA tenderness. UPPER EXTREMITIES: 2+ pulses, warm, well-perfused. No cyanosis. No clubbing. No peripheral edema. LOWER EXTREMITIES: 2+ pulses, warm, well-perfused. No calf tenderness. No peripheral edema. NEUROLOGICAL: Cranial nerves II-XII intact. Normal speech. Normal gait. PSYCHIATRIC: Cooperative. Good eye contact. Appropriate mood and affect. SKIN: Warm, dry, normal turgor, no rashes or lesions noted, normal capillary refill. Laboratory Results - last 24 hr 01/27/19 01/27/19 01/27/19 13:05 13:05 13:20 WBC 9.6 RBC 1.89 L Hgb 5.9 L* Hct 18.1 L D MCV 95.4 MCH 31.0 MCHC 32.5 RDW 16.0 H Plt Count 286 MPV 8.1 Absolute Neuts (auto) 7.9 Neutrophils % 81.2 Lymphocytes % 12.8 Monocytes % 3.1 L Eosinophils % 2.5 Basophils % 0.4 Sodium 139 Potassium 5.2 H Chloride 101 Carbon Dioxide 30 Anion Gap 8 BUN 40.0 H Creatinine 1.4 H Est GFR (CKD-EPI)AfAm 41.90 Est GFR (CKD-EPI)NonAf 36.15 Random Glucose 107 H Calcium 8.5 Total Bilirubin 0.4 AST 17 ALT 12 L Alkaline Phosphatase 48 Total Protein 5.6 L Albumin 3.3 L Stool Occult Blood Positive Blood Type Antibody Screen Crossmatch Crossmatch IS Only 01/27/19 13:40 WBC RBC Hgb Hct MCV MCH MCHC RDW Plt Count MPV Absolute Neuts (auto) Neutrophils % Lymphocytes % Monocytes % Eosinophils % Basophils % Sodium Potassium Chloride Carbon Dioxide Anion Gap BUN Creatinine Est GFR (CKD-EPI)AfAm Est GFR (CKD-EPI)NonAf Random Glucose Calcium Total Bilirubin AST ALT Alkaline Phosphatase Total Protein Albumin Stool Occult Blood Blood Type A POSITIVE Antibody Screen Negative Crossmatch See Detail Crossmatch IS Only See Detail ASSESSMENT/PLAN:
[2019-01-28 08:48] LABS: ALBUMIN 2.9 g/dl (3.4-5.0); BASO % 0.4 % (0-2.0); BILIRUBIN,TOTAL 1.1 mg/dl (0.2-1); CALCIUM 8.3 mg/dl (8.5-10); CREATININE 1.3 mg/dl (0.55-1.3); HEMATOCRIT 22.8 % (32.4-45.2); HEMOGLOBIN 7.3 GM/dl (10.7-15.3); LYMPH % 15.7 % (8-40); MAGNESIUM 2.2 mg/dL (1.8-2.4); MCH 30.6 pg (25.7-33.7); MCHC 31.9 g/dl (32.0-36.0); MEAN CELL VOLUME 95.9 fl (80-96); MEAN PLT VOLUME 8.6 fl (7.5-11.1); MONO % 4.7 % (3.8-10.2); NEUT % 76.2 % (42.8-82.8); PLATELET COUNT 273 K/MM3 (134-434); POTASSIUM 5.4 mmol/L (3.5-5.1); RBC 2.38 M/mm3 (3.60-5.2); RDW 14.9 % (11.6-15.6); TOT PROT 5.1 g/dl (6.4-8.2); WHITE BLOOD COUNT 9.1 K/mm3 (4.0-10.8)
[2019-01-28 09:34] LABS: ACTIVATED PTT 29.7 SECONDS (25.2-36.5)
[2019-01-28 09:39] LABS: INR 1.15 (0.82-1.09); PROTHROMBIN TIME (PATIENT) 12.8 SEC (10.2-13.0)
[2019-01-28] MEDS ORDERED: PT OWN MED DRAWER 7, Y5N ONE (09:39)
[2019-01-28] MEDS: PATIENT'S OWN MEDICATION (NON-FORMULARY) (Aclidinium Bromide [Tudorza Pressair] 400 MCG) IH SCH ×2 (09:46→21:38)
[2019-01-28] MEDS: PANTOPRAZOLE 40 MG TABLET (FP) PO SCH (09:47)
[2019-01-28] MEDS: MONTELUKAST NA 10 MG TABLET PO SCH (09:47)
[2019-01-28] MEDS: BUDESONIDE/FORMETEROL FUMARATE 160/4.5 mcg INHALER IH SCH ×2 (09:48→21:37)
[2019-01-28] MEDS: SPIRONOLACTONE 25 MG TABLET (FP) PO SCH ×2 (09:49→21:36)
--- NOTE | 2019-01-28 09:49 | PN ---
Physical Exam: SUBJECTIVE: Patient seen and examined. Pt states she feel a lot better than she did yesterday. Pt denies in CP, Fever, Chills, N/V/D OBJECTIVE: Vital Signs Period Temp Pulse Resp BP Sys/Vaughn Pulse Ox Last 24 Hr 98.1 F-98.5 F 84-99 20-20 95-115/43-51 93-98 GENERAL: Awake, alert, and fully oriented, in no acute distress. HEAD: Normal with no signs of trauma. EYES: Pupils equal, round and reactive to light, extraocular movements intact, sclera anicteric, conjunctiva clear. No lid lag. LUNGS: Breath sounds equal, clear to auscultation bilaterally. No wheezes, and no crackles. No accessory muscle use. HEART: Regular rate and rhythm, S1 and S2 ABDOMEN: Soft, nontender, not distended UPPER EXTREMITIES: 2+ pulses, warm, well-perfused. No cyanosis. No clubbing. No peripheral edema. LOWER EXTREMITIES: 2+ pulses, warm, well-perfused. No calf tenderness. No peripheral edema. NEUROLOGICAL: Cranial nerves II-XII intact. Normal speech. Laboratory Results - last 24 hr 01/27/19 01/27/19 01/27/19 13:05 13:05 13:20 WBC 9.6 RBC 1.89 L Hgb 5.9 L* Hct 18.1 L D MCV 95.4 MCH 31.0 MCHC 32.5 RDW 16.0 H Plt Count 286 MPV 8.1 Absolute Neuts (auto) 7.9 Neutrophils % 81.2 Lymphocytes % 12.8 Monocytes % 3.1 L Eosinophils % 2.5 Basophils % 0.4 Sodium 139 Potassium 5.2 H Chloride 101 Carbon Dioxide 30 Anion Gap 8 BUN 40.0 H Creatinine 1.4 H Est GFR (CKD-EPI)AfAm 41.90 Est GFR (CKD-EPI)NonAf 36.15 Random Glucose 107 H Calcium 8.5 Magnesium Total Bilirubin 0.4 AST 17 ALT 12 L Alkaline Phosphatase 48 Total Protein 5.6 L Albumin 3.3 L Stool Occult Blood Positive Blood Type Antibody Screen Crossmatch Crossmatch IS Only 01/27/19 01/28/19 01/28/19 13:40 07:00 07:00 WBC 9.1 RBC 2.38 L Hgb 7.3 L Hct 22.8 L D MCV 95.9 MCH 30.6 MCHC 31.9 L RDW 14.9 Plt Count 273 MPV 8.6 Absolute Neuts (auto) 7.0 Neutrophils % 76.2 Lymphocytes % 15.7 Monocytes % 4.7 Eosinophils % 3.0 Basophils % 0.4 Sodium 139 Potassium 5.4 H Chloride 103 Carbon Dioxide 29 Anion Gap 7 L BUN 33.0 H Creatinine 1.3 Est GFR (CKD-EPI)AfAm 45.83 Est GFR (CKD-EPI)NonAf 39.54 Random Glucose 85 Calcium 8.3 L Magnesium 2.2 Total Bilirubin 1.1 H AST 17 ALT 12 L Alkaline Phosphatase 46 Total Protein 5.1 L Albumin 2.9 L Stool Occult Blood Blood Type A POSITIVE Antibody Screen Negative Crossmatch See Detail Crossmatch IS Only See Detail Active Medications Generic Name Dose Route Start Last Admin Trade Name Freq PRN Reason Stop Dose Admin Acetaminophen 650 mg 01/27/19 20:53 01/27/19 21:14 Tylenol - PO 650 mg Q6H PRN Administration PAIN OR FEVER Albuterol Sulfate 1 amp 01/27/19 14:38 Ventolin 0.083% Nebulizer Soln - NEB Q4H PRN SHORT OF BREATH/WHEEZING Alprazolam 0.25 mg 01/27/19 20:52 01/27/19 21:14 Xanax - PO 0.25 mg HS PRN Administration ANXIETY Budesonide/Formoterol Fumarate 2 puff 01/27/19 22:00 01/27/19 21:13 Symbicort 160/4.5mcg - IH 2 puff BID FLORA Administration Diltiazem HCl 120 mg 01/28/19 10:00 Cardizem Cd - PO DAILY FLORA Lisinopril 10 mg 01/28/19 10:00 Prinivil PO DAILY FLORA Montelukast Sodium 10 mg 01/28/19 10:00 Singulair - PO DAILY FLORA Non-Formulary Medication 400 mcg 01/27/19 22:00 01/27/19 21:21 Aclidinium [place] [Tudorza Pressair] IH 400 mcg BID FLORA Administration Pantoprazole Sodium 40 mg 01/28/19 10:00 Protonix - PO DAILY FLORA Roflumilast 500 mcg 01/28/19 10:00 Daliresp - PO DAILY FLORA Spironolactone 25 mg 01/27/19 22:00 01/27/19 21:14 Aldactone - PO 25 mg BID FLORA Administration ASSESSMENT/PLAN: 78 year-old female with a history of HTN, diastolic heart failure, aortic stenosis, COPD O2-dependent, chronic blood loss anemia secondary to chronic lower GI bleed, GERD, and osteoarthritis. Admitted today for SOB secondary to acute on chronic blood loss anemia requiring transfusion. Acute on chronic blood loss anemia secondary to chronic lower GI bleed -Two Units PRBCs transfused, HGB 7.3 -Will transfuse 1 unit PRBCs today and check a CBC 2 hours after --labs post PRBCs Hgb-8.8 -Pt ambulated on 2L NC. pre and post 02 96% Hypertension -mildly hypotensive in ED -NS x 250mL x 1 -continue lisinopril, diltiazem with hold parameters Diastolic heart failure Moderate aortic stenosis 01/20/18 Echo: LV normal EF 65-70%; trace MR; mild TR; moderate , no AI -appears euvolemic; CXR without signs of volume overload, no LE edema -continue spironolactone COPD O2 dependent -titrate O2 to <94% -continue Symbicort, roflumilast, Singulair, alb nebs PRN Hyperkalemia -5.4 in AM -Likely due to spironolactone and blood transfusion -Kayexalate 30gm -will check Potassium 2 hours after transfusion today --Lab Post kayexalateand PRBCs is 5.7. -Will admin Kayexalate 30mg this evening and check BMP in A. If stable will DC Home GERD -protonix FEN -Fluids: PO intake adequate -Electrolytes: replete as indicated -Nutrition: low sodium DVT prophylaxis - SCDs Dispo -continues to require inpatient care - -Full code. Visit type - Emergency Visit Emergency Visit: Yes ED Registration Date: 01/27/19 Care time: The patient presented to the Emergency Department on the above date and was hospitalized for further evaluation of their emergent condition. - New Patient This patient is new to me today: Yes Date on this admission: 01/28/19 - Critical Care Critical Care patient: No
[2019-01-28] MEDS ORDERED: SODIUM POLYSTYRENE SULFONATE 15 GM/60 ML BOTTLE PO ONE ×2 (09:56→18:00)
[2019-01-28] MEDS: ROFLUMILAST 500 MCG TABLET PO SCH (10:17)
[2019-01-28] MEDS ORDERED: SODIUM POLYSTYRENE SULFONATE 15 GM/60 ML BOTTLE ONE (10:49)
[2019-01-28] MEDS: LISINOPRIL 20 MG TABLET (FP) PO SCH (10:55)
[2019-01-28 15:14] LABS: HEMATOCRIT 27.8 % (32.4-45.2); HEMOGLOBIN 8.8 GM/dl (10.7-15.3); MCH 30.5 pg (25.7-33.7); MCHC 31.6 g/dl (32.0-36.0); MEAN CELL VOLUME 96.6 fl (80-96); MEAN PLT VOLUME 7.8 fl (7.5-11.1); PLATELET COUNT 296 K/MM3 (134-434); RBC 2.88 M/mm3 (3.60-5.2); RDW 14.7 % (11.6-15.6); WHITE BLOOD COUNT 9.2 K/mm3 (4.0-10.8)
[2019-01-28] MEDS: ALPRAZolam 0.25 MG TABLET PO PRN (21:36)
[2019-01-28] MEDS: ACETAMINOPHEN 325 MG TABLET (FP) PO PRN (21:42)
--- NOTE | 2019-01-29 08:43 | PN ---
Physical Exam: SUBJECTIVE: Patient seen and examined OBJECTIVE: Vital Signs Period Temp Pulse Resp BP Sys/Vaughn Pulse Ox Last 24 Hr 97.8 F-99.0 F 80-91 16-20 112-131/49-56 96-99 GENERAL: The patient is awake, alert, and fully oriented, in no acute distress. HEAD: Normal with no signs of trauma. EYES: PERRL, extraocular movements intact, sclera anicteric, conjunctiva clear. No ptosis. ENT: Ears normal, nares patent, oropharynx clear without exudates, moist mucous membranes. NECK: Trachea midline, full range of motion, supple. LUNGS: Breath sounds equal, clear to auscultation bilaterally, no wheezes, no crackles, no accessory muscle use. HEART: Regular rate and rhythm, S1, S2 without murmur, rub or gallop. ABDOMEN: Soft, nontender, nondistended, normoactive bowel sounds, no guarding, no rebound, no hepatosplenomegaly, no masses. EXTREMITIES: 2+ pulses, warm, well-perfused, no edema. NEUROLOGICAL: Cranial nerves II through XII grossly intact. Normal speech, gait not observed. PSYCH: Normal mood, normal affect. SKIN: Warm, dry, normal turgor, no rashes or lesions noted Laboratory Results - last 24 hr 01/27/19 01/28/19 01/28/19 13:40 07:00 07:00 WBC 9.1 RBC 2.38 L Hgb 7.3 L Hct 22.8 L D MCV 95.9 MCH 30.6 MCHC 31.9 L RDW 14.9 Plt Count 273 MPV 8.6 Absolute Neuts (auto) 7.0 Neutrophils % 76.2 Lymphocytes % 15.7 Monocytes % 4.7 Eosinophils % 3.0 Basophils % 0.4 PT with INR 12.8 INR 1.15 PTT (Actin FS) 29.7 Sodium Potassium Chloride Carbon Dioxide Anion Gap BUN Creatinine Est GFR (CKD-EPI)AfAm Est GFR (CKD-EPI)NonAf Random Glucose Calcium Magnesium Total Bilirubin AST ALT Alkaline Phosphatase Total Protein Albumin Blood Type A POSITIVE Antibody Screen Negative Crossmatch See Detail Crossmatch IS Only See Detail 01/28/19 01/28/19 01/28/19 07:00 15:00 15:08 WBC 9.2 RBC 2.88 L Hgb 8.8 L Hct 27.8 L D MCV 96.6 H MCH 30.5 MCHC 31.6 L RDW 14.7 Plt Count 296 MPV 7.8 Absolute Neuts (auto) Neutrophils % Lymphocytes % Monocytes % Eosinophils % Basophils % PT with INR INR PTT (Actin FS) Sodium 139 Potassium 5.4 H 5.7 H Chloride 103 Carbon Dioxide 29 Anion Gap 7 L BUN 33.0 H Creatinine 1.3 Est GFR (CKD-EPI)AfAm 45.83 Est GFR (CKD-EPI)NonAf 39.54 Random Glucose 85 Calcium 8.3 L Magnesium 2.2 Total Bilirubin 1.1 H AST 17 ALT 12 L Alkaline Phosphatase 46 Total Protein 5.1 L Albumin 2.9 L Blood Type Antibody Screen Crossmatch Crossmatch IS Only Active Medications Generic Name Dose Route Start Last Admin Trade Name Freq PRN Reason Stop Dose Admin Acetaminophen 650 mg 01/27/19 20:53 01/28/19 21:42 Tylenol - PO 650 mg Q6H PRN Administration PAIN OR FEVER Albuterol Sulfate 1 amp 01/27/19 14:38 Ventolin 0.083% Nebulizer Soln - NEB Q4H PRN SHORT OF BREATH/WHEEZING Alprazolam 0.25 mg 01/27/19 20:52 01/28/19 21:36 Xanax - PO 0.25 mg HS PRN Administration ANXIETY Budesonide/Formoterol Fumarate 2 puff 01/27/19 22:00 01/28/19 21:37 Symbicort 160/4.5mcg - IH 2 puff BID FLORA Administration Diltiazem HCl 120 mg 01/28/19 10:00 01/28/19 10:55 Cardizem Cd - PO Not Given DAILY FLORA Lisinopril 10 mg 01/28/19 10:00 01/28/19 10:55 Prinivil PO Not Given DAILY FLORA Montelukast Sodium 10 mg 01/28/19 10:00 01/28/19 09:47 Singulair - PO 10 mg DAILY FLORA Administration Non-Formulary Medication 400 mcg 01/27/19 22:00 01/28/19 21:38 Aclidinium [place] [Tudorza Pressair] IH 400 mcg BID FLORA Administration Pantoprazole Sodium 40 mg 01/28/19 10:00 01/28/19 09:47 Protonix - PO 40 mg DAILY FLORA Administration Roflumilast 500 mcg 01/28/19 10:00 01/28/19 10:17 Daliresp - PO 500 mcg DAILY FLORA Administration Spironolactone 25 mg 01/27/19 22:00 01/28/19 21:36 Aldactone - PO 25 mg BID FLORA Administration ASSESSMENT/PLAN:
[2019-01-29 09:04] LABS: HEMATOCRIT 25.7 % (32.4-45.2); HEMOGLOBIN 8.4 GM/dl (10.7-15.3); MCH 31.3 pg (25.7-33.7); MCHC 32.7 g/dl (32.0-36.0); MEAN CELL VOLUME 95.7 fl (80-96); MEAN PLT VOLUME 8.4 fl (7.5-11.1); PLATELET COUNT 261 K/MM3 (134-434); RBC 2.68 M/mm3 (3.60-5.2); RDW 14.9 % (11.6-15.6); WHITE BLOOD COUNT 8.1 K/mm3 (4.0-10.8)
[2019-01-29 09:15] LABS: ALBUMIN 3.1 g/dl (3.4-5.0); BILIRUBIN,TOTAL 0.4 mg/dl (0.2-1); CALCIUM 8.3 mg/dl (8.5-10); CREATININE 1.2 mg/dl (0.55-1.3); TOT PROT 5.4 g/dl (6.4-8.2)
[2019-01-29] MEDS: PANTOPRAZOLE 40 MG TABLET (FP) PO SCH (09:20)
[2019-01-29] MEDS: LISINOPRIL 20 MG TABLET (FP) PO SCH (09:21)
[2019-01-29] MEDS: SPIRONOLACTONE 25 MG TABLET (FP) PO SCH (09:22)
[2019-01-29] MEDS: MONTELUKAST NA 10 MG TABLET PO SCH (09:22)
[2019-01-29] MEDS: PATIENT'S OWN MEDICATION (NON-FORMULARY) (Aclidinium Bromide [Tudorza Pressair] 400 MCG) IH SCH (09:22)
[2019-01-29] MEDS: ROFLUMILAST 500 MCG TABLET PO SCH (09:22)
[2019-01-29] MEDS: BUDESONIDE/FORMETEROL FUMARATE 160/4.5 mcg INHALER IH SCH (09:22)
[2019-01-29 10:00] VITALS: BP 123/55; PULSE 92; TEMP 97.9
--- NOTE | 2019-01-29 10:01 | DS ---
Physical Exam: SUBJECTIVE: Patient seen and examined. Ambulating with walker. OBJECTIVE: Vital Signs Period Temp Pulse Resp BP Sys/Vaughn Pulse Ox Last 24 Hr 97.8 F-99.0 F 80-92 16-20 114-131/49-55 94-99 PHYSICAL EXAM GENERAL: Awake, alert, and fully oriented, in no acute distress. HEAD: Normal with no signs of trauma. EYES: Pupils equal, round and reactive to light, extraocular movements intact, sclera anicteric, conjunctiva clear. No lid lag. LUNGS: Breath sounds equal, clear to auscultation bilaterally. No wheezes, and no crackles. No accessory muscle use. HEART: Regular rate and rhythm, S1 and S2 ABDOMEN: Soft, nontender, not distended UPPER EXTREMITIES: 2+ pulses, warm, well-perfused. No cyanosis. No clubbing. No peripheral edema. LOWER EXTREMITIES: 2+ pulses, warm, well-perfused. No calf tenderness. No peripheral edema. NEUROLOGICAL: Cranial nerves II-XII intact. Normal speech. LABS Laboratory Results - last 24 hr 01/27/19 01/28/19 01/28/19 13:40 15:00 15:08 WBC 9.2 RBC 2.88 L Hgb 8.8 L Hct 27.8 L D MCV 96.6 H MCH 30.5 MCHC 31.6 L RDW 14.7 Plt Count 296 MPV 7.8 Sodium Potassium 5.7 H Chloride Carbon Dioxide Anion Gap BUN Creatinine Est GFR (CKD-EPI)AfAm Est GFR (CKD-EPI)NonAf Random Glucose Calcium Magnesium Total Bilirubin AST ALT Alkaline Phosphatase Total Protein Albumin Blood Type A POSITIVE Antibody Screen Negative Crossmatch See Detail Crossmatch IS Only See Detail 01/29/19 01/29/19 06:45 06:45 WBC 8.1 RBC 2.68 L Hgb 8.4 L Hct 25.7 L MCV 95.7 MCH 31.3 MCHC 32.7 RDW 14.9 Plt Count 261 MPV 8.4 Sodium 142 Potassium 5.0 Chloride 103 Carbon Dioxide 33 H Anion Gap 6 L BUN 27.0 H Creatinine 1.2 Est GFR (CKD-EPI)AfAm 50.48 Est GFR (CKD-EPI)NonAf 43.56 Random Glucose 87 Calcium 8.3 L Magnesium 2.0 Total Bilirubin 0.4 AST 18 ALT 13 Alkaline Phosphatase 46 Total Protein 5.4 L Albumin 3.1 L Blood Type Antibody Screen Crossmatch Crossmatch IS Only HOSPITAL COURSE: Date of Admission:01/27/19 Date of Discharge: 01/29/19 Pre hospital course 78 year-old female with a history of HTN, diastolic heart failure, aortic stenosis, COPD O2-dependent, chronic blood loss anemia secondary to chronic lower GI bleed, GERD, and osteoarthritis. Patient comes to the hospital as an outpatient for periodic transfusions. She was scheduled for her next transfusion later this week, but increasing SOB brought her to the ED today. Last month had URI, treated with PO levaquin. Denies cough, fever, sweats, chills. Denies chest pain, palpitations, diaphoresis, orthopnea, lower extremity edema. Stool is always dark, no change from baseline. Denies hematuria , any other type of bleeding. ER course (1) BP 106/51 (2) Hgb 5.9/Hct 18.1 (3) BUN 40 Cr 1.4 (4) occult stool positive Subsequent hospital course 78 year-old female with a history of HTN, diastolic heart failure, aortic stenosis, COPD O2-dependent, chronic blood loss anemia secondary to chronic lower GI bleed, GERD, and osteoarthritis. Admitted today for SOB secondary to acute on chronic blood loss anemia requiring transfusion. Acute on chronic blood loss anemia secondary to chronic lower GI bleed --Hgb 5.9 on admission, transfused 3U PRBCs-->Hgb 8.4 Hypertension --continued lisinopril, diltiazem Diastolic heart failure Moderate aortic stenosis --appeared euvolemic; CXR without signs of volume overload, no LE edema --continued spironolactone COPD O2 dependent --continued Symbicort, roflumilast, Singulair, albuterol nebs GERD --protonix Minutes to complete discharge: 35 Discharge Summary Reason For Visit: ANEMIA Current Active Problems Anemia (Acute) Condition: Improved - Instructions Diet, Activity, Other Instructions: We left a message with Dr. Roberts's office that you were transfused during this hospital visit. You should follow up with him within 24 hours of your discharge. Return to the emergency department for any new or worsening symptoms. Referrals: Roberto Roberts MD [Staff Physician] - Disposition: HOME - Home Medications Comprehensive Discharge Medication List: Ambulatory Orders Lisinopril [Prinivil] 10 mg PO DAILY 10/21/14 Spironolactone 25 mg PO BID 04/09/14 Albuterol 0.083% Nebulizer [place] [Ventolin 0.083% Nebulizer Soln -] 1 neb NEB Q4H PRN 09/16/15 Roflumilast [Daliresp -] 500 mcg PO DAILY #0 tablet 09/25/15 Aclidinium [place] [Tudorza Pressair] 400 mcg IH BID 10/14/16 Alprazolam 0.25 mg PO PRN PRN MDD 1 mg 10/14/16 Diltiazem Cd [Cardizem Cd -] 120 mg PO DAILY 02/16/17 Pantoprazole Sodium [Protonix -] 40 mg PO DAILY 02/16/17 Montelukast Sodium [Singulair] 10 mg PO DAILY 08/01/17 Acetaminophen [Tylenol .Regular Strength -] 650 mg PO Q4H PRN tablet 08/03/17 Budesonide/Formeterol Fumarate [SYMBICORT 160/4.5mcg -] 2 inh PO BID 01/06/18 Iron Fum,Ag/C/B12/Folic/Ca/Suc [Multigen Plus Caplet] 1 each PO BID 01/27/19 This patient is new to me today: No Emergency Visit: Yes ED Registration Date: 01/27/19 Care time: The patient presented to the Emergency Department on the above date and was hospitalized for further evaluation of their emergent condition. Critical Care patient: No - Discharge Referral Referred to [facility] No
== END 2019-01-29 10:50 | disposition home or self-care (01) | DRG 378 ==
LOC: FER 12:16 → FM/S 14:25
PROVIDERS: ADMIT Internal Medicine; ATTEND Nurse Practitioner Acute Care
PROC: 30233N1 Transfusion of Nonautologous Red Blood Cells into Peripheral Vein, Percutaneous Approach (ICD-10-PCS; principal; 2019-01-27)
DX: K92.2 Gastrointestinal hemorrhage, unspecified (principal); D62 Acute posthemorrhagic anemia; I50.30 Unspecified diastolic (congestive) heart failure; I11.0 Hypertensive heart disease with heart failure; I35.0 Nonrheumatic aortic (valve) stenosis; K21.9 Gastro-esophageal reflux disease without esophagitis; J44.9 Chronic obstructive pulmonary disease, unspecified; E87.5 Hyperkalemia; I95.9 Hypotension, unspecified; Z99.81 Dependence on supplemental oxygen
CPT/HCPCS: 36415; 36430; 36511; 71045-TC-FY; 80053; 82272; 83735; 84132; 85025; 85027; 85610; 85730; 86850; 86900; 86901; 86922; 93005; 99283-25; P9038; P9058

== ENCOUNTER 2019-02-24 08:25 | Day surgery (SDC) | payer OTHER, BC ==
[2019-02-24 09:12] VITALS: BP 121/52; PULSE 84; TEMP 98.1
[2019-02-24] MEDS: FUROSEMIDE 10 MG/1 ML VIAL (4 ML VIAL) IVPUSH SCH ×2 (13:42→17:15)
[2019-02-24 18:15] LABS: EOS % 2.9 % (0-4.5); HEMATOCRIT 31.4 % (32.4-45.2); HEMOGLOBIN 9.9 GM/dl (10.7-15.3); LYMPH % 15.1 % (8-40); MCH 30.1 pg (25.7-33.7); MCHC 31.5 g/dl (32.0-36.0); MEAN CELL VOLUME 95.7 fl (80-96); MEAN PLT VOLUME 8.1 fl (7.5-11.1); MONO % 4.6 % (3.8-10.2); NEUT % 76.4 % (42.8-82.8); PLATELET COUNT 269 K/MM3 (134-434); RBC 3.29 M/mm3 (3.60-5.2); RDW 13.7 % (11.6-15.6); WHITE BLOOD COUNT 9.8 K/mm3 (4.0-10.8)
== END 2019-02-24 18:05 | disposition home or self-care (01) ==
LOC: FINFUSION 08:25 → FM/S 08:28 → FINFUSION 18:05
PROVIDERS: ATTEND Family Medicine
PROC: 30233N1 Transfusion of Nonautologous Red Blood Cells into Peripheral Vein, Percutaneous Approach (ICD-10-PCS; principal; 2019-02-24)
PROC: 3E033GC Introduction of Other Therapeutic Substance into Peripheral Vein, Percutaneous Approach (ICD-10-PCS; 2019-02-24)
DX: D50.9 Iron deficiency anemia, unspecified (principal)
CPT/HCPCS: 36415; 36430; 36511; 85025; 96372; P9038; P9058

== ENCOUNTER 2021-12-02 15:59 | Inpatient (IN) | payer OTHER, BC ==
[2021-12-02 16:57] LABS: HEMATOCRIT 28.8 % (32.4-45.2); HEMOGLOBIN 9.2 G/dL (10.7-15.3); MCH 28.6 pg (25.7-33.7); MEAN CELL VOLUME 89.4 fl (80-96); MEAN PLT VOLUME 7.9 fl (7.5-11.1); PLATELET COUNT 253.2 10^3/uL (134-434); RBC 3.22 10^6/uL (3.60-5.2); RDW 14.5 % (11.6-15.6); WHITE BLOOD COUNT 8.1 10^3/uL (4.0-10.8)
[2021-12-02 17:12] LABS: ALBUMIN 2.3 g/dl (3.4-5.0); BILIRUBIN,TOTAL 0.4 mg/dl (0.2-1); CALCIUM 8.4 mg/dl (8.5-10); TOT PROT 5.3 g/dl (6.4-8.2)
[2021-12-02 17:30] LABS: PLATELET ESTIMATE ADEQUATE
[2021-12-02] MEDS ORDERED: ALBUTEROL SO4 2.5/IPRATROPIUM 0.5 INH SOL 3 ML VIAL.NEB. NEB ONE ×2 (18:06→18:27)
[2021-12-02] MEDS ORDERED: CEFTRIAXONE 1 GM in DEXTROSE 5%-WATER - 50 ML IVPB ONE (18:07)
[2021-12-02] MEDS ORDERED: DOXYCYCLINE INJECTION 100 MG in DEXTROSE 5%-WATER 100 ML IVPB ONE (18:08)
[2021-12-02 18:27] LABS: VENOUS BASE EXCESS 7.4 mmol/L (-2-2); VENOUS O2 SATURATION 86.3 % (70-80); VENOUS PH 7.289 (7.310-7.410)
[2021-12-02] MEDS ORDERED: cefTRIAXone SODIUM 1 GM VIAL ONE (18:27)
[2021-12-02] MEDS ORDERED: DOXYCYCLINE HYCLATE 100 MG VIAL ONE (18:28)
[2021-12-02 18:30] LABS: VENOUS PCO2 76.1 mmHg (38-52)
[2021-12-02 18:40] LABS: N-TERMINAL BNP 4856.8 pg/ml (5-450)
[2021-12-02] MEDS ORDERED: POLYETHYLENE GLYCOL (HEALTHYLAX) 3350 17 GM PACKET PO PRN (19:29)
[2021-12-02 20:29] LABS: ACTIVATED PTT 35.9 SECONDS (25.2-36.5); INR 1.29 (0.83-1.09); PROTHROMBIN TIME (PATIENT) 14.9 SEC (9.7-13.0)
[2021-12-02 20:30] LABS: CALCIUM 8.3 mg/dl (8.5-10)
[2021-12-02 21:36] LABS: VENOUS BASE EXCESS 5.9 mmol/L (-2-2); VENOUS O2 SATURATION 70.3 % (70-80); VENOUS PH 7.265 (7.310-7.410)
[2021-12-02 21:39] LABS: VENOUS PCO2 77.5 mmHg (38-52)
[2021-12-03] MEDS: ACETAMINOPHEN 325 MG TABLET (FP) PO PRN (00:59)
[2021-12-03 01:19] VITALS: BMI 28.1
[2021-12-03] MEDS ORDERED: ALBUTEROL SO4 HFA INHALER IH PRN (02:45)
[2021-12-03 06:52] LABS: BASO % 0.3 % (0-2.0); EOS % 2.6 % (0-4.5); HEMATOCRIT 25.9 % (32.4-45.2); HEMOGLOBIN 8.3 GM/dL (10.7-15.3); LYMPH % 16.8 % (8-40); MCH 28.5 pg (25.7-33.7); MCHC 31.9 g/dl (32.0-36.0); MEAN CELL VOLUME 89.2 fl (80-96); MEAN PLT VOLUME 7.8 fl (7.5-11.1); MONO % 6.9 % (3.8-10.2); NEUT % 73.4 % (42.8-82.8); PLATELET COUNT 230 10^3/uL (134-434); RDW 14.5 % (11.6-15.6); WHITE BLOOD COUNT 6.2 K/mm3 (4.0-10.0)
[2021-12-03 07:12] LABS: MAGNESIUM 2.2 mg/dL (1.8-2.4)
[2021-12-03] MEDS ORDERED: DEXTROSE 5%-WATER 100 ML IVPB ONE ×2 (07:33→08:24)
[2021-12-03] MEDS ORDERED: DOXYCYCLINE HYCLATE 100 MG VIAL ONE ×2 (07:33→08:24)
[2021-12-03] MEDS: DOXYCYCLINE INJECTION 100 MG in DEXTROSE 5%-WATER 100 ML IVPB SCH ×2 (07:41→17:00)
[2021-12-03] MEDS: GABAPENTIN 300 MG CAPSULE PO SCH ×2 (09:25→21:24)
[2021-12-03] MEDS: APIXABAN 2.5 MG TABLET PO SCH ×2 (09:26→21:24)
[2021-12-03] MEDS: FERROUS SO4 325 MG TABLET (FP) PO SCH (09:26)
[2021-12-03] MEDS: DEXAMETHASONE SOD PHOSPHATE 10 MG/1 ML VIAL IVPUSH SCH (09:26)
[2021-12-03] MEDS: PANTOPRAZOLE 40 MG TABLET PO SCH (09:26)
[2021-12-03] MEDS: DULoxetine HCL 30 MG CAPSULE.DR PO SCH (09:27)
[2021-12-03] MEDS: CHOLECALCIFEROL (VIT D3) 5000 UNITS (125 MCG) CAP PO SCH (09:29)
[2021-12-03] MEDS: ROFLUMILAST 500 MCG TABLET PO SCH (09:29)
[2021-12-03] MEDS ORDERED: REMDESIVIR 200 MG in SODIUM CHLORIDE 250 ML IVPB ONE (10:00)
[2021-12-03] MEDS ORDERED: ALBUTEROL SO4 2.5/IPRATROPIUM 0.5 INH SOL 3 ML VIAL.NEB. NEB PRN (10:01)
[2021-12-03] MEDS: FLUTICASONE/UMECLIDIN/VILANTER(100-62.5-25 TRELEGY ELLIPTA) INAHLER IH SCH (10:16)
[2021-12-03] MEDS ORDERED: METOPROLOL TARTRATE 5 MG/5 ML VIAL IVPUSH PRN (13:15)
[2021-12-03] MEDS: metoPROLOL SUCCINATE 25 MG TAB.SR.24H (FP) PO SCH (13:26)
[2021-12-03] MEDS: ALPRAZolam 0.25 MG TABLET PO SCH ×2 (13:46→21:24)
[2021-12-03] MEDS ORDERED: cefTRIAXone SODIUM 1 GM VIAL ONE (16:46)
[2021-12-03] MEDS ORDERED: DEXTROSE 5%-WATER - 50 ML IVPB ONE (16:46)
[2021-12-03] MEDS: CEFTRIAXONE 1 GM in DEXTROSE 5%-WATER - 50 ML IVPB SCH (17:00)
[2021-12-03] MEDS: MONTELUKAST NA 10 MG TABLET PO SCH (21:24)
[2021-12-03] MEDS: ATORVASTATIN CA 20 MG TABLET (FP) PO SCH (21:24)
[2021-12-04] MEDS: ALPRAZolam 0.25 MG TABLET PO SCH ×4 (01:52→21:34)
[2021-12-04] MEDS ORDERED: DOXYCYCLINE HYCLATE 100 MG VIAL ONE ×2 (05:46→13:09)
[2021-12-04] MEDS ORDERED: DEXTROSE 5%-WATER 100 ML IVPB ONE ×2 (05:47→13:09)
[2021-12-04] MEDS: DOXYCYCLINE INJECTION 100 MG in DEXTROSE 5%-WATER 100 ML IVPB SCH ×2 (05:56→17:55)
[2021-12-04 07:53] LABS: BASO % 0.2 % (0-2.0); EOS % 0.1 % (0-4.5); HEMATOCRIT 28.7 % (32.4-45.2); HEMOGLOBIN 9.2 GM/dL (10.7-15.3); LYMPH % 10.8 % (8-40); MCH 28.2 pg (25.7-33.7); MEAN CELL VOLUME 88.2 fl (80-96); MEAN PLT VOLUME 7.4 fl (7.5-11.1); MONO % 4.8 % (3.8-10.2); NEUT % 84.1 % (42.8-82.8); PLATELET COUNT 316 10^3/uL (134-434); RBC 3.26 M/mm3 (3.60-5.2); RDW 14.3 % (11.6-15.6); WHITE BLOOD COUNT 7.8 K/mm3 (4.0-10.0)
[2021-12-04 08:14] LABS: CALCIUM 8.9 mg/dL (8.5-10.1)
[2021-12-04 08:15] LABS: ALBUMIN 2.1 g/dl (3.4-5.0); BLOOD UREA NITROGEN 31.4 mg/dL (7-18); MAGNESIUM 2.2 mg/dL (1.8-2.4)
[2021-12-04 08:19] LABS: BILIRUBIN,TOTAL 0.3 mg/dL (0.2-1); TOT PROT 5.6 g/dl (6.4-8.2)
[2021-12-04] MEDS ORDERED: SODIUM ZIRCONIUM CYCLOSILICATE (LOKELMA) 5 GM PACKET PO ONE (08:45)
[2021-12-04] MEDS: PANTOPRAZOLE 40 MG TABLET PO SCH (09:00)
[2021-12-04] MEDS: DULoxetine HCL 30 MG CAPSULE.DR PO SCH (09:00)
[2021-12-04] MEDS: ROFLUMILAST 500 MCG TABLET PO SCH (09:00)
[2021-12-04] MEDS: FLUTICASONE/UMECLIDIN/VILANTER(100-62.5-25 TRELEGY ELLIPTA) INAHLER IH SCH (09:00)
[2021-12-04] MEDS: FERROUS SO4 325 MG TABLET (FP) PO SCH (09:00)
[2021-12-04] MEDS: DEXAMETHASONE SOD PHOSPHATE 10 MG/1 ML VIAL IVPUSH SCH (09:00)
[2021-12-04] MEDS: APIXABAN 2.5 MG TABLET PO SCH ×2 (09:00→21:33)
[2021-12-04] MEDS: CHOLECALCIFEROL (VIT D3) 5000 UNITS (125 MCG) CAP PO SCH (09:00)
[2021-12-04] MEDS: GABAPENTIN 300 MG CAPSULE PO SCH ×2 (09:00→21:33)
[2021-12-04] MEDS: metoPROLOL SUCCINATE 25 MG TAB.SR.24H (FP) PO SCH (09:00)
[2021-12-04] MEDS: REMDESIVIR 100 MG in SODIUM CHLORIDE 250 ML IVPB SCH (14:50)
[2021-12-04] MEDS ORDERED: cefTRIAXone SODIUM 1 GM VIAL ONE (17:28)
[2021-12-04] MEDS ORDERED: DEXTROSE 5%-WATER - 50 ML IVPB ONE (17:28)
[2021-12-04] MEDS: CEFTRIAXONE 1 GM in DEXTROSE 5%-WATER - 50 ML IVPB SCH (17:54)
[2021-12-04] MEDS: ATORVASTATIN CA 20 MG TABLET (FP) PO SCH (21:33)
[2021-12-04] MEDS: MONTELUKAST NA 10 MG TABLET PO SCH (21:33)
[2021-12-05] MEDS: ALPRAZolam 0.25 MG TABLET PO SCH ×4 (01:29→22:09)
[2021-12-05] MEDS ORDERED: DEXTROSE 5%-WATER 100 ML IVPB ONE ×2 (05:17→17:18)
[2021-12-05] MEDS ORDERED: DOXYCYCLINE HYCLATE 100 MG VIAL ONE ×2 (05:17→17:17)
[2021-12-05] MEDS: DOXYCYCLINE INJECTION 100 MG in DEXTROSE 5%-WATER 100 ML IVPB SCH ×2 (05:19→17:11)
[2021-12-05 08:02] LABS: BASO % 0.1 % (0-2.0); EOS % 0.2 % (0-4.5); HEMATOCRIT 30.4 % (32.4-45.2); HEMOGLOBIN 9.7 GM/dL (10.7-15.3); LYMPH % 12.9 % (8-40); MCH 28.5 pg (25.7-33.7); MEAN CELL VOLUME 89.1 fl (80-96); MONO % 5.8 % (3.8-10.2); PLATELET COUNT 360 10^3/uL (134-434); RBC 3.41 M/mm3 (3.60-5.2); RDW 14.4 % (11.6-15.6); WHITE BLOOD COUNT 8.8 K/mm3 (4.0-10.0)
[2021-12-05 08:20] LABS: ALBUMIN 2.1 g/dl (3.4-5.0); BLOOD UREA NITROGEN 32.6 mg/dL (7-18)
[2021-12-05 08:25] LABS: BILIRUBIN,TOTAL 0.2 mg/dL (0.2-1); TOT PROT 5.5 g/dl (6.4-8.2)
[2021-12-05] MEDS: DULoxetine HCL 30 MG CAPSULE.DR PO SCH (09:14)
[2021-12-05] MEDS: GABAPENTIN 300 MG CAPSULE PO SCH ×2 (09:15→22:09)
[2021-12-05] MEDS: DEXAMETHASONE SOD PHOSPHATE 10 MG/1 ML VIAL IVPUSH SCH (09:15)
[2021-12-05] MEDS: APIXABAN 2.5 MG TABLET PO SCH ×2 (09:15→22:09)
[2021-12-05] MEDS: PANTOPRAZOLE 40 MG TABLET PO SCH (09:15)
[2021-12-05] MEDS: FERROUS SO4 325 MG TABLET (FP) PO SCH (09:15)
[2021-12-05] MEDS: ROFLUMILAST 500 MCG TABLET PO SCH (09:15)
[2021-12-05] MEDS: metoPROLOL SUCCINATE 25 MG TAB.SR.24H (FP) PO SCH (09:16)
[2021-12-05] MEDS: CHOLECALCIFEROL (VIT D3) 5000 UNITS (125 MCG) CAP PO SCH (09:16)
[2021-12-05] MEDS: FLUTICASONE/UMECLIDIN/VILANTER(100-62.5-25 TRELEGY ELLIPTA) INAHLER IH SCH (09:27)
[2021-12-05] MEDS: REMDESIVIR 100 MG in SODIUM CHLORIDE 250 ML IVPB SCH (14:00)
[2021-12-05] MEDS: CEFTRIAXONE 1 GM in DEXTROSE 5%-WATER - 50 ML IVPB SCH (17:11)
[2021-12-05] MEDS ORDERED: DEXTROSE 5%-WATER - 50 ML IVPB ONE (17:18)
[2021-12-05] MEDS ORDERED: cefTRIAXone SODIUM 1 GM VIAL ONE (17:18)
[2021-12-05] MEDS: ATORVASTATIN CA 20 MG TABLET (FP) PO SCH (22:09)
[2021-12-05] MEDS: MONTELUKAST NA 10 MG TABLET PO SCH (22:09)
[2021-12-06] MEDS: ALPRAZolam 0.25 MG TABLET PO SCH ×4 (01:44→21:16)
[2021-12-06] MEDS ORDERED: DEXTROSE 5%-WATER 100 ML IVPB ONE ×2 (05:20→15:45)
[2021-12-06] MEDS ORDERED: DOXYCYCLINE HYCLATE 100 MG VIAL ONE ×2 (05:20→15:45)
[2021-12-06] MEDS: DOXYCYCLINE INJECTION 100 MG in DEXTROSE 5%-WATER 100 ML IVPB SCH ×2 (05:24→17:23)
[2021-12-06 07:42] LABS: HEMOGLOBIN 9.8 GM/dL (10.7-15.3); MCH 28.7 pg (25.7-33.7); MCHC 32.7 g/dl (32.0-36.0); MEAN CELL VOLUME 87.6 fl (80-96); MEAN PLT VOLUME 7.3 fl (7.5-11.1); PLATELET COUNT 377 10^3/uL (134-434); RBC 3.43 M/mm3 (3.60-5.2); RDW 14.3 % (11.6-15.6); WHITE BLOOD COUNT 9.1 K/mm3 (4.0-10.0)
[2021-12-06 09:01] LABS: ANISOCYTOSIS 1+; MACROCYTOSIS 0
[2021-12-06] MEDS: APIXABAN 2.5 MG TABLET PO SCH ×2 (09:01→21:16)
[2021-12-06] MEDS: PANTOPRAZOLE 40 MG TABLET PO SCH (09:01)
[2021-12-06] MEDS: DULoxetine HCL 30 MG CAPSULE.DR PO SCH (09:01)
[2021-12-06] MEDS: FLUTICASONE/UMECLIDIN/VILANTER(100-62.5-25 TRELEGY ELLIPTA) INAHLER IH SCH (09:01)
[2021-12-06] MEDS: GABAPENTIN 300 MG CAPSULE PO SCH ×2 (09:01→21:15)
[2021-12-06] MEDS: FERROUS SO4 325 MG TABLET (FP) PO SCH (09:01)
[2021-12-06] MEDS: metoPROLOL SUCCINATE 25 MG TAB.SR.24H (FP) PO SCH (09:01)
[2021-12-06] MEDS: ROFLUMILAST 500 MCG TABLET PO SCH (09:01)
[2021-12-06] MEDS: DEXAMETHASONE SOD PHOSPHATE 10 MG/1 ML VIAL IVPUSH SCH (09:01)
[2021-12-06] MEDS: CHOLECALCIFEROL (VIT D3) 5000 UNITS (125 MCG) CAP PO SCH (09:02)
[2021-12-06 12:52] LABS: ALBUMIN 2.2 g/dl (3.4-5.0); BILIRUBIN,TOTAL 0.2 mg/dL (0.2-1); BLOOD UREA NITROGEN 31.7 mg/dL (7-18); CALCIUM 8.7 mg/dL (8.5-10.1); CREATININE 0.9 mg/dL (0.55-1.3); MAGNESIUM 2.2 mg/dL (1.8-2.4); TOT PROT 5.5 g/dl (6.4-8.2)
[2021-12-06] MEDS: REMDESIVIR 100 MG in SODIUM CHLORIDE 250 ML IVPB SCH (14:00)
[2021-12-06] MEDS ORDERED: DEXTROSE 5%-WATER - 50 ML IVPB ONE (15:45)
[2021-12-06] MEDS ORDERED: cefTRIAXone SODIUM 1 GM VIAL ONE (15:45)
[2021-12-06] MEDS: CEFTRIAXONE 1 GM in DEXTROSE 5%-WATER - 50 ML IVPB SCH (17:23)
[2021-12-06] MEDS: ATORVASTATIN CA 20 MG TABLET (FP) PO SCH (21:16)
[2021-12-06] MEDS: MONTELUKAST NA 10 MG TABLET PO SCH (21:16)
[2021-12-07] MEDS: ALPRAZolam 0.25 MG TABLET PO SCH ×4 (02:00→21:57)
[2021-12-07] MEDS ORDERED: DEXTROSE 5%-WATER 100 ML IVPB ONE (05:32)
[2021-12-07] MEDS ORDERED: DOXYCYCLINE HYCLATE 100 MG VIAL ONE (05:32)
[2021-12-07] MEDS: DOXYCYCLINE INJECTION 100 MG in DEXTROSE 5%-WATER 100 ML IVPB SCH (05:35)
[2021-12-07] MEDS: PANTOPRAZOLE 40 MG TABLET PO SCH (10:13)
[2021-12-07] MEDS: ROFLUMILAST 500 MCG TABLET PO SCH (10:15)
[2021-12-07] MEDS: DULoxetine HCL 30 MG CAPSULE.DR PO SCH (10:15)
[2021-12-07] MEDS: DEXAMETHASONE SOD PHOSPHATE 10 MG/1 ML VIAL IVPUSH SCH (10:15)
[2021-12-07] MEDS: APIXABAN 2.5 MG TABLET PO SCH ×2 (10:15→21:57)
[2021-12-07] MEDS: GABAPENTIN 300 MG CAPSULE PO SCH ×2 (10:15→21:57)
[2021-12-07] MEDS: metoPROLOL SUCCINATE 25 MG TAB.SR.24H (FP) PO SCH (10:15)
[2021-12-07] MEDS: FERROUS SO4 325 MG TABLET (FP) PO SCH (10:15)
[2021-12-07] MEDS: CHOLECALCIFEROL (VIT D3) 5000 UNITS (125 MCG) CAP PO SCH (10:15)
[2021-12-07] MEDS: FLUTICASONE/UMECLIDIN/VILANTER(100-62.5-25 TRELEGY ELLIPTA) INAHLER IH SCH (10:16)
[2021-12-07] MEDS: REMDESIVIR 100 MG in SODIUM CHLORIDE 250 ML IVPB SCH (14:55)
[2021-12-07] MEDS: ACETAMINOPHEN 325 MG TABLET (FP) PO PRN (15:18)
[2021-12-07] MEDS: CEFUROXIME AXETIL 500 MG TABLET PO SCH (21:56)
[2021-12-07] MEDS: MONTELUKAST NA 10 MG TABLET PO SCH (21:57)
[2021-12-07] MEDS: ATORVASTATIN CA 20 MG TABLET (FP) PO SCH (21:57)
[2021-12-08] MEDS: ALPRAZolam 0.25 MG TABLET PO SCH ×3 (00:26→13:32)
[2021-12-08 06:29] VITALS: TEMP 98.3
[2021-12-08 07:13] LABS: HEMATOCRIT 32.2 % (32.4-45.2); HEMOGLOBIN 10.3 GM/dL (10.7-15.3); MCH 28.2 pg (25.7-33.7); MCHC 32.1 g/dl (32.0-36.0); MEAN CELL VOLUME 87.6 fl (80-96); MEAN PLT VOLUME 7.8 fl (7.5-11.1); PLATELET COUNT 377 10^3/uL (134-434); RBC 3.67 M/mm3 (3.60-5.2); RDW 14.5 % (11.6-15.6); WHITE BLOOD COUNT 9.7 K/mm3 (4.0-10.0)
[2021-12-08 08:27] LABS: CALCIUM 9.2 mg/dL (8.5-10.1)
[2021-12-08 08:28] LABS: ALBUMIN 2.3 g/dl (3.4-5.0); BLOOD UREA NITROGEN 34.8 mg/dL (7-18); MAGNESIUM 2.3 mg/dL (1.8-2.4)
[2021-12-08 08:31] LABS: CREATININE 0.9 mg/dL (0.55-1.3)
[2021-12-08 08:33] LABS: BILIRUBIN,TOTAL 0.2 mg/dL (0.2-1); TOT PROT 5.5 g/dl (6.4-8.2)
[2021-12-08 09:20] LABS: ANISOCYTOSIS 1+; MACROCYTOSIS 0
[2021-12-08] MEDS: PANTOPRAZOLE 40 MG TABLET PO SCH (10:10)
[2021-12-08] MEDS: GABAPENTIN 300 MG CAPSULE PO SCH (10:11)
[2021-12-08] MEDS: metoPROLOL SUCCINATE 25 MG TAB.SR.24H (FP) PO SCH (10:11)
[2021-12-08] MEDS: APIXABAN 2.5 MG TABLET PO SCH (10:11)
[2021-12-08] MEDS: CHOLECALCIFEROL (VIT D3) 5000 UNITS (125 MCG) CAP PO SCH (10:12)
[2021-12-08] MEDS: DULoxetine HCL 30 MG CAPSULE.DR PO SCH (10:12)
[2021-12-08] MEDS: ROFLUMILAST 500 MCG TABLET PO SCH (10:12)
[2021-12-08] MEDS: CEFUROXIME AXETIL 500 MG TABLET PO SCH (10:12)
[2021-12-08] MEDS: FERROUS SO4 325 MG TABLET (FP) PO SCH (10:13)
[2021-12-08] MEDS: DEXAMETHASONE SOD PHOSPHATE 10 MG/1 ML VIAL IVPUSH SCH (10:13)
[2021-12-08] MEDS: FLUTICASONE/UMECLIDIN/VILANTER(100-62.5-25 TRELEGY ELLIPTA) INAHLER IH SCH (10:25)
[2021-12-08 11:30] VITALS: BP 149/67; PULSE 82
== END 2021-12-08 17:25 | disposition home health service (06) | DRG 177 ==
LOC: FER 15:59 → J2W 12-03 00:20
PROVIDERS: ADMIT Hospitalist; ATTEND Nurse Practitioner Family
PROC: XW033E5 Introduction of Remdesivir Anti-infective into Peripheral Vein, Percutaneous Approach, New Technology Group 5 (ICD-10-PCS; principal; 2021-12-03)
PROC: 3E0333Z Introduction of Anti-inflammatory into Peripheral Vein, Percutaneous Approach (ICD-10-PCS; 2021-12-03)
DX: U07.1 COVID-19 (principal); J12.82 Pneumonia due to coronavirus disease 2019; J18.9 Pneumonia, unspecified organism; I24.8 Other forms of acute ischemic heart disease; J96.11 Chronic respiratory failure with hypoxia; E87.2 Acidosis; I50.32 Chronic diastolic (congestive) heart failure; E78.5 Hyperlipidemia, unspecified; J44.9 Chronic obstructive pulmonary disease, unspecified; I11.0 Hypertensive heart disease with heart failure; D50.9 Iron deficiency anemia, unspecified; K43.9 Ventral hernia without obstruction or gangrene; K21.9 Gastro-esophageal reflux disease without esophagitis; F41.9 Anxiety disorder, unspecified; R50.9 Fever, unspecified; R77.8 Other specified abnormalities of plasma proteins; E87.5 Hyperkalemia; I35.0 Nonrheumatic aortic (valve) stenosis; Z96.641 Presence of right artificial hip joint; Z96.653 Presence of artificial knee joint, bilateral; Z99.81 Dependence on supplemental oxygen; Z86.73 Personal history of transient ischemic attack (TIA), and cerebral infarction without residual deficits
CPT/HCPCS: 0241U-QW; 36415; 71045-TC-FY; 80048; 80053; 82728; 82803; 83605; 83615; 83735; 83880; 84484; 85025; 85027; 85379; 85610; 85730; 86140; 87040; 87070; 87205; 87899; 93005; 97116-GP; 97162-GP; 99285-25; C9399; J1100

== ENCOUNTER 2022-02-14 19:40 | Inpatient (IN) | payer OTHER, BC ==
[2022-02-14 20:00] VITALS: BMI 26.4
[2022-02-14 20:42] LABS: HEMATOCRIT 25.1 % (32.4-45.2); HEMOGLOBIN 8.1 G/dL (10.7-15.3); MCH 31.3 pg (25.7-33.7); MCHC 32.1 g/dl (32.0-36.0); MEAN CELL VOLUME 97.5 fl (80-96); MEAN PLT VOLUME 8.4 fl (7.5-11.1); PLATELET COUNT 415.4 10^3/uL (134-434); RBC 2.57 10^6/uL (3.60-5.2); RDW 14.4 % (11.6-15.6); WHITE BLOOD COUNT 17.2 10^3/uL (4.0-10.8)
[2022-02-14 20:50] LABS: PLATELET ESTIMATE ADEQUATE
[2022-02-14 20:53] LABS: ALBUMIN 3.3 g/dl (3.4-5.0); BILIRUBIN,TOTAL 0.6 mg/dl (0.2-1); CREATININE 1.3 mg/dl (0.55-1.3); TOT PROT 5.8 g/dl (6.4-8.2)
[2022-02-14] MEDS ORDERED: cefTRIAXone SODIUM 1 GM VIAL ONE (21:17)
[2022-02-14] MEDS ORDERED: CEFTRIAXONE 1,000 MG in DEXTROSE 5%-WATER - 50 ML IVPB ONE (21:21)
[2022-02-14 21:31] LABS: VENOUS BASE EXCESS -9.5 mmol/L (-2-2); VENOUS O2 SATURATION 98.4 % (70-80)
[2022-02-14 21:38] LABS: VENOUS PCO2 87.8 mmHg (38-52); VENOUS PH 7.011 (7.310-7.410)
[2022-02-14 21:44] LABS: EPITHELIAL CELLS FEW /hpf
[2022-02-14] MEDS ORDERED: VANCOMYCIN 1 GM in D5W (PRE-DOCKED) 1,000 MG/250 ML IVPB ONE (21:50)
[2022-02-14] MEDS ORDERED: PIPERACILLIN/TAZOB 3.375 GM 3.375 GM in DEXTROSE 5%-WATER - 50 ML IVPB ONE (21:51)
[2022-02-14] MEDS ORDERED: PIPERACILLIN/TAZOBACTAM 3.375 GM VIAL IVPB ONE (21:57)
[2022-02-14] MEDS ORDERED: VANCOMYCIN 1,000 MG VIAL (RESTRICTED TO ID ONLY) ONE (21:58)
[2022-02-14 22:04] LABS: LACTIC ACID 4.6 mmol/L (0.4-2.0)
[2022-02-14 23:22] VITALS: TEMP 97.5
[2022-02-15 05:24] VITALS: PULSE 63; RESP 15
[2022-02-15] MEDS ORDERED: SODIUM CHLORIDE 250 ML IV STA (05:49)
[2022-02-15] MEDS ORDERED: PIPERACILLIN/TAZOB 3.375 GM 3.375 GM in DEXTROSE 5%-WATER - 50 ML IVPB SCH ×3 (06:00→18:00)
[2022-02-15] MEDS ORDERED: SODIUM CHLORIDE 1,000 ML IV SCH (06:00)
[2022-02-15 16:02] VITALS: BP 57/21
[2022-02-15] MEDS ORDERED: VANCOMYCIN 1,000 MG in DEXTROSE 5%-WATER - 250 ML IVPB SCH (23:00)
[2022-02-15] MEDS ORDERED: VANCOMYCIN/WATER FOR INJ (PEG) 1,000 MG/200 ML BAG IVPB SCH (23:00)
== END 2022-02-15 18:08 | disposition expired | DRG 193 ==
LOC: FER 19:40 → FM/S 22:34
PROVIDERS: ADMIT Internal Medicine
DX: J18.9 Pneumonia, unspecified organism (principal); I46.9 Cardiac arrest, cause unspecified; J96.21 Acute and chronic respiratory failure with hypoxia; J96.22 Acute and chronic respiratory failure with hypercapnia; I50.32 Chronic diastolic (congestive) heart failure; J44.1 Chronic obstructive pulmonary disease with (acute) exacerbation; E78.00 Pure hypercholesterolemia, unspecified; Z99.81 Dependence on supplemental oxygen; I11.0 Hypertensive heart disease with heart failure; E87.5 Hyperkalemia; Z86.16 Personal history of COVID-19; I25.2 Old myocardial infarction; E11.9 Type 2 diabetes mellitus without complications; D64.9 Anemia, unspecified; K21.9 Gastro-esophageal reflux disease without esophagitis; F32.A Depression, unspecified; F41.9 Anxiety disorder, unspecified
CPT/HCPCS: 0241U-QW; 36415; 70450-TC; 71045-TC-FY; 80053; 81003; 81015; 82550; 82803; 83605; 83690; 84484; 85025; 87040; 87086; 93005; 99291